=== PATIENT | female | born 1995 | race Hispanic/Latino ===

== ENCOUNTER 2017-11-07 08:35 | Emergency (ER) | payer OTHER, SELFPAY ==
[2017-11-07] MEDS ORDERED: NA CHLORIDE 0.9% 1,000 ML ONE ×2 (09:28→11:59)
[2017-11-07 09:42] LABS: Absolute Lymphocytes (CBC) 3.4 K/uL (0.7-4.9); Absolute Monocytes 0.6 K/uL (0.1-1.3); Absolute Neutrophil 8.7 K/uL (1.8-8.0); Basophils % 0.5 % (0-1.3); Eosinophils % 3.2 % (0-4.4); Hematocrit 39.9 % (36.0-45.0); Lymphocytes % 25.7 % (15.3-44.8); MCH 31.2 pg (27.0-35.0); MCV 91.2 fL (80-100); MPV 10.3 fL (7.6-11.3); Monocytes % 4.9 % (3.3-12.3); RBC Red Blood Cell Count 4.37 M/uL (3.86-4.86)
[2017-11-07] MEDS ORDERED: MORPHINE 4 MG/ML SYR ONE (09:59)
[2017-11-07] MEDS ORDERED: ONDANSETRON 4 MG/2 ML VIAL ONE (09:59)
[2017-11-07 10:04] LABS: Bicarbonate 22 mEq/L (21-31); Glucose Level 122 mg/dL (65-120); Potassium 3.5 mEq/L (3.6-5.0); Sodium Level 138 mEq/L (135-145)
[2017-11-07 10:05] LABS: BUN Blood Urea Nitrogen 14 mg/dL (6-20)
[2017-11-07 10:17] LABS: HCG, Quantitative < 5.0 mIU/mL (<5)
[2017-11-07] MEDS ORDERED: KETOROLAC 30 MG/ML INJ ONE ×2 (10:28→11:59)
--- NOTE | 2017-11-07 10:55 | RAD REPORT ---
EXAM DESCRIPTION: US - Transvaginal Study Probe - 11/07/2017 10:08 am CLINICAL HISTORY: Pelvic pain. COMPARISON: None. FINDINGS: The uterus is normal in size, shape and echotexture. The uterus measures 8.2 x 4.1 x 3.7 c m The endometrium contains an IUD in the fundal endometrium. The left ovary measures 2.9 x 2.7 x 2.4 cm. There is a moderate-sized complex collection in the right adnexal region. This may represent hemorrha gic material. IMPRESSION: IUD is present in the fundal endometrium. Complex collection is present in the right adnexal region which may be related to hemorrhagic materia l. Given that the patient's HCG levels are very low, CT of the abdomen / pelvis would be recommended for further assessment.
[2017-11-07] MEDS ORDERED: NS KCL 20MEQ 1,000 ML IV ONE (12:10)
--- NOTE | 2017-11-07 12:43 | ER ---
Nurse's Notes [facility] Name: Renetta Ellison Age: 22 yrs Sex: Female : 1995 Arrival Date: 11/07/2017 Time: 08:37 Bed 8 Private MD: Diagnosis: Abdominal tenderness;Hemoperitoneum-mild to moderate secondary to ruptured ovarian cyst;Other ovarian cysts Presentation: 11/07 09:06 Presenting complaint: Patient states: has had low abd pain after having intercourse iw this morning around 0500, pain described as cramping, denies vaginal bleeding, also had diarrhea and nausea, no urinary symptoms, uses Mirena control. Transition of care: patient was not received from another setting of care. Onset of symptoms was November 07, 2017. Initial Sepsis Screen: Does the patient meet any 2 criteria? No. Patient's initial sepsis screen is negative. Does the patient have a suspected source of infection? No. Patient's initial sepsis screen is negative. Care prior to arrival: None. 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 - Social history:: Smoking status: Patient/guardian denies using tobacco. - Family history:: not pertinent. Screenin:16 Abuse screen: Denies threats or abuse. Nutritional screening: No deficits noted. tw2 Tuberculosis screening: No symptoms or risk factors identified. Fall Risk None identified. Assessment: 09:20 General: Appears uncomfortable, Behavior is calm, cooperative, appropriate for age. tw2 Pain: Complains of pain in pelvis. Neuro: Level of Consciousness is awake, alert, obeys commands, Oriented to person, place, time, situation. Cardiovascular: Denies chest pain, shortness of breath, Heart tones S1 S2 Capillary refill < 3 seconds Patient's skin is warm and dry. Respiratory: Airway is patent Respiratory effort is even, unlabored, Respiratory pattern is regular, symmetrical, Breath sounds are clear bilaterally. GI: Abdomen is flat, Bowel sounds present X 4 quads. Abd is soft X 4 quads. : Reports pain. EENT: No signs and/or symptoms were reported regarding the EENT system. Derm: Skin is intact, is healthy with good turgor, Skin temperature is warm. Musculoskeletal: Range of motion: intact in all extremities. 10:14 Reassessment: No changes from previously documented assessment. Patient and/or family tw2 updated on plan of care and expected duration. Pain level reassessed. Patient is alert, oriented x 3, equal unlabored respirations, skin warm/dry/pink. 11:15 Reassessment: Patient and/or family updated on plan of care and expected duration. Pain tw2 level reassessed. Patient is alert, oriented x 3, equal unlabored respirations, skin warm/dry/pink. 12:03 Reassessment: Patient and/or family updated on plan of care and expected duration. Pain tw2 level reassessed. Patient is alert, oriented x 3, equal unlabored respirations, skin warm/dry/pink. Patient states feeling better. 13:00 Reassessment: No changes from previously documented assessment. Patient and/or family tw2 updated on plan of care and expected duration. Pain level reassessed. Patient is alert, oriented x 3, equal unlabored respirations, skin warm/dry/pink. Patient states feeling better. 13:42 Reassessment: Patient appears in no apparent distress at this time. No changes from tw2 previously documented assessment. Patient states feeling better. Patient states symptoms have improved. Vital Signs: 09:09 BP 140 / 83; Pulse 87; Resp 18 S; Temp 97.5; Pulse Ox 99% on R/A; Weight 68.04 kg; iw Height 5 ft. (152.40 cm); Pain 10/10; 10:14 BP 115 / 80; Pulse 78; Resp 18; Pulse Ox 98% on R/A; tw2 11:51 BP 119 / 64; Pulse 86; Resp 18; Pulse Ox 100% ; sv 12:02 Pain 6/10; tw2 12:51 BP 119 / 64; Pulse 72; Resp 17; Pulse Ox 100% on R/A; tw2 13:42 BP 118 / 54; Pulse 72; Resp 17; Pulse Ox 98% on R/A; tw2 09:09 Body Mass Index 29.29 (68.04 kg, 152.40 cm) iw ED Course: 08:37 Patient arrived in ED. rg4 09:08 Triage completed. iw 09:09 Theresa Hobbs, RN is Primary Nurse. tw2 09:09 Arm band placed on. iw 09:15 Carter Montero MD is Attending Physician. benitez 09:18 Inserted saline lock: 20 gauge in right antecubital area, using aseptic technique. tw2 ,using aseptic technique. per Christal Castillo Blood collected. 09:20 Bed in low position. Call light in reach. Pulse ox on. NIBP on. tw2 10:08 US Transvaginal Study (Probe) In Process Unspecified. EDMS 12:03 No provider procedures requiring assistance completed. tw2 12:35 CT Abd/Pelvis - W/Contrast In Process Unspecified. EDMS 12:42 Geo Tsang MD is Referral Physician. [facility] 12:43 Referral Physician role handed off by Geo Tsang MD [facility] 12:43 Geo Tsang MD is Referral Physician. [facility] 13:07 Awaiting lab results, Awaiting: PRIOR TO DISCHARGE. tw2 13:08 CBC with Diff Sent. tw2 13:42 IV discontinued, intact, bleeding controlled, No redness/swelling at site. Pressure tw2 dressing applied. Administered Medications: 10:00 Drug: Zofran 4 mg Route: IVP; Site: right antecubital; tw2 10:30 Follow up: Response: No adverse reaction tw2 10:03 Drug: morphine 4 mg Route: IVP; Site: right antecubital; tw2 10:30 Follow up: Response: No adverse reaction; Pain is unchanged, physician notified tw2 10:05 Drug: NS 0.9% 1000 ml Route: IV; Rate: 1 bolus; Site: right antecubital; tw2 12:02 Follow up: Response: No adverse reaction; IV Status: Completed infusion; IV Intake: tw2 1000ml 10:30 Drug: TORadol 30 mg Route: IVP; Site: right antecubital; tw2 12:02 Follow up: Pain 6/10 Adult; Response: No adverse reaction; Pain is decreased tw2 11:59 Drug: TORadol 30 mg Route: IVP; Site: right antecubital; tw2 13:08 Follow up: Response: No adverse reaction; Pain is decreased tw2 12:02 Drug: NS 0.9% 1000 ml Route: IV; Rate: 1000 ml; Site: right antecubital; tw2 13:43 Follow up: Response: No adverse reaction; IV Status: Order to discontinue infusion; IV tw2 Intake: 300ml 12:13 Drug: NS 0.9% with KCl 20 mEq/L 1000 ml Route: IV; Rate: 125 ml/hr; Site: right tw2 antecubital; 13:43 Follow up: Response: No adverse reaction; IV Status: Order to discontinue infusion tw2 Intake: 12:02 IV: 1000ml; Total: 1000ml. tw2 13:43 IV: 300ml; Total: 1300ml. tw2 Outcome: 12:43 Discharge ordered by MD. marquis 13:42 Discharged to home ambulatory, with significant other. tw2 13:42 Condition: stable 13:42 Discharge instructions given to patient, significant other, Instructed on discharge instructions, follow up and referral plans. no drinking with medication, no driving heavy equipment, medication usage, Demonstrated understanding of instructions, follow-up care, medications, Prescriptions given X 3. 13:43 Patient left the ED. tw2 Signatures: Dispatcher [employer] Iona Smiley, RN Carter Galdamez MD MD cha Williams, Irene RN Theresa Rene RN RN tw2 Garcia, Rubi 4
--- NOTE | 2017-11-07 12:43 | EDPHYS ---
Physician Documentation [facility] Name: Renetta Ellison Age: 22 yrs Sex: Female : 1995 Arrival Date: 11/07/2017 Time: 08:37 Bed 8 Private MD: ED Physician Carter Montero HPI: 11/07 10:17 This 22 yrs old Female presents to ER via Wheelchair with complaints of benitez Abdominal Pain. 10:17 Onset: The symptoms/episode began/occurred just prior to arrival. Modifying factors: benitez The symptoms are alleviated by remaining still, the symptoms are aggravated by sexual intercourse. Associated signs and symptoms: The patient has no apparent associated signs or symptoms. Severity of symptoms: At their worst the symptoms were severe, in the emergency department the symptoms are unchanged. The patient is sexually active, reportedly has a single partner. The patient has not experienced similar symptoms in the past. 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 - Social history:: Smoking status: Patient/guardian denies using tobacco. - Family history:: not pertinent. ROS: 10:17 Constitutional: Negative for fever, chills, and weight loss, Eyes: Negative for injury, benitez pain, redness, and discharge, ENT: Negative for injury, pain, and discharge, Neck: Negative for injury, pain, and swelling, Cardiovascular: Negative for chest pain, palpitations, and edema, Respiratory: Negative for shortness of breath, cough, wheezing, and pleuritic chest pain, Back: Negative for injury and pain, : Negative for injury, bleeding, discharge, and swelling, MS/Extremity: Negative for injury and deformity, Skin: Negative for injury, rash, and discoloration, Neuro: Negative for headache, weakness, numbness, tingling, and seizure, Psych: Negative for depression, anxiety, suicide ideation, homicidal ideation, and hallucinations, Allergy/Immunology: Negative for hives, rash, and allergies, Endocrine: Negative for neck swelling, polydipsia, polyuria, polyphagia, and marked weight changes, Hematologic/Lymphatic: Negative for swollen nodes, abnormal bleeding, and unusual bruising. 10:17 Abdomen/GI: Positive for abdominal pain, abdominal cramps, of the suprapubic area, right lower quadrant and left lower quadrant. Exam: 10:17 Constitutional: This is a well developed, well nourished patient who is awake, alert, benitez and in no acute distress. Head/Face: Normocephalic, atraumatic. Eyes: Pupils equal round and reactive to light, extra-ocular motions intact. Lids and lashes normal. Conjunctiva and sclera are non-icteric and not injected. Cornea within normal limits. Periorbital areas with no swelling, redness, or edema. ENT: Nares patent. No nasal discharge, no septal abnormalities noted. Tympanic membranes are normal and external auditory canals are clear. Oropharynx with no redness, swelling, or masses, exudates, or evidence of obstruction, uvula midline. Mucous membranes moist. Neck: Trachea midline, no thyromegaly or masses palpated, and no cervical lymphadenopathy. Supple, full range of motion without nuchal rigidity, or vertebral point tenderness. No Meningismus. Chest/axilla: Normal chest wall appearance and motion. Nontender with no deformity. No lesions are appreciated. Cardiovascular: Regular rate and rhythm with a normal S1 and S2. No gallops, murmurs, or rubs. Normal PMI, no JVD. No pulse deficits. Respiratory: Lungs have equal breath sounds bilaterally, clear to auscultation and percussion. No rales, rhonchi or wheezes noted. No increased work of breathing, no retractions or nasal flaring. Back: No spinal tenderness. No costovertebral tenderness. Full range of motion. Female : Normal external genitalia. Skin: Warm, dry with normal turgor. Normal color with no rashes, no lesions, and no evidence of cellulitis. MS/ Extremity: Pulses equal, no cyanosis. Neurovascular intact. Full, normal range of motion. Neuro: Awake and alert, GCS 15, oriented to person, place, time, and situation. Cranial nerves II-XII grossly intact. Motor strength 5/5 in all extremities. Sensory grossly intact. Cerebellar exam normal. Normal gait. Psych: Awake, alert, with orientation to person, place and time. Behavior, mood, and affect are within normal limits. 10:17 Abdomen/GI: Inspection: abdomen appears normal, Bowel sounds: diminished, Palpation: moderate abdominal tenderness, in the right lower quadrant and left lower quadrant, Liver: no appreciated palpable abnormalities, Hernia: noted in the . Vital Signs: 09:09 BP 140 / 83; Pulse 87; Resp 18 S; Temp 97.5; Pulse Ox 99% on R/A; Weight 68.04 kg; iw Height 5 ft. (152.40 cm); Pain 10/10; 10:14 BP 115 / 80; Pulse 78; Resp 18; Pulse Ox 98% on R/A; tw2 11:51 BP 119 / 64; Pulse 86; Resp 18; Pulse Ox 100% ; sv 12:02 Pain 6/10; tw2 12:51 BP 119 / 64; Pulse 72; Resp 17; Pulse Ox 100% on R/A; tw2 13:42 BP 118 / 54; Pulse 72; Resp 17; Pulse Ox 98% on R/A; tw2 09:09 Body Mass Index 29.29 (68.04 kg, 152.40 cm) iw MDM: 09:14 Patient medically screened. [facility] 09:15 Patient medically screened. [facility] 10:20 Data reviewed: vital signs, nurses notes, lab test result(s), radiologic studies, benitez ultrasound. 11/07 09:18 Order name: Quantitative Hcg; Complete Time: 10:20 [facility] 11/07 09:18 Order name: Abo/rh Typing; Complete Time: 10:20 [facility] 11/07 09:18 Order name: Basic Metabolic Panel; Complete Time: 10:20 [facility] 11/07 09:18 Order name: CBC with Diff; Complete Time: 10:20 [facility] 11/07 12:36 Order name: CBC with Diff [facility] 11/07 13:10 Order name: Urine Dipstick--Ancillary (enter results) [facility] 11/07 09:18 Order name: US Transvaginal Study (Probe); Complete Time: 12:03 [facility] 11/07 10:58 Order name: CT Abd/Pelvis - W/Contrast [facility] 11/07 13:10 Order name: Urine --Ancillary (enter results) [facility] 11/07 13:17 Order name: CBC Smear Scan [facility] 11/07 09:18 Order name: IV Saline Lock; Complete Time: 09:31 [facility] 11/07 09:18 Order name: Labs collected and sent; Complete Time: 09:31 [facility] 11/07 09:18 Order name: NPO; Complete Time: [facility] Administered Medications: 10:00 Drug: Zofran 4 mg Route: IVP; Site: right antecubital; tw2 10:30 Follow up: Response: No adverse reaction tw2 10:03 Drug: morphine 4 mg Route: IVP; Site: right antecubital; tw2 10:30 Follow up: Response: No adverse reaction; Pain is unchanged, physician notified tw2 10:05 Drug: NS 0.9% 1000 ml Route: IV; Rate: 1 bolus; Site: right antecubital; tw2 12:02 Follow up: Response: No adverse reaction; IV Status: Completed infusion; IV Intake: tw2 1000ml 10:30 Drug: TORadol 30 mg Route: IVP; Site: right antecubital; tw2 12:02 Follow up: Pain 6/10 Adult; Response: No adverse reaction; Pain is decreased tw2 11:59 Drug: TORadol 30 mg Route: IVP; Site: right antecubital; tw2 13:08 Follow up: Response: No adverse reaction; Pain is decreased tw2 12:02 Drug: NS 0.9% 1000 ml Route: IV; Rate: 1000 ml; Site: right antecubital; tw2 13:43 Follow up: Response: No adverse reaction; IV Status: Order to discontinue infusion; IV tw2 Intake: 300ml 12:13 Drug: NS 0.9% with KCl 20 mEq/L 1000 ml Route: IV; Rate: 125 ml/hr; Site: right tw2 antecubital; 13:43 Follow up: Response: No adverse reaction; IV Status: Order to discontinue infusion tw2 Disposition: 11/07/17 12:43 Discharged to Home. Impression: Abdominal tenderness, Hemoperitoneum - mild to moderate secondary to ruptured ovarian cyst, Other ovarian cysts. - Condition is Stable. - Discharge Instructions: Abdominal Pain, Adult, Ovarian Cyst, Abdominal Pain, Adult, [id number], Ovarian Cyst, Veni-ia-Dydz. - Prescriptions for Bentyl 20 mg Oral Tablet - take 1 tablet by ORAL route every 6 hours As needed; 20 tablet. Ibuprofen 600 mg Oral Tablet - take 1 tablet by ORAL route every 8 hours As needed take with food; 21 tablet. Zofran 4 mg Oral Tablet - take 1 tablet by ORAL route every 12 hours As needed; 12 tablet. - Medication Reconciliation Form, Thank You Letter, Antibiotic Education, Prescription Opioid Use form. - Follow up: Geo Tsang MD; When: 2 - 3 days; Reason: Recheck today's complaints, Re-evaluation by your physician. Follow up: Geo Tsang MD; When: Tomorrow; Reason: Recheck today's complaints, Continuance of care, Re-evaluation by your physician. - Problem is new. - Symptoms have improved. Signatures: Dispatcher [employer] EDCarter Araya MD MD cha Williams, Irene, RN RN iw Theresa Hobbs RN RN tw2 Corrections: (The following items were deleted from the chart) 12:43 12:43 11/07/2017 12:43 Discharged to Home. Impression: Abdominal tenderness; benitez Hemoperitoneum - mild to moderate secondary to ruptured ovarian cyst; Other ovarian cysts. Condition is Stable. Forms are Medication Reconciliation Form, Thank You Letter, Antibiotic Education, Prescription Opioid Use. Follow up: Geo Tsang; When: 2 - 3 days; Reason: Recheck today's complaints, Re-evaluation by your physician. Problem is new. Symptoms have improved. benitez 13:43 12:43 11/07/2017 12:43 Discharged to Home. Impression: Abdominal tenderness; tw2 Hemoperitoneum - mild to moderate secondary to ruptured ovarian cyst; Other ovarian cysts. Condition is Stable. Forms are Medication Reconciliation Form, Thank You Letter, Antibiotic Education, Prescription Opioid Use. Follow up: Geo Tsang; When: Tomorrow; Reason: Recheck today's complaints, Continuance of care, Re-evaluation by your physician. Problem is new. Symptoms have improved. benitez
--- NOTE | 2017-11-07 12:45 | RAD REPORT ---
EXAM DESCRIPTION: CTAbdomen Pelvis W Contrast - 11/07/2017 12:35 pm CLINICAL HISTORY: Abdominal pain. COMPARISON: Ultrasound 11/07/2017. CT 07/27/2015, 08/26/2013 TECHNIQUE: Biphasic CT imaging of the abdomen and pelvis was performed with 100 ml non-ionic IV cont rast. All CT scans are performed using dose optimization technique as appropriate and may include automated exposure control or mA/KV adjustment according to patient size. FINDINGS: The lung bases are clear. The liver, spleen, pancreas, adrenal glands and kidneys are within normal limits. Mild free fluid is seen in the abdomen. Moderate high density fluid and amorphous high density materi al is seen in the pelvis surrounding the uterus. This likely is related to blood product. The appendi x is normal. No evidence of significant lymphadenopathy. No suspicious bony findings. IUD is in place within the endometrial canal. IMPRESSION: Moderate amount of blood product is seen in the pelvis and small volume of fluid extends superiorly into the abdomen surrounding the liver and spleen. This is suspected to be secondary to h emorrhagic cyst or endometrioma rupture. Findings were discussed with Dr. Montero in the ER 12:40 p.m. 11/07/2017 by telephone.
[2017-11-07 13:12] LABS: Urine Blood NEGATIVE (NEG); Urine Glucose NEGATIVE (NEG); Urine Protein NEGATIVE (NEG)
[2017-11-07 13:15] LABS: Absolute Lymphocytes (CBC) 1.2 K/uL (0.7-4.9); Absolute Monocytes 0.4 K/uL (0.1-1.3); Absolute Neutrophil 10.5 K/uL (1.8-8.0); Basophils % 0.2 % (0-1.3); Eosinophils % 0.2 % (0-4.4); Hematocrit 33.2 % (36.0-45.0); Lymphocytes % 9.6 % (15.3-44.8); MCV 92.2 fL (80-100); Monocytes % 3.5 % (3.3-12.3)
[2017-11-07 13:56] VITALS: TEMP 97.5
[2017-11-07 14:01] VITALS: BP 118/54; O2SAT 98
[2017-11-07 15:09] LABS: Blood Morphology Comment NOT SEEN (NOT SEEN); Platelet Estimate DECR; Urine White Blood Cell Casts OK
== END 2017-11-07 13:43 | disposition home or self-care (01) ==
LOC: ER 08:35
DX: N83.299 Other ovarian cyst, unspecified side (principal); K66.1 Hemoperitoneum
CPT/HCPCS: 36415; 74177; 76830; 80048; 81003; 81025; 84702; 85025; 86900; 86901; 96361; 96374; 96375; 99284; J2405; J7030; Q9967

== ENCOUNTER 2017-11-09 05:06 | Emergency (ER) | payer OTHER, SELFPAY ==
[2017-11-09 06:02] LABS: Absolute Lymphocytes (CBC) 2.1 K/uL (0.7-4.9); Absolute Monocytes 0.7 K/uL (0.1-1.3); Absolute Neutrophil 6.7 K/uL (1.8-8.0); Basophils % 0.4 % (0-1.3); Eosinophils % 2.3 % (0-4.4); Hematocrit 32.2 % (36.0-45.0); Lymphocytes % 21.4 % (15.3-44.8); MCH 30.9 pg (27.0-35.0); MCV 92.8 fL (80-100); MPV 9.9 fL (7.6-11.3); Monocytes % 7.2 % (3.3-12.3); RBC Red Blood Cell Count 3.47 M/uL (3.86-4.86)
[2017-11-09 06:03] LABS: BUN Blood Urea Nitrogen 9 mg/dL (6-20); Bicarbonate 26 mEq/L (21-31); Glucose Level 110 mg/dL (65-120); Potassium 3.5 mEq/L (3.6-5.0); Sodium Level 139 mEq/L (135-145)
--- NOTE | 2017-11-09 06:41 | ER ---
Nurse's Notes [facility] Name: Renetta Ellison Age: 22 yrs Sex: Female : 1995 Arrival Date: 11/09/2017 Time: 05:09 Bed 5 Private MD: Diagnosis: Unspecified ovarian cysts;Ruptured ovarian cyst;Swelling of right ovary Presentation: 11/09 05:40 Presenting complaint: Patient states: PELVIC PAIN. Transition of care: patient was not bp received from another setting of care. Onset of symptoms is unknown. Initial Sepsis Screen: Does the patient meet any 2 criteria? No. Patient's initial sepsis screen is negative. Does the patient have a suspected source of infection? No. Patient's initial sepsis screen is negative. Care prior to arrival: None. 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 - Social history:: Smoking status: Patient uses tobacco products, denies chronic smoking, but will smoke occasionally. - Family history:: not pertinent. - Hospitalizations: : No recent hospitalization is reported. Screenin:52 Abuse screen: Denies threats or abuse. Denies injuries from another. Nutritional bp screening: No deficits noted. Tuberculosis screening: No symptoms or risk factors identified. Fall Risk None identified. Assessment: 05:45 General: Appears in no apparent distress. comfortable, Behavior is calm, cooperative, bp appropriate for age. Pain: Complains of pain in pelvis. Neuro: Level of Consciousness is awake, alert, obeys commands, Oriented to person, place, time, situation, Appropriate for age. Cardiovascular: No deficits noted. Respiratory: Airway is patent Respiratory effort is even, unlabored, Respiratory pattern is regular, symmetrical. GI: No signs and/or symptoms were reported involving the gastrointestinal system. : Reports pain in suprapubic area. EENT: No deficits noted. Derm: No deficits noted. Musculoskeletal: Circulation, motion, and sensation intact. Range of motion: intact in all extremities. 06:14 Reassessment: RETURNED FROM [employer]. 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 bp 06:30 Reassessment: DR RESTREPO AT B/S FOR C/S. bp 06:56 Reassessment: PT D/C HOME AMBULATORY, DX WITH RUPTURED OVARIAN CYST. bp Vital Signs: 06:13 BP 129 / 76; Pulse 81; Resp 16; Temp 98; Pulse Ox 100% ; Weight 68.04 kg; bp ED Course: 05:09 Patient arrived in ED. rn 05:09 Steven Gee MD is Attending Physician. rn 05:41 Inserted saline lock: 20 gauge in left antecubital area, using aseptic technique. Blood bp collected. 05:51 Josh Mccracken, RN is Primary Nurse. bp 05:52 Patient has correct armband on for positive identification. Bed in low position. Call bp light in reach. Side rails up X2. Adult w/ patient. 06:00 Triage completed. bp 06:12 Transvaginal Study Probe In Process Unspecified. EDMS 06:13 Ultrasound completed. Patient tolerated well. cy 06:13 Notified ED Physician prelim given. cy 06:40 Rose Mary Restrepo MD is Referral Physician. rn 06:57 No provider procedures requiring assistance completed. IV discontinued, intact, bp bleeding controlled, No redness/swelling at site. Pressure dressing applied. 06:59 Arm band placed on. bp Administered Medications: No medications were administered Outcome: 06:41 Discharge ordered by . rn 06:58 Discharged to home ambulatory, with family. bp 06:58 Condition: stable 06:58 Discharge instructions given to patient, Instructed on discharge instructions, follow up and referral plans. Demonstrated understanding of instructions, follow-up care. 07:00 Patient left the ED. bp Signatures: Dispatcher [employer] EDMS Steven Gee MD MD rn Peltier, Brian, RN RN bp Janel Sandoval cy
--- NOTE | 2017-11-09 06:41 | EDPHYS ---
Physician Documentation [facility] Name: Renetta Ellison Age: 22 yrs Sex: Female : 1995 Arrival Date: 11/09/2017 Time: 05:09 Bed 5 Private MD: ED Physician Steven Gee HPI: 11/09 05:44 This 22 yrs old Female presents to ER via Unassigned with complaints of RLQ rn pain. 05:44 The patient presents with abdominal pain right lower quadrant. Onset: The rn symptoms/episode began/occurred 2 day(s) ago. The symptoms do not radiate. Associated signs and symptoms: Pertinent negatives: anorexia, blood in stools, chest pain, constipation, diarrhea, dysuria, fever, headache, hematuria, nausea, palpitations, shortness of breath, vaginal discharge, vomiting, vomiting blood. The symptoms are described as intermittent, sharp, stabbing. Modifying factors: The symptoms are alleviated by nothing, the symptoms are aggravated by movement, touching the area. Severity of pain: At its worst the pain was moderate in the emergency department the pain has improved. The patient has not experienced similar symptoms in the past. The patient has been recently seen by a physician:. Reports right pelvic pain for 2 days, intermittent, was worse at onset, seen here, CT and u/s showed hemorrhagic cyst, pain got worse, seen at [facility] yesterday (6 hours ago), ultrasound of pelvis ordered, results show normal bilateral blood flow but enlarged ovary on right side thus they could not exclude torsion. She was called back to their ER, but when arrived, told by ER Dr. 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 Tsang. Directed here with U/S results in hand. Patient reports no lower abd pain/tenderness, pain more upper abd now. Pain not anywhere near what was the day before. . 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 - Social history:: Smoking status: Patient uses tobacco products, denies chronic smoking, but will smoke occasionally. - Family history:: not pertinent. - Hospitalizations: : No recent hospitalization is reported. ROS: 05:44 Constitutional: Negative for fever, chills, and weight loss, Eyes: Negative for injury, rn pain, redness, and discharge, Neck: Negative for injury, pain, and swelling, Cardiovascular: Negative for chest pain, palpitations, and edema, Respiratory: Negative for shortness of breath, cough, wheezing, and pleuritic chest pain, Abdomen/GI: Negative for nausea, vomiting, diarrhea, and constipation, Back: Negative for injury and pain, : Negative for injury, bleeding, discharge, and swelling, MS/Extremity: Negative for injury and deformity, Skin: Negative for injury, rash, and discoloration, Neuro: Negative for headache, weakness, numbness, tingling, and seizure. Exam: 05:44 Constitutional: This is a well developed, well nourished patient who is awake, alert, rn and in no acute distress. Walked to room upright and without difficulty Abdomen/GI: soft, mild right lower and suprapubic abd tenderness, no peritoneal signs Back: No spinal tenderness. No costovertebral tenderness. Full range of motion. MS/ Extremity: Pulses equal, no cyanosis. Neurovascular intact. Full, normal range of motion. Equal circumference. Neuro: Awake and alert, GCS 15, oriented to person, place, time, and situation. Cranial nerves II-XII grossly intact. Motor strength 5/5 in all extremities. Sensory grossly intact. Cerebellar exam normal. Normal gait. Vital Signs: 06:13 BP 129 / 76; Pulse 81; Resp 16; Temp 98; Pulse Ox 100% ; Weight 68.04 kg; bp MDM: 05:09 Patient medically screened. rn 06:00 ED course: Contacted Dr. Tsang, is coming in to eval patient. In meantime, patient has rn walked out of ER to smoke. Now in ultrasound. . 06:13 ED course: U/S shows enlarged right ovary with good bilateral ovarian venous and rn arterial blood flow.. 06:39 Differential diagnosis: Ovarian Torsion, ovarian cyst, ruptured ovarian cyst. Data rn reviewed: vital signs, nurses notes, lab test result(s), radiologic studies, ultrasound, and as a result, I will discharge patient. Counseling: I had a detailed discussion with the patient and/or guardian regarding: the historical points, exam findings, and any diagnostic results supporting the discharge/admit diagnosis, lab results, radiology results, the need for outpatient follow up, to return to the emergency department if symptoms worsen or persist or if there are any questions or concerns that arise at home. Special discussion: Based on the patient's Hx, exam, and Dx evaluation, there is no indication for emergent surgery or inpatient Tx. It is understood by the patient/guardian that if the Sx's persist or worsen they need to return immediately for re-evaluation. I discussed with the patient/guardian in detail that at this point there is no indication for admission to the hospital. It is understood, however, that if the symptoms persist or worsen the patient needs to return immediately for re-evaluation. Based on the history and exam findings, there is no indication for further emergent testing or inpatient evaluation. I discussed with the patient/guardian the need to see the OB Gyne specialist for further evaluation of the symptoms. ED course: Pt evaluated by Dr. Tsang in ER, his plan is to dc home with f/u with Dr. Restrepo, for enlarged ovary and cysts. . 11/09 05:18 Order name: CBC with Diff; Complete Time: 06:33 rn 11/09 05:18 Order name: Basic Metabolic Panel; Complete Time: 06:05 rn 11/09 05:18 Order name: IV Start; Complete Time: 06:04 rn 11/09 05:50 Order name: Transvaginal Study Probe EDNJ Administered Medications: No medications were administered Disposition: 11/09/17 06:41 Discharged to Home. Impression: Unspecified ovarian cysts, Ruptured ovarian cyst, Swelling of right ovary. - Condition is Stable. - Discharge Instructions: Ovarian Cyst. - Medication Reconciliation Form, Thank You Letter, Antibiotic Education, Prescription Opioid Use form. - Follow up: Rose Mary Restrepo MD; When: 2 - 3 days; Reason: Recheck today's complaints, Re-evaluation by your physician. - Problem is an ongoing problem. - Symptoms have improved. Signatures: Dispatcher [employer] [facility] Steven Gee MD MD rn Peltier, Brian, RN RN bp Corrections: (The following items were deleted from the chart) 05:50 05:19 Pelvis Complete+US.RAD.BRZ ordered. [facility] 07:00 06:41 11/09/2017 06:41 Discharged to Home. Impression: Unspecified ovarian cysts; bp Ruptured ovarian cyst; Swelling of right ovary. Condition is Stable. Forms are Medication Reconciliation Form, Thank You Letter, Antibiotic Education, Prescription Opioid Use. Follow up: Rose Mary Restrepo; When: 2 - 3 days; Reason: Recheck today's complaints, Re-evaluation by your physician. Problem is an ongoing problem. Symptoms have improved. rn
[2017-11-09 07:13] VITALS: BP 129/76; TEMP 98; O2SAT 100
--- NOTE | 2017-11-09 10:23 | RAD REPORT ---
EXAM DESCRIPTION: US - Transvaginal Study Probe - 11/09/2017 6:13 am CLINICAL HISTORY: Abdominal pain, pelvic pain, abnormal ultrasound preliminary findings were provide d at the time of the study. Technical issues delayed final report. COMPARISON: Endovaginal ultrasound November 07, CT study November 07 TECHNIQUE: Endovaginal sonography was performed. FINDINGS: IUD is again identified with no change in positioning. No new uterine abnormality identifi able. Doppler evaluation demonstrates blood flow within the ovarian stroma. Ovarian torsion is not benton spected. Approximately 3.5 centimeter oval heterogeneous mass of the right ovary is seen suspected to be a hemorrhagic cyst. The heterogeneous material in the cul-de-sac and adnexa believed be a mixture of blood and fluid. Pat ient likely has a hemorrhagic right ovarian cyst. Quantity of hemorrhagic material is not significant ly different. IMPRESSION: Blood and fluid in the cul-de-sac and bilateral adnexa not substantially different from November 07 imaging. Blood flow is identifiable in the bilateral ovarian stroma. Torsion is not suspected. Heterogeneous right ovarian mass believed to be a hemorrhagic ovarian cyst approximately 3.5 cm in si ze.
--- NOTE | 2017-11-10 11:53 | CON ---
Renetta Ellison is a 22-year-old female, seen in the emergency room approximately 3 days ago, diagnos ed with a hemorrhagic corpus luteum cyst. Pain is persisted over the last few days, although now the patient states she is really not in any pain in lower pelvis, having vague upper abdominal discomfor t and lightheadedness, or slight dizziness and , but no signs of appendicitis. Went to the [facility] and again corpus luteum hemorrhagic cyst the patient's pelvis per sisted. They suggested possibly a torsion, but the patient has really not in any pain, so I doubt th at significantly. The patient has had another ultrasound here, which showed good blood flow to both ovaries and her discomfort as stated is really more epigastric than anything else. She can _ without problems. There is no pain with palpation. She is completely alert and can move around __ to smoke a cigarette. After discussion with the patient and her , we have decided to put her on Nexium twice a day and to have her come to my office on Monday for further followup. If this persists, we will probably send her to person right now, though I do not think that t he corpus luteum cyst is causing her problem nor do I think that she has a torsion whatsoever. The p atient agrees with this management and plan and I will see her in the office on Monday. ZAHEER/JOSHUA Voice ID: [id number] Report ID: [id number]
== END 2017-11-09 07:00 | disposition home or self-care (01) ==
LOC: ER 05:06
DX: N83.201 Unspecified ovarian cyst, right side (principal)
CPT/HCPCS: 36415; 76830; 80048; 85025; 99283

== ENCOUNTER 2017-12-01 03:20 | Emergency (ER) | payer OTHER, SELFPAY ==
[2017-12-01 04:42] LABS: Absolute Lymphocytes (CBC) 2.7 K/uL (0.7-4.9); Absolute Monocytes 0.6 K/uL (0.1-1.3); Absolute Neutrophil 4.4 K/uL (1.8-8.0); Basophils % 0.6 % (0-1.3); Eosinophils % 4.8 % (0-4.4); Lymphocytes % 32.8 % (15.3-44.8); MCH 31.3 pg (27.0-35.0); MCV 92.5 fL (80-100); MPV 10.3 fL (7.6-11.3); Monocytes % 7.5 % (3.3-12.3)
[2017-12-01 04:54] LABS: Bicarbonate 23 mEq/L (21-31); Glucose Level 102 mg/dL (65-120); Lipase 25 U/L (22-51); Potassium 3.5 mEq/L (3.6-5.0); Sodium Level 137 mEq/L (135-145)
[2017-12-01 05:00] LABS: ALT/SGPT 32 IU/L (10-60); AST/SGOT 26 IU/L (10-42); Albumin 3.9 g/dL (3.2-5.5); Alkaline Phosphatase 63 IU/L (42-121); Amylase Level 104 U/L (28-100); BUN Blood Urea Nitrogen 19 mg/dL (6-20); Bilirubin Direct < 0.1 mg/dL (0-0.2); Bilirubin Total 0.4 mg/dL (0.3-1.2)
[2017-12-01 05:43] LABS: Urine Blood TRACE (NEG); Urine Glucose NEGATIVE (NEG); Urine Protein NEGATIVE (NEG); Urine pH 8.5 (5.0-7.0)
[2017-12-01 05:43] LABS: Urine Amorphous Sediment 1+ /HPF (NONE SEEN); Urine Bacteria <20 /HPF (<20); Urine Culture Reflex Order NOT NEEDED; Urine RBC <5 /HPF (NONE SEEN)
--- NOTE | 2017-12-01 09:00 | RAD REPORT ---
EXAM DESCRIPTION: CT - Abdomen Pelvis W Contrast - 12/01/2017 7:38 am CLINICAL HISTORY: Right lower quadrant pain radiating to the mid abdomen, recent diagnosis of ruptur ed or leaking ovarian cyst A preliminary written report was provided at the time of the study, and the report was reviewed prio r to final dictation. COMPARISON: CT study November 07, pelvic ultrasound November 09 TECHNIQUE: Biphasic, helical CT imaging of the abdomen and pelvis was performed following 100 ml non -ionic IV contrast. Oral contrast was given. All CT scans are performed using dose optimization technique as appropriate and may include automated exposure control or mA/KV adjustment according to patient size. FINDINGS: No suspicious findings in the lung bases. The liver, spleen, and pancreas show no suspicious findings. Gallbladder and biliary tree are also wi thout suspicious finding. Symmetric renal function is seen with no hydronephrosis or suspicious renal mass. No pyelonephritis o r acute renal parenchymal process. Urinary bladder is mostly contracted. No acute bladder finding. No uterine abnormality. IUD is in place, well positioned. Left ovary is unremarkable. In the right adnexa there is a 5.1 centimeter complex cyst. The blood and fluid seen in the peritonea l cavity November 07 has essentially fully resolved. There is a trace amount of stranding present in the ri ght adnexa and inferior aspect of the right pericolic gutter. Moderately large stool volume is present. A few small mesenteric lymph nodes are seen. No appendiciti s or other emergent GI finding. Appendix is not well visualized. No free air or pneumatosis. No neptali ia, mass or bulky lymphadenopathy. No adrenal abnormality. No suspicious bony findings. IMPRESSION: Approximately 5.1 centimeter recurrent or persistent complex right ovarian cyst. Trace amount of stranding in the right adnexa and right pericolic gutter is likely remnant from the hemorrh agic cystic process seen November 07. No significant acute or rupture or leakage identifiable. Small mesenteric lymph nodes are present. Moderate stool volume in the colon. A primary acute GI proc ess is not suspected.
--- NOTE | 2017-12-01 09:10 | RAD REPORT ---
EXAM DESCRIPTION: US - Transvaginal Study Probe - 12/01/2017 7:56 am CLINICAL HISTORY: Right-sided abdominal pain, pelvic pain, history of adnexal mass and recent hemorr hagic ovarian cyst COMPARISON: CT study December 01, November 09 pelvic ultrasound, November 07 CT abdomen and pelvis TECHNIQUE: Endovaginal sonography was performed. FINDINGS: Uterus is normal in size. IUD is well positioned in the fundal portion of the endometrial cavity. No focal endometrial or myometrial abnormality. Left ovary and left adnexa show no suspicious findings. In the right adnexa a 5 centimeter complex mass is present. This is approximately 50% fluid and 50% s oft tissue echogenicity. The soft tissue component could be contracted blood clot/hemorrhagic debris. This is likely reaccumulation within a ruptured or hemorrhagic cyst seen November 07. No measurable free fluid or blood in the cul-de-sac or right adnexa. Doppler evaluation shows normal blood flow in the ovarian tissue along the margin of the dominant cys tic mass. Blood flow is normal in the left ovary. IMPRESSION: The approximately 5 centimeter mixed solid and cystic mass in the right adnexa. Solid co mponent is likely blood clot or hemorrhagic debris. The adnexal mass is likely re- accumulation of fluid within a cyst that ruptured and bled back on November 07. Doppler evaluation shows normal blood flow. Torsion is unlikely.
--- NOTE | 2017-12-01 09:19 | EDPHYS ---
Physician Documentation [facility] Name: Renetta Ellison Age: 22 yrs Sex: Female : 1995 Arrival Date: 12/01/2017 Time: 03:21 Bed 16 Private MD: ED Physician Harman Meyer HPI: 12/01 05:33 This 22 yrs old Female presents to ER via Ambulatory with complaints of Pelvic tw4 Pain. 05:33 The patient presents with abdominal pain right lower quadrant. Onset: The tw4 symptoms/episode began/occurred today. The symptoms do not radiate. Associated signs and symptoms: none. The symptoms are described as sharp. Modifying factors: The symptoms are alleviated by nothing, the symptoms are aggravated by nothing. Severity of pain: At its worst the pain was moderate in the emergency department the pain is unchanged. The patient has experienced a previous episode, and the symptoms today are exactly the same. The patient has been recently seen at the [facility] Emergency Department, for similar complaints an ultrasound was performed. 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 - Social history:: Smoking status: Patient/guardian denies using tobacco. - Ebola Screening: : No symptoms or risks identified at this time. ROS: 05:33 Constitutional: Negative for fever, chills, and weight loss, Cardiovascular: Negative tw4 for chest pain, palpitations, and edema, Respiratory: Negative for shortness of breath, cough, wheezing, and pleuritic chest pain, MS/Extremity: Negative for injury and deformity, Skin: Negative for injury, rash, and discoloration, Neuro: Negative for headache, weakness, numbness, tingling, and seizure. 05:33 Abdomen/GI: Positive for abdominal pain, Negative for nausea and vomiting, nausea, vomiting, and diarrhea, nausea, vomiting, diarrhea. Exam: 05:33 Constitutional: This is a well developed, well nourished patient who is awake, alert, tw4 and in no acute distress. Head/Face: Normocephalic, atraumatic. Chest/axilla: Normal chest wall appearance and motion. Nontender with no deformity. No lesions are appreciated. Cardiovascular: Regular rate and rhythm with a normal S1 and S2. No gallops, murmurs, or rubs. Normal PMI, no JVD. No pulse deficits. Respiratory: Lungs have equal breath sounds bilaterally, clear to auscultation and percussion. No rales, rhonchi or wheezes noted. No increased work of breathing, no retractions or nasal flaring. Back: No spinal tenderness. No costovertebral tenderness. Full range of motion. 05:33 Abdomen/GI: Inspection: abdomen appears normal, Bowel sounds: diminished. Vital Signs: 03:46 BP 110 / 63; Pulse 69; Resp 17; Temp 97.9; Pulse Ox 97% on R/A; Weight 68.04 kg; Height mw2 5 ft. 0 in. (152.40 cm); Pain 5/10; 04:48 BP 109 / 62; Pulse 72; Resp 16; Pulse Ox 97% on R/A; mw2 05:00 BP 116 / 76; Pulse 72; Resp 18; Pulse Ox 99% on R/A; ea 06:48 BP 127 / 76; Pulse 80; Resp 18; Pulse Ox 94% on R/A; mw2 07:20 BP 132 / 81; Pulse 75; Resp 16; Pulse Ox 97% on R/A; ae1 09:37 BP 122 / 83; Pulse 66; Resp 16; Pulse Ox 98% on R/A; ae1 03:46 Body Mass Index 29.29 (68.04 kg, 152.40 cm) 2 MDM: 03:38 Patient medically screened. [facility] 05:38 Data reviewed: vital signs, nurses notes. Counseling: I had a detailed discussion with [facility] the patient and/or guardian regarding: the historical points, exam findings, and any diagnostic results supporting the discharge/admit diagnosis. 09:13 Counseling: I had a detailed discussion with the patient and/or guardian regarding: lab gs results, radiology results, the need for outpatient follow up. Response to treatment: the patient's symptoms have markedly improved after treatment, and as a result, I will discharge patient. 12/01 04:05 Order name: Urine Dipstick--Ancillary (enter results); Complete Time: 07:09 [facility] 12/01 07:09 Interpretation: Normal except: UBLD TRACE; UPH 8.5. tw4 12/01 04:05 Order name: Urine --Ancillary (enter results); Complete Time: 07:09 [facility] 12/01 04:18 Order name: Amylase, Serum; Complete Time: 07:09 4 12/01 07:09 Interpretation: Normal except: JOSR 104. 4 12/01 04:18 Order name: Basic Metabolic Panel; Complete Time: 07:09 4 12/01 07:09 Interpretation: Normal except: K 3.5. tw4 12/01 04:18 Order name: CBC with Diff; Complete Time: 07:09 4 12/01 04:18 Order name: Creatinine for Radiology; Complete Time: 07:09 [facility] 12/01 07:09 Interpretation: Within normal limits: CRE 0.72; GFR > 60. tw4 12/01 04:18 Order name: Hepatic Function; Complete Time: 07:09 4 12/01 07:09 Interpretation: Within normal limits. tw4 12/01 04:18 Order name: Lipase; Complete Time: 07:09 [facility] 12/01 04:18 Order name: Urine Microscopic Only; Complete Time: 07:09 4 12/01 04:18 Order name: IV Saline Lock; Complete Time: 04:57 4 12/01 04:18 Order name: Labs collected and sent; Complete Time: 04:57 4 12/01 04:34 Order name: CT Abd/Pelvis - W/Contrast; Complete Time: 09:01 4 12/01 07:14 Order name: Transvaginal Study Probe; Complete Time: 09:13 [facility] 12/01 04:18 Order name: Urine Dipstick-Ancillary (obtain specimen); Complete Time: 04:57 tw4 Administered Medications: No medications were administered Disposition: 12/01/17 09:18 Discharged to Home. Impression: Unspecified ovarian cysts. - Condition is Stable. - Discharge Instructions: Ovarian Cyst. - Medication Reconciliation Form, Thank You Letter, Antibiotic Education, Prescription Opioid Use form. - Follow up: Private Physician; When: 2 - 3 days; Reason: Re-evaluation by your physician. Follow up: Merlene Minor MD; When: 2 - 3 days; Reason: Re-evaluation by your physician. Signatures: Dispatcher [employer] [facility]MS Andrea Dia, RN RN ae1 Ashley Starr, RN RN ea Carlin Álvarez MD MD Harman Meyer MD MD tw4 Corrections: (The following items were deleted from the chart) 07:14 07:09 Pelvis Complete+US.RAD.BRZ ordered. EDTX EDTX 09:18 09:18 12/01/2017 09:18 Discharged to Home. Impression: Unspecified ovarian cysts. gs Condition is Stable. Forms are Medication Reconciliation Form, Thank You Letter, Antibiotic Education, Prescription Opioid Use. Follow up: Private Physician; When: 2 - 3 days; Reason: Re-evaluation by your physician. 09:39 09:18 12/01/2017 09:18 Discharged to Home. Impression: Unspecified ovarian cysts. ae1 Condition is Stable. Forms are Medication Reconciliation Form, Thank You Letter, Antibiotic Education, Prescription Opioid Use. Follow up: Private Physician; When: 2 - 3 days; Reason: Re-evaluation by your physician. Follow up: Mini Rekhi; When: 2 - 3 days; Reason: Re-evaluation by your physician. gs
--- NOTE | 2017-12-01 09:19 | ER ---
Nurse's Notes [facility] Name: Renetta Ellison Age: 22 yrs Sex: Female : 1995 Arrival Date: 12/01/2017 Time: 03:21 Bed 16 Private MD: Diagnosis: Unspecified ovarian cysts Presentation: 12/01 03:41 Presenting complaint: Patient states: c/o of pain to right lower quadrant that radiates ea to mid abdomen that started 3 days ago. Reports she was diagnosed with an ovarian cyst 3 weeks ago and she followed up with Dr. Thomas, pt reports she was cleared and has not had the pain since until 3 days ago. Transition of care: patient was not received from another setting of care. Onset of symptoms was December 01, 2017. Risk Assessment: Do you want to hurt yourself or someone else? Patient reports no desire to harm self or others. Initial Sepsis Screen: Does the patient meet any 2 criteria? No. Patient's initial sepsis screen is negative. Does the patient have a suspected source of infection? No. Patient's initial sepsis screen is negative. Care prior to arrival: None. 03:41 Method Of Arrival: Ambulatory ea 03:41 Acuity: LETITIA 3 ea Triage Assessment: 03:41 General: Appears in no apparent distress. Behavior is calm, cooperative, appropriate ea for age. Pain: Complains of pain in right lower quadrant Pain radiates to posterior aspect of right lateral abdomen, posterior aspect of left lateral abdomen, right upper quadrant, left upper quadrant and left lower quadrant Pain currently is 4 out of 10 on a pain scale. Quality of pain is described as crampy, Pain began suddenly, Is intermittent. EENT: No signs and/or symptoms were reported regarding the EENT system. Neuro: Level of Consciousness is awake, alert, obeys commands, Oriented to person, place, time, situation. Cardiovascular: Patient's skin is warm and dry. Respiratory: Airway is patent Respiratory effort is even, unlabored, Respiratory pattern is regular, symmetrical. GI: Abdomen is non-distended, Bowel sounds present X 4 quads. Abd is soft X 4 quads Abdomen is tender to palpation in right lower quadrant and left lower quadrant. : No signs and/or symptoms were reported regarding the genitourinary system. Derm: Skin is pink, warm \T\ dry. Musculoskeletal: No signs and/or symptoms reported regarding the musculoskeletal system. 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 - Social history:: Smoking status: Patient/guardian denies using tobacco. - Ebola Screening: : No symptoms or risks identified at this time. Screenin:50 Abuse screen: Denies threats or abuse. Nutritional screening: No deficits noted. ea Tuberculosis screening: No symptoms or risk factors identified. Fall Risk None identified. Assessment: 04:50 Reassessment: Patient and/or family updated on plan of care and expected duration. Pain ea level reassessed. Patient is alert, oriented x 3, equal unlabored respirations, skin warm/dry/pink. 05:30 Reassessment: CT notified that physician did not want PO contrast and to go ahead and ea scan. 05:32 Reassessment: Patient and/or family updated on plan of care and expected duration. Pain ea level reassessed. Patient is alert, oriented x 3, equal unlabored respirations, skin warm/dry/pink. 05:46 Reassessment: Pt taken to CT. ea 06:53 Reassessment: Patient and/or family updated on plan of care and expected duration. Pain ea level reassessed. Patient is alert, oriented x 3, equal unlabored respirations, skin warm/dry/pink. Awaiting on CT results. 07:19 Reassessment: Patient appears in no apparent distress at this time. Patient states ae1 feeling better. Pain: Denies pain. 08:44 Reassessment: Patient awaiting ultrasound results. ae1 09:39 Reassessment: Provider at bedside discussing results. ae1 Vital Signs: 03:46 BP 110 / 63; Pulse 69; Resp 17; Temp 97.9; Pulse Ox 97% on R/A; Weight 68.04 kg; Height mw2 5 ft. 0 in. (152.40 cm); Pain 5/10; 04:48 BP 109 / 62; Pulse 72; Resp 16; Pulse Ox 97% on R/A; mw2 05:00 BP 116 / 76; Pulse 72; Resp 18; Pulse Ox 99% on R/A; ea 06:48 BP 127 / 76; Pulse 80; Resp 18; Pulse Ox 94% on R/A; mw2 07:20 BP 132 / 81; Pulse 75; Resp 16; Pulse Ox 97% on R/A; ae1 09:37 BP 122 / 83; Pulse 66; Resp 16; Pulse Ox 98% on R/A; ae1 03:46 Body Mass Index 29.29 (68.04 kg, 152.40 cm) mw2 ED Course: 03:21 Patient arrived in ED. am2 03:27 Ashley Starr, RN is Primary Nurse. ea 03:38 Harman Meyer MD is Attending Physician. tw4 03:41 Arm band placed on right wrist. Patient placed in an exam room, on a stretcher, on ea pulse oximetry. 03:47 Triage completed. ea 03:50 Patient has correct armband on for positive identification. Bed in low position. Call ea light in reach. Side rails up X2. 04:47 Inserted saline lock: 20 gauge in left antecubital area, using aseptic technique. Blood mw2 collected. 05:[address] via wheelchair. kw1 05:53 CT completed. Patient tolerated procedure well. Patient moved back from CT. kw1 05:57 CT Abd/Pelvis - W/Contrast In Process Unspecified. EDMS 07:38 Patient taken to ultrasound. aa4 07:51 Transvaginal Study Probe In Process Unspecified. EDMS 08:05 Ultrasound completed. Patient moved back from ultrasound. aa4 09:18 Merlene Minor MD is Referral Physician. gs 09:38 No provider procedures requiring assistance completed. IV discontinued, intact, ae1 bleeding controlled, No redness/swelling at site. Pressure dressing applied. Administered Medications: No medications were administered Outcome: 09:18 Discharge ordered by . gs 09:38 Discharged to home ambulatory. ae1 09:38 Condition: stable 09:38 Discharge instructions given to patient, Instructed on discharge instructions, follow up and referral plans. Demonstrated understanding of instructions. 09:39 Patient left the ED. ae1 Signatures: Dispatcher [employer] EDMS Karis Small aa4 Andrea Dia RN RN ae1 Karis Perkins am2 Ashley Starr RN RN ea Starr, Gregory, MD MD gs Sandra Mcgovern kw1 Harman Meyer MD MD tw4 TronaChana jin 2
[2017-12-01 09:48] VITALS: TEMP 97.9
[2017-12-01 09:53] VITALS: BP 122/83; O2SAT 98
== END 2017-12-01 09:39 | disposition home or self-care (01) ==
LOC: ER 03:20
DX: N83.209 Unspecified ovarian cyst, unspecified side (principal)
CPT/HCPCS: 36415; 74177; 76830; 80048; 80076; 81003; 81015; 81025; 82150; 83690; 85025; 99284; Q9967

== ENCOUNTER 2017-12-24 14:45 | Emergency (ER) | payer OTHER ==
[2017-12-24 16:44] LABS: Urine Blood NEGATIVE (NEG); Urine Glucose NEGATIVE (NEG); Urine Protein NEGATIVE (NEG); Urine Specific Gravity 1.015 (1.005-1.030)
--- NOTE | 2017-12-24 16:54 | ER ---
Nurse's Notes [facility] Name: Renetta Ellison Age: 22 yrs Sex: Female : 1995 Arrival Date: 12/24/2017 Time: 14:52 Bed 27 Private MD: Unknown, Unknown Diagnosis: Low back pain;Lower abdominal pain, unspecified Presentation: 12/24 15:22 Presenting complaint: Patient states: lower abd pain and lower back pain that began 2-3 aa5 days ago. Pt also reports urinary frequency, denies burning with urination. Transition of care: patient was not received from another setting of care. Onset of symptoms was December 2017. Risk Assessment: Do you want to hurt yourself or someone else? Patient reports no desire to harm self or others. Initial Sepsis Screen: Does the patient meet any 2 criteria? No. Patient's initial sepsis screen is negative. Does the patient have a suspected source of infection? No. Patient's initial sepsis screen is negative. Care prior to arrival: None. 15:22 Method Of Arrival: Ambulatory aa5 15:22 Acuity: LETITIA 3 aa5 Triage Assessment: 16:23 General: Appears in no apparent distress. well groomed, well developed, well nourished, rk2 Behavior is calm, cooperative, appropriate for age. Pain: Complains of pain in low back area and left lower quadrant and right lower quadrant. Neuro: Level of Consciousness is alert, obeys commands, Oriented to person, place, time, situation. Respiratory: Airway is patent Respiratory effort is even, unlabored, Respiratory pattern is regular, symmetrical. GI: Abdomen is Bowel sounds. Derm: Skin is pink, warm \T\ dry. 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 - Social history:: Smoking status: Patient/guardian denies using tobacco. - Ebola Screening: : No symptoms or risks identified at this time. Screenin:23 Abuse screen: Denies threats or abuse. Nutritional screening: No deficits noted. rk2 Tuberculosis screening: No symptoms or risk factors identified. Fall Risk None identified. Assessment: 16:00 GI: Abd is soft. rk2 Vital Signs: 15:23 BP 133 / 70; Pulse 81; Resp 16 S; Temp 97.3(TE); Pulse Ox 98% on R/A; Weight 70.31 kg aa5 (R); Height 5 ft. 0 in. (152.40 cm) (R); Pain 2/10; 15:23 Body Mass Index 30.27 (70.31 kg, 152.40 cm) aa5 ED Course: 14:52 Patient arrived in ED. jb7 14:52 Unknown, Unknown is Private Physician. jb7 15:23 Triage completed. aa5 15:23 Arm band placed on. aa5 15:56 Carter Liu PA is PHCP. cp 15:56 Carter Montero MD is Attending Physician. cp 15:58 Avis Ayala, RN is Primary Nurse. aa1 16:13 Xuan Camp, [place] is Primary Nurse. rk2 16:23 Patient has correct armband on for positive identification. Bed in low position. Call rk2 light in reach. 17:05 No provider procedures requiring assistance completed. Patient did not have IV access rk2 during this emergency room visit. Administered Medications: No medications were administered Outcome: 16:53 Discharge ordered by MD. cp 17:05 Discharged to home ambulatory. rk2 17:05 Condition: good 17:05 Discharge instructions given to patient, Prescriptions given X 1. 17:06 Patient left the ED. rk2 Signatures: Avis Ayala, RN RN aa1 Isabelle Vega RN RN aa5 Carter Liu PA PA Lucio Zayas jb7 Xuan Camp RN RN rk2
--- NOTE | 2017-12-24 16:54 | EDPHYS ---
Physician Documentation [facility] Name: Renetta Ellison Age: 22 yrs Sex: Female : 1995 Arrival Date: 12/24/2017 Time: 14:52 Bed 27 Private MD: Unknown, Unknown ED Physician Carter Montero HPI: 12/24 16:19 This 22 yrs old Female presents to ER via Ambulatory with complaints of cp Abdominal Pain, Back Pain. 16:19 The patient presents with abdominal pain in the lower abdomen. Onset: The cp symptoms/episode began/occurred 3 day(s) ago. Associated signs and symptoms: Pertinent positives: lower back pain, urinary frequency, Pertinent negatives: nausea and vomiting, constipation, diarrhea, dysuria, fever, vaginal discharge. Severity of pain: in the emergency department the pain is unchanged despite home interventions. 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 - Social history:: Smoking status: Patient/guardian denies using tobacco. - Ebola Screening: : No symptoms or risks identified at this time. ROS: 16:21 Eyes: Negative for injury, pain, redness, and discharge. cp 16:21 Constitutional: Negative for body aches, chills, fever, poor PO intake. 16:21 ENT: Negative for drainage from ear(s), ear pain, sore throat, difficulty swallowing, difficulty handling secretions. 16:21 Cardiovascular: Negative for chest pain. 16:21 Respiratory: Negative for cough, shortness of breath, wheezing. 16:21 Abdomen/GI: Positive for abdominal pain, of the right lower quadrant and left lower quadrant, Negative for vomiting, diarrhea, constipation, black/tarry stool, rectal pain, rectal bleeding. 16:21 Back: Positive for pain at rest, of the low back area. 16:21 : Positive for urinary frequency, Negative for burning with urination, vaginal bleeding, vaginal discharge. 16:21 Skin: Negative for cellulitis, rash. 16:21 Neuro: Negative for headache, weakness. 16:21 All other systems are negative. Exam: 16:25 Constitutional: The patient appears in no acute distress, alert, awake, non-toxic, well cp developed, well nourished. 16:25 Head/Face: Normocephalic, atraumatic. cp 16:25 Eyes: Periorbital structures: appear normal, Conjunctiva: normal, no exudate, no injection, Lids and lashes: appear normal, bilaterally. 16:25 ENT: External ear(s): are unremarkable, Nose: is normal, Mouth: Lips: moist, Oral mucosa: pink and intact, moist, Posterior pharynx: is normal, airway is patent, no erythema, no exudate. 16:25 Neck: ROM/movement: is normal, is supple, without pain, no range of motions limitations, no meningismus, no nuchal rigidity. 16:25 Chest/axilla: Inspection: normal, Palpation: is normal, no crepitus, no tenderness. 16:25 Cardiovascular: Rate: normal, Rhythm: regular. 16:25 Respiratory: the patient does not display signs of respiratory distress, Respirations: normal, no use of accessory muscles, no retractions, no splinting, no tachypnea, labored breathing, is not present, Breath sounds: are clear throughout, no decreased breath sounds, no stridor, no wheezing. 16:25 Abdomen/GI: Inspection: abdomen appears normal, Bowel sounds: active, all quadrants, Palpation: abdomen is soft and non-tender, in all quadrants, rebound tenderness, is not appreciated, voluntary guarding, is not appreciated, involuntary guarding, is not appreciated. 16:25 Back: pain, that is very mild, of the low back area, ROM is normal, CVA tenderness, is absent. 16:25 Musculoskeletal/extremity: Extremities: all appear grossly normal, with no appreciated pain with palpation. 16:25 Skin: cellulitis, is not appreciated, no rash present. 16:25 Neuro: Orientation: to person, place \T\ time. Mentation: is normal, Cerebellar function: is grossly normal, Motor: moves all fours, strength is normal, Sensation: no obvious gross deficits, Gait: is steady, at a normal pace, without difficulty. Vital Signs: 15:23 BP 133 / 70; Pulse 81; Resp 16 S; Temp 97.3(TE); Pulse Ox 98% on R/A; Weight 70.31 kg aa5 (R); Height 5 ft. 0 in. (152.40 cm) (R); Pain 2/10; 15:23 Body Mass Index 30.27 (70.31 kg, 152.40 cm) aa5 MDM: 15:56 Patient medically screened. cp 16:30 Differential diagnosis: Ectopic , Pelvic Inflammatory Disease, Pyelonephritis, cp Ureterolithiasis, urinary tract infection. 16:52 Data reviewed: vital signs, nurses notes, lab test result(s), urinalysis, and as a cp result, I will discharge patient. 16:52 Counseling: I had a detailed discussion with the patient and/or guardian regarding: the cp historical points, exam findings, and any diagnostic results supporting the discharge/admit diagnosis, lab results, to return to the emergency department if symptoms worsen or persist or if there are any questions or concerns that arise at home. 12/24 16:43 Order name: Urine Dipstick--Ancillary (enter results); Complete Time: 16:50 bd 12/24 16:50 Interpretation: Reviewed. 12/24 16:19 Order name: Urine Test (obtain specimen); Complete Time: 16:22 cp 12/24 16:19 Order name: Urine Dipstick-Ancillary (obtain specimen); Complete Time: 16:22 12/24 16:43 Order name: Urine --Ancillary (enter results); Complete Time: 16:50 bd Administered Medications: No medications were administered Disposition: 12/25 16:14 Co-signature as Attending Physician, Carter Montero MD I agree with the assessment and benitez plan of care. Disposition: 12/24/17 16:53 Discharged to Home. Impression: Low back pain, Lower abdominal pain, unspecified. - Condition is Stable. - Discharge Instructions: Back Pain, Adult, Abdominal Pain, Women. - Prescriptions for Naprosyn 500 mg Oral Tablet - take 1 tablet by ORAL route 2 times per day take with food; 20 tablet. - Medication Reconciliation Form, Thank You Letter, Antibiotic Education, Prescription Opioid Use form. - Follow up: Private Physician; When: 2 - 3 days; Reason: symptoms continue. - Problem is new. - Symptoms have improved. Signatures: Dispatcher [employer] Carter Moura MD MD cha Calderon, Audri RN RN aa5 Page, Carter, PA PA cp [place], Xuan, RN RN rk2 Corrections: (The following items were deleted from the chart) 12/24 17:06 16:53 12/24/2017 16:53 Discharged to Home. Impression: Low back pain; Lower abdominal rk2 pain, unspecified. Condition is Stable. Forms are Medication Reconciliation Form, Thank You Letter, Antibiotic Education, Prescription Opioid Use. Follow up: Private Physician; When: 2 - 3 days; Reason: symptoms continue. Problem is new. Symptoms have improved. cp
[2017-12-24 17:11] VITALS: BP 133/70; TEMP 97.3; O2SAT 98
== END 2017-12-24 17:06 | disposition home or self-care (01) ==
LOC: ER 14:45
DX: M54.5 Low back pain (principal); R10.30 Lower abdominal pain, unspecified
CPT/HCPCS: 81003; 81025; 99282

== ENCOUNTER 2022-04-03 13:19 | Emergency (ER) | payer OTHER, SELFPAY ==
--- NOTE | 2022-04-03 14:47 | ER ---
Nurse's Notes [facility] Name: Renetta Ellison Age: 27 yrs Sex: Female : 1995 Arrival Date: 04/03/2022 Time: 13:21 Bed 12 Private MD: Diagnosis: Acute suppurative otitis media;Acute pharyngitis, unspecified Presentation: 04/03 14:02 Chief complaint: Patient states: cough, sore throat, congestion began on Monday and vg1 stated "its getting worse", stated throat pain feels like "knifes". N/V/D. Coronavirus screen: Vaccine status: Patient reports being unvaccinated. Ebola Screen: Patient negative for fever greater than or equal to 101.5 degrees Fahrenheit, and additional compatible Ebola Virus Disease symptoms Patient denies exposure to infectious person. Initial Sepsis Screen: Does the patient meet any 2 criteria? No. Patient's initial sepsis screen is negative. Does the patient have a suspected source of infection? No. Patient's initial sepsis screen is negative. Risk Assessment: Do you want to hurt yourself or someone else? Patient reports no desire to harm self or others. Onset of symptoms was March 30, 2022. 14:02 Method Of Arrival: Ambulatory vg1 14:02 Acuity: LETITIA 4 vg1 Triage Assessment: 14:04 General: Appears in no apparent distress. comfortable, Behavior is calm, cooperative. vg1 Pain: Complains of pain in throat Pain currently is 5 out of 10 on a pain scale. EENT: Throat is pink. 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 - Social history:: Smoking status: Patient denies any tobacco usage or history of. Screenin:21 Abuse screen: Denies threats or abuse. Denies injuries from another. Nutritional tp1 screening: No deficits noted. Tuberculosis screening: No symptoms or risk factors identified. 14:21 Fall Risk No fall in past 12 months (0 pts). No secondary diagnosis (0 pts). No IV (0 tp1 pts). Ambulatory Aid- None/Bed Rest/Nurse Assist (0 pts). Gait- Normal/Bed Rest/Wheelchair (0 pts). Assessment: 14:15 General: Appears in no apparent distress. comfortable, Behavior is calm, cooperative. tp1 Pain: Complains of pain in throat and ABD Pain does not radiate. Pain currently is 8 out of 10 on a pain scale. Quality of pain is described as sharp, Is continuous. Neuro: Level of Consciousness is awake, alert, obeys commands, Oriented to person, place, time. Cardiovascular: Patient's skin is warm and dry. Respiratory: Reports congestion and SOB with exertion Airway is patent Respiratory effort is even, unlabored. GI: Abdomen is round non-distended, Abd is soft and non tender Reports diarrhea, nausea, vomiting. : No signs and/or symptoms were reported regarding the genitourinary system. EENT: No signs and/or symptoms were reported regarding the EENT system. Derm: Skin is pink, warm \\T\\ dry. Musculoskeletal: Circulation, motion, and sensation intact. Vital Signs: 14:02 Pulse 74; Resp 16; Temp 99.0(TE); Pulse Ox 99% on R/A; Weight 77.11 kg; Height 5 ft. 0 vg1 in. (152.40 cm); Pain 5/10; 14:06 BP 129 / 73; vg1 14:15 BP 117 / 70; Pulse 90; Resp 16; Pulse Ox 99% on R/A; tp1 14:02 Body Mass Index 33.20 (77.11 kg, 152.40 cm) vg1 ED Course: 13:21 Patient arrived in ED. as 13:53 Bekah Miles FNP-C is PHCP. snw 13:53 Carter Montero MD is Attending Physician. snw 14:04 Triage completed. vg1 14:04 Arm band placed on. vg1 14:10 Strep swab sent to lab. vg1 14:12 Aviva Hess, [place] is Primary Nurse. tp1 14:15 Patient has correct armband on for positive identification. Bed in low position. Call tp1 light in reach. 14:18 Strep Sent. tp1 15:00 No provider procedures requiring assistance completed. tp1 15:00 Patient did not have IV access during this emergency room visit. tp1 Administered Medications: 15:03 Drug: ZyrTEC - Cetirizine 10 mg Route: PO; tp1 15:31 Follow up: Response: Medication administered at discharge. tp1 15:03 Drug: Pepcid (famotidine) 20 mg Route: PO; tp1 15:31 Follow up: Response: Medication administered at discharge. tp1 15:11 Drug: Decadron (dexamethasone) 10 mg Route: IM; Site: right ventrogluteal; tp1 15:31 Follow up: Response: Medication administered at discharge. tp1 15:11 Drug: Rocephin (cefTRIAXone) 1 grams Route: IM; Site: right ventrogluteal; tp1 15:31 Follow up: Response: Medication administered at discharge. tp1 Medication: 15:00 VIS not applicable for this client. tp1 Outcome: 14:47 Discharge ordered by . snw 15:12 Discharged to home with friend. tp1 15:12 Condition: good 15:12 Discharge instructions given to patient, Instructed on discharge instructions, follow up and referral plans. medication usage, Demonstrated understanding of instructions, follow-up care, medications, Prescriptions given X 4. 15:32 Patient left the ED. tp1 Signatures: Bekah Miles, EXTRACTOR OPERATOR-C EXTRACTOR OPERATOR-Gina Dinero Victoria, RN RN vg1 Aviva Hess RN RN tp1
--- NOTE | 2022-04-03 14:48 | EDPHYS ---
Physician Documentation [facility] Name: Renetta Ellison Age: 27 yrs Sex: Female : 1995 Arrival Date: 04/03/2022 Time: 13:21 Bed 12 Private MD: ED Physician Carter Montero HPI: 04/03 14:45 This 27 yrs old Female presents to ER via Ambulatory with complaints of Cough, snw Sore Throat, Congestion, Vomiting/Diarrhea. 14:45 The patient or guardian reports cough, flu symptoms, myalgias. Onset: The snw symptoms/episode began/occurred suddenly, 4 day(s) ago, and became worse this morning. Severity of symptoms: At their worst the symptoms were moderate. Associated signs and symptoms: The patient has no apparent associated signs or symptoms. The patient has not experienced similar symptoms in the past. The patient has not recently seen a physician. 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 - Social history:: Smoking status: Patient denies any tobacco usage or history of. ROS: 14:45 Eyes: Negative for injury, pain, redness, and discharge. snw 14:45 Neck: Negative for injury, pain, and swelling, Cardiovascular: Negative for chest pain, palpitations, and edema. 14:45 Abdomen/GI: Negative for abdominal pain, nausea, vomiting, diarrhea, and constipation, Back: Negative for injury and pain, : Negative for injury, bleeding, discharge, and swelling, MS/Extremity: Negative for injury and deformity, Skin: Negative for injury, rash, and discoloration, Neuro: Negative for headache, weakness, numbness, tingling, and seizure. 14:45 Constitutional: Positive for body aches, fatigue, malaise, poor PO intake. 14:45 ENT: Positive for ear pain, sore throat. 14:45 Respiratory: Positive for cough, with no reported sputum. Exam: 14:44 Constitutional: This is a well developed, well nourished patient who is awake, alert, snw and in no acute distress. Head/Face: Normocephalic, atraumatic. Eyes: Pupils equal round and reactive to light, extra-ocular motions intact. Lids and lashes normal. Conjunctiva and sclera are non-icteric and not injected. Cornea within normal limits. Periorbital areas with no swelling, redness, or edema. 14:44 Neck: Trachea midline, no thyromegaly or masses palpated, and no cervical lymphadenopathy. Supple, full range of motion without nuchal rigidity, or vertebral point tenderness. No Meningismus. Chest/axilla: Normal chest wall appearance and motion. Nontender with no deformity. No lesions are appreciated. Cardiovascular: Regular rate and rhythm with a normal S1 and S2. No gallops, murmurs, or rubs. Normal PMI, no JVD. No pulse deficits. Respiratory: Lungs have equal breath sounds bilaterally, clear to auscultation and percussion. No rales, rhonchi or wheezes noted. No increased work of breathing, no retractions or nasal flaring. Abdomen/GI: Soft, non-tender, with normal bowel sounds. No distension or tympany. No guarding or rebound. No evidence of tenderness throughout. Back: No spinal tenderness. No costovertebral tenderness. Full range of motion. Skin: Warm, dry with normal turgor. Normal color with no rashes, no lesions, and no evidence of cellulitis. MS/ Extremity: Pulses equal, no cyanosis. Neurovascular intact. Full, normal range of motion. Neuro: Awake and alert, GCS 15, oriented to person, place, time, and situation. Cranial nerves II-XII grossly intact. Motor strength 5/5 in all extremities. Sensory grossly intact. Cerebellar exam normal. Normal gait. Psych: Awake, alert, with orientation to person, place and time. Behavior, mood, and affect are within normal limits. 14:44 ENT: TM's: erythema, that is moderate, on the right, left TM with erythema as well, Nose: is normal, Mouth: is normal, Posterior pharynx: erythema, that is moderate. Vital Signs: 14:02 Pulse 74; Resp 16; Temp 99.0(TE); Pulse Ox 99% on R/A; Weight 77.11 kg; Height 5 ft. 0 vg1 in. (152.40 cm); Pain 5/10; 14:06 BP 129 / 73; vg1 14:15 BP 117 / 70; Pulse 90; Resp 16; Pulse Ox 99% on R/A; tp1 14:02 Body Mass Index 33.20 (77.11 kg, 152.40 cm) vg1 MDM: 14:16 Patient medically screened. snw 14:46 Data reviewed: vital signs, nurses notes. Data interpreted: Pulse oximetry: on room air snw is 99 %. Interpretation: normal. Counseling: I had a detailed discussion with the patient and/or guardian regarding: the historical points, exam findings, and any diagnostic results supporting the discharge/admit diagnosis, the need for outpatient follow up, to return to the emergency department if symptoms worsen or persist or if there are any questions or concerns that arise at home. Special discussion: Based on the history and exam findings, there is no indication for further emergent testing or inpatient evaluation. I discussed with the patient/guardian the need to see the primary care provider for further evaluation of the symptoms. 04/03 14:07 Order name: Strep vg1 04/03 14:45 Order name: Group A Streptococcus Rapid Sc; Complete Time: 14:49 EDMS Administered Medications: 15:03 Drug: ZyrTEC - Cetirizine 10 mg Route: PO; tp1 15:31 Follow up: Response: Medication administered at discharge. tp1 15:03 Drug: Pepcid (famotidine) 20 mg Route: PO; tp1 15:31 Follow up: Response: Medication administered at discharge. tp1 15:11 Drug: Decadron (dexamethasone) 10 mg Route: IM; Site: right ventrogluteal; tp1 15:31 Follow up: Response: Medication administered at discharge. tp1 15:11 Drug: Rocephin (cefTRIAXone) 1 grams Route: IM; Site: right ventrogluteal; tp1 15:31 Follow up: Response: Medication administered at discharge. tp1 Disposition Summary: 04/03/22 14:47 Discharge Ordered Location: Home snw Condition: Stable snw Diagnosis - Acute suppurative otitis media snw - Acute pharyngitis, unspecified snw Followup: snw - With: Emergency Department - When: As needed - Reason: Worsening of condition Followup: snw - With: Private Physician - When: 2 - 3 days - Reason: Recheck today's complaints, Continuance of care, Re-evaluation by your physician Discharge Instructions: - Discharge Summary Sheet snw - Otitis Media, Adult snw - Pharyngitis snw Forms: - Medication Reconciliation Form snw - Thank You Letter snw - Antibiotic Education snw - Prescription Opioid Use snw Prescriptions: - cefdinir 300 mg Oral capsule - take 1 capsule by ORAL route every 12 hours for 10 days; 20 capsule; Refills: snw 0, Product Selection Permitted - Zyrtec 10 mg Oral Tablet - take 1 tablet by ORAL route once daily As needed; 20 tablet; Refills: 0, snw Product Selection Permitted - Prednisone 20 mg Oral Tablet - take 2 tablets by ORAL route once daily for 5 days; 10 tablet; Refills: 0, snw Product Selection Permitted - Pepcid 20 mg Oral Tablet - take 1 tablet by ORAL route once daily; 20 tablet; Refills: 0, Product snw Selection Permitted Signatures: Dispatcher [employer] Bekah Hidalgo, BIOLOGICAL LAB TECHNICIAN-C BIOLOGICAL LAB TECHNICIAN-Csnw Tatiana Rees, RN RN vg1 Aviva Hess RN RN tp1
[2022-04-03] MEDS ORDERED: CETIRIZINE HCL 5 MG TABLET ONE (14:58)
[2022-04-03] MEDS ORDERED: FAMOTIDINE 20 MG TAB ONE (14:59)
[2022-04-03] MEDS ORDERED: CEFTRIAXONE 1000 MG/VIAL ONE (14:59)
[2022-04-03] MEDS ORDERED: dexAMETHasone 10 MG/ML VIAL ONE (14:59)
[2022-04-03] MEDS ORDERED: WATER FOR INJ,STERILE 10 ML ONE (14:59)
[2022-04-03 15:47] VITALS: TEMP 99; O2SAT 99
[2022-04-03 15:49] VITALS: BP 117/70
== END 2022-04-03 15:32 | disposition home or self-care (01) ==
LOC: ER 13:19
DX: J02.9 Acute pharyngitis, unspecified (principal); H66.009 Acute suppurative otitis media without spontaneous rupture of ear drum, unspecified ear; Z28.310 Unvaccinated for COVID-19
CPT/HCPCS: 87070; 87081; 96372; 99283; J1100

== ENCOUNTER 2022-05-27 13:01 | Emergency (ER) | payer SELFPAY ==
[2022-05-27 17:18] LABS: SARS-COV-2 RT PCR NEGATIVE (NEGATIVE)
--- NOTE | 2022-05-27 17:24 | ER ---
Nurse's Notes [facility] Name: Renetta Ellison Age: 27 yrs Sex: Female : 1995 Arrival Date: 05/27/2022 Time: 13:28 Bed DIS2 Private MD: Diagnosis: Acute bronchitis, unspecified;Acute serous otitis media, bilateral Presentation: 05/27 13:32 Chief complaint: Cough, congestion, sore throat, headache, N/V/D x 1 week. Tolerating hb fluids. Coronavirus screen: Client presents with at least one sign or symptom that may indicate coronavirus-19. Provider contacted for isolation considerations. Ebola Screen: No symptoms or risks identified at this time. 13:32 Method Of Arrival: Ambulatory hb 13:32 Initial Sepsis Screen: Does the patient meet any 2 criteria? No. Patient's initial hb sepsis screen is negative. Does the patient have a suspected source of infection? No. Patient's initial sepsis screen is negative. Risk Assessment: Do you want to hurt yourself or someone else? Patient reports no desire to harm self or others. Onset of symptoms was May 21, 2022. 13:32 Acuity: LETITIA 4 hb Triage Assessment: 13:34 General: Appears in no apparent distress. Behavior is calm, cooperative. Pain: Pain hb currently is 6 out of 10 on a pain scale. Neuro: Level of Consciousness is awake, alert, obeys commands, Oriented to person, place, time, situation. Cardiovascular: Patient's skin is warm and dry. Respiratory: Respiratory effort is even, unlabored, Respiratory pattern is regular, agonal. Historical: - Allergies: 13:34 NKA; hb - Immunization history:: Adult Immunizations up to date. - Social history:: Smoking status: Patient denies any tobacco usage or history of. Vital Signs: 13:32 BP 125 / 72; Pulse 88; Resp 16; Temp 98(TE); Pulse Ox 99% on R/A; Weight 70.31 kg; hb Height 5 ft. (152.40 cm); Pain 6/10; 13:32 Body Mass Index 30.27 (70.31 kg, 152.40 cm) hb ED Course: 13:28 Patient arrived in ED. [email or web address] 13:29 Bekah Miles FNP-C is PHCP. snw 13:29 Carter Montero MD is Attending Physician. snw 13:34 Triage completed. hb 13:35 Arm band placed on. hb 15:58 COVID-19/FLU A+B/RSV Sent. zm 15:58 Strep Sent. zm Administered Medications: 17:54 Drug: Pepcid (famotidine) 20 mg Route: PO; hb 17:55 Drug: Augmentin (Amoxicillin-Clavulanate) 875 mg Route: PO; hb 17:55 Drug: Phenergan (promethazine) 25 mg Route: PO; hb Outcome: 17:24 Discharge ordered by . snw 17:55 Patient left the ED. hb Signatures: Bekah Miles, FAGOTING MACHINE OPERATOR-C FAGOTING MACHINE OPERATOR-Csnw Jennifer Daniels, [place]ST[place] RN Kerline Swift Zaina zm
--- NOTE | 2022-05-27 17:24 | EDPHYS ---
Physician Documentation [facility] Name: Renetta Ellison Age: 27 yrs Sex: Female : 1995 Arrival Date: 05/27/2022 Time: 13:28 Bed DIS2 Private MD: JEREMIAH Physician Carter Montero HPI: 05/27 16:58 This 27 yrs old Female presents to ER via Ambulatory with complaints of Sore snw Throat, Congestion, Cough, Nausea/Vomiting/Diarrhea. 16:58 The patient presents with sore throat. The patient describes throat pain as raw. Onset: snw The symptoms/episode began/occurred 1 week(s) ago, and became persistent. Severity of symptoms: At their worst the symptoms were moderate. Modifying factors: The symptoms are alleviated by nothing, the symptoms are aggravated by nothing, The patient has had contact with sick co-worker(s), dx with Covid, at work. Associated signs and symptoms: Pertinent positives: cough, diarrhea, earache, fever, flu-like symptoms, headache, nausea, shortness of breath Sore throat vomiting. The patient has not experienced similar symptoms in the past. The patient has not recently seen a physician. Historical: - Allergies: 13:34 NKA; hb - Immunization history:: Adult Immunizations up to date. - Social history:: Smoking status: Patient denies any tobacco usage or history of. ROS: 16:57 Eyes: Negative for injury, pain, redness, and discharge. snw 16:57 Neck: Negative for injury, pain, and swelling, Cardiovascular: Negative for chest pain, palpitations, and edema. 16:57 Back: Negative for injury and pain, : Negative for injury, bleeding, discharge, and swelling, MS/Extremity: Negative for injury and deformity, Skin: Negative for injury, rash, and discoloration, Neuro: Negative for headache, weakness, numbness, tingling, and seizure. 16:57 Constitutional: Positive for fatigue, malaise, poor PO intake. 16:57 ENT: Positive for ear pain, sinus congestion, sore throat. 16:57 Respiratory: Positive for shortness of breath, on exertion. 16:57 Abdomen/GI: Positive for nausea, vomiting, and diarrhea. Exam: 16:57 Constitutional: This is a well developed, well nourished patient who is awake, alert, snw and in no acute distress. Head/Face: Normocephalic, atraumatic. Eyes: Pupils equal round and reactive to light, extra-ocular motions intact. Lids and lashes normal. Conjunctiva and sclera are non-icteric and not injected. Cornea within normal limits. Periorbital areas with no swelling, redness, or edema. 16:57 Neck: Trachea midline, no thyromegaly or masses palpated, and no cervical lymphadenopathy. Supple, full range of motion without nuchal rigidity, or vertebral point tenderness. No Meningismus. Chest/axilla: Normal chest wall appearance and motion. Nontender with no deformity. No lesions are appreciated. Cardiovascular: Regular rate and rhythm with a normal S1 and S2. No gallops, murmurs, or rubs. Normal PMI, no JVD. No pulse deficits. Respiratory: Lungs have equal breath sounds bilaterally, clear to auscultation and percussion. No rales, rhonchi or wheezes noted. No increased work of breathing, no retractions or nasal flaring. Abdomen/GI: Soft, non-tender, with normal bowel sounds. No distension or tympany. No guarding or rebound. No evidence of tenderness throughout. Back: No spinal tenderness. No costovertebral tenderness. Full range of motion. Skin: Warm, dry with normal turgor. Normal color with no rashes, no lesions, and no evidence of cellulitis. MS/ Extremity: Pulses equal, no cyanosis. Neurovascular intact. Full, normal range of motion. Neuro: Awake and alert, GCS 15, oriented to person, place, time, and situation. Cranial nerves II-XII grossly intact. Motor strength 5/5 in all extremities. Sensory grossly intact. Cerebellar exam normal. Normal gait. Psych: Awake, alert, with orientation to person, place and time. Behavior, mood, and affect are within normal limits. 16:57 ENT: TM's: erythema, that is moderate, bilaterally, Nose: is normal, Mouth: is normal, Posterior pharynx: erythema, that is mild. Vital Signs: 13:32 BP 125 / 72; Pulse 88; Resp 16; Temp 98(TE); Pulse Ox 99% on R/A; Weight 70.31 kg; hb Height 5 ft. (152.40 cm); Pain 6/10; 13:32 Body Mass Index 30.27 (70.31 kg, 152.40 cm) hb MDM: 13:49 Patient medically screened. [email or web address] 17:25 Data reviewed: vital signs, nurses notes. Data interpreted: Pulse oximetry: on room air snw is 99 %. Interpretation: normal. Counseling: I had a detailed discussion with the patient and/or guardian regarding: the historical points, exam findings, and any diagnostic results supporting the discharge/admit diagnosis, lab results, the need for outpatient follow up, to return to the emergency department if symptoms worsen or persist or if there are any questions or concerns that arise at home. Special discussion: Based on the history and exam findings, there is no indication for further emergent testing or inpatient evaluation. I discussed with the patient/guardian the need to see the primary care provider for further evaluation of the symptoms. 05/27 13:53 Order name: Strep; Complete Time: 17:14 snw 05/27 13:53 Order name: COVID-19/FLU A+B/RSV; Complete Time: 17:23 snw 05/27 17:15 Order name: Throat Culture EDMS Administered Medications: 17:54 Drug: Pepcid (famotidine) 20 mg Route: PO; hb 17:55 Drug: Augmentin (Amoxicillin-Clavulanate) 875 mg Route: PO; hb 17:55 Drug: Phenergan (promethazine) 25 mg Route: PO; hb Disposition Summary: 05/27/22 17:24 Discharge Ordered Location: Home snw Condition: Stable snw Diagnosis - Acute bronchitis, unspecified snw - Acute serous otitis media, bilateral snw Followup: snw - With: Emergency Department - When: As needed - Reason: Worsening of condition Followup: snw - With: Private Physician - When: 2 - 3 days - Reason: Recheck today's complaints, Continuance of care, Re-evaluation by your physician Discharge Instructions: - Discharge Summary Sheet snw - Acute Bronchitis, Adult snw - Otitis Media, Adult snw - Fever, Adult snw Forms: - Work release form snw - Medication Reconciliation Form snw - Thank You Letter snw - Antibiotic Education snw - Prescription Opioid Use snw Prescriptions: - Augmentin 875-125 mg Oral Tablet - take 1 tablet by ORAL route every 12 hours for 10 days; 20 tablet; Refills: 0, snw Product Selection Permitted - Pepcid 20 mg Oral Tablet - take 1 tablet by ORAL route once daily; 20 tablet; Refills: 0, Product snw Selection Permitted - promethazine 25 mg Oral Tablet - take 1 tablet by ORAL route every 6 hours As needed; 20 tablet; Refills: 0, snw Product Selection Permitted Signatures: Dispatcher [employer] Carter Moura MD MD cha Waters, Shelly, PHYSICAL THERAPIST-C PHYSICAL THERAPIST-Csnw Jennifer Daniels, RN RN hb
[2022-05-27] MEDS ORDERED: AMOX/K CLAV 875 MG TAB ONE (17:50)
[2022-05-27] MEDS ORDERED: PROMETHAZINE 25 MG TABLET ONE (17:51)
[2022-05-27] MEDS ORDERED: FAMOTIDINE 20 MG TAB ONE (17:51)
[2022-05-27 18:00] VITALS: BP 125/72; TEMP 98; O2SAT 99
== END 2022-05-27 17:55 | disposition home or self-care (01) ==
LOC: ER 13:01
DX: J20.9 Acute bronchitis, unspecified (principal); H65.03 Acute serous otitis media, bilateral; Z20.822 Contact with and (suspected) exposure to COVID-19
CPT/HCPCS: 0241U; 87070; 87081; 99283; Q0169

== ENCOUNTER 2022-06-18 15:24 | Emergency (ER) | payer SELFPAY ==
[2022-06-18] MEDS ORDERED: ONDANSETRON 4 MG (ODT) TAB ONE (15:51)
[2022-06-18] MEDS ORDERED: ACETAMINOPHEN 500 MG TAB ONE (16:21)
[2022-06-18 16:34] LABS: SARS-COV-2 RT PCR NEGATIVE (NEGATIVE)
--- NOTE | 2022-06-18 16:55 | ER ---
Nurse's Notes [facility] Name: Renetta Ellison Age: 27 yrs Sex: Female : 1995 Arrival Date: 06/18/2022 Time: 15:26 Bed 9 Private MD: Diagnosis: Acute pharyngitis, unspecified Presentation: 06/18 15:39 Chief complaint: Patient states: Fever, cough, sore throat, vomiting and approx 3 ph episodes of diarrhea, symptoms started approx 4-5 days ago. Coronavirus screen: Vaccine status: Patient reports being unvaccinated. Ebola Screen: No symptoms or risks identified at this time. Initial Sepsis Screen: Does the patient meet any 2 criteria? No. Patient's initial sepsis screen is negative. Does the patient have a suspected source of infection? No. Patient's initial sepsis screen is negative. Risk Assessment: Do you want to hurt yourself or someone else? Patient reports no desire to harm self or others. Onset of symptoms was June 18, 2022. 15:39 Method Of Arrival: Ambulatory ph 15:39 Acuity: LETITIA 4 ph Historical: - Allergies: 15:41 NKA; ph - PSHx: 15:41 None; ph - Immunization history:: Adult Immunizations unknown. - Social history:: Smoking status: Patient denies any tobacco usage or history of. Screenin:02 [facility] ED Fall Risk Assessment (Adult) Score/Fall Risk Level 0 - 2 = Low Risk hb Oriented to surroundings, Maintained a safe environment, Educated pt \T\ family on fall prevention, incl call for assistance when getting out of bed. Abuse screen: Denies threats or abuse. Denies injuries from another. Nutritional screening: No deficits noted. Tuberculosis screening: No symptoms or risk factors identified. Fall Risk Total Reddy Fall Scale indicates No Risk (0-24 pts). Assessment: 16:01 General: Appears in no apparent distress. Behavior is calm, cooperative. Pain: Pain hb currently is 2 out of 10 on a pain scale. Neuro: Level of Consciousness is awake, alert, obeys commands, Oriented to person, place, time, situation. Cardiovascular: Patient's skin is warm and dry. Respiratory: Reports cough that is Respiratory effort is even, unlabored, Respiratory pattern is regular, symmetrical. GI: Reports nausea. : No signs and/or symptoms were reported regarding the genitourinary system. EENT: Reports sore throat. Derm: Skin is pink, warm \T\ dry. Musculoskeletal: Reports body aches. 17:00 Reassessment: Patient appears in no apparent distress at this time. Patient and/or ph family updated on plan of care and expected duration. Pain level reassessed. Patient is alert, oriented x 3, equal unlabored respirations, skin warm/dry/pink. Vital Signs: 15:39 BP 127 / 82; Pulse 89; Resp 18; Temp 98.4; Pulse Ox 96% on R/A; Weight 68.04 kg; Height ph 5 ft. 0 in. (152.40 cm); 15:39 Body Mass Index 29.29 (68.04 kg, 152.40 cm) ph ED Course: 15:26 Patient arrived in ED. [email or web address] 15:26 Johnny Brewer PA is PHCP. [facility] 15:26 Steven Gee MD is Attending Physician. [facility] 15:41 Triage completed. ph 15:41 Arm band placed on Patient placed in an exam room. ph 15:48 Jennifer Daniels, RN is Primary Nurse. hb 16:02 Patient has correct armband on for positive identification. hb 16:02 No provider procedures requiring assistance completed. Patient did not have IV access hb during this emergency room visit. Administered Medications: 15:58 Drug: Ondansetron 4 mg Route: PO; hb 16:30 Follow up: Response: No adverse reaction hb 16:21 Drug: Tylenol 1000 mg Route: PO; ph 17:20 Follow up: Response: No adverse reaction hb Medication: 16:02 VIS not applicable for this client. hb Outcome: 16:54 Discharge ordered by . [facility] 17:00 Discharged to home ambulatory. ph 17:00 Condition: stable 17:00 Discharge instructions given to patient, Instructed on discharge instructions, follow up and referral plans. medication usage, Demonstrated understanding of instructions, follow-up care, medications, Prescriptions given X 2. 17:00 Patient left the ED. ph Signatures: Johnny Brewer PA PA Shu Short RN RN Jennifer Daniels RN RN Sonja Rees [id number]
--- NOTE | 2022-06-18 16:55 | EDPHYS ---
Physician Documentation [facility] Name: Renetta Ellison Age: 27 yrs Sex: Female : 1995 Arrival Date: 06/18/2022 Time: 15:26 Bed 9 Private MD: ED Physician Steven Gee HPI: 06/18 15:29 This 27 yrs old Female presents to ER via Ambulatory with complaints of Fever, jmm Cough, Sore Throat, Vomiting. 15:29 The patient or guardian reports cough. Onset: The symptoms/episode began/occurred jmm gradually, 5 day(s) ago. Modifying factors: The symptoms are alleviated by nothing. the symptoms are aggravated by nothing. This is a 27 year old female with no chronic medical conditions that presents to the ED with complaints of cough, sore throat, vomiting, headache, beginning approx 5 days ago. Daughter had similar symptoms but has since resolved. . Historical: - Allergies: 15:41 NKA; ph - PSHx: 15:41 None; ph - Immunization history:: Adult Immunizations unknown. - Social history:: Smoking status: Patient denies any tobacco usage or history of. ROS: 15:29 Constitutional: Positive for body aches. jmm 15:29 ENT: Positive for sore throat. 15:29 Respiratory: Positive for cough. 15:29 Abdomen/GI: Positive for vomiting. 15:29 All other systems are negative. Exam: 15:29 Constitutional: This is a well developed, well nourished patient who is awake, alert, jmm and in no acute distress. Head/Face: atraumatic. Eyes: EOMI, no conjunctival erythema appreciated 15:29 Neck: Trachea midline, Supple Chest/axilla: Normal chest wall appearance and motion. Cardiovascular: Regular rate and rhythm. No edema appreciated Respiratory: Normal respirations, no respiratory distress appreciated Abdomen/GI: Non distended Back: Normal ROM Skin: General appearance color normal MS/ Extremity: Moves all extremities, no obvious deformities appreciated, no edema noted to the lower extremities Neuro: Awake and alert Psych: Behavior is normal, Mood is normal, Patient is cooperative and pleasant 15:29 ENT: Posterior pharynx: erythema, that is mild. Vital Signs: 15:39 BP 127 / 82; Pulse 89; Resp 18; Temp 98.4; Pulse Ox 96% on R/A; Weight 68.04 kg; Height ph 5 ft. 0 in. (152.40 cm); 15:39 Body Mass Index 29.29 (68.04 kg, 152.40 cm) ph MDM: 15:44 Patient medically screened. [facility] 16:50 Data reviewed: vital signs, nurses notes. [facility] 16:53 Counseling: I had a detailed discussion with the patient and/or guardian regarding: the [facility] historical points, exam findings, and any diagnostic results supporting the discharge/admit diagnosis, lab results, the need for outpatient follow up, to return to the emergency department if symptoms worsen or persist or if there are any questions or concerns that arise at home. ED course: Patient is alert and non toxic in appearance in the ED. NO signs of resp distress. patient advised to follow up with pcp and otherwise given strict return precautions. patient understood and agrees with the plan of care. . 06/18 15:29 Order name: COVID-19/FLU A+B; Complete Time: 16:34 [facility] 06/18 15:29 Order name: Strep; Complete Time: 16:39 [facility] 06/18 16:37 Order name: Throat Culture EDMS Administered Medications: 15:58 Drug: Ondansetron 4 mg Route: PO; hb 16:30 Follow up: Response: No adverse reaction hb 16:21 Drug: Tylenol 1000 mg Route: PO; ph 17:20 Follow up: Response: No adverse reaction hb Disposition: 18:27 Co-signature as Attending Physician, Steven Gee MD. rn Disposition Summary: 06/18/22 16:54 Discharge Ordered Location: Home [facility] Condition: Stable [facility] Diagnosis - Acute pharyngitis, unspecified [facility] Followup: [facility] - With: Private Physician - When: 2 - 3 days - Reason: Recheck today's complaints, Continuance of care, Re-evaluation by your physician Discharge Instructions: - Discharge Summary Sheet [facility] - Pharyngitis [facility] Forms: - Medication Reconciliation Form [facility] - Thank You Letter [facility] - Antibiotic Education [facility] - Prescription Opioid Use [facility] - Work release form ll1 Prescriptions: - promethazine-DM - take 10 milliliter by ORAL route every 4 hours As needed; 200 milliliter; [facility] Refills: 0, Product Selection Permitted - cefdinir 300 mg Oral capsule - take 1 capsule by ORAL route every 12 hours for 10 days; 20 capsule; Refills: jmm 0, Product Selection Permitted Signatures: Dispatcher [employer] Johnny Troy PA PA jmm Nieto, Roman, MD MD rn Hall, Patricia, RN RN Jennifer Otero RN RN
[2022-06-18 17:05] VITALS: BP 127/82; TEMP 98.4; O2SAT 96
== END 2022-06-18 17:00 | disposition home or self-care (01) ==
LOC: ER 15:24
DX: J02.9 Acute pharyngitis, unspecified (principal); Z20.822 Contact with and (suspected) exposure to COVID-19
CPT/HCPCS: 0240U; 87070; 87081; 99283; Q0162

== ENCOUNTER 2022-07-24 11:24 | Emergency (ER) | payer SELFPAY ==
[2022-07-24 12:35] LABS: SARS-COV-2 RT PCR NEGATIVE (NEGATIVE)
--- NOTE | 2022-07-24 12:57 | ER ---
Nurse's Notes [facility] Name: Renetta Ellison Age: 27 yrs Sex: Female : 1995 Arrival Date: 07/24/2022 Time: 11:26 Bed 10 Private MD: Diagnosis: Cough;Vomiting Presentation: 07/24 11:32 Chief complaint: Patient states: Cough x 3 days, woke last night with fever, woke this jl7 morning with loss of taste and smell. Coronavirus screen: Vaccine status: Patient reports being unvaccinated. congestion, cough unrelated to allergies, fever, loss of taste or smell, Client presents with at least one sign or symptom that may indicate coronavirus-19. Standard/surgical mask placed on the client. Ebola Screen: No symptoms or risks identified at this time. Resp Distress? No respiratory distress is noted at this time. Initial Sepsis Screen: Does the patient meet any 2 criteria? No. Patient's initial sepsis screen is negative. Does the patient have a suspected source of infection? No. Patient's initial sepsis screen is negative. Risk Assessment: Do you want to hurt yourself or someone else? Patient reports no desire to harm self or others. Onset of symptoms was July 22, 2022. 11:32 Method Of Arrival: Ambulatory jl7 11:32 Acuity: LETITIA 4 jl7 Triage Assessment: 11:34 General: Appears in no apparent distress. uncomfortable, Behavior is calm, cooperative, jl7 appropriate for age. Pain: Denies pain. Respiratory: not auscultated in triage. Historical: - Allergies: 11:34 NKA; jl7 - Home Meds: 11:34 None [Active]; jl7 - PMHx: 11:34 None; jl7 - PSHx: 11:34 None; jl7 - Immunization history:: Client reports having NOT received the Covid vaccine. - Social history:: Smoking status: Patient denies any tobacco usage or history of. Screenin:55 [facility] ED Fall Risk Assessment (Adult) History of falling in the last 3 months, jl7 including since admission No falls in past 3 months (0 pts) Confusion or Disorientation No (0 pts) Intoxicated or Sedated No (0 pts) Impaired Gait No (0 pts) Mobility Assist Device Used No (0 pt) Altered Elimination No (0 pt) Score/Fall Risk Level 0 - 2 = Low Risk Oriented to surroundings, Maintained a safe environment, Educated pt \T\ family on fall prevention, incl call for assistance when getting out of bed, Assessed \T\ reinforced patient's understanding of fall precautions, Hourly rounding (assess needs \T\ fall precautionary measures) done. Abuse screen: Denies threats or abuse. Denies injuries from another. Nutritional screening: No deficits noted. Tuberculosis screening: No symptoms or risk factors identified. Assessment: 11:45 General: Appears in no apparent distress. comfortable, Behavior is calm, cooperative, jl7 appropriate for age. Pain: Denies pain. Neuro: Shaw Agitation-Sedation Scale (RASS): 0 - Alert and Calm Level of Consciousness is awake, alert, obeys commands, Oriented to person, place, time, situation, Appropriate for age. Cardiovascular: Heart tones S1 S2 present Capillary refill < 3 seconds. Respiratory: Reports cough that is Airway is patent Trachea midline Respiratory effort is even, unlabored, Respiratory pattern is regular, symmetrical, Breath sounds are clear bilaterally. GI: Reports nausea, vomiting, Patient currently denies diarrhea. : No signs and/or symptoms were reported regarding the genitourinary system. EENT: Reports nasal congestion. Derm: No signs and/or symptoms reported regarding the dermatologic system. Skin is intact, Skin is pink, warm \T\ dry. Musculoskeletal: No signs and/or symptoms reported regarding the musculoskeletal system. Circulation, motion, and sensation intact. Capillary refill < 3 seconds, Range of motion: intact in all extremities. 12:30 Reassessment: Patient appears in no apparent distress at this time. No changes from jl7 previously documented assessment. Patient and/or family updated on plan of care and expected duration. Pain level reassessed. Patient is alert, oriented x 3, equal unlabored respirations, skin warm/dry/pink. Vital Signs: 11:32 BP 132 / 88; Pulse 84; Resp 17 S; Temp 98.4(O); Pulse Ox 99% on R/A; Weight 68.04 kg jl7 (R); Height 5 ft. 0 in. (152.40 cm); Pain 0/10; 12:30 BP 105 / 76; Pulse 89; Resp 20 S; Temp 98.4(O); Pulse Ox 97% on R/A; Pain 0/10; jl7 11:32 Body Mass Index 29.29 (68.04 kg, 152.40 cm) 7 ED Course: 11:26 Patient arrived in ED. as 11:27 Johnny Brewer PA is PHCP. [facility] 11:27 Steven Gee MD is Attending Physician. [facility] 11:34 Triage completed. jl7 11:34 Arm band placed on right wrist. 7 11:41 Delon Romero, RN is Primary Nurse. [facility] 11:52 COVID-19/FLU A+B Sent. 7 11:55 Patient has correct armband on for positive identification. Bed in low position. Call [facility] light in reach. Side rails up X 1. 13:04 No provider procedures requiring assistance completed. Patient did not have IV access kc6 during this emergency room visit. Administered Medications: No medications were administered Medication: 13:04 VIS not applicable for this client. kc6 Outcome: 12:56 Discharge ordered by MD. [facility] 13:04 Discharged to home ambulatory. 6 13:04 Condition: stable 13:04 Discharge instructions given to patient, Instructed on discharge instructions, follow up and referral plans. medication usage, Demonstrated understanding of instructions, follow-up care, medications, Prescriptions given X 3. 13:04 Patient left the ED. kc6 Signatures: Johnny Brewer PA PA jmm Martinez, Amelia as Leal, Jahala, RN RN jl7 Sulma Marinelli RN RN kc6
--- NOTE | 2022-07-24 12:57 | EDPHYS ---
Physician Documentation [facility] Name: Renetta Ellison Age: 27 yrs Sex: Female : 1995 Arrival Date: 07/24/2022 Time: 11:26 Bed 10 Private MD: ED Physician Steven Gee HPI: 07/24 11:38 This 27 yrs old Female presents to ER via Ambulatory with complaints of Fever, jmm Cough, Congestion, Vomiting. 11:38 Onset: The symptoms/episode began/occurred gradually, 2 day(s) ago. This is a jmm 27-year-old female with history of no chronic medical issues that presents emergency department with complaints of cough, congestion, fever began approximately 2 days ago. Patient is concerned because she was exposed someone recently diagnosed with COVID.. Historical: - Allergies: 11:34 NKA; jl7 - Home Meds: 11:34 None [Active]; jl7 - PMHx: 11:34 None; jl7 - PSHx: 11:34 None; jl7 - Immunization history:: Client reports having NOT received the Covid vaccine. - Social history:: Smoking status: Patient denies any tobacco usage or history of. ROS: 11:38 Constitutional: Positive for fever. jmm 11:38 Respiratory: Positive for cough. 11:38 Abdomen/GI: Positive for vomiting. 11:38 All other systems are negative. Exam: 11:38 Constitutional: This is a well developed, well nourished patient who is awake, alert, jmm and in no acute distress. Head/Face: atraumatic. Eyes: EOMI, no conjunctival erythema appreciated ENT: Moist Mucus Membranes Neck: Trachea midline, Supple Chest/axilla: Normal chest wall appearance and motion. Cardiovascular: Regular rate and rhythm. No edema appreciated Respiratory: Normal respirations, no respiratory distress appreciated Abdomen/GI: Non distended Back: Normal ROM Skin: General appearance color normal MS/ Extremity: Moves all extremities, no obvious deformities appreciated, no edema noted to the lower extremities Neuro: Awake and alert Psych: Behavior is normal, Mood is normal, Patient is cooperative and pleasant Vital Signs: 11:32 BP 132 / 88; Pulse 84; Resp 17 S; Temp 98.4(O); Pulse Ox 99% on R/A; Weight 68.04 kg jl7 (R); Height 5 ft. 0 in. (152.40 cm); Pain 0/10; 12:30 BP 105 / 76; Pulse 89; Resp 20 S; Temp 98.4(O); Pulse Ox 97% on R/A; Pain 0/10; jl7 11:32 Body Mass Index 29.29 (68.04 kg, 152.40 cm) jl7 MDM: 11:38 Patient medically screened. [facility] 12:53 Data reviewed: vital signs, nurses notes. ED course: Patient is alert nontoxic in jmm appearance in the ED. Patient vies follow-up PCP and otherwise given strict return precautions. Patient understood agrees plan of care. 07/24 11:38 Order name: COVID-19/FLU A+B; Complete Time: 12:39 [facility] Administered Medications: No medications were administered Disposition: 13:35 Co-signature as Attending Physician, Steven Gee MD I reviewed the patient's care rn provided by the Advanced Practice Provider and agree with the diagnosis and treatment plan. Disposition Summary: 07/24/22 12:56 Discharge Ordered Location: Home [facility] Condition: Stable [facility] Diagnosis - Cough jm - Vomiting [facility] Followup: [facility] - With: Private Physician - When: 2 - 3 days - Reason: Recheck today's complaints, Continuance of care, Re-evaluation by your physician Discharge Instructions: - Discharge Summary Sheet [facility] - Cough, Adult jm - Vomiting, Adult [facility] Forms: - Medication Reconciliation Form [facility] - Thank You Letter [facility] - Antibiotic Education [facility] - Prescription Opioid Use [facility] - Work release form kc6 Prescriptions: - promethazine-DM - take 10 milliliter by ORAL route every 4-6 hours As needed; 200 milliliter; [facility] Refills: 0, Product Selection Permitted - Zithromax Z-Raghavendra 250 mg Oral Tablet - take 1 tablet by ORAL route as directed for 5 days Day 1 - take two (2) tablets [facility] one time. Day 2, 3, 4 , 5 take one (1) tablet once daily.; 6 tablet; Refills: 0, Product Selection Permitted - ondansetron 4 mg Oral - take 4 milligrams by SUBLINGUAL route every 8 hours; 15 tablet; Refills: 0, [facility] Product Selection Permitted Signatures: Dispatcher [employer] EDJohnny Alfaro PA PA jmm Nieto, Roman MD MD rn Delon Romero, WESTON RN jl7
[2022-07-24 13:09] VITALS: TEMP 98.4
[2022-07-24 13:11] VITALS: BP 105/76; O2SAT 97
== END 2022-07-24 13:04 | disposition home or self-care (01) ==
LOC: ER 11:24
DX: R05.9 Cough, unspecified (principal); R11.10 Vomiting, unspecified
CPT/HCPCS: 0240U; 99283

== ENCOUNTER 2022-09-18 20:21 | Emergency (ER) | payer SELFPAY ==
[2022-09-18] MEDS ORDERED: ONDANSETRON 4 MG (ODT) TAB ONE (20:45)
[2022-09-18 21:30] LABS: SARS-COV-2 RT PCR NEGATIVE (NEGATIVE)
--- NOTE | 2022-09-18 21:37 | EDPHYS ---
Physician Documentation [facility] Name: Renetta Ellison Age: 27 yrs Sex: Female : 1995 Arrival Date: 09/18/2022 Time: 20:27 Bed 9 Private MD: ED Physician Allan Sousa HPI: 09/18 21:51 This 27 yrs old Female presents to ER via Ambulatory with complaints of ms3 Nausea/Vomiting, Fever. 21:51 27-year-old female with no past medical history presents for fever that began last ms3 night and 2 episodes of vomiting last night. Patient states she has had decreased taste. Patient states she has been around a coworker who has been sick. Patient denies pain at this time. Patient denies alleviating or inciting factors. Historical: - Allergies: 20:38 NKA; as6 - PMHx: 20:38 None; as6 - PSHx: 20:38 None; as6 - Immunization history:: Client reports having NOT received the Covid vaccine. - Social history:: Smoking status: Patient denies any tobacco usage or history of. ROS: 21:51 Cardiovascular: Negative for chest pain, and palpitations. Respiratory: Negative for ms3 shortness of breath, cough, wheezing, and pleuritic chest pain, MS/Extremity: Negative for injury and deformity, Skin: Negative for injury, rash, and discoloration. 21:51 Constitutional: Positive for chills, fever. 21:51 Constitutional: Negative for body aches. 21:51 Abdomen/GI: Positive for nausea and vomiting. Exam: 21:51 Constitutional: This is a well developed, well nourished patient who is awake, alert, ms3 and in no acute distress. Head/Face: Normocephalic, atraumatic. Neck: Trachea midline, no cervical lymphadenopathy. Supple, full range of motion without nuchal rigidity, or vertebral point tenderness. No Meningismus. Chest/axilla: Normal chest wall appearance and motion. Nontender with no deformity. Cardiovascular: Regular rate and rhythm with a normal S1 and S2. No gallops, murmurs, or rubs. Normal PMI, no JVD. No pulse deficits. Respiratory: Lungs have equal breath sounds bilaterally, clear to auscultation and percussion. No rales, rhonchi or wheezes noted. No increased work of breathing, no retractions or nasal flaring. Abdomen/GI: Soft, non-tender, with normal bowel sounds. No distension or tympany. No guarding or rebound. No evidence of tenderness throughout. Skin: Warm, dry with normal turgor. Normal color with no rashes, no lesions, and no evidence of cellulitis. Vital Signs: 20:36 BP 117 / 81; Pulse 71; Resp 18 S; Temp 98.2(O); Pulse Ox 96% on R/A; Weight 72.57 kg as6 (R); Height 5 ft. 0 in. (R); Pain 0/10; 21:51 Resp 18; Pulse Ox 99% on R/A; kl 20:36 Body Mass Index 31.25 (72.57 kg, 152.4 cm) as6 20:36 Pain Scale: Adult as6 MDM: 20:58 Patient medically screened. ms3 21:51 Differential diagnosis: Flu vs COVID vs Viral illness. Data reviewed: vital signs, ms3 nurses notes, lab test result(s), and as a result, I will discharge patient. I considered the following discharge prescriptions or medication management in the emergency department Medications were administered in the Emergency Department. See MAR. Test considered but Not performed: X-ray: CXR not done as paitent is without cough or shortness of breath.. Care significantly affected by the following Social Determinants of Health: Poor access to healthcare and/or lack of insurance. ED course: Discussed negative flu, COVID with patient. Patient to follow-up with primary care in 2 to 3 days. Patient understands and agrees with plan. All questions were answered. Return precautions discussed include worsening symptoms, or any other concerns. On reevaluation patient is alert and oriented x4, no apparent distress, nontoxic, ambulatory emergency department, speaking full sentences. 09/18 20:38 Order name: COVID-19/FLU A+B; Complete Time: 21:33 as6 Administered Medications: 20:41 Drug: Ondansetron PO 4 mg Route: PO; as6 21:52 Follow up: Response: No adverse reaction; Marked relief of symptoms kl Disposition Summary: 09/18/22 21:37 Discharge Ordered Location: Home ms3 Condition: Stable ms3 Diagnosis - Fever, unspecified ms3 - Vomiting ms3 Followup: ms3 - With: Ramón Tran DO - When: 2 - 3 days - Reason: Recheck today's complaints Discharge Instructions: - Discharge Summary Sheet ms3 - Fever, Adult ms3 - Fever, Adult, [id number] ms3 - Vomiting, Adult ms3 Forms: - Work release form kl - Medication Reconciliation Form ms3 - Thank You Letter ms3 - Antibiotic Education ms3 - Prescription Opioid Use ms3 Prescriptions: - Zofran 4 mg Oral Tablet - take 1 tablet by ORAL route every 12 hours As needed; 20 tablet; Refills: 0, ms3 Product Selection Permitted Signatures: Dispatcher [employer] EDMS Allan Sousa DO DO ms3 Timo Pederson RN RN as6 Sandra Levin RN kirill
--- NOTE | 2022-09-18 21:37 | ER ---
Nurse's Notes [facility] Name: Renetta Ellison Age: 27 yrs Sex: Female : 1995 Arrival Date: 09/18/2022 Time: 20:27 Bed 9 Private MD: Diagnosis: Fever, unspecified;Vomiting Presentation: 09/18 20:36 Chief complaint: Patient states: "late last night I woke up with fever, I've thrown up as6 a couple times and my taste is in and out". Coronavirus screen: At this time, the client does not indicate any symptoms associated with coronavirus-19. Ebola Screen: No symptoms or risks identified at this time. Initial Sepsis Screen: Does the patient meet any 2 criteria? No. Patient's initial sepsis screen is negative. Does the patient have a suspected source of infection? No. Patient's initial sepsis screen is negative. Risk Assessment: Do you want to hurt yourself or someone else? Patient reports no desire to harm self or others. Onset of symptoms was September 17, 2022. 20:36 Method Of Arrival: Ambulatory as6 20:36 Acuity: LETITIA 4 as6 Triage Assessment: 21:50 General: Appears in no apparent distress. comfortable, Behavior is calm, cooperative. kl Pain: Denies pain. GI: Reports intolerance of fluids, intolerance of food, nausea. Historical: - Allergies: 20:38 NKA; as6 - PMHx: 20:38 None; as6 - PSHx: 20:38 None; as6 - Immunization history:: Client reports having NOT received the Covid vaccine. - Social history:: Smoking status: Patient denies any tobacco usage or history of. Screenin:19 [facility] ED Fall Risk Assessment (Adult) History of falling in the last 3 months, kl including since admission No falls in past 3 months (0 pts) Confusion or Disorientation No (0 pts) Intoxicated or Sedated No (0 pts) Impaired Gait No (0 pts) Mobility Assist Device Used No (0 pt) Altered Elimination No (0 pt) Score/Fall Risk Level 0 - 2 = Low Risk Oriented to surroundings, Maintained a safe environment. Abuse screen: Denies threats or abuse. Nutritional screening: No deficits noted. Tuberculosis screening: No symptoms or risk factors identified. Assessment: 21:19 Reassessment: Patient appears in no apparent distress at this time. Patient is alert, kl oriented x 3, equal unlabored respirations, skin warm/dry/pink. Vital Signs: 20:36 BP 117 / 81; Pulse 71; Resp 18 S; Temp 98.2(O); Pulse Ox 96% on R/A; Weight 72.57 kg as6 (R); Height 5 ft. 0 in. (R); Pain 0/10; 21:51 Resp 18; Pulse Ox 99% on R/A; kl 20:36 Body Mass Index 31.25 (72.57 kg, 152.4 cm) as6 20:36 Pain Scale: Adult as6 ED Course: 20:27 Patient arrived in ED. jj6 20:38 Triage completed. as6 20:38 Arm band placed on. as6 20:40 Allan Sousa DO is Attending Physician. ms3 21:19 No provider procedures requiring assistance completed. Patient did not have IV access kl during this emergency room visit. 21:37 Ramón Tran DO is Referral Physician. ms3 Administered Medications: 20:41 Drug: Ondansetron PO 4 mg Route: PO; as6 21:52 Follow up: Response: No adverse reaction; Marked relief of symptoms kl Medication: 21:52 VIS not applicable for this client. kl Outcome: 21:37 Discharge ordered by . ms3 21:51 Discharged to home ambulatory. kl 21:51 Condition: improved 21:51 Discharge instructions given to patient, Instructed on discharge instructions, follow up and referral plans. medication usage, Demonstrated understanding of instructions, follow-up care, medications, Prescriptions given X 1. 21:52 Patient left the ED. kl Signatures: Sandra Levin, RN RN Allan Cruz DO DO ms3 Kerline Dumont jj6 Timo Pederson, WESTON RN as6
[2022-09-19 04:12] VITALS: BP 117/81; TEMP 98.2
[2022-09-19 04:13] VITALS: O2SAT 99
== END 2022-09-18 21:52 | disposition home or self-care (01) ==
LOC: ER 20:21
DX: R50.9 Fever, unspecified (principal); R11.10 Vomiting, unspecified
CPT/HCPCS: 0240U; Q0162

== ENCOUNTER 2022-11-21 20:20 | Emergency (ER) | payer SELFPAY ==
[2022-11-21 21:41] LABS: Absolute Lymphocytes (CBC) 2.1 K/uL (0.7-4.9); Hematocrit 41.9 % (36.0-45.0); Lymphocytes % 23.9 % (15.3-44.8); MCV 92.3 fL (80-100); MPV 9.2 fL (7.6-11.3); RBC Red Blood Cell Count 4.54 M/uL (3.86-4.86)
[2022-11-21] MEDS ORDERED: METOCLOPRAMIDE 10 MG/2mL INJ ONE (21:43)
[2022-11-21] MEDS ORDERED: dexAMETHasone 10 MG/ML VIAL ONE (21:44)
[2022-11-21] MEDS ORDERED: NA CHLORIDE 0.9% 500 ML ONE (21:44)
--- NOTE | 2022-11-21 21:52 | RAD REPORT ---
EXAM DESCRIPTION: CT - Head Brain Wo Cont - 11/21/2022 9:45 pm CLINICAL HISTORY: headache, vomiting Headache, drowsiness COMPARISON: Head Brain Wo Cont dated 07/15/2017 TECHNIQUE: All CT scans are performed using dose optimization technique as appropriate and may inclu de automated exposure control or mA/KV adjustment according to patient size. FINDINGS: No intracranial hemorrhage, hydrocephalus or extra-axial fluid collection.No areas of brai n edema or evidence of midline shift. The paranasal sinuses and mastoids are clear. The calvarium is intact. IMPRESSION: No acute intracranial abnormality.
--- NOTE | 2022-11-21 21:56 | RAD REPORT ---
EXAM DESCRIPTION: RAD - Chest Single View - 11/21/2022 9:49 pm CLINICAL HISTORY: CHEST PAIN Chest pain. COMPARISON: Chest Single View dated 08/01/2017 FINDINGS: Portable technique limits examination quality. The lungs are grossly clear. The heart is normal in size. No displaced fractures. IMPRESSION: No acute intrathoracic process suspected.
[2022-11-21 22:00] LABS: BUN Blood Urea Nitrogen 10 mg/dL (7-18); Bicarbonate 28 mEq/L (21-32); Glomerular Filtration Rate 123 ml/min (=/>90); Glucose Level 114 mg/dL (74-106); Potassium 3.8 mEq/L (3.5-5.1); Sodium Level 141 mEq/L (136-145); Troponin High Sensitivity < 3.0 pg/mL (<58.9)
--- NOTE | 2022-11-22 00:34 | EDPHYS ---
Physician Documentation [facility] Name: Renetta Ellison Age: 27 yrs Sex: Female : 1995 Arrival Date: 11/21/2022 Time: 20:20 Bed 18 Private MD: ED Physician Hamilton Muhammad HPI: 11/21 20:58 This 27 yrs old Female presents to ER via Wheelchair with complaints of jmm Dizziness, Chest Pain, Shortness Of Breath. 20:58 This is a 27 year old female that presents to the ED with complaints of headache jmm beginning around 6 pm after work this evening. Gradual onset. Pain increased. Patient states subsequently developing nausea, vomiting. Patient states she then developed chest pain. . 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 - Social history:: Smoking status: Patient/guardian denies using tobacco, but has a distant history of tobacco abuse. ROS: 20:58 Constitutional: Negative for fever, chills, and weight loss, Cardiovascular: Negative jmm for chest pain, palpitations, and edema, Respiratory: Negative for shortness of breath, cough, wheezing, and pleuritic chest pain. 20:58 Abdomen/GI: Positive for nausea and vomiting. 20:58 Neuro: Positive for headache. 20:58 All other systems are negative. Exam: 20:58 Constitutional: This is a well developed, well nourished patient who is awake, alert, jmm and in no acute distress. Head/Face: atraumatic. Eyes: EOMI, no conjunctival erythema appreciated ENT: Moist Mucus Membranes Neck: Trachea midline, Supple Chest/axilla: Normal chest wall appearance and motion. Cardiovascular: Regular rate and rhythm. No edema appreciated Respiratory: Normal respirations, no respiratory distress appreciated Abdomen/GI: Non distended Back: Normal ROM Skin: General appearance color normal MS/ Extremity: Moves all extremities, no obvious deformities appreciated, no edema noted to the lower extremities Neuro: Awake and alert Psych: Behavior is normal, Mood is normal, Patient is cooperative and pleasant Vital Signs: 21:07 BP 124 / 74; Pulse 61; Resp 18; Temp 97.7(O); Pulse Ox 99% on R/A; Weight 72.57 kg; kd3 Height 5 ft. 0 in. ; 23:00 BP 124 / 70; Pulse 72; Resp 16; Pulse Ox 98% on R/A; 4 11/22 00:00 BP 115 / 73; Pulse 68; Resp 16; Pulse Ox 96% on R/A; [facility] 11/21 21:07 Body Mass Index 31.25 (72.57 kg, 152.4 cm) kd3 MDM: 11/21 20:58 Patient medically screened. [facility] 11/22 00:23 Differential diagnosis: migraine, ich, meningitis, acs, pericarditis, pneumonia. [facility] 00:32 Data reviewed: vital signs, nurses notes, lab test result(s), EKG, radiologic studies, [facility] CT scan. I considered the following discharge prescriptions or medication management in the emergency department Medications were administered in the Emergency Department. See MAR. Counseling: I had a detailed discussion with the patient and/or guardian regarding: the historical points, exam findings, and any diagnostic results supporting the discharge/admit diagnosis, lab results, radiology results, the need for outpatient follow up, to return to the emergency department if symptoms worsen or persist or if there are any questions or concerns that arise at home. ED course: Patient is alert and non toxic in appearance in the ED. Labs, imaging studies unremarkable. Advised to follow up with neurology for further evaluation. patient understood and agrees with the plan of care. . 11/21 20:58 Order name: Basic Metabolic Panel; Complete Time: 22:00 [facility] 11/21 20:58 Order name: CBC with Diff; Complete Time: 21:50 [facility] 11/21 20:58 Order name: Troponin HS; Complete Time: 22:00 [facility] 11/21 20:58 Order name: XRAY Chest (1 view); Complete Time: 21:58 [facility] 11/21 20:59 Order name: CT Head Brain wo Cont; Complete Time: 21:58 [facility] 11/21 20:58 Order name: EKG; Complete Time: 21:00 [facility] 11/21 20:58 Order name: Cardiac monitoring; Complete Time: 23:14 [facility] 11/21 20:58 Order name: EKG - Nurse/Tech; Complete Time: 21:34 [facility] 11/21 20:58 Order name: IV Saline Lock; Complete Time: 21:35 [facility] 11/21 20:58 Order name: Labs collected and sent; Complete Time: 21:35 [facility] 11/21 20:58 Order name: O2 Per Protocol; Complete Time: 23:14 [facility] 11/21 20:58 Order name: O2 Sat Monitoring; Complete Time: 21:35 [facility] Administered Medications: 11/21 21:43 Drug: NS 0.9% IV 500 ml Route: IV; Rate: bolus; Site: right antecubital; kd3 21:43 Drug: metoCLOPramide IVP 20 mg Route: IVP; Site: right antecubital; kd3 21:43 Drug: Decadron - Dexamethasone IVP 10 mg Route: IVP; Site: right antecubital; kd3 Disposition Summary: 11/22/22 00:34 Discharge Ordered Location: Home [facility] Condition: Stable [facility] Diagnosis - Headache jmm - Chest pain, unspecified jmm Followup: [facility] - With: Adarsh Pak MD - When: 2 - 3 days - Reason: Recheck today's complaints, Continuance of care, Re-evaluation by your physician Discharge Instructions: - Discharge Summary Sheet jm - Nonspecific Chest Pain, Adult jm - Migraine Headache [facility] Forms: - Work release form [facility] - Medication Reconciliation Form [facility] - Thank You Letter [facility] - Antibiotic Education [facility] - Prescription Opioid Use [facility] Prescriptions: - ondansetron 4 mg Oral Tablet,disintegrating - take 1 tablet by ORAL route every 4-6 hours As needed; 20 tablet; Refills: 0, [facility] Product Selection Permitted Signatures: Dispatcher [employer] Johnny Troy PA PA jmm Doucette, Kyli, RN RN kd3
--- NOTE | 2022-11-22 00:34 | ER ---
Nurse's Notes [facility] Name: Renetta Ellison Age: 27 yrs Sex: Female : 1995 Arrival Date: 11/21/2022 Time: 20:20 Bed 18 Private MD: Diagnosis: Headache;Chest pain, unspecified Presentation: 11/21 21:07 Chief complaint: Patient states: I feel like i have some chest pressure going on and i kd3 feel like it is kind of hard to breath. I also have a headache. All of my symptoms started around 7 PM. Coronavirus screen: unknown. Ebola Screen: No symptoms or risks identified at this time. Initial Sepsis Screen: Does the patient meet any 2 criteria? No. Patient's initial sepsis screen is negative. Does the patient have a suspected source of infection? No. Patient's initial sepsis screen is negative. Risk Assessment: Do you want to hurt yourself or someone else? Patient reports no desire to harm self or others. Onset of symptoms was November 21, 2022. 21:07 Method Of Arrival: Wheelchair kd3 21:07 Acuity: LETITIA 3 kd3 Triage Assessment: 21:09 General: Appears uncomfortable, Behavior is calm, cooperative. Pain: Complains of pain kd3 in chest. Cardiovascular: Patient's skin is warm and dry. 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 - Social history:: Smoking status: Patient/guardian denies using tobacco, but has a distant history of tobacco abuse. Screenin/23 00:48 [facility] ED Fall Risk Assessment (Adult) History of falling in the last 3 months, jb4 including since admission No falls in past 3 months (0 pts) Confusion or Disorientation No (0 pts) Score/Fall Risk Level 0 - 2 = Low Risk Oriented to surroundings, Maintained a safe environment. Abuse screen: Denies threats or abuse. Nutritional screening: No deficits noted. Tuberculosis screening: No symptoms or risk factors identified. Assessment: 11/21 21:30 General: Appears in no apparent distress. uncomfortable, Behavior is calm, cooperative, jb4 appropriate for age. Pain: Complains of pain in chest,headache Pain does not radiate. Pain currently is 8 out of 10 on a pain scale. Quality of pain is described as pressure, Pain began 2 hours ago. Neuro: Level of Consciousness is awake, alert, obeys commands. Cardiovascular: Patient's skin is warm and dry. Respiratory: Airway is patent Respiratory effort is even, unlabored, Respiratory pattern is regular, symmetrical. GI: Reports upper abdominal pain, nausea, vomiting. : No signs and/or symptoms were reported regarding the genitourinary system. EENT: No signs and/or symptoms were reported regarding the EENT system. Derm: Skin is intact, Skin is pink, warm \T\ dry. 22:30 Reassessment: Patient appears in no apparent distress at this time. Patient and/or jb4 family updated on plan of care and expected duration. Pain level reassessed. Patient is alert, oriented x 3, equal unlabored respirations, skin warm/dry/pink. 23:32 Reassessment: Patient appears in no apparent distress at this time. Patient and/or jb4 family updated on plan of care and expected duration. Pain level reassessed. Patient is alert, oriented x 3, equal unlabored respirations, skin warm/dry/pink. 11/22 00:06 Reassessment: Patient appears in no apparent distress at this time. Patient and/or jb4 family updated on plan of care and expected duration. Pain level reassessed. Patient is alert, oriented x 3, equal unlabored respirations, skin warm/dry/pink. Vital Signs: 11/21 21:07 BP 124 / 74; Pulse 61; Resp 18; Temp 97.7(O); Pulse Ox 99% on R/A; Weight 72.57 kg; kd3 Height 5 ft. 0 in. ; 23:00 BP 124 / 70; Pulse 72; Resp 16; Pulse Ox 98% on R/A; jb4 11/22 00:00 BP 115 / 73; Pulse 68; Resp 16; Pulse Ox 96% on R/A; jb4 11/21 21:07 Body Mass Index 31.25 (72.57 kg, 152.4 cm) 3 ED Course: 11/21 20:23 Patient arrived in ED. [facility] 20:54 Johnny Brewer PA is PHCP. [facility] 20:54 Hamilton Muhammad MD is Attending Physician. jmm 20:55 EKG done, by ED staff, reviewed by Johnny SMITH. jw7 21:09 Triage completed. kd3 21:09 Arm band placed on right wrist. kd3 21:30 Inserted saline lock: 18 gauge in right antecubital area, using aseptic technique. jb4 Blood collected. 21:47 CT Head Brain wo Cont In Process Unspecified. EDMS 21:51 XRAY Chest (1 view) In Process Unspecified. EDMS 11/22 00:03 Lonny Tapia, RN is Primary Nurse. jb4 00:34 Adarsh Pak MD is Referral Physician. jmm 00:48 No provider procedures requiring assistance completed. IV discontinued, intact, jb4 bleeding controlled, No redness/swelling at site. Pressure dressing applied. Patient maintains SpO2 saturation greater than 95% on room air. 00:48 Patient has correct armband on for positive identification. Client placed on continuous jb4 cardiac and pulse oximetry monitoring. NIBP monitoring applied. Administered Medications: 11/21 21:43 Drug: NS 0.9% IV 500 ml Route: IV; Rate: bolus; Site: right antecubital; kd3 21:43 Drug: metoCLOPramide IVP 20 mg Route: IVP; Site: right antecubital; kd3 21:43 Drug: Decadron - Dexamethasone IVP 10 mg Route: IVP; Site: right antecubital; kd3 Outcome: 11/22 00:34 Discharge ordered by . jmm 00:48 Discharged to home ambulatory, with family. jb4 00:48 Condition: stable 00:48 Discharge instructions given to patient, Instructed on discharge instructions, follow up and referral plans. medication usage, Demonstrated understanding of instructions, follow-up care, medications, Prescriptions given X 1. 00:49 Patient left the ED. jb4 Signatures: Dispatcher [employer] EDMT Johnny Brewer PA PA Lonny Villanueva, RN RN [email or web address] Anastasia Logan Kyli, RN RN [email or web address] Estella Norman jw7 Corrections: (The following items were deleted from the chart) 00:08 11/21 22:25 Reassessment: see triage note jb4 jb4
[2022-11-22 02:07] VITALS: TEMP 97.7
[2022-11-22 02:10] VITALS: BP 115/73; O2SAT 96
--- NOTE | 2022-11-23 04:58 | EKG ---
Test Date: 2022-11-21 Test Time: 20:53:25 Roving Department End Finder: JHOAN MEASUREMENT RESULTS: Intervals: Rate: 63 DE: 138 QRSD: 90 QT: 430 QTc: 440 [place]: P: 37 DE: 138 QRS: 59 T: 46 INTERPRETIVE STATEMENTS: Normal sinus rhythm with sinus arrhythmia Normal ECG Compared to ECG 08/01/2017 04:25:15 No significant changes Electronically Signed On 11-23-22 04:54:30 CDT by Beny Horn
== END 2022-11-22 00:49 | disposition home or self-care (01) ==
LOC: ER 20:20
DX: R51.9 Headache, unspecified (principal); R07.9 Chest pain, unspecified
CPT/HCPCS: 36415; 70450; 71045; 80048; 84484; 85025; 93005; J1100; J2765; J7040

== ENCOUNTER 2022-12-20 21:56 | Emergency (ER) | payer SELFPAY ==
--- NOTE | 2022-12-20 22:26 | EDPHYS ---
Physician Documentation [facility] Name: Renetta Ellison Age: 27 yrs Sex: Female : 1995 Arrival Date: 12/20/2022 Time: 21:56 Bed 19 Private MD: ED Physician Nasrin Tran HPI: 12/20 22:23 This 27 yrs old Female presents to ER via Unassigned with complaints of Sore sp3 Throat, Ear Pain. 22:23 27-year-old female with no significant past medical history presents with right-sided sp3 ear stuffiness and mild sore throat for 2 days. Patient has had a positive sick contact family member who had the same symptoms. She denies fever, difficulty swallowing, chest pain, shortness of breath, cough, abdominal pain, any other signs or symptoms at this time. She states she needs a work excuse/release to be able to go back to work. ROS otherwise negative.. 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 - Social history:: Smoking status: Patient denies any tobacco usage or history of. Patient/guardian denies using alcohol, street drugs, Smoking status: unknown. ROS: 22:24 Constitutional: Negative for fever, chills, and weight loss, Eyes: Negative for injury, sp3 pain, redness, and discharge, Neck: Negative for injury, pain, and swelling, Cardiovascular: Negative for chest pain, palpitations, and edema, Respiratory: Negative for shortness of breath, cough, wheezing, and pleuritic chest pain, Abdomen/GI: Negative for abdominal pain, nausea, vomiting, diarrhea, and constipation, Back: Negative for injury and pain, MS/Extremity: Negative for injury and deformity, Skin: Negative for injury, rash, and discoloration, Neuro: Negative for headache, weakness, numbness, tingling, and seizure. 22:24 All other systems are negative. Exam: 22:25 Constitutional: This is a well developed, well nourished patient who is awake, alert, sp3 and in no acute distress. Head/Face: Normocephalic, atraumatic. Eyes: Pupils equal round and reactive to light, extra-ocular motions intact. Lids and lashes normal. Conjunctiva and sclera are non-icteric and not injected. Cornea within normal limits. Periorbital areas with no swelling, redness, or edema. Neck: Trachea midline, no thyromegaly or masses palpated, and no cervical lymphadenopathy. Supple, full range of motion without nuchal rigidity, or vertebral point tenderness. No Meningismus. Chest/axilla: Normal chest wall appearance and motion. Nontender with no deformity. No lesions are appreciated. Cardiovascular: Regular rate and rhythm with a normal S1 and S2. No gallops, murmurs, or rubs. Normal PMI, no JVD. No pulse deficits. Respiratory: Lungs have equal breath sounds bilaterally, clear to auscultation and percussion. No rales, rhonchi or wheezes noted. No increased work of breathing, no retractions or nasal flaring. Abdomen/GI: Soft, non-tender, with normal bowel sounds. No distension or tympany. No guarding or rebound. No evidence of tenderness throughout. Skin: Warm, dry with normal turgor. Normal color with no rashes, no lesions, and no evidence of cellulitis. MS/ Extremity: Pulses equal, no cyanosis. Neurovascular intact. Full, normal range of motion. Neuro: Awake and alert, GCS 15, oriented to person, place, time, and situation. Cranial nerves II-XII grossly intact. Motor strength 5/5 in all extremities. Sensory grossly intact. Cerebellar exam normal. Normal gait. Psych: Awake, alert, with orientation to person, place and time. Behavior, mood, and affect are within normal limits. 22:25 ENT: Bilateral TMs are normal. Left tonsil mildly swollen without any exudates. No erythema noted. ENT exam otherwise normal.. Vital Signs: 22:15 BP 121 / 63; Pulse 80; Resp 19; Temp 98.5; Pulse Ox 98% ; Weight 83.51 kg; Height 5 ft. jj7 0 in. ; Pain 4/10; 22:15 Body Mass Index 35.95 (83.51 kg, 152.4 cm) [facility] 22:15 Pain Scale: Adult jj7 MDM: 22:23 Patient medically screened. sp3 22:25 Data reviewed: vital signs, nurses notes. ED course: 27-year-old with viral upper sp3 respiratory infection. No antibiotics indicated. We will safely discharge patient home and give her a work release to be able to return.. Administered Medications: No medications were administered Disposition Summary: 12/20/22 22:26 Discharge Ordered Location: Home sp3 Condition: Stable sp3 Diagnosis - Viral upper respiratory infection sp3 Followup: sp3 - With: Private Physician - When: Upon discharge from the Emergency Department - Reason: If symptoms return Discharge Instructions: - Discharge Summary Sheet sp3 - Viral Illness, Adult sp3 Forms: - Medication Reconciliation Form sp3 - Thank You Letter sp3 - Antibiotic Education sp3 - Prescription Opioid Use sp3 - Work release form ha1 Signatures: Nasrin Tran MD MD sp3 Casandra Monroy RN RN ha1 Simone Santo RN RN jj7
--- NOTE | 2022-12-20 22:34 | ER ---
Nurse's Notes [facility] Name: Renetta Ellison Age: 27 yrs Sex: Female : 1995 Arrival Date: 12/20/2022 Time: 21:56 Bed 19 Private MD: Diagnosis: Viral upper respiratory infection Presentation: 12/20 22:15 Chief complaint: Patient states: N/V/D SINCE MONDAY. RIGHT EAR PAIN AND SORE THROAT. jj7 STATES HER SISTER HAS HAD THE SAME SYMPTOMS. STATES SHE CAN NOT RETURN TO WORK WITHOUT EXCUSE FROM [employer] Coronavirus screen: At this time, the client does not indicate any symptoms associated with coronavirus-19. Ebola Screen: No symptoms or risks identified at this time. Initial Sepsis Screen: Does the patient meet any 2 criteria? No. Patient's initial sepsis screen is negative. Does the patient have a suspected source of infection? No. Patient's initial sepsis screen is negative. Risk Assessment: Do you want to hurt yourself or someone else? Patient reports no desire to harm self or others. Onset of symptoms was December 18, 2022. 22:15 Method Of Arrival: Ambulatory [facility] 22:15 Acuity: LETITIA 4 j7 Triage Assessment: 22:28 General: Appears in no apparent distress. comfortable, Behavior is calm, cooperative, jj7 appropriate for age. EENT: Reports pain in right ear SORE THROAT. GI: Reports diarrhea, nausea, vomiting. 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 - Social history:: Smoking status: Patient denies any tobacco usage or history of. Patient/guardian denies using alcohol, street drugs, Smoking status: unknown. Screenin:15 [facility] ED Fall Risk Assessment (Adult) History of falling in the last 3 months, ha1 including since admission No falls in past 3 months (0 pts) Confusion or Disorientation No (0 pts) Intoxicated or Sedated No (0 pts) Impaired Gait No (0 pts) Mobility Assist Device Used No (0 pt) Altered Elimination No (0 pt) Score/Fall Risk Level 0 - 2 = Low Risk Oriented to surroundings, Maintained a safe environment, Educated pt \T\ family on fall prevention, incl call for assistance when getting out of bed. 22:28 Abuse screen: Denies threats or abuse. Denies injuries from another. Nutritional ha1 screening: No deficits noted. Tuberculosis screening: No symptoms or risk factors identified. Assessment: 22:15 General: Appears comfortable, Behavior is calm, cooperative. Pain: Complains of pain in ha1 throat Pain does not radiate. Pain currently is 7 out of 10 on a pain scale. Neuro: Level of Consciousness is awake, alert, obeys commands, Oriented to person, place, time, situation. Cardiovascular: Patient's skin is warm and dry. Respiratory: Airway is patent Trachea midline Respiratory effort is even, unlabored, Respiratory pattern is regular, symmetrical, Breath sounds are clear bilaterally. GI: Reports nausea. : No signs and/or symptoms were reported regarding the genitourinary system. EENT: Throat is reddened. Musculoskeletal: Circulation, motion, and sensation intact. Range of motion: intact in all extremities. Vital Signs: 22:15 BP 121 / 63; Pulse 80; Resp 19; Temp 98.5; Pulse Ox 98% ; Weight 83.51 kg; Height 5 ft. jj7 0 in. ; Pain 4/10; 22:15 Body Mass Index 35.95 (83.51 kg, 152.4 cm) jj7 22:15 Pain Scale: Adult jj7 ED Course: 22:03 Patient arrived in ED. ag3 22:05 Nasrin Tran MD is Attending Physician. sp3 22:15 Timo Pederson, [place] is Primary Nurse. as6 22:15 Patient has correct armband on for positive identification. Placed in gown. Bed in low ha1 position. Call light in reach. Side rails up X 1. 22:28 Triage completed. jj7 22:28 Arm band placed on right wrist. Patient placed in an exam room, on a stretcher. jj7 22:32 No provider procedures requiring assistance completed. Patient did not have IV access ha1 during this emergency room visit. Administered Medications: No medications were administered Medication: 22:33 VIS not applicable for this client. ha1 Outcome: 22:26 Discharge ordered by . sp3 22:32 Discharged to home ambulatory. ha1 22:32 Condition: stable 22:32 Discharge instructions given to patient, Instructed on discharge instructions, follow up and referral plans. Demonstrated understanding of instructions, follow-up care. 22:34 Patient left the ED. ha1 Signatures: Anastasia Logan3 Nasrin Tran MD MD sp3 Timo Pederson RN RN as6 Casandra Monroy RN RN ha1 Simone Santo RN RN jj7
[2022-12-20 22:44] VITALS: BP 121/63; TEMP 98.5; O2SAT 98
== END 2022-12-20 22:34 | disposition home or self-care (01) ==
LOC: ER 21:56
DX: J06.9 Acute upper respiratory infection, unspecified (principal)

== ENCOUNTER 2023-01-04 02:42 | Emergency (ER) | payer SELFPAY ==
[2023-01-04 03:07] LABS: Absolute Lymphocytes (CBC) 1.8 K/uL (0.7-4.9); Lymphocytes % 16.3 % (15.3-44.8); MCV 91.1 fL (80-100); MPV 9.3 fL (7.6-11.3)
[2023-01-04 03:14] LABS: Specific Gravity 1.014 (1.005-1.030); Urine Bilirubin NEGATIVE (Negative); Urine Blood Negative (Negative); Urine Clarity Clear (Clear); Urine Color Colorless (Yellow); Urine Glucose NEGATIVE (Negative); Urine Protein NEGATIVE (Negative); Urine Urobilinogen Normal (Normal); Urine pH 6.5 (5.0-7.0)
[2023-01-04] MEDS ORDERED: ONDANSETRON 4 MG/2 ML VIAL ONE (03:16)
[2023-01-04] MEDS ORDERED: MORPHINE 4 MG/ML SYR ONE (03:16)
[2023-01-04] MEDS ORDERED: KETOROLAC 30 MG/ML INJ ONE (03:16)
[2023-01-04] MEDS ORDERED: NA CHLORIDE 0.9% 1,000 ML ONE (03:16)
[2023-01-04 03:17] LABS: Specific Gravity 1.014 (1.005-1.030)
[2023-01-04 03:24] LABS: Albumin 3.8 g/dL (3.4-5.0); Bilirubin Total 0.3 mg/dL (0.2-1.0); Potassium 4.1 mEq/L (3.5-5.1); Protein, Total 7.6 g/dL (6.4-8.2)
--- NOTE | 2023-01-04 05:36 | EDPHYS ---
Physician Documentation [facility] Name: Renetta Ellison Age: 27 yrs Sex: Female : 1995 Arrival Date: 01/04/2023 Time: 02:42 Bed 23 Private MD: ED Physician Hamilton Muhammad HPI: 01/04 02:49 This 27 yrs old Female presents to ER via Unassigned with complaints of sp4 Abdominal Pain, Trouble Walking. 05:24 27-year-old female with past medical history of ovarian cysts, presents with cute onset sp4 of lower abdominal pain starting 2 hours prior to arrival. Patient denied any vomiting. Denied any other symptoms. . 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 - Social history:: Smoking status: Patient denies any tobacco usage or history of. - Family history:: not pertinent. ROS: 05:24 Constitutional: Negative for fever, chills, and weight loss, Eyes: Negative for injury, sp4 pain, redness, and discharge, ENT: Negative for injury, pain, and discharge, Neck: Negative for injury, pain, and swelling, Cardiovascular: Negative for chest pain, palpitations, and edema, Respiratory: Negative for shortness of breath, cough, wheezing, and pleuritic chest pain, Abdomen/GI: Negative for nausea, vomiting, diarrhea, and constipation, positive for pelvic pain and positive for abdominal pain Back: Negative for injury and pain, : Negative for injury, bleeding, discharge, and swelling, MS/Extremity: Negative for injury and deformity, Skin: Negative for injury, rash, and discoloration, Neuro: Negative for headache, weakness, numbness, tingling, and seizure, Psych: Negative for depression, anxiety, Allergy/Immunology: Negative for hives, rash, and allergies Endocrine: Negative for neck swelling, polydipsia, polyuria, polyphagia, and weight changes Hematologic/Lymphatic: Negative for swollen nodes, abnormal bleeding, and unusual bruising Exam: 05:24 Constitutional: This is a well developed, well nourished patient who is awake, alert, sp4 and in no acute distress. Head/Face: Normocephalic, atraumatic. Eyes: Pupils equal round and reactive to light, extra-ocular motions intact. Lids and lashes normal. Conjunctiva and sclera are not injected. Cornea within normal limits. Periorbital areas with no swelling, redness, or edema. ENT: Nares patent. No nasal discharge, no septal abnormalities noted. Tympanic membranes are normal and external auditory canals are clear. Oropharynx with no redness, swelling, or masses, exudates, or evidence of obstruction, uvula midline. Mucous membranes moist. Neck: Trachea midline, no thyromegaly or masses palpated, and no cervical lymphadenopathy. Supple, full range of motion without nuchal rigidity, or vertebral point tenderness. Chest/axilla: Normal chest wall appearance and motion. Nontender with no deformity. No lesions are appreciated. Cardiovascular: Regular rate and rhythm with a normal S1 and S2. No gallops, murmurs, or rubs. Normal PMI, no JVD. No pulse deficits. Respiratory: Lungs have equal breath sounds bilaterally, clear to auscultation and percussion. No rales, rhonchi or wheezes noted. No increased work of breathing, no retractions or nasal flaring. Abdomen/GI: Soft, positive lower abdominal and pelvic tenderness equal of the right and left side, normoactive bowel sounds, no rebound, no distention, no rigidity Back: No spinal tenderness. No costovertebral tenderness. Skin: Warm, dry with normal turgor. Normal color with no rashes, no lesions, and no evidence of cellulitis. MS/ Extremity: Pulses equal, no cyanosis. Neurovascular intact. Full, normal range of motion. Neuro: Awake and alert, GCS 15, oriented to person, place, time, and situation. Cranial nerves II-XII grossly intact. Motor strength 5/5 in all extremities. Sensory grossly intact. Psych: Awake, alert, with orientation to person, place and time. Behavior, mood, and affect are within normal limits Vital Signs: 02:56 BP 142 / 86; Pulse 86; Resp 19; Temp 98.2(O); Pulse Ox 100% on R/A; Weight 81.65 kg; kd3 Height 5 ft. 0 in. ; 04:50 BP 124 / 74; Pulse 66; Resp 17; Pulse Ox 100% on R/A; kd3 05:48 BP 125 / 76; Pulse 72; Resp 16; Pulse Ox 99% on R/A; kd3 02:56 Body Mass Index 35.15 (81.65 kg, 152.4 cm) kd3 MDM: 02:50 Patient medically screened. sp4 05:30 Data reviewed: vital signs, nurses notes, old medical records, lab test result(s), CBC, sp4 electrolytes, hepatic panel, urinalysis, UPT: negative radiologic studies, CT scan. Consideration of Admission/Observation Patient was admitted/placed on observation. Escalation of care including admission/observation considered. ED course: Labs today basically unremarkable blood sugar 121 negative test normal urinalysis. ED course: CT revealed normal in appearance reproductive organs, no free fluid, no acute abdominopelvic findings, moderate stool burden., Advise Dulcolax or Senokot for constipation. Also will advise visit with PASSENGER REPRESENTATIVE for follow-up for investigation for endometriosis. . 01/04 02:50 Order name: CBC with Diff; Complete Time: 05:29 sp4 01/04 02:50 Order name: CMP; Complete Time: 05:29 sp4 01/04 02:50 Order name: Lipase; Complete Time: 05:29 sp4 01/04 02:50 Order name: Test, Urine; Complete Time: 05:29 sp4 01/04 02:50 Order name: Urinalysis w/ reflexes; Complete Time: 05:29 sp4 01/04 03:06 Order name: CT Abd/Pelvis - IV Contrast Only sp4 01/04 02:50 Order name: IV Saline Lock; Complete Time: 03:05 sp4 01/04 02:50 Order name: Labs collected and sent; Complete Time: 03:05 sp4 Administered Medications: 03:12 Drug: NS 0.9% IV 1000 ml Route: IV; Rate: 1 bolus; Site: right antecubital; kd3 05:50 Follow up: Response: No adverse reaction; IV Status: Completed infusion; IV Intake: kd3 1000ml 03:12 Drug: Ketorolac IVP 30 mg Route: IVP; Site: right antecubital; kd3 05:50 Follow up: Response: No adverse reaction; Pain is decreased kd3 03:12 Drug: morphine IVP or IV 4 mg Route: IVP; Infused Over: 4 mins; Site: right antecubital;kd3 05:49 Follow up: Response: No adverse reaction; Pain is decreased kd3 03:12 Drug: Ondansetron IVP 4 mg Route: IVP; Site: right antecubital; kd3 05:49 Follow up: Response: No adverse reaction kd3 05:49 Drug: MetoCLOPramide PO 10 mg Route: PO; kd3 05:49 Follow up: Response: No adverse reaction kd3 05:49 Drug: Dicyclomine PO 20 mg Route: PO; kd3 05:49 Follow up: Response: No adverse reaction kd3 Disposition Summary: 01/04/23 05:35 Discharge Ordered Location: Home sp4 Problem: new sp4 Symptoms: have improved sp4 Condition: Stable sp4 Diagnosis - Lower abdominal pain, unspecified sp4 - Pelvic and perineal pain sp4 Followup: sp4 - With: Private Physician - When: 7 - 10 days - Reason: Recheck today's complaints Discharge Instructions: - Discharge Summary Sheet sp4 - Abdominal Pain, Adult, [id number] sp4 Forms: - Work release form 3 - [email or web address] sp4 Prescriptions: - Fioricet 50-300-40 mg Oral capsule - take 1 capsule by ORAL route every 6 hours PRN pain; 30 capsule; Refills: 0, sp4 Product Selection Permitted - Reglan 10 mg Oral Tablet - take 1 tablet by ORAL route every 6 hours PRN pain and nausea; 30 tablet; sp4 Refills: 0, Product Selection Permitted - Levsin 0.125 mg Oral Tablet - take 1 tablet by ORAL route every 8 hours; 30 tablet; Refills: 0, Product sp4 Selection Permitted Signatures: Dispatcher [facility] Madyson Lacy RN RN kd3 Hamilton Muhammad MD MD sp4
--- NOTE | 2023-01-04 05:36 | ER ---
Nurse's Notes [facility] Name: Renetta Ellison Age: 27 yrs Sex: Female : 1995 Arrival Date: 01/04/2023 Time: 02:42 Bed 23 Private MD: Diagnosis: Lower abdominal pain, unspecified;Pelvic and perineal pain Presentation: 01/04 02:56 Chief complaint: Patient states: I had an ovarian cyst back in 2018 that ruptured. This kd3 feels a lot like that. I am having lower right sided pain, I started to cramp a couple of days ago and then about an hour ago, it got worse and is going down my right leg. Coronavirus screen: Vaccine status: Patient reports being unvaccinated. Ebola Screen: No symptoms or risks identified at this time. Initial Sepsis Screen: Does the patient meet any 2 criteria? No. Patient's initial sepsis screen is negative. Does the patient have a suspected source of infection? No. Patient's initial sepsis screen is negative. Risk Assessment: Do you want to hurt yourself or someone else? Patient reports no desire to harm self or others. Onset of symptoms was January 04, 2023. 02:56 Method Of Arrival: Wheelchair kd3 02:56 Acuity: LETITIA 3 kd3 Triage Assessment: 02:58 General: Appears uncomfortable, Behavior is calm, cooperative. Pain: Complains of pain kd3 in right lower quadrant. GI: Abdomen is non-distended. 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 - Social history:: Smoking status: Patient denies any tobacco usage or history of. - Family history:: not pertinent. Screenin:51 [facility] ED Fall Risk Assessment (Adult) History of falling in the last 3 months, kd3 including since admission No falls in past 3 months (0 pts) Confusion or Disorientation No (0 pts) Intoxicated or Sedated No (0 pts) Impaired Gait No (0 pts) Mobility Assist Device Used No (0 pt) Altered Elimination No (0 pt) Score/Fall Risk Level 0 - 2 = Low Risk Maintained a safe environment. Abuse screen: Denies threats or abuse. Denies injuries from another. Nutritional screening: No deficits noted. Tuberculosis screening: No symptoms or risk factors identified. Assessment: 04:50 General: Appears in no apparent distress. Behavior is calm, cooperative. Pain: kd3 Complains of pain in right lower quadrant. Neuro: Level of Consciousness is awake, alert, obeys commands, Oriented to person, place, time, situation. Cardiovascular: Patient's skin is warm and dry. Respiratory: Airway is patent Trachea midline Respiratory effort is even, unlabored, Respiratory pattern is regular, symmetrical. GI: Bowel sounds present X 4 quads. Abd is soft X 4 quads Abdomen is tender to palpation in right lower quadrant. Vital Signs: 02:56 BP 142 / 86; Pulse 86; Resp 19; Temp 98.2(O); Pulse Ox 100% on R/A; Weight 81.65 kg; kd3 Height 5 ft. 0 in. ; 04:50 BP 124 / 74; Pulse 66; Resp 17; Pulse Ox 100% on R/A; kd3 05:48 BP 125 / 76; Pulse 72; Resp 16; Pulse Ox 99% on R/A; kd3 02:56 Body Mass Index 35.15 (81.65 kg, 152.4 cm) kd3 ED Course: 02:46 Patient arrived in ED. ja2 02:49 Hamilton Muhammad MD is Attending Physician. sp4 02:58 Triage completed. kd3 02:59 Arm band placed on right wrist. kd3 03:00 Madyson Marvin, RN is Primary Nurse. kd3 03:00 Inserted saline lock: 20 gauge in right antecubital area, using aseptic technique. mc5 Blood collected. 03:10 CBC with Diff Sent. mc5 03:10 CMP Sent. mc5 03:10 Lipase Sent. mc5 03:10 Test, Urine Sent. mc5 03:10 Urinalysis w/ reflexes Sent. mc5 03:54 CT Abd/Pelvis - IV Contrast Only In Process Unspecified. EDMS 04:51 Patient has correct armband on for positive identification. Client placed on continuous kd3 cardiac and pulse oximetry monitoring. NIBP monitoring applied. 05:48 No provider procedures requiring assistance completed. IV discontinued, intact, kd3 bleeding controlled, No redness/swelling at site. Pressure dressing applied. Administered Medications: 03:12 Drug: NS 0.9% IV 1000 ml Route: IV; Rate: 1 bolus; Site: right antecubital; kd3 05:50 Follow up: Response: No adverse reaction; IV Status: Completed infusion; IV Intake: kd3 1000ml 03:12 Drug: Ketorolac IVP 30 mg Route: IVP; Site: right antecubital; kd3 05:50 Follow up: Response: No adverse reaction; Pain is decreased kd3 03:12 Drug: morphine IVP or IV 4 mg Route: IVP; Infused Over: 4 mins; Site: right antecubital;kd3 05:49 Follow up: Response: No adverse reaction; Pain is decreased kd3 03:12 Drug: Ondansetron IVP 4 mg Route: IVP; Site: right antecubital; kd3 05:49 Follow up: Response: No adverse reaction kd3 05:49 Drug: MetoCLOPramide PO 10 mg Route: PO; kd3 05:49 Follow up: Response: No adverse reaction kd3 05:49 Drug: Dicyclomine PO 20 mg Route: PO; kd3 05:49 Follow up: Response: No adverse reaction kd3 Medication: 04:51 VIS not applicable for this client. kd3 Intake: 05:50 IV: 1000ml; Total: 1000ml. kd3 Outcome: 05:35 Discharge ordered by . sp4 05:49 Discharged to home ambulatory. kd3 05:49 Condition: stable 05:49 Discharge instructions given to patient, family, Instructed on discharge instructions, follow up and referral plans. medication usage, Demonstrated understanding of instructions, follow-up care, medications, Prescriptions given X 3. 05:50 Patient left the ED. kd3 Signatures: Dispatcher [employer] EDMS Allison Bello Kyli RN RN kd3 Hamilton Muhammad MD MD sp4 Anjana Gray 5
[2023-01-04] MEDS ORDERED: DICYCLOMINE HCL 10 MG CAP ONE (05:49)
[2023-01-04] MEDS ORDERED: METOCLOPRAMIDE 5 MG TAB ONE (05:49)
[2023-01-04 06:33] VITALS: TEMP 98.2
[2023-01-04 06:40] VITALS: BP 125/76; O2SAT 99
--- NOTE | 2023-01-04 12:38 | RAD REPORT ---
EXAM DESCRIPTION: CT - Abdomen Pelvis W Contrast - 01/04/2023 6:40 am CLINICAL HISTORY: 27 years Female ABD PAIN COMPARISON: None TECHNIQUE: CT of the abdomen and pelvis with intravenous contrast. All CT scans at this facility use dose modulation, iterative reconstruction, and/or weight based dosi ng when appropriate to reduce radiation dose to as low as reasonably achievable. FINDINGS: Lower thorax: Bibasilar atelectasis. Abdomen: Stomach: Small hiatal hernia. Liver: No focal lesions. No intrahepatic ductal distention. Gallbladder: Nondistended Pancreas: Within normal limits Spleen: Within normal limits Right kidney: No hydronephrosis. No focal lesion. Left kidney: No hydronephrosis. No focal lesion. Adrenal glands: Within normal limits Vascular structures: Within normal limits Nodes: No lymphadenopathy by size criteria Pelvis: Small bowel: No significant distention. Appendix: Within normal limits Colon: No distention or acute pericolonic edema. Moderate stool burden. Peritoneum: No free intraperitoneal fluid or air. Bones: No acute bone findings. Bladder: Unremarkable. Reproductive organs: No acute findings. Soft tissues: Small fat-containing umbilical hernia. IMPRESSION: 1. No acute abdominopelvic findings. 2. Moderate stool burden. Electronically signed by: Bea Mchugh MD 01/04/2023 4:19 AM CDT Due to temporary technical issues with the PACS/Fluency reporting system, reports are being signed by the in house radiologist without review as a courtesy to ensure prompt reporting. The interpreting r adiologist is fully responsible for the content of the report.
== END 2023-01-04 05:50 | disposition home or self-care (01) ==
LOC: ER 02:42
DX: R10.30 Lower abdominal pain, unspecified (principal); R10.2 Pelvic and perineal pain
CPT/HCPCS: 36415; 74177; 80053; 81003; 81025; 83690; 85025; 96361; 96374; 96375; 99284; J2405; J7030; Q9967

== ENCOUNTER 2023-02-14 14:23 | Emergency (ER) | payer SELFPAY ==
[2023-02-14 15:11] LABS: Absolute Lymphocytes (CBC) 2.3 K/uL (0.7-4.9); Hematocrit 43.1 % (36.0-45.0); Lymphocytes % 27.6 % (15.3-44.8); MCV 91.2 fL (80-100); MPV 9.7 fL (7.6-11.3); Platelets 202 thou/uL (152-406); RBC Red Blood Cell Count 4.72 M/uL (3.86-4.86)
[2023-02-14] MEDS ORDERED: NA CHLORIDE 0.9% 1,000 ML ONE (15:14)
[2023-02-14] MEDS ORDERED: ONDANSETRON 4 MG/2 ML VIAL ONE (15:14)
[2023-02-14 15:21] LABS: SARS-CoV-2 Antigen Rapid Res Negative (Negative)
[2023-02-14 16:28] LABS: Bilirubin Total 0.4 mg/dL (0.2-1.0); Potassium 3.6 mEq/L (3.5-5.1); Protein, Total 8.1 g/dL (6.4-8.2)
[2023-02-14 16:47] LABS: Specific Gravity 1.026 (1.005-1.030)
[2023-02-14 16:51] LABS: Specific Gravity 1.026 (1.005-1.030); Urine Bacteria None Seen /HPF (<20); Urine Bilirubin NEGATIVE (Negative); Urine Blood Trace (Negative); Urine Clarity Clear (Clear); Urine Color Yellow (Yellow); Urine Glucose NEGATIVE (Negative); Urine Mucus Slight /HPF (None Seen); Urine Protein TRACE (Negative); Urine Urobilinogen 1+ (Normal); Urine pH 6.5 (5.0-7.0)
--- NOTE | 2023-02-14 17:35 | RAD REPORT ---
EXAM DESCRIPTION: CT - Abdomen Pelvis W Contrast - 02/14/2023 5:12 pm CLINICAL HISTORY: fever, abd pain, vomiting COMPARISON: Abdomen Pelvis W Contrast dated 01/04/2023; Abdomen Pelvis W Contrast dated 12/01/2017; Abdomen Pelvis W Contrast dated 11/07/2017; CT ABD PELVIS W CONTRAST dated 07/27/2015 TECHNIQUE: Thin cut axial CT imaging of the abdomen and pelvis was performed following intravenous a dministration of 100 mL Isovue 300. Multiplanar reformats were generated and reviewed. All CT scans are performed using dose optimization technique as appropriate and may include automated exposure control or mA/KV adjustment according to patient size. FINDINGS: No suspicious findings in the lung bases. The liver, spleen, adrenal glands, and pancreas show no suspicious findings. Gallbladder and biliary tree are also without suspicious finding. Symmetric renal function is seen with no hydronephrosis or suspicious renal mass. Early excretion con trast in the calyces limits evaluation for renal calculi. No dilated bowel loops or bowel wall thickening. Moderate stool burden in the rectal bulb. The append ix is not distinctly visualized, however without acute inflammatory process in its vicinity. No free air, free fluid or inflammatory stranding. No hernia, mass or bulky lymphadenopathy. The urinary blad romel is without significant finding. Small cysts in the ovaries bilaterally, likely physiologic. No suspicious bony findings. IMPRESSION: No acute intra-abdominal process. Moderate stool burden in the rectal bulb.
--- NOTE | 2023-02-14 17:49 | ER ---
Nurse's Notes [facility] Name: Renetta Ellison Age: 27 yrs Sex: Female : 1995 Arrival Date: 02/14/2023 Time: 14:23 Bed 16 Private MD: Diagnosis: Abdominal pain, unspecified;Fever, unspecified;Nausea with vomiting, unspecified Presentation: 02/14 14:39 Chief complaint: Patient states: she has been having abdominal pain, nausea, vomiting ap3 and diarrhea since yesterday 02/13/23. patient also reports fever last night, but hasn't had any since. Coronavirus screen: At this time, the client does not indicate any symptoms associated with coronavirus-19. Ebola Screen: No symptoms or risks identified at this time. Initial Sepsis Screen: Does the patient meet any 2 criteria? No. Patient's initial sepsis screen is negative. Does the patient have a suspected source of infection? Yes: Acute abdominal pain. Risk Assessment: Do you want to hurt yourself or someone else? Patient reports no desire to harm self or others. Onset of symptoms was February 13, 2023. 14:39 Method Of Arrival: Ambulatory ap3 14:39 Acuity: LETITIA 3 ap3 Triage Assessment: 14:41 General: Appears in no apparent distress. Behavior is calm, cooperative, appropriate ap3 for age. Pain: Complains of pain in abdomen Pain currently is 7 out of 10 on a pain scale. Neuro: Level of Consciousness is awake, alert, obeys commands, Oriented to person, place, time, situation. Cardiovascular: Patient's skin is warm and dry. Respiratory: Airway is patent Respiratory effort is even, unlabored, Respiratory pattern is regular, symmetrical. GI: Reports lower abdominal pain, upper abdominal pain, diarrhea, nausea, vomiting. Historical: - Allergies: 14:40 none; ap3 - Home Meds: 14:40 None [Active]; ap3 - PMHx: 14:40 None; ap3 - Immunization history:: Client reports having NOT received the Covid vaccine. - Social history:: Smoking status: Patient denies any tobacco usage or history of. - Family history:: not pertinent. - Hospitalizations: : No recent hospitalization is reported. Screenin:10 [facility] ED Fall Risk Assessment (Adult) History of falling in the last 3 months, db including since admission No falls in past 3 months (0 pts) Confusion or Disorientation No (0 pts) Intoxicated or Sedated No (0 pts) Impaired Gait No (0 pts) Mobility Assist Device Used No (0 pt) Altered Elimination No (0 pt) Score/Fall Risk Level 0 - 2 = Low Risk. 17:59 Abuse screen: Denies threats or abuse. Denies injuries from another. Nutritional db screening: No deficits noted. Tuberculosis screening: No symptoms or risk factors identified. Assessment: 14:45 Reassessment: Patient appears in no apparent distress at this time. Patient and/or db family updated on plan of care and expected duration. Pain level reassessed. Patient is alert, oriented x 3, equal unlabored respirations, skin warm/dry/pink. General: Appears in no apparent distress. comfortable, Behavior is calm, cooperative. Neuro: Level of Consciousness is awake, alert, obeys commands, Oriented to person, place, time, situation, Speech is normal. Respiratory: Airway is patent Respiratory effort is even, unlabored, Respiratory pattern is regular, symmetrical. GI: Abdomen is flat, non-distended, Bowel sounds present X 4 quads. Abd is soft and non tender. GI: Reports diarrhea, nausea, vomiting. 15:30 Reassessment: Patient appears in no apparent distress at this time. Patient and/or db family updated on plan of care and expected duration. Pain level reassessed. Patient is alert, oriented x 3, equal unlabored respirations, skin warm/dry/pink. General: Appears in no apparent distress. comfortable, Behavior is calm, cooperative. 16:13 Reassessment: PATIENT AMBULATORY TO RESTROOM. db 16:42 Reassessment: Patient appears in no apparent distress at this time. Patient and/or db family updated on plan of care and expected duration. Pain level reassessed. Patient is alert, oriented x 3, equal unlabored respirations, skin warm/dry/pink. 17:10 Reassessment: patient is in CT. db 17:59 Reassessment: Patient appears in no apparent distress at this time. Patient and/or db family updated on plan of care and expected duration. Pain level reassessed. Patient is alert, oriented x 3, equal unlabored respirations, skin warm/dry/pink. Patient states feeling better. Patient states symptoms have improved. Vital Signs: 14:39 BP 121 / 80; Pulse 88; Resp 17; Temp 98; ap3 14:39 Pulse Ox 97% ; Weight 83.91 kg; Pain 7/10; ap3 15:00 BP 118 / 84; Pulse 86; Resp 16; Pulse Ox 98% on R/A; db 16:00 BP 119 / 70; Pulse 69; Resp 16; Pulse Ox 98% on R/A; db 17:45 BP 132 / 89; Pulse 76; Resp 16; Pulse Ox 99% ; db 14:39 Pain Scale: Adult ap3 ED Course: 14:25 Patient arrived in ED. rg4 14:28 Steven Gee MD is Attending Physician. rn 14:40 Triage completed. ap3 14:41 Arm band placed on right wrist. ap3 14:58 Inserted saline lock: 20 gauge in left antecubital area, using aseptic technique. Blood db collected. 15:09 Renetta Liz, RN is Primary Nurse. db 15:34 Patient has correct armband on for positive identification. Bed in low position. Call db light in reach. Side rails up X 1. Pulse ox on. NIBP on. 17:13 CT Abd/Pelvis - IV Contrast Only In Process Unspecified. EDMS 17:59 Provided Education on: DISCHARGE. db 17:59 No provider procedures requiring assistance completed. IV discontinued, intact, db bleeding controlled, No redness/swelling at site. Administered Medications: 15:05 Drug: NS 0.9% IV 1000 ml Route: IV; Rate: 1 bolus; Site: left antecubital; db 18:00 Follow up: Response: No adverse reaction; IV Status: Completed infusion; IV Intake: db 1000ml 15:05 Drug: Ondansetron IVP 4 mg Route: IVP; Site: left antecubital; db 18:00 Follow up: Response: No adverse reaction db Medication: 17:59 VIS not applicable for this client. db Intake: 18:00 IV: 1000ml; Total: 1000ml. db Outcome: 17:49 Discharge ordered by . rn 17:59 Discharged to home ambulatory, with family. db 17:59 Condition: stable 17:59 Discharge instructions given to patient, Instructed on discharge instructions, follow up and referral plans. Prescriptions given X 1. 18:00 Patient left the ED. db Signatures: Dispatcher [employer] EDMI Steven Gee MD MD rn Garcia, Rubi rg4 Karis Euceda, RN RN ap3 Renetta Liz, RN RN db
--- NOTE | 2023-02-14 17:49 | EDPHYS ---
Physician Documentation [facility] Name: Renetta Ellison Age: 27 yrs Sex: Female : 1995 Arrival Date: 02/14/2023 Time: 14:23 Bed 16 Private MD: ED Physician Steven Gee HPI: 02/14 15:18 This 27 yrs old Female presents to ER via Ambulatory with complaints of rn Abdominal Pain, Fever, Diarrhea. 15:18 The patient reports fever, not measured (subjective). Onset: The symptoms/episode rn began/occurred yesterday. Modifying factors: there are no obvious modifying factors. Associated signs and symptoms: Pertinent positives: abdominal pain, diarrhea, nausea, runny nose, vomiting, Pertinent negatives: altered mental status. Severity of symptoms: At their worst the symptoms were moderate in the emergency department the symptoms have improved. The patient has not experienced similar symptoms in the past. Pt reports began last night with subjective fever, chills, myalgias, runny nose, vomiting and diarrhea. Denies abd pain, states "just feels upset". No trauma. No urinary symptoms. Daughter at home with similar symptoms. . Historical: - Allergies: 14:40 none; ap3 - Home Meds: 14:40 None [Active]; ap3 - PMHx: 14:40 None; ap3 - Immunization history:: Client reports having NOT received the Covid vaccine. - Social history:: Smoking status: Patient denies any tobacco usage or history of. - Family history:: not pertinent. - Hospitalizations: : No recent hospitalization is reported. ROS: 15:18 Constitutional: + fever and chills ENT: + nasal congestion Neck: Negative for injury, rn pain, and swelling, Cardiovascular: Negative for chest pain, palpitations, and edema, Respiratory: Negative for shortness of breath, cough, wheezing, and pleuritic chest pain, Abdomen/GI: + nausea/vomiting/diarrhea MS/Extremity: Negative for injury and deformity, Skin: Negative for injury, rash, and discoloration, Neuro: Negative for numbness, tingling, and seizure Exam: 15:18 Constitutional: This is a well developed, well nourished patient who is awake, alert, rn and in no acute distress. Head/Face: Normocephalic, atraumatic. Cardiovascular: Regular rate and rhythm. No pulse deficits. Respiratory: No increased work of breathing, no retractions or nasal flaring. Abdomen/GI: soft, no focal tenderness, no rebound, no RUQ or RLQ tenderness Skin: Warm, dry MS/ Extremity: Pulses equal, no cyanosis. Neuro: Awake and alert, GCS 15, ambulatory to room without difficulty or distress Vital Signs: 14:39 BP 121 / 80; Pulse 88; Resp 17; Temp 98; ap3 14:39 Pulse Ox 97% ; Weight 83.91 kg; Pain 7/10; ap3 15:00 BP 118 / 84; Pulse 86; Resp 16; Pulse Ox 98% on R/A; db 16:00 BP 119 / 70; Pulse 69; Resp 16; Pulse Ox 98% on R/A; db 17:45 BP 132 / 89; Pulse 76; Resp 16; Pulse Ox 99% ; db 14:39 Pain Scale: Adult ap3 MDM: 14:28 Patient medically screened. rn 17:43 Differential diagnosis: viral Infection, bacterial infection, gastroenteritis. Data rn reviewed: vital signs, nurses notes, lab test result(s), radiologic studies, CT scan, and as a result, I will discharge patient. Counseling: I had a detailed discussion with the patient and/or guardian regarding: the historical points, exam findings, and any diagnostic results supporting the discharge/admit diagnosis, lab results, radiology results, the need for outpatient follow up, to return to the emergency department if symptoms worsen or persist or if there are any questions or concerns that arise at home. 17:47 Response to treatment: the patient's symptoms have markedly improved after treatment, rn and as a result, I will discharge patient. ED course: NO acute findings in CT abdomen, covid and flu neg, will dc home with prn zofran and return precautions.. 02/14 14:46 Order name: CBC with Diff; Complete Time: 15:44 rn 02/14 14:46 Order name: CMP; Complete Time: 16:40 rn 02/14 14:46 Order name: Lipase; Complete Time: 16:40 rn 02/14 14:46 Order name: Test, Urine; Complete Time: 16:54 rn 02/14 14:46 Order name: Urinalysis w/ reflexes; Complete Time: 16:54 rn 02/14 14:46 Order name: SARS RAPID; Complete Time: 15:44 rn 02/14 14:46 Order name: Flu; Complete Time: 15:44 rn 02/14 15:45 Order name: CT Abd/Pelvis - IV Contrast Only; Complete Time: 17:40 rn 02/14 14:46 Order name: IV Saline Lock; Complete Time: 15:10 rn 02/14 14:46 Order name: Labs collected and sent; Complete Time: 15:10 rn Administered Medications: 15:05 Drug: NS 0.9% IV 1000 ml Route: IV; Rate: 1 bolus; Site: left antecubital; db 18:00 Follow up: Response: No adverse reaction; IV Status: Completed infusion; IV Intake: db 1000ml 15:05 Drug: Ondansetron IVP 4 mg Route: IVP; Site: left antecubital; db 18:00 Follow up: Response: No adverse reaction db Disposition Summary: 02/14/23 17:49 Discharge Ordered Location: Home rn Problem: new rn Symptoms: have improved rn Condition: Stable rn Diagnosis - Abdominal pain, unspecified rn - Fever, unspecified rn - Nausea with vomiting, unspecified rn Followup: rn - With: Private Physician - When: As needed - Reason: Recheck today's complaints, Re-evaluation by your physician Discharge Instructions: - Discharge Summary Sheet rn - Abdominal Pain, Adult rn - Nausea and Vomiting, Adult rn Forms: - Medication Reconciliation Form rn - Thank You Letter rn - Antibiotic government teacher - Prescription Opioid Use rn - Patient Portal Instructions rn - Leadership Thank You Letter rn - Work release form db Prescriptions: - ondansetron 4 mg Oral Tablet,disintegrating - take 1 tablet by ORAL route every 8-10 hours As needed; 15 tablet; Refills: 0, rn Product Selection Permitted Signatures: Dispatcher [employer] Steven De Leon MD MD rn Prokisch, Amanda RN RN ap3 Renetta Liz RN RN db
[2023-02-14 18:18] VITALS: TEMP 98
[2023-02-14 18:24] VITALS: BP 132/89; O2SAT 99
== END 2023-02-14 18:00 | disposition home or self-care (01) ==
LOC: ER 14:23
DX: R10.9 Unspecified abdominal pain (principal); R50.9 Fever, unspecified; R11.2 Nausea with vomiting, unspecified
CPT/HCPCS: 36415; 74177; 80053; 81001; 81025; 83690; 85025; 87804; 87811; 96361; 96374; 99284; J2405; J7030; Q9967

== ENCOUNTER 2023-03-07 08:25 | Emergency (ER) | payer SELFPAY ==
--- OUTSIDE RECORDS SUMMARY | 2023-03-07 08:28 | XMS REPORT | Continuity of Care Document ---
:1995 Author Organization [facility] t Address [address] [place] [address] Care Team Providers Name Role Phone PCP, PATIENT DOES NOT HAVE A Primary Care Physician BARB Jenkins Attending Clinician Unavailable Barb Tobar Attending Clinician Payers Payer Name Policy Type Policy Number Effective Date Expiration Date S ource MEDICAID [place] [id number] 2017 00:00:00 Problems This patient has no known problems. Allergies, Adverse Reactions, Alerts Allergy Allergy Status Severity Reaction(s) Onset Inactive Treating Comm ents Source Name Type Date Date Clinician NO KNOWN Drug Active Univers ALLERGIE Class ity of S [facility] Social History Social Habit Start Date Stop Date Quantity Comments Source Gender identity [facility] Sexual orientation [facility] Sex Assigned At [birth year] [facility] Medical Branch Smoking Status Start Date Stop Date Source Tobacco smoking consumption [facility] Branch Medications This patient has no known medications. Vital Signs Vital Name Observation Time Observation Value Comments Source Systolic blood 2023-03-01 01:26:00 142 mm[Hg] [facility] Diastolic blood 2023-03-01 01:26:00 84 mm[Hg] [facility] rate 2023-03-01 01:26:00 80 /min [facility]uf[facility] ty [facility] Respiratory rate 2023-03-01 01:26:00 [facility] /[facility] O[facility] saturation in 2023-03-01 01:26:00 98 /min [facility] Arterial blood by [facility] Pulse oximetry Branch Body temperature 2023-03-01 00:35:00 37.39 [facility] Body height 2023-03-01 00:35:00 152.4 cm [facility] Body weight 2023-03-01 00:35:00 83.462 kg [facility] BMI 2023-03-01 00:35:00 35.94 kg/m2 [facility] Procedures Procedure Date / Time Performed Performing Clinician Sour e ASSIGNMENT OF BENEFITS 2023-03-01 01:11:00 Doctor Unassigned, No [facility] RAPID INFLUENZA A/B 2023-03-01 00:47:00 Barb Burger [facility] COVID-19 (ID NOW RAPID 2023-03-01 00:47:00 Barb Burger [facility] TESTING) [facility] NOTICE OF PRIVACY 2023-03-01 00:31:09 Doctor Unassigned, No [facility] Name [facility] CONSENT/REFUSAL FOR 2023-03-01 00:30:43 Doctor Unassigned, No [facility] DIAGNOSIS AND [facility] TREATMENT Encounters Start End Encounter Admission Attending Care Care Encounter Source Date/Time Date/Time Type Type Clinicians Facility Department ID 2023-02-28 2023-02-28 Emergency X [email or web address] ERT [id number] Univers 19:45:00 20:33:00 BARB soto [facility] 2023-02-28 2023-02-28 Emergency [facility] [[email or web address]] [id number] Univers 19:45:00 20:33:00 Barb BARRY [id number] i [facility] [id number] [facility] [id number] [facility] 084 Branch Results This patient has no known results. Notes Date/Time Note Provider Source 2023-02-28 Formatting of this note might be differe nt from the original. Lawanda Wang RN [facility] [[email or web address] - Health 20:32:30-00:00 Pt discharged with diagnosis of vomiting an URI. Printed and verbal instructions reviewed with and given to pt. Pt verbalized understanding of teaching and recommended follow-up. Denies questions or con cerns at this time. Pt ambul atory at discharge. Appears in no apparent distress. No ataxia noted. Accompanied by sister. 2023-02-28 Formatting of this note might be differe nt from the original. Cyndie Greer RN [facility] 19:35:00-00:00 Patient came in with complai nts of sore throat, congestion, upset stomach and diarrhea 5x today.
--- NOTE | 2023-03-07 08:50 | ER ---
Nurse's Notes [facility] Name: Renetta Ellison Age: 27 yrs Sex: Female : 1995 Arrival Date: 03/07/2023 Time: 08:25 Bed IW2 Private MD: Diagnosis: Viral infection, unspecified Presentation: 03/07 08:47 Chief complaint: N/V/D and chills x 3 days. Coronavirus screen: Client presents with at hb least one sign or symptom that may indicate coronavirus-19. Provider contacted for isolation considerations. Ebola Screen: No symptoms or risks identified at this time. Initial Sepsis Screen: Does the patient meet any 2 criteria? No. Patient's initial sepsis screen is negative. Does the patient have a suspected source of infection? No. Patient's initial sepsis screen is negative. Risk Assessment: Do you want to hurt yourself or someone else? Patient reports no desire to harm self or others. Onset of symptoms was March 05, 2023. 08:47 Method Of Arrival: Ambulatory hb 08:47 Acuity: LETITIA 4 hb Historical: - Allergies: 08:48 none; hb - Home Meds: 08:48 None [Active]; hb - PMHx: 08:48 None; hb - PSHx: 08:48 None; hb - Immunization history:: Adult Immunizations up to date. - Social history:: Smoking status: Patient denies any tobacco usage or history of. Vital Signs: 08:47 BP 121 / 86; Pulse 77; Resp 16; Temp 97.9(TE); Pulse Ox 97% on R/A; Weight 83.46 kg; hb Height 5 ft. 0 in. ; Pain 0/10; 08:47 Body Mass Index 35.93 (83.46 kg, 152.4 cm) hb 08:47 Pain Scale: Adult hb ED Course: 08:26 Patient arrived in ED. rg4 08:27 Bekah Miles FNP-C is [facility]. snw 08:27 Steven Gee MD is Attending Physician. snw 08:48 Triage completed. hb 08:48 Arm band placed on. hb 08:57 Jennifer Daniels, RN is Primary Nurse. hb 08:57 SARS RAPID Sent. hb Administered Medications: No medications were administered Outcome: 08:50 Discharge ordered by MD. snw 08:57 Patient left the ED. hb Signatures: Bekah Miles, FARM EQUIPMENT MECHANIC APPRENTICE-C FARM EQUIPMENT MECHANIC APPRENTICE-Csnw Jennifer Daniels, RN RN Sonja Perry rg4 Corrections: (The following items were deleted from the chart) 08:48 08:47 BP 121 / 86; Pulse 77bpm; Resp 16bpm; Pulse Ox 97% RA; Temp 97.9F Temporal; hb hb
--- NOTE | 2023-03-07 08:50 | EDPHYS ---
Physician Documentation [facility] Name: Renetta Ellison Age: 27 yrs Sex: Female : 1995 Arrival Date: 03/07/2023 Time: 08:25 Bed IW2 Private MD: ED Physician Steven Gee HPI: 03/07 08:53 This 27 yrs old Female presents to ER via Ambulatory with complaints of snw Vomiting/Diarrhea. 08:53 The patient presents to the emergency department with nausea, vomiting, diarrhea. snw Onset: The symptoms/episode began/occurred 1 week(s) ago, improved and then family with similar s/s, s/s recurred yest. 08:54 Possible causes: viral. The patient has experienced a previous episode, but today's snw symptoms are not as bad as this previous episode. The patient has not recently seen a physician. Historical: - Allergies: 08:48 none; hb - Home Meds: 08:48 None [Active]; hb - PMHx: 08:48 None; hb - PSHx: 08:48 None; hb - Immunization history:: Adult Immunizations up to date. - Social history:: Smoking status: Patient denies any tobacco usage or history of. ROS: 08:52 Constitutional: Negative for fever, chills, and weight loss, Eyes: Negative for injury, snw pain, redness, and discharge, ENT: Negative for injury, pain, and discharge, Neck: Negative for injury, pain, and swelling, Cardiovascular: Negative for chest pain, palpitations, and edema. 08:52 Back: Negative for injury and pain, : Negative for injury, bleeding, discharge, and swelling, MS/Extremity: Negative for injury and deformity, Skin: Negative for injury, rash, and discoloration, Neuro: Negative for headache, weakness, numbness, tingling, and seizure, Psych: Negative for depression, anxiety, suicide ideation, homicidal ideation, and hallucinations. 08:52 Respiratory: Positive for cough, with no reported sputum. 08:52 Abdomen/GI: Positive for nausea, vomiting, and diarrhea. Exam: 08:52 Constitutional: This is a well developed, well nourished patient who is awake, alert, snw and in no acute distress. Head/Face: Normocephalic, atraumatic. Eyes: Pupils equal round and reactive to light, extra-ocular motions intact. Lids and lashes normal. Conjunctiva and sclera are non-icteric and not injected. Cornea within normal limits. Periorbital areas with no swelling, redness, or edema. ENT: Nares patent. No nasal discharge, no septal abnormalities noted. Tympanic membranes are normal and external auditory canals are clear. Oropharynx with no redness, swelling, or masses, exudates, or evidence of obstruction, uvula midline. Mucous membranes moist. Neck: Trachea midline, no thyromegaly or masses palpated, and no cervical lymphadenopathy. Supple, full range of motion without nuchal rigidity, or vertebral point tenderness. No Meningismus. Chest/axilla: Normal chest wall appearance and motion. Nontender with no deformity. No lesions are appreciated. Cardiovascular: Regular rate and rhythm with a normal S1 and S2. No gallops, murmurs, or rubs. Normal PMI, no JVD. No pulse deficits. Respiratory: Lungs have equal breath sounds bilaterally, clear to auscultation and percussion. No rales, rhonchi or wheezes noted. No increased work of breathing, no retractions or nasal flaring. Abdomen/GI: Soft, non-tender, with normal bowel sounds. No distension or tympany. No guarding or rebound. No evidence of tenderness throughout. Back: No spinal tenderness. No costovertebral tenderness. Full range of motion. Skin: Warm, dry with normal turgor. Normal color with no rashes, no lesions, and no evidence of cellulitis. MS/ Extremity: Pulses equal, no cyanosis. Neurovascular intact. Full, normal range of motion. Neuro: Awake and alert, GCS 15, oriented to person, place, time, and situation. Cranial nerves II-XII grossly intact. Motor strength 5/5 in all extremities. Sensory grossly intact. Cerebellar exam normal. Normal gait. Psych: Awake, alert, with orientation to person, place and time. Behavior, mood, and affect are within normal limits. Vital Signs: 08:47 BP 121 / 86; Pulse 77; Resp 16; Temp 97.9(TE); Pulse Ox 97% on R/A; Weight 83.46 kg; hb Height 5 ft. 0 in. ; Pain 0/10; 08:47 Body Mass Index 35.93 (83.46 kg, 152.4 cm) hb 08:47 Pain Scale: Adult hb MDM: 08:44 Patient medically screened. snw 08:51 Differential diagnosis: gastritis, viral gastroenteritis, gastroenteritis, viral snw syndrome. Data reviewed: vital signs, nurses notes, lab test result(s). Counseling: I had a detailed discussion with the patient and/or guardian regarding the historical points, exam findings, and any diagnostic results supporting the discharge/admit diagnosis, lab results, the need for outpatient follow up, for definitive care, to return to the emergency department if symptoms worsen or persist or if there are any questions or concerns that arise at home. Special discussion: Based on the history and exam findings, there is no indication for further emergent testing or inpatient evaluation. I discussed with the patient/guardian the need to see the primary care provider for further evaluation of the symptoms. 03/07 08:51 Order name: JE TILLEY; Complete Time: 10:20 snw Administered Medications: No medications were administered Disposition: 13:52 Co-signature as Attending Physician, Steven Gee MD I reviewed the patient's care rn provided by the Advanced Practice Provider and agree with the diagnosis and treatment plan. Disposition Summary: 03/07/23 08:50 Discharge Ordered Location: Home snw Condition: Stable snw Diagnosis - Viral infection, unspecified snw Followup: snw - With: Emergency Department - When: As needed - Reason: Worsening of condition Followup: snw - With: Private Physician - When: 2 - 3 days - Reason: Recheck today's complaints, Continuance of care, Re-evaluation by your physician Discharge Instructions: - Food Choices to Help Relieve Diarrhea, Adult snw - Diarrhea, Adult snw - Nausea and Vomiting, Adult snw - Viral Respiratory Infection snw - Rehydration, Adult snw - Discharge Summary Sheet hb Forms: - Medication Reconciliation Form snw - Thank You Letter snw - Antibiotic Education snw - Prescription Opioid Use snw - Patient Portal Instructions snw - Leadership Thank You Letter snw - School release form hb - Work release form hb Prescriptions: - promethazine 25 mg Oral Tablet - take 1 tablet by ORAL route every 6 hours As needed; 20 tablet; Refills: 0, snw Product Selection Permitted Signatures: Dispatcher [employer] EDBekah Ash, LANCE-C UI DEVELOPER DESIGNER-Csnw Steven Gee MD MD rn Baxter, Heather, WESTON RN hb
[2023-03-07 09:16] VITALS: BP 121/86; TEMP 97.9; O2SAT 97
[2023-03-07 09:24] LABS: SARS-CoV-2 Antigen Rapid Res Negative (Negative)
== END 2023-03-07 08:57 | disposition home or self-care (01) ==
LOC: ER 08:25
DX: B34.9 Viral infection, unspecified (principal); Z20.822 Contact with and (suspected) exposure to COVID-19
CPT/HCPCS: 36415; 87811; 99282

== ENCOUNTER 2023-04-19 08:52 | Emergency (ER) | payer SELFPAY ==
--- OUTSIDE RECORDS SUMMARY | 2023-04-19 08:56 | XMS REPORT | Continuity of Care Document ---
:1995 Author Organization [facility] t Address [address] [place] [address] Care Team Providers Name Role Phone PCP, PATIENT DOES NOT HAVE A Primary Care Physician BARB Jenkins Attending Clinician Unavailable Barb Tobar Attending Clinician Payers Payer Name Policy Type Policy Number Effective Date Expiration Date S ource MEDICAID [place] [id number] 2017 00:00:00 Problems This patient has no known problems. Allergies, Adverse Reactions, Alerts Allergy Allergy Status Severity Reaction(s) Onset Inactive Treating Comm ents Source Name Type Date Date Clinician NO KNOWN Drug Active Univers ALLERGIE Class ity of S [facility] Social History Social Habit Start Date Stop Date Quantity Comments Source Gender identity [facility] Sexual orientation [facility]igned At [birth year] [facility] Medical Branch Smoking Status Start Date Stop Date Source Tobacco smoking consumption [facility] Branch Medications This patient has no known medications. Vital Signs Vital Name Observation Time Observation Value Comments Source Systolic blood 2023-03-01 01:26:00 142 mm[Hg] [facility]astolic blood 2023-03-01 01:26:00 84 mm[Hg] [facility] 2023-03-01 01:26:00 80 [facility] Respiratory rate 2023-03-01 01:26:00 19 /min [facility] Oxygen saturation in 2023-03-01 01:26:00 98 /min [facility] Arterial blood by [facility] Pulse oximetry Branch Body temperature 2023-03-01 00:35:00 37.39 [facility] Body height 2023-03-01 00:35:00 152.4 cm [facility] Body weight 2023-03-01 00:35:00 83.462 kg [facility] BMI 2023-03-01 00:35:00 35.94 kg/m2 [facility] Procedures Procedure Date / Time Performed Performing Clinician Sour e ASSIGNMENT OF BENEFITS 2023-03-01 01:11:00 Doctor Unassigned, No [facility] RAPID INFLUENZA A/B 2023-03-01 00:47:00 Barb Arias [facility] COVID-19 (ID NOW RAPID 2023-03-01 00:47:00 Barb Arias [facility] TESTING) [facility] NOTICE OF PRIVACY 2023-03-01 00:31:09 Doctor Unassigned, No [facility] CONSENT/REFUSAL FOR 2023-03-01 00:30:43 Doctor Unassigned, No [facility] DIAGNOSIS AND [facility] TREATMENT Encounters Start End Encounter Admission Attending Care Care Encounter Source Date/Time Date/Time Type Type Clinicians Facility Department ID 2023-02-28 2023-02-28 Emergency X TOMEKA ARIAS ERT [id number] [facility] 19:45:00 20:33:00 BARB soto [facility] 2023-02-28 2023-02-28 Emergency TOMEKA Arias [id number] [facility] 19:45:00 20:33:00 Barb BARRY [id number] i [facility] [id number] [facility] [id number] [facility] 084 Branch Results This patient has no known results.
[2023-04-19 09:18] LABS: Absolute Lymphocytes (CBC) 2.3 K/uL (0.7-4.9); Hematocrit 40.5 % (36.0-45.0); Lymphocytes % 27.4 % (15.3-44.8); MCV 91.5 fL (80-100); MPV 8.9 fL (7.6-11.3); Platelets 197 thou/uL (152-406); RBC Red Blood Cell Count 4.43 M/uL (3.86-4.86)
[2023-04-19] MEDS ORDERED: ONDANSETRON 4 MG/2 ML VIAL ONE (09:28)
[2023-04-19] MEDS ORDERED: NA CHLORIDE 0.9% 1,000 ML ONE (09:28)
[2023-04-19 09:31] LABS: Specific Gravity 1.022 (1.005-1.030)
[2023-04-19 09:32] LABS: Specific Gravity 1.022 (1.005-1.030); Urine Bilirubin NEGATIVE (Negative); Urine Blood Negative (Negative); Urine Clarity Clear (Clear); Urine Color Light-Yellow (Yellow); Urine Glucose NEGATIVE (Negative); Urine Protein NEGATIVE (Negative); Urine Urobilinogen Normal (Normal); Urine pH 6.5 (5.0-7.0)
[2023-04-19 09:32] LABS: Albumin 3.6 g/dL (3.4-5.0); Bilirubin Total 0.2 mg/dL (0.2-1.0); Potassium 4.1 mEq/L (3.5-5.1); Protein, Total 7.5 g/dL (6.4-8.2)
--- NOTE | 2023-04-19 09:58 | EDPHYS ---
Physician Documentation [facility] Name: Renetta Ellison Age: 28 yrs Sex: Female : 1995 Arrival Date: 04/19/2023 Time: 08:52 Bed 19 Private MD: ED Physician Lucian Coto HPI: 04/19 09:56 This 28 yrs old Female presents to ER via Ambulatory with complaints of kb Headache, Fever, Vomiting. 09:56 The patient presents to the emergency department with nausea, vomiting. Onset: The kb symptoms/episode began/occurred 3 day(s) ago. Possible causes: sick contacts. The symptoms are aggravated by nothing. The symptoms are alleviated by nothing. Associated signs and symptoms: Pertinent positives: nausea, vomiting, Pertinent negatives: abdominal pain, fever. Severity of symptoms: At their worst the symptoms were mild moderate in the emergency department the symptoms are unchanged. The patient has not experienced similar symptoms in the past. The patient has not recently seen a physician. Pt reports nausea, vomiting and headache that started 3 days ago. States everyone in the household has had similar symptoms over the last week. 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 - Social history:: Smoking status: Patient denies any tobacco usage or history of. ROS: 09:55 Constitutional: Negative for fever, chills, and weight loss, kb 09:55 Abdomen/GI: Positive for nausea and vomiting, Negative for abdominal pain, 09:55 Neuro: Positive for headache, 09:55 All other systems are negative, Exam: 09:55 Constitutional: This is a well developed, well nourished patient who is awake, alert, kb and in no acute distress. Head/Face: Normocephalic, atraumatic. ENT: Moist Mucous membranes Cardiovascular: Regular rate Respiratory: Respirations even and unlabored. No increased work of breathing. Talking in full sentences Abdomen/GI: Soft, non-tender. No distention Skin: Warm, dry with normal turgor. Normal color. MS/ Extremity: Pulses equal, no cyanosis. Neurovascular intact. Full, normal range of motion. Neuro: Awake and alert, GCS 15, oriented to person, place, time, and situation. Moves all extremities. Normal gait. Vital Signs: 09:03 BP 128 / 87 LA Sitting (auto/reg); Pulse 72 MON; Resp 16; Temp 97.7(O); Pulse Ox 99% on ds4 R/A; Weight 83.46 kg (R); Height 5 ft. 0 in. (R); Pain 5/10; 10:00 BP 118 / 74; Pulse 71; Resp 16; Pulse Ox 100% on R/A; db 09:03 Body Mass Index 35.93 (83.46 kg, 152.4 cm) ds4 09:03 Pain Scale: Adult ds4 MDM: 08:58 Patient medically screened. kb 09:57 Differential diagnosis: Nonspecific abd pain, gastritis, viral gastroenteritis. Data kb reviewed: vital signs, nurses notes. Test considered but Not performed: CT: ct considered, but pt has no abd tenderness, afebrile and nontoxic in appearance. Counseling: I had a detailed discussion with the patient and/or guardian regarding the historical points, exam findings, and any diagnostic results supporting the discharge/admit diagnosis, lab results, the need for outpatient follow up, a family practitioner, to return to the emergency department if symptoms worsen or persist or if there are any questions or concerns that arise at home. ED course: Pt feeling better after treatment. . 04/19 09:05 Order name: CBC with Diff; Complete Time: 09:35 kb 04/19 09:05 Order name: CMP; Complete Time: 09:35 kb 04/19 09:05 Order name: Lipase; Complete Time: 09:35 kb 04/19 09:05 Order name: Test, Urine; Complete Time: 09:35 kb 04/19 09:05 Order name: Urinalysis w/ reflexes; Complete Time: 09:35 kb 04/19 09:05 Order name: IV Saline Lock; Complete Time: 09:11 kb 04/19 09:05 Order name: Labs collected and sent; Complete Time: 09:11 kb Administered Medications: 09:14 Drug: NS 0.9% IV 1000 ml IV at 1 bolus Per protocol; 1000 mL bolus Route: IV; Rate: 1 db bolus; Site: right antecubital; 10:12 Follow up: Response: No adverse reaction; IV Status: Completed infusion; IV Intake: db 1000ml 09:30 Drug: Ondansetron IVP 4 mg IVP once; over 2 minutes Route: IVP; Site: right antecubital;db 10:12 Follow up: Response: No adverse reaction db Disposition: 11:43 Co-signature as Attending Physician, Lucian Coto MD I reviewed the patient's care rt provided by the Advanced Practice Provider and agree with the diagnosis and treatment plan. Disposition Summary: 04/19/23 09:57 Discharge Ordered Notes: Location: Home kb Condition: Stable kb Diagnosis - Nausea with vomiting, unspecified kb Followup: kb - With: Emergency Department - When: As needed - Reason: Worsening of condition Followup: kb - With: Private Physician - When: 2 - 3 days - Reason: Recheck today's complaints, Continuance of care, Re-evaluation by your physician Discharge Instructions: - Discharge Summary Sheet kb - Nausea and Vomiting, Adult, [id number] kb Forms: - Work release form kb - Medication Reconciliation Form kb - Thank You Letter kb - Antibiotic Education kb - Prescription Opioid Use kb - Patient Portal Instructions kb - Leadership Thank You Letter kb Prescriptions: - ondansetron 4 mg Oral Tablet,disintegrating - take 1 tablet ORAL route every 6 hours As needed; 12 tablet; Refills: 0, kb Product Selection Permitted Signatures: Dispatcher [employer] Renetta Sosa, LAITH LUCAS-Renetta Pritchard, RN RN Lucian Painter MD MD rt
--- NOTE | 2023-04-19 09:58 | ER ---
Nurse's Notes [facility] Name: Renetta Ellison Age: 28 yrs Sex: Female : 1995 Arrival Date: 04/19/2023 Time: 08:52 Bed 19 Private MD: Diagnosis: Nausea with vomiting, unspecified Presentation: 04/19 09:05 Chief complaint: Patient states: COMPLAINS OF HEADACHE NAUSEA, VOMITING STARTED MONDAY. db NO FEVER. NO ABD PAIN. Coronavirus screen: Vaccine status: Patient reports being unvaccinated. Client denies travel out of the [place] in the last 14 days. At this time, the client does not indicate any symptoms associated with coronavirus-19. Ebola Screen: Patient negative for fever greater than or equal to 101.5 degrees Fahrenheit, and additional compatible Ebola Virus Disease symptoms Patient denies exposure to infectious person. Patient denies travel to an Ebola-affected area in the 21 days before illness onset. No symptoms or risks identified at this time. Initial Sepsis Screen: Does the patient meet any 2 criteria? No. Patient's initial sepsis screen is negative. Does the patient have a suspected source of infection? No. Patient's initial sepsis screen is negative. Risk Assessment: Do you want to hurt yourself or someone else? Patient reports no desire to harm self or others. Onset of symptoms was April 19, 2023. 09:05 Method Of Arrival: Ambulatory db 09:05 Acuity: LETITIA 3 db Triage Assessment: 09:09 Headache History: The patient has had previous headaches and this one is similar to db previous episodes. General: Appears in no apparent distress. comfortable, Behavior is calm, cooperative. Pain: Pain Pain began gradually. Neuro: Level of Consciousness is awake, alert, obeys commands, Oriented to person, place, time, situation. Respiratory: Airway is patent Respiratory effort is even, unlabored, Respiratory pattern is regular, symmetrical. GI: Reports nausea, vomiting, Patient currently denies abdominal pain. 10:14 Pain: Also complains of no other associated symptoms. 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 - Social history:: Smoking status: Patient denies any tobacco usage or history of. Screenin:12 [facility] ED Fall Risk Assessment (Adult) History of falling in the last 3 months, db including since admission No falls in past 3 months (0 pts) Confusion or Disorientation No (0 pts) Score/Fall Risk Level 0 - 2 = Low Risk Oriented to surroundings, Maintained a safe environment. Abuse screen: Denies threats or abuse. Denies injuries from another. Nutritional screening: No deficits noted. Tuberculosis screening: No symptoms or risk factors identified. Assessment: 09:11 Reassessment: SEE TRIAGE FOR INITIAL ASSESSMENT. db 10:00 Reassessment: Patient appears in no apparent distress at this time. Patient and/or db family updated on plan of care and expected duration. Pain level reassessed. Patient is alert, oriented x 3, equal unlabored respirations, skin warm/dry/pink. Patient states feeling better. Patient states symptoms have improved. Pain: Denies pain. Neuro: Level of Consciousness is awake, obeys commands, Oriented to person, place, time. Respiratory: Airway is patent Respiratory effort is even, unlabored, Respiratory pattern is regular, symmetrical. GI: Abdomen is flat, distended. Vital Signs: 09:03 BP 128 / 87 LA Sitting (auto/reg); Pulse 72 MON; Resp 16; Temp 97.7(O); Pulse Ox 99% on ds4 R/A; Weight 83.46 kg (R); Height 5 ft. 0 in. (R); Pain 5/10; 10:00 BP 118 / 74; Pulse 71; Resp 16; Pulse Ox 100% on R/A; db 09:03 Body Mass Index 35.93 (83.46 kg, 152.4 cm) ds4 09:03 Pain Scale: Adult ds4 ED Course: 08:56 Patient arrived in ED. mg5 08:58 Renetta Wells FNP-C is [facility]. kb 08:58 Lucian Coto MD is Attending Physician. kb 09:06 Renetta Liz, [place] is Primary Nurse. db 09:09 Triage completed. db 09:10 Arm band placed on Patient placed in an exam room. db 09:11 CBC with Diff Sent. ds4 09:11 CMP Sent. ds4 09:11 Lipase Sent. ds4 09:11 Inserted saline lock: 22 gauge in right antecubital area, using aseptic technique. ds4 Blood collected. 10:13 No provider procedures requiring assistance completed. IV discontinued, intact, db bleeding controlled, No redness/swelling at site. 10:13 Patient has correct armband on for positive identification. Bed in low position. Call db light in reach. Side rails up X 1. Provided Education on: DISCHARGE. Pulse ox on. NIBP on. Warm blanket given. Administered Medications: 09:14 Drug: NS 0.9% IV 1000 ml IV at 1 bolus Per protocol; 1000 mL bolus Route: IV; Rate: 1 db bolus; Site: right antecubital; 10:12 Follow up: Response: No adverse reaction; IV Status: Completed infusion; IV Intake: db 1000ml 09:30 Drug: Ondansetron IVP 4 mg IVP once; over 2 minutes Route: IVP; Site: right antecubital;db 10:12 Follow up: Response: No adverse reaction db Medication: 10:13 VIS not applicable for this client. db Intake: 10:12 IV: 1000ml; Total: 1000ml. db Outcome: 09:57 Discharge ordered by . arlen 10:13 Discharged to home ambulatory, db 10:13 Condition: stable 10:13 Discharge instructions given to patient, Instructed on discharge instructions, follow up and referral plans. Prescriptions given X 1, 10:15 Patient left the ED. db Signatures: Renetta Wells, RN NIGHT-C RN NIGHT-Sanchez Ceja ds4 Renetta Liz, RN RN db Blanca Carrasquillo mg5
[2023-04-19 10:38] VITALS: TEMP 97.7
[2023-04-19 10:39] VITALS: BP 118/74; O2SAT 100
== END 2023-04-19 10:15 | disposition home or self-care (01) ==
LOC: ER 08:52
DX: R11.2 Nausea with vomiting, unspecified (principal)
CPT/HCPCS: 36415; 80053; 81003; 81025; 83690; 85025; J2405; J7030

== ENCOUNTER → 2023-06-28 | Emergency (ER) | payer SELFPAY ==
[~2023-06-28] MED LIST: ACETAMINOPHEN 500 MG TAB ONE; IBUPROFEN 400 MG TAB ONE; ONDANSETRON 4 MG (ODT) TAB ONE; TRAMADOL HCL 50 MG TAB ONE
--- OUTSIDE RECORDS SUMMARY | 2023-06-28 00:35 | XMS REPORT | Continuity of Care Document ---
Author Name Unknown Address [address] [place] [address] [employer]connect Address [address] [place] [address] Care Team Providers Care Special Warfare Operator Name Role Phone Unavailable Unavailable Unavailable
[2023-06-28 01:35] LABS: Specific Gravity 1.022 (1.005-1.030)
--- NOTE | 2023-06-28 03:32 | EDPHYS ---
Physician Documentation [facility] Name: Renetta Ellison Age: 28 yrs Sex: Female : 1995 Arrival Date: 06/28/2023 Time: 00:32 Bed 18 Private MD: ED Physician Hamilton Muhammad HPI: 06/28 00:56 This 28 yrs old Female presents to ER via Unassigned with complaints of Flu sp4 Symptoms. 01:35 Pleasant 28-year-old female presents with acute onset of nausea, fever, body aches, sp4 feeling unwell, right ear pain starting on Crystal 2 days ago.. Patient has sick contacts at home. Patient reports prominent feeling of nausea decreased appetite body aches headache. Onset was sudden. . 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 Flu vaccine is not up to date. - Social history:: Smoking status: Patient denies any tobacco usage or history of. - Family history:: not pertinent. ROS: 01:35 Constitutional: positive for fever, positive chills, positive body aches, positive sp4 headache, positive right ear pain, positive nausea, positive fatigue , positive decreased appetite 01:35 All other systems are negative, Exam: 01:35 Constitutional: This is a well developed, well nourished patient who is awake, alert, sp4 and in no acute distress. Head/Face: Normocephalic, atraumatic. Eyes: Pupils equal round and reactive to light, extra-ocular motions intact. Lids and lashes normal. Conjunctiva and sclera are not injected. Cornea within normal limits. Periorbital areas with no swelling, redness, or edema. ENT: Nares patent. No nasal discharge, no septal abnormalities noted. Tympanic membranes are normal and external auditory canals are clear. Oropharynx with no redness, swelling, or masses, exudates, or evidence of obstruction, uvula midline. Mucous membranes moist. Neck: Trachea midline, no thyromegaly or masses palpated, and no cervical lymphadenopathy. Supple, full range of motion without nuchal rigidity, or vertebral point tenderness. Chest/axilla: Normal chest wall appearance and motion. Nontender with no deformity. No lesions are appreciated. Cardiovascular: Regular rate and rhythm with a normal S1 and S2. No gallops, murmurs, or rubs. Normal PMI, no JVD. No pulse deficits. Respiratory: Lungs have equal breath sounds bilaterally, clear to auscultation and percussion. No rales, rhonchi or wheezes noted. No increased work of breathing, no retractions or nasal flaring. Abdomen/GI: Soft, non-tender, with normal bowel sounds. No distension or tympany. No guarding or rebound. No evidence of tenderness throughout. Back: No spinal tenderness. No costovertebral tenderness. Skin: Warm, dry with normal turgor. Normal color with no rashes, no lesions, and no evidence of cellulitis. MS/ Extremity: Pulses equal, no cyanosis. Neurovascular intact. Full, normal range of motion. Neuro: Awake and alert, GCS 15, oriented to person, place, time, and situation. Cranial nerves II-XII grossly intact. Motor strength 5/5 in all extremities. Sensory grossly intact. Psych: Awake, alert, with orientation to person, place and time. Behavior, mood, and affect are within normal limits Vital Signs: 01:07 BP 125 / 79; Pulse 81; Resp 18; Temp 98.8; Pulse Ox 97% ; Weight 81.65 kg; Height 5 ft. vc1 0 in. ; Pain 6/10; 02:00 BP 127 / 82; Pulse 83; Resp 18; Pulse Ox 97% ; vc1 03:44 BP 120 / 77; Pulse 80; Resp 18 S; Pulse Ox 99% on R/A; ha1 01:07 Body Mass Index 35.15 (81.65 kg, 152.4 cm) vc1 01:07 Pain Scale: Adult vc1 MDM: 00:56 Patient medically screened. 4 06/28 00:56 Order name: Influenza Screen (a \T\ B); Complete Time: 02:03 sp4 06/28 00:56 Order name: Test, Urine; Complete Time: 02:03 sp4 06/28 02:03 Order name: COVID-19 SARS RT PCR; Complete Time: 03:24 sp4 Administered Medications: 01:51 Drug: Ondansetron PO 8 mg PO once Route: PO; vc1 03:46 Follow up: Response: No adverse reaction ha1 01:51 Drug: Acetaminophen PO 1000 mg PO once Route: PO; vc1 03:46 Follow up: Response: No adverse reaction ha1 01:52 Drug: Ibuprofen PO 800 mg PO once Route: PO; vc1 03:47 Follow up: Response: No adverse reaction ha1 03:24 Drug: traMADol PO 50 mg PO once Route: PO; vc1 03:46 Follow up: Response: No adverse reaction ha1 Disposition Summary: 06/28/23 03:31 Discharge Ordered Problem: new sp4 Symptoms: have improved sp4 Condition: Stable sp4 Diagnosis - Other specified viral diseases sp4 - acute COVID -19 sp4 Followup: sp4 - With: Private Physician - When: 7 - 10 days - Reason: Recheck today's complaints Discharge Instructions: - Discharge Summary Sheet sp4 - COVID-19 sp4 Forms: - Work release form ha1 - Patient Portal Instructions sp4 Prescriptions: - Paxlovid 300 mg (150 mg x 2)-100 mg Oral Tablet, Dose Pack - take 1 dose pack ORAL route as directed on dose pack take TWO 150 mg tablets of sp4 nirmatrelvir with ONE 100 mg tablet of ritonavir twice daily for 5 days; 1 Pack; Refills: 0, Product Selection Permitted - dextromethorphan-guaifenesin 10-200 mg Oral capsule - take 2 capsule ORAL route every 6 hours PRN cough; 60 capsule; Refills: 0, sp4 Product Selection Permitted - ondansetron 8 mg Oral Tablet,disintegrating - take 1 tablet ORAL route every 8 hours PRN nausea; 30 tablet; Refills: 0, sp4 Product Selection Permitted Signatures: Dispatcher [employer] Theodora Miller RN RN vc1 Hamilton Muhammad MD MD sp4 Casandra Monroy RN ha1
--- NOTE | 2023-06-28 03:32 | ER ---
Nurse's Notes [facility] Name: Renetta Ellison Age: 28 yrs Sex: Female : 1995 Arrival Date: 06/28/2023 Time: 00:32 Bed 18 Private MD: Diagnosis: Other specified viral diseases;acute COVID -19 Presentation: 06/28 01:07 Chief complaint: Patient states: I have had body aches, fever and a headache off and on vc1 since Crystal morning. Also, a little bit of nausea. Coronavirus screen: Vaccine status: Patient reports being unvaccinated. Client denies travel out of the [place] in the last 14 days. fever, nausea, Client presents with at least one sign or symptom that may indicate coronavirus-19. Ebola Screen: Patient negative for fever greater than or equal to 101.5 degrees Fahrenheit, and additional compatible Ebola Virus Disease symptoms Patient denies exposure to infectious person. Patient denies travel to an Ebola-affected area in the 21 days before illness onset. No symptoms or risks identified at this time. Initial Sepsis Screen: Does the patient meet any 2 criteria? No. Patient's initial sepsis screen is negative. Does the patient have a suspected source of infection? No. Patient's initial sepsis screen is negative. Risk Assessment: Do you want to hurt yourself or someone else? Patient reports no desire to harm self or others. Onset of symptoms was June 26, 2023. 01:07 Method Of Arrival: Ambulatory vc1 01:07 Acuity: LETITIA 4 vc1 01:09 Care prior to arrival: Medication(s) given: NyQuil at 2200. vc1 Triage Assessment: 01:10 General: Appears in no apparent distress. uncomfortable, ill, Behavior is calm, vc1 cooperative, appropriate for age. Pain: Complains of pain in generalized body aches and headache. EENT: No deficits noted. No signs and/or symptoms were reported regarding the EENT system. Neuro: Level of Consciousness is awake, alert, obeys commands, Oriented to person, place, time, situation, Appropriate for age Reports headache. Cardiovascular: No deficits noted. Respiratory: Airway is patent Respiratory effort is even, unlabored, Respiratory pattern is regular, symmetrical. GI: Reports nausea. : No deficits noted. No signs and/or symptoms were reported regarding the genitourinary system. Derm: No deficits noted. No signs and/or symptoms reported regarding the dermatologic system. Musculoskeletal: No deficits noted. No signs and/or symptoms reported regarding the musculoskeletal system. 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 Flu vaccine is not up to date. - Social history:: Smoking status: Patient denies any tobacco usage or history of. - Family history:: not pertinent. Screenin:09 [facility] ED Fall Risk Assessment (Adult) History of falling in the last 3 months, vc1 including since admission No falls in past 3 months (0 pts) Confusion or Disorientation No (0 pts) Intoxicated or Sedated No (0 pts) Impaired Gait No (0 pts) Mobility Assist Device Used No (0 pt) Altered Elimination No (0 pt) Score/Fall Risk Level 0 - 2 = Low Risk Oriented to surroundings, Maintained a safe environment, Educated pt \T\ family on fall prevention, incl call for assistance when getting out of bed. Abuse screen: Denies threats or abuse. Nutritional screening: No deficits noted. Tuberculosis screening: No symptoms or risk factors identified. Assessment: 01:10 Reassessment: See triage assessment. vc1 02:30 Reassessment: Patient and/or family updated on plan of care and expected duration. Pain vc1 level reassessed. Patient is alert, oriented x 3, equal unlabored respirations, skin warm/dry/pink. Patient states feeling better. Patient states symptoms have improved. 03:44 Reassessment: Patient and/or family updated on plan of care and expected duration. Pain ha1 level reassessed. Patient is alert, oriented x 3, equal unlabored respirations, skin warm/dry/pink. Vital Signs: 01:07 BP 125 / 79; Pulse 81; Resp 18; Temp 98.8; Pulse Ox 97% ; Weight 81.65 kg; Height 5 ft. vc1 0 in. ; Pain 6/10; 02:00 BP 127 / 82; Pulse 83; Resp 18; Pulse Ox 97% ; vc1 03:44 BP 120 / 77; Pulse 80; Resp 18 S; Pulse Ox 99% on R/A; ha1 01:07 Body Mass Index 35.15 (81.65 kg, 152.4 cm) vc1 01:07 Pain Scale: Adult vc1 ED Course: 00:54 Patient arrived in ED. gm2 00:55 Hamilton Muhamamd MD is Attending Physician. sp4 01:07 Theodora Teran RN is Primary Nurse. vc1 01:08 Triage completed. vc1 01:09 Arm band placed on right wrist. vc1 01:11 Patient has correct armband on for positive identification. Placed in gown. Bed in low vc1 position. Pulse ox on. NIBP on. 03:45 Provided Education on: follow up with pcp. ha1 03:45 No provider procedures requiring assistance completed. Patient did not have IV access ha1 during this emergency room visit. Administered Medications: 01:51 Drug: Ondansetron PO 8 mg PO once Route: PO; vc1 03:46 Follow up: Response: No adverse reaction ha1 01:51 Drug: Acetaminophen PO 1000 mg PO once Route: PO; vc1 03:46 Follow up: Response: No adverse reaction ha1 01:52 Drug: Ibuprofen PO 800 mg PO once Route: PO; vc1 03:47 Follow up: Response: No adverse reaction ha1 03:24 Drug: traMADol PO 50 mg PO once Route: PO; vc1 03:46 Follow up: Response: No adverse reaction ha1 Medication: 01:12 VIS not applicable for this client. vc1 Outcome: 03:31 Discharge ordered by . sp4 03:45 Discharged to home ambulatory, ha1 03:45 Condition: stable 03:45 Discharge instructions given to patient, Instructed on discharge instructions, follow up and referral plans. medication usage, Demonstrated understanding of instructions, follow-up care, medications, Prescriptions given X 3, 03:46 Patient left the ED. ha1 Signatures: Theodora Teran RN RN vc1 Casandra Monroy RN RN ha1 Hamilton Muhammad MD MD sp4 Maddie Singh gm2
[2023-06-28 07:50] VITALS: TEMP 98.8
[2023-06-28 07:57] VITALS: BP 120/77; O2SAT 99
== END ==
LOC: ER 00:32
DX: U07.1 COVID-19 (principal); B33.8 Other specified viral diseases
CPT/HCPCS: 81025; 87635; 87804; Q0162

== ENCOUNTER → 2023-07-31 | Emergency (ER) | payer SELFPAY ==
[~2023-07-31] MED LIST changes: -ACETAMINOPHEN 500 MG TAB ONE; +IBUPROFEN 200 MG TAB PO ONE; -IBUPROFEN 400 MG TAB ONE; -ONDANSETRON 4 MG (ODT) TAB ONE; -TRAMADOL HCL 50 MG TAB ONE
--- OUTSIDE RECORDS SUMMARY | 2023-07-31 16:39 | XMS REPORT | Continuity of Care Document ---
Author Name Unknown Address [address] [facility]. [address] [place] [address] [facility] thconnect Address [address] [facility] [address] [place] [address] Care Team Providers Care Pediatric Urologist Name Role Phone PCP, PATIENT DOES NOT HAVE A Primary Care Physic philip Unavailable BARB ARIAS Attending Clinician Unavailable Barb Tobar Attending Clinician Payers Payer Name Policy Type Policy Number Effective Date Expirati on Date Source [place]ID [place] [id number] 2017 00:00:00 Allergies, Adverse Reactions, Alerts Allergy Name Allergy Type Status Severity Reaction(s) Onset Date Inactive Date Treating Clinician Comments Source NO KNOWN ALLERGIE S Drug Class Active [facility] Social History Social Habit Start Date Stop Date Quantity Comments Source Gender identity [facility] Sexual orientation [facility] Sex Assigned At 1995 00:00:00 1995 00:00:00 [facility] Smoking Status Start Date Stop Date Source Tobacco smoking consumption unknown [facility] Vital Signs Vital Name Observation Time Observation Value Comments S angel Systolic blood pressure 2023-03-01 01:26:00 142 mm[Hg] [facility] Diastolic blood pressure 2023-03-01 01:26:00 84 mm[Hg] [place] [facility] Heart rate 2023-03-01 01:26:00 80 /min [facility] Respiratory rate 2023-03-01 01:26:00 19 /min [facility] Oxygen saturation in Arterial blood by Pulse oximetry 2023-03-01 01:26:00 98 /min [place] [facility] Body temperature 2023-03-01 00:35:00 37.39 [place] [facility] Body height 2023-03-01 00:35:00 152.4 cm [facility] Body weight 2023-03-01 00:35:00 83.462 kg [facility] BMI 2023-03-01 00:35:00 35.94 kg/m2 [facility] Procedures Procedure Date / Time Performed Performing Clinicia n Source ASSIGNMENT OF BENEFITS 2023-03-01 01:11:00 Docto r Unassigned, [facility] RAPID INFLUENZA A/B 2023-03-01 00:47:00 Barb Arias [facility] COVID-19 (ID NOW RAPID TESTING) 2023-03-01 00:47:00 Barb Arias [facility] NOTICE OF PRIVACY PRACTICES 2023-03-01 00:31:09 Doctor Unassigned, [facility] CONSENT/REFUSAL FOR DIAGNOSIS AND TREATMENT 2023-03-01 00:30:43 Doctor Unassigned, [facility] Encounters Start Date/Time End Date/Time Encounter Type Admission Type Attending Clinicians Care Facility Care Department Encounter ID Source 2023-02-28 19:45:00 2023-02-28 20:33:00 Emergency X BARB ARIAS [facility] ERT [id number] [facility] 2023-02-28 19:45:00 2023-02-28 20:33:00 Emergency Barb Arias [facility] [id number] 4.2.7.2.686 [id number] [facility] Notes Date/Time Note Provider Source 2023-02-28 20:32:30 DhaQpXqNVATUEoTEktq8 7rcGBFkfKgJT H1NfoBkbsYN12H/I9FCEXPCIl7Rbm0JH 5289-94-13Y39:32:30 Pt discharged with diagnosis of vomiting an URI. Printed and verbal instructions reviewed with and given to pt. Pt verbalized understanding of teaching and recommended follow-up. Denies questions or concerns at this time. Pt ambulatory at discharge. Appears in no apparent distress. No ataxia noted. Accompanied by sister. 02994-2Leallidnc department MehlJI3370-47-64J49:33:22[facility] department NoteTXT1.2.840.588515.1.13.104.2 .7.2.099680|[id number] e for patient [id number] R Goodrich RN[address] JsbiHhzvwooifPjlwexscjEYSQ740559 6801SWTVVQZQIDEBTOYGIYXIPV7167-7 8-29T20:33:221.2.840.620981.1.72 .3.15|1.2.840.022351.1.13.104.2. 7.2.727879_[id number] Lawanda Wang RN [facility] 2023-02-28 19:35:00 h9av/4L3ivXNON7o10JL YV1OssxDCusA EAaYUUIfCqKu/gmqIIh+/a3WcY6F8A/R 4611-56-44K93:35:00 Patient came in with complaints of sore throat, congestion, upset stomach and diarrhea 5x today. 41336-9Roaowdrii department Triage ghpdTF3546-44-30H38:45:07[facility] department Triage noteTXT1.2.840.860465.1.13.104.2 .7.2.564440|[id number] e for patient lhku72212-9Iauyfoezl department [id number] C Greer [address] WptwBrhwpovucUmftmonixJLNA704369 8929THQYLLTMVTHLAPVRWCGOXS8916-2 8-29T19:45:071.2.840.767632.1.72 .3.15|1.2.840.595692.1.13.104.2. [id number] Cyndie Greer [facility]"
--- NOTE | 2023-07-31 18:00 | RAD REPORT ---
EXAM DESCRIPTION: US - Extremity Venous Uni Ltd - 07/31/2023 5:37 pm CLINICAL HISTORY: Pain, swelling COMPARISON: None. TECHNIQUE: Real-time sonographic evaluation of the left lower extremity deep venous system was perfo rmed. FINDINGS: Normal compressibility, flow augmentation, phasic flow and spontaneous flow is identified in the left lower extremity deep venous system. No intraluminal filling defects seen. IMPRESSION: No DVT in the left lower extremity.
--- NOTE | 2023-07-31 18:03 | RAD REPORT ---
EXAM DESCRIPTION: RAD - Foot Right 3 View - 07/31/2023 5:55 pm CLINICAL HISTORY: PAIN COMPARISON: Foot Right 2 View dated 10/27/2013 TECHNIQUE: Right foot, 3 views. FINDINGS: No fracture, dislocation or periosteal reaction. No air or foreign body in the soft tissues. IMPRESSION: Negative right foot examination.
--- NOTE | 2023-07-31 18:21 | EDPHYS ---
Physician Documentation [facility] Name: Renetta Ellison Age: 28 yrs Sex: Female : 1995 Arrival Date: 07/31/2023 Time: 16:32 Bed 19 Private MD: ED Physician Allan Sousa HPI: 07/31 16:46 This 28 yrs old Female presents to ER via Unassigned with complaints of Ankle sb4 Swelling - pain right. 16:46 The patient presents with pain, that is acute, swelling, tenderness. The complaints sb4 affect the right ankle. 16:48 Onset: The symptoms/episode began/occurred this morning. Context: resulted from an sb4 unknown cause, The patient can fully bear weight on the affected extremity. the patient is able to ambulate. Associated signs and symptoms: Pertinent negatives: numbness, tingling. Historical: - Allergies: 16:47 none; tl4 - Home Meds: 16:47 None [Active]; tl4 - PMHx: 16:47 None; tl4 - PSHx: 16:47 None; tl4 - Immunization history:: Adult Immunizations unknown. - Social history:: Smoking status: Patient denies any tobacco usage or history of. ROS: 16:56 Constitutional: Negative for fever, chills, and weight loss, sb4 16:56 MS/extremity: Positive for pain, swelling, tenderness, of the right ankle, 16:56 All other systems are negative, Exam: 16:56 Constitutional: This is a well developed, well nourished patient who is awake, alert, sb4 and in no acute distress. Head/Face: Normocephalic, atraumatic. Eyes: Extra-ocular motions intact. Periorbital areas with no swelling, redness, or edema. ENT: Mucous membranes moist. Skin: Warm, dry with normal turgor. Normal color with no rashes, no lesions, and no evidence of cellulitis. Neuro: Awake and alert, GCS 15, oriented to person, place, time, and situation. Motor strength 5/5 in all extremities. Sensory grossly intact. 16:56 Musculoskeletal/extremity: ROM: limited active range of motion due to pain, in the right ankle, Circulation is intact in all extremities. Pulses: are normal with no appreciated deficits, Perfusion: the extremity is normally perfused throughout, Sensation intact. Compartment Syndrome exam of affected extremity: is normal. no numbness, no tingling, no sensation deficit, no palor, no weak pulses, Weight bearing: able to fully bear weight, DVT Exam: negative Homans' sign noted on exam, no appreciated bluish discoloration, no erythema, no increased warmth, pain, swelling, tenderness, Vital Signs: 16:42 BP 124 / 78; Pulse 79; Resp 16; Temp 97.9(O); Pulse Ox 99% on R/A; Weight 81.65 kg; tl4 Height 5 ft. 0 in. ; Pain 4/10; 18:00 BP 118 / 84; Pulse 72; Resp 16; Pulse Ox 100% ; ko1 16:42 Body Mass Index 35.15 (81.65 kg, 152.4 cm) tl4 16:42 Pain Scale: Adult tl4 MDM: 16:40 Patient medically screened. sb4 16:56 Differential diagnosis: fracture, sprain, gout, DVT. sb4 18:20 Data reviewed: vital signs, nurses notes, radiologic studies, and as a result, I will sb4 discharge patient. Counseling: I had a detailed discussion with the patient and/or guardian regarding the historical points, exam findings, and any diagnostic results supporting the discharge/admit diagnosis, radiology results, to return to the emergency department if symptoms worsen or persist or if there are any questions or concerns that arise at home. 07/31 16:46 Order name: Foot Right 3 View XRAY; Complete Time: 18:07 sb4 07/31 16:46 Order name: Extremity Venous Uni Ltd US; Complete Time: 18:07 sb4 07/31 18:20 Order name: Aircast Ankle Splint; Complete Time: 18:39 sb4 Administered Medications: 18:00 Drug: Ibuprofen PO 600 mg PO once Route: PO; ko1 18:39 Follow up: Response: No adverse reaction; Pain is decreased ko1 Disposition: 16:52 I was immediately available on-site in the Emergency Department for consultation in the ms3 care of the patient. Disposition Summary: 07/31/23 18:21 Discharge Ordered Notes: Location: Home sb4 Problem: new sb4 Symptoms: have improved sb4 Condition: Stable sb4 Diagnosis - Sprain of unspecified ligament of right ankle sb4 Followup: sb4 - With: Robel Landon MD - When: As needed - Reason: Further diagnostic work-up, Recheck today's complaints, Re-evaluation by your physician Discharge Instructions: - Discharge Summary Sheet sb4 - Ankle Sprain, Gdht-ue-Vlux sb4 Forms: - Work release form sb4 - Medication Reconciliation Form sb4 - Thank You Letter sb4 - Antibiotic Education sb4 - Prescription Opioid Use sb4 - Patient Portal Instructions sb4 - Leadership Thank You Letter sb4 Signatures: Dispatcher [employer] EDMS Allan Sousa DO DO ms3 Suellen Christian, RN RN ko1 Sera Torres, LAURI PAAntoni sb4 Logda, Dez tl4
--- NOTE | 2023-07-31 18:21 | ER ---
Nurse's Notes [facility] Name: Renetta Ellison Age: 28 yrs Sex: Female : 1995 Arrival Date: 07/31/2023 Time: 16:32 Bed 19 Private MD: Diagnosis: Sprain of unspecified ligament of right ankle Presentation: 07/31 16:42 Chief complaint: Patient states: Pt c/o right ankle pain and swelling since this tl4 morning. Pt denies any injury. Pt is able to bear weight with difficulty. Coronavirus screen: Vaccine status: Patient reports being unvaccinated. At this time, the client does not indicate any symptoms associated with coronavirus-19. Ebola Screen: Patient negative for fever greater than or equal to 101.5 degrees Fahrenheit, and additional compatible Ebola Virus Disease symptoms Patient denies exposure to infectious person. Patient denies travel to an Ebola-affected area in the 21 days before illness onset. No symptoms or risks identified at this time. Initial Sepsis Screen: Does the patient meet any 2 criteria? No. Patient's initial sepsis screen is negative. Does the patient have a suspected source of infection? No. Patient's initial sepsis screen is negative. Risk Assessment: Do you want to hurt yourself or someone else? Patient reports no desire to harm self or others. Onset of symptoms was July 31, 2023 at 08:30. 16:42 Method Of Arrival: Ambulatory tl4 16:42 Acuity: LETITIA 3 tl4 Triage Assessment: 16:47 General: Appears in no apparent distress. Behavior is calm, cooperative. Pain: tl4 Complains of pain in right leg and right ankle. EENT: No deficits noted. No signs and/or symptoms were reported regarding the EENT system. Neuro: No deficits noted. Cardiovascular: No deficits noted. Respiratory: No deficits noted. GI: No deficits noted. No signs and/or symptoms were reported involving the gastrointestinal system. : No deficits noted. No signs and/or symptoms were reported regarding the genitourinary system. Historical: - Allergies: 16:47 none; tl4 - Home Meds: 16:47 None [Active]; tl4 - PMHx: 16:47 None; tl4 - PSHx: 16:47 None; tl4 - Immunization history:: Adult Immunizations unknown. - Social history:: Smoking status: Patient denies any tobacco usage or history of. Screenin:00 [facility] ED Fall Risk Assessment (Adult) History of falling in the last 3 months, ko1 including since admission No falls in past 3 months (0 pts) Confusion or Disorientation No (0 pts) Intoxicated or Sedated No (0 pts) Impaired Gait No (0 pts) Mobility Assist Device Used No (0 pt) Altered Elimination No (0 pt) Score/Fall Risk Level 0 - 2 = Low Risk Oriented to surroundings, Maintained a safe environment, Educated pt \T\ family on fall prevention, incl call for assistance when getting out of bed, Assessed \T\ reinforced patient's understanding of fall precautions, Provided non-skid footwear, Hourly rounding (assess needs \T\ fall precautionary measures) done, Used ambulatory aids as needed (educated on \T\ assisted with), Used gait belt as appropriate. Abuse screen: Denies threats or abuse. Denies injuries from another. Nutritional screening: No deficits noted. Tuberculosis screening: No symptoms or risk factors identified. Assessment: 18:00 Pain: Complains of pain in right ankle. Neuro: No deficits noted. Cardiovascular: No ko1 deficits noted. Respiratory: No deficits noted. GI: No deficits noted. : No deficits noted. EENT: No deficits noted. Derm: No deficits noted. Musculoskeletal: Reports pain in right ankle. Vital Signs: 16:42 BP 124 / 78; Pulse 79; Resp 16; Temp 97.9(O); Pulse Ox 99% on R/A; Weight 81.65 kg; tl4 Height 5 ft. 0 in. ; Pain 4/10; 18:00 BP 118 / 84; Pulse 72; Resp 16; Pulse Ox 100% ; ko1 16:42 Body Mass Index 35.15 (81.65 kg, 152.4 cm) tl4 16:42 Pain Scale: Adult tl4 ED Course: 16:36 Patient arrived in ED. im 16:38 Sera Torres PA-C is PHCP. sb4 16:38 Allan Sousa DO is Attending Physician. sb4 16:47 Triage completed. tl4 16:48 Arm band placed on right wrist. tl4 17:38 Extremity Venous Uni Ltd US In Process Unspecified. EDMS 17:52 Suellen Christian, [place] is Primary Nurse. ko1 17:57 Foot Right 3 View XRAY In Process Unspecified. EDMS 18:00 Patient has correct armband on for positive identification. Placed in gown. Bed in low ko1 position. Call light in reach. Side rails up X 1. Client placed on continuous cardiac and pulse oximetry monitoring. NIBP monitoring applied. playground monitor on. Door closed. Noise minimized. Lights dimmed. Warm blanket given. 18:21 Robel Landon MD is Referral Physician. sb4 18:38 Provided Education on: na. ko1 18:38 No provider procedures requiring assistance completed. Patient did not have IV access ko1 during this emergency room visit. Administered Medications: 18:00 Drug: Ibuprofen PO 600 mg PO once Route: PO; ko1 18:39 Follow up: Response: No adverse reaction; Pain is decreased ko1 Medication: 18:00 VIS not applicable for this client. ko1 Outcome: 18:21 Discharge ordered by . sb4 18:51 Discharged to home ambulatory, ko1 18:51 Condition: stable 18:51 Discharge instructions given to patient, Instructed on discharge instructions, follow up and referral plans. aircast Demonstrated understanding of instructions, follow-up care, medications, splint care, 18:52 Patient left the ED. ko1 Signatures: Dispatcher [employer] EDWA Suellen Christian RN RN ko1 Sera Torres PA-C PAAntoni sosa4 Briseida Wilson Toni tl4
[2023-07-31 23:03] VITALS: BP 118/84; TEMP 97.9; O2SAT 100
== END ==
LOC: ER 16:32
DX: S93.401A Sprain of unspecified ligament of right ankle, initial encounter (principal)
CPT/HCPCS: 93971

== ENCOUNTER → 2023-08-27 | Emergency (ER) | payer SELFPAY ==
[~2023-08-27] MED LIST changes: +ACETAMINOPHEN 500 MG TAB ONE; -IBUPROFEN 200 MG TAB PO ONE
--- OUTSIDE RECORDS SUMMARY | 2023-08-27 17:24 | XMS REPORT | Continuity of Care Document ---
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 Name Role Phone PCP, PATIENT DOES NOT HAVE A Primary Care Physic philip Unavailable Juanpablo EASON Attending Clinician Unavailable Juanpablo Toscano Attending Clinician BARB ARIAS Attending Clinician Unavailable Barb Tobar Attending Clinician [phone] Payers Payer Name Policy Type Policy Number Effective Date Expirati on Date Source [place]ICA[employer] [place] [id number] 2017 00:00:00 Allergies, Adverse Reactions, Alerts Allergy Name Allergy Type Status Severity Reaction(s) Onset Date Inactive Date Treating Clinician Comments Source NO KNOWN ALLERGIE S Drug Class Active [facility] Social History Social Habit Start Date Stop Date Quantity Comments Source Gender identity [facility] Sexual orientation U [facility] Sex Assigned At 1995 00:00:00 1995 00[birth year]:00 [facility] Smoking Status Start Date Stop Date Source Tobacco smoking consumption unknown [facility] Medications Ordered Medication Name Filled Medication Name Start Date Stop Date Current Medication? Ordering Clinician Indication Dosage Frequency Signature (SIG) Comments Components Source ondansetron (ZOFRAN-ODT ) disintegrat ing tablet 4 mg 16 02:45: 00 08-18 01:42 :00 No 4mg 4 mg, Oral, ONCE, 1 dose, On Noelle 08/17/23 at 2044, Routine [facility] ondansetron 4 mg disintegrat ing tablet 08-17 00:00: 00 Yes [id number] 4mg Take 1 tablet by mouth every 8 (eight) hours as needed for Nausea and Vomiting (N/V). [facility] Vital Signs Vital Name Observation Time Observation Value Comments S ource Systolic blood pressure 2023-08-18 00:45:00 126 mm[Hg] [facility] Diastolic blood pressure 2023-08-18 00:45:00 79 mm[Hg] [facility] Heart rate 2023-08-18 00:43:00 83 /min [facility] Body temperature 2023-08-18 00:43:00 36.94 [place] [facility] Respiratory rate 2023-08-18 00:43:00 20 /min [facility] Body weight 2023-08-18 00:43:00 83.915 kg [facility] BMI 2023-08-18 00:43:00 36.13 kg/m2 [facility] Oxygen saturation in Arterial blood by Pulse oximetry 2023-08-18 00:43:00 98 /min [facility] Systolic blood pressure 2023-03-01 01:26:00 142 mm[Hg] [facility] Diastolic blood pressure 2023-03-01 01:26:00 84 mm[Hg] [facility] Heart rate 2023-03-01 01:26:00 80 /min [facility] Respiratory rate 2023-03-01 01:26:00 19 /min [facility] Oxygen saturation in Arterial blood by Pulse oximetry 2023-03-01 01:26:00 98 /min [facility] Body temperature 2023-03-01 00:35:00 37.39 [place] [facility] Body height 2023-03-01 00:35:00 152.4 cm [facility] Body weight 2023-03-01 00:35:00 83.462 kg [facility] BMI 2023-03-01 00:35:00 35.94 kg/m2 [facility] Procedures Procedure Date / Time Performed Performing Clinicia n Source CONSENT/REFUSAL FOR DIAGNOSIS AND TREATMENT 2023-08-18 00:38:55 Doctor Unassigned, [place] [facility] ASSIGNMENT OF BENEFITS 2023-03-01 01:11:00 Docto r Unassigned, [place] [facility] RAPID INFLUENZA A/B 2023-03-01 00:47:00 Barb Arias [facility] COVID-19 (ID NOW RAPID TESTING) 2023-03-01 00:47:00 Barb Arias [facility] NOTICE OF PRIVACY PRACTICES 2023-03-01 00:31:09 Doctor Unassigned, [place] [facility] CONSENT/REFUSAL FOR DIAGNOSIS AND TREATMENT 2023-03-01 00:30:43 Doctor Unassigned, [place] [facility] Encounters Start Date/Time End Date/Time Encounter Type Admission Type Attending [facility] Care Department Encounter ID Source 2023-08-17 18:46:00 2023-08-17 19:55:00 Emergency X Juanpablo EASON [facility] ERT [id number] [facility] 2023-08-17 18:46:00 2023-08-17 19:55:00 [facility] [id number] 350.1.13.10 4.2.7.2.686 [id number] [facility] 2023-02-28 19:45:00 2023-02-28 20:33:00 Emergency X BARB ARIAS [facility] ERT [id number] [facility] 2023-02-28 19:45:00 2023-02-28 20:33:00 Emergency Barb Arias [facility] 1.2.840.114 350.1.13.10 4.2.7.2.686 [id number] [id number] [facility] Notes Date/Time Note Provider Source 2023-08-17 19:44:32 3zKdEAb3vrDdmONGcZUx LQJV7pJJFF/Richi mihN1a8GAREvmjhgHQhEtbdxbcQrV+qi8711T19:44:32 Pt given printed and verbal discharge instructions regarding Gastroenteritis, & bland diet, encouraged hydration.Prescriptions providedPt verbalized understanding of instructions, pt awake alert oriented, resp reg unlabored, skin w/d, color appropriate for race, moves all ext well,pt encouraged to follow up with pcp.Advised to seek medical attention for new/prolonged/worsening of symptoms.No adverse reaction to meds given in ER noted upon dischargeAwake, alert oriented, resp reg unlabored, skin w/d, pt leaving amb with steady gait, in no apparent distress. 58057-3Uknuhsgsl department CcwbJC0188-34-14Y63:45:19Emergen department NoteTXT1.2.840.637149.1.13.104.2.7 .2.449128|[id number] for patient rygd59301-1HgszJEZWPPYCQAOLacztxyh d C-CDA narrative [id number] L Williams RN[id number] 12OBDRTWKUEIAVHLLKIRFRBX5145-46-89 T19:45:191.2.840.497052.1.72.3.15| 1.2.840.655355.1.13.104.2.7.2.7278 [id number] Karis Jones RN [facility] 2023-08-17 18:42:28 2SjQ1T300FTg6NqbzlE0 TsqL9lK4vlgn4+ hadHcfbPUGqlduRmidTC4pY/JM8KHZ5251 -02-15T18:42:28 Patient reports abdominal pain with diarrhea for about a week and got sent home today for also having nausea and vomiting. No hx of abd surgeries. LBM was 16:00 diarrhea. 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 Has not been seen for this illness. 86445-2Urqcqkuxl department Triage osibVT6140-21-11M33:43:47[facility] department Triage noteTXT1.2.840.165540.1.13.104.2.7 .2.421467|[id number] for patient fxto09308-2Cqrmjjpcx department NoteLNNARRATIVEFormatted C-CDA narrative [id number] M Leibee RN[id number] 47UHGIMXZCVYLIIRIXRXKUFF8013-11-19 T18:43:471.2.840.804566.1.72.3.15| 1.2.840.795422.1.13.104.2.7.2.7278 [id number] Max Mora RN [facility] 2023-02-28 20:32:30 DhaQpXqNVATUEoTEktq8 0fhGPErzMsFNS7 BosMcwnWJ51C/Z0ZQKOEAVs3Sas0LZ0252 -08-29T20:32:30 Pt discharged with diagnosis of vomiting an URI. Printed and verbal instructions reviewed with and given to pt. Pt verbalized understanding of teaching and recommended follow-up. Denies questions or concerns at this time. Pt ambulatory at discharge. Appears in no apparent distress. No ataxia noted. Accompanied by sister. 17445-0Entjzlcpx department QiueZY3542-81-27V93:33:22[facility] department NoteTXT1.2.840.327493.1.13.104.2.7 .2.163391|[id number] for patient [id number] R Goodrich RN[id number] 07PNDRGCUNZWBXCEINHLQZNF7807-21-22 T20:33:221.2.840.383976.1.72.3.15| 1.2.840.444816.1.13.104.2.7.2.7278 [id number] Lawanda Wang RN [facility] 2023-02-28 19:35:00 h9av/6I3arGROT6l39NV QQ1QffbBRlkTZF aYUUIfCqKu/gmqIIh+/f1HnP7S0M/R2T19:35:00 Patient came in with complaints of sore throat, congestion, upset stomach and diarrhea 5x today. 88923-0Ynplttvev department Triage qkyhQU3740-75-81P63:45:07[facility] Triage noteTXT1.2.840.913969.1.13.104.2.7 .2.856250|[id number] for patient dizo71427-0Ngathaiuc department [id number] C Heredia RN[id number] 56IYIIMSJSSDQNFVNYKTDMEZ0192-57-82 T19:45:071.2.840.877922.1.72.3.15| 1.2.840.840184.1.13.104.2.7.2.7278 [id number] Cyndie Greer RN [facility]"
[2023-08-27 21:37] LABS: Absolute Lymphocytes (CBC) 3.3 K/uL (0.7-4.9); Hematocrit 40.9 % (36.0-45.0); Lymphocytes % 34.2 % (15.3-44.8); MCV 91.9 fL (80-100); MPV 9.7 fL (7.6-11.3); Platelets 190 thou/uL (152-406); RBC Red Blood Cell Count 4.45 M/uL (3.86-4.86)
[2023-08-27 21:49] LABS: Specific Gravity 1.024 (1.005-1.030)
[2023-08-27 21:50] LABS: Specific Gravity 1.024 (1.005-1.030); Urine Bacteria None Seen /HPF (<20); Urine Bilirubin NEGATIVE (Negative); Urine Blood Negative (Negative); Urine Clarity Turbid (Clear); Urine Color Light-Yellow (Yellow); Urine Glucose NEGATIVE (Negative); Urine Mucus Slight /HPF (None Seen); Urine Protein TRACE (Negative); Urine RBC <5 /HPF (None Seen); Urine Urobilinogen Normal (Normal)
[2023-08-27 21:57] LABS: Albumin 3.5 g/dL (3.4-5.0); Bilirubin Total 0.4 mg/dL (0.2-1.0); Potassium 3.7 mEq/L (3.5-5.1); Protein, Total 7.3 g/dL (6.4-8.2)
--- NOTE | 2023-08-27 22:26 | RAD REPORT ---
EXAM DESCRIPTION: US - Abdomen Exam Limited - 08/27/2023 10:20 pm CLINICAL HISTORY: Abdominal pain. COMPARISON: None. FINDINGS: The gallbladder wall is not thickened. A gallstone is not seen. The biliary tree is normal caliber. IMPRESSION: Unremarkable gallbladder ultrasound.
--- NOTE | 2023-08-27 22:55 | EDPHYS ---
Physician Documentation [facility] Name: Renetta Ellison Age: 28 yrs Sex: Female : 1995 Arrival Date: 08/27/2023 Time: 17:21 Bed DX4 Private MD: ED Physician Carter Montero HPI: 08/27 19:40 This 28 yrs old Female presents to ER via Ambulatory with complaints of cp Headache, Diarrhea. 19:40 The patient complains of pain to the top of head. cp 19:40 The patient describes the headache as aching. Onset: The symptoms/episode cp began/occurred 3 day(s) ago. Associated signs and symptoms: Pertinent positives: diarrhea times 2 weeks, intermittent vomiting, Pertinent negatives: fever, neck stiffness, paresthesias, Photophobia. Severity of symptoms: in the emergency department the pain is unchanged, despite home interventions. Historical: - Allergies: 17:33 NKA; nj1 - PMHx: 17:33 None; nj1 - Immunization history:: Client reports having NOT received the Covid vaccine. - Social history:: Smoking status: Patient denies any tobacco usage or history of. ROS: 19:45 Constitutional: Negative for body aches, chills, fever, poor PO intake, cp 19:45 Eyes: Negative for injury, pain, redness, and discharge, cp 19:45 Cardiovascular: Negative for chest pain, edema, palpitations, 19:45 Respiratory: Negative for cough, shortness of breath, wheezing, 19:45 Abdomen/GI: Positive for nausea, vomiting, and diarrhea, Negative for abdominal pain, anorexia, black/tarry stool, rectal bleeding, 19:45 Back: Negative for pain at rest, pain with movement, 19:45 : Negative for urinary symptoms, 19:45 Neuro: Positive for headache, Negative for altered mental status, dizziness, weakness, 19:45 All other systems are negative, Exam: 19:50 Constitutional: The patient appears in no acute distress, alert, awake, non-toxic, well cp developed, well nourished, 19:50 Head/Face: Normocephalic, atraumatic. cp 19:50 Eyes: Periorbital structures: appear normal, Conjunctiva: normal, no exudate, no injection, Sclera: no appreciated abnormality, Lids and lashes: appear normal, bilaterally, 19:50 ENT: External ear(s): are unremarkable, Nose: is normal, Mouth: Lips: moist, Oral mucosa: pink and intact, moist, Posterior pharynx: is normal, airway is patent, no erythema, no exudate, 19:50 Chest/axilla: Inspection: normal, 19:50 Cardiovascular: Rate: normal, Rhythm: regular, 19:50 Respiratory: the patient does not display signs of respiratory distress, Respirations: normal, no use of accessory muscles, no evidence of nasal flaring, no retractions, Breath sounds: are clear throughout, no decreased breath sounds, no stridor, no wheezing, 19:50 Abdomen/GI: Inspection: abdomen appears normal, Bowel sounds: active, all quadrants, Palpation: soft, in all quadrants, mild abdominal tenderness, in the right upper quadrant, 19:50 Back: pain, is absent, ROM is normal, 19:50 Neuro: Orientation: to person, place \T\ time. Mentation: is normal, Motor: moves all fours, strength is normal, Sensation: is normal, Gait: is steady, at a normal pace, without difficulty, Vital Signs: 17:31 BP 146 / 85; Pulse 85; Resp 17; Temp 98.5(O); Pulse Ox 99% ; Weight 83.46 kg; Height 5 nj1 ft. 0 in. ; 17:31 Body Mass Index 35.93 (83.46 kg, 152.4 cm) nj1 MDM: 17:35 Patient medically screened. cp 22:55 Data reviewed: vital signs, nurses notes, lab test result(s), radiologic studies, cp ultrasound. 22:55 Differential diagnosis: migraine, sinusitis, tension headache. I considered the cp following discharge prescriptions or medication management in the emergency department Medications were administered in the Emergency Department. See MAR. Response to treatment: the patient's symptoms have mildly improved after treatment, and as a result, I will discharge patient. 08/27 19:36 Order name: CBC with Diff; Complete Time: 22:42 cp 08/27 19:36 Order name: CMP; Complete Time: 22:42 cp 08/27 19:36 Order name: Lipase; Complete Time: 22:42 cp 08/27 19:36 Order name: Test, Urine; Complete Time: 22:42 cp 08/27 19:36 Order name: Urinalysis w/ reflexes; Complete Time: 22:42 cp 08/27 21:44 Order name: US Abdomen Limited: gallbladder; Complete Time: 22:42 cp 08/27 19:36 Order name: IV Saline Lock; Complete Time: 22:51 cp 08/27 19:36 Order name: Labs collected and sent; Complete Time: 20:47 cp 08/27 22:43 Order name: PO challenge; Complete Time: 23:01 cp Administered Medications: 23:09 Drug: Acetaminophen PO 1000 mg PO once Route: PO; vc1 Disposition Summary: 08/27/23 22:55 Discharge Ordered Notes: Location: Home cp Problem: new cp Symptoms: have improved cp Condition: Stable cp Diagnosis - Diarrhea, unspecified cp - Vomiting cp - Headache cp Followup: cp - With: Laci Bill MD - When: 2 - 3 days - Reason: Recheck today's complaints Discharge Instructions: - Discharge Summary Sheet cp - Diarrhea, Adult cp - General Headache Without Cause cp - Vomiting, Adult cp Forms: - Medication Reconciliation Form cp - Thank You Letter cp - Antibiotic Education cp - Prescription Opioid Use cp - Patient Portal Instructions cp - Leadership Thank You Letter cp - Work release form vc1 Prescriptions: - Zofran 4 mg Oral Tablet - take 1 tablet ORAL route every 12 hours As needed; 20 tablet; Refills: 0, cp Product Selection Permitted - Lomotil 2.5-0.025 mg Oral Tablet - take 1 tablet ORAL route every 6 hours As needed; 20 tablet; Refills: 0, cp Product Selection Permitted Signatures: Dispatcher [employer] EDCarter Leiva PA PA cp Theodora Teran RN RN vc1 Shena Meraz RN RN nj1
--- NOTE | 2023-08-27 22:55 | ER ---
Nurse's Notes [facility] Name: Renetta Ellison Age: 28 yrs Sex: Female : 1995 Arrival Date: 08/27/2023 Time: 17:21 Bed DX4 Private MD: Diagnosis: Diarrhea, unspecified;Vomiting;Headache Presentation: 08/27 17:31 Chief complaint: Patient states: Diarrhea for 2 weeks, vomiting and headache for 2-3 nj1 days. No appetite. Able to keep fluids down. Coronavirus screen: Vaccine status: Patient reports being unvaccinated. Ebola Screen: Patient denies travel to an Ebola-affected area in the 21 days before illness onset. Initial Sepsis Screen: Does the patient meet any 2 criteria? No. Patient's initial sepsis screen is negative. Does the patient have a suspected source of infection? No. Patient's initial sepsis screen is negative. Risk Assessment: Do you want to hurt yourself or someone else? Patient reports no desire to harm self or others. Onset of symptoms was August 2023. 17:31 Method Of Arrival: Ambulatory [facility] 17:31 Acuity: LETITIA 3 nj1 Triage Assessment: 23:13 Headache History: The patient has had previous headaches and this one is similar to vc1 previous episodes. General: Appears in no apparent distress. ill, Behavior is calm, cooperative, appropriate for age. Pain: Complains of pain in top of head, forehead and right side of the back of head Pain currently is 10 out of 10 on a pain scale. Pain began gradually. Neuro: Level of Consciousness is awake, alert, obeys commands, Oriented to person, place, time, situation, Appropriate for age Reports headache. GI: Reports diarrhea. : No deficits noted. No signs and/or symptoms were reported regarding the genitourinary system. Historical: - Allergies: 17:33 NKA; nj1 - PMHx: 17:33 None; nj1 - Immunization history:: Client reports having NOT received the Covid vaccine. - Social history:: Smoking status: Patient denies any tobacco usage or history of. Screenin:13 [facility] ED Fall Risk Assessment (Adult) History of falling in the last 3 months, vc1 including since admission No falls in past 3 months (0 pts) Confusion or Disorientation No (0 pts) Intoxicated or Sedated No (0 pts) Impaired Gait No (0 pts) Mobility Assist Device Used No (0 pt) Altered Elimination No (0 pt) Score/Fall Risk Level 0 - 2 = Low Risk Oriented to surroundings, Maintained a safe environment, Educated pt \T\ family on fall prevention, incl call for assistance when getting out of bed. Abuse screen: Denies threats or abuse. Nutritional screening: No deficits noted. Tuberculosis screening: No symptoms or risk factors identified. Vital Signs: 17:31 BP 146 / 85; Pulse 85; Resp 17; Temp 98.5(O); Pulse Ox 99% ; Weight 83.46 kg; Height 5 nj ft. 0 in. ; 17:31 Body Mass Index 35.93 (83.46 kg, 152.4 cm) [facility] ED Course: 17:22 Patient arrived in ED. mr 17:32 Carter Liu PA is PHCP. cp 17:32 Carter Montero MD is Attending Physician. cp 17:33 Triage completed. nj1 17:33 Arm band placed on right wrist. nj1 20:48 CBC with Diff Sent. vc1 20:48 CMP Sent. vc1 20:48 Lipase Sent. vc1 21:10 Inserted saline lock: 22 gauge in right antecubital area, using aseptic technique. kmf Blood collected. 21:11 pt requested the IV to come out, she said it was hurting her. . kmf 21:11 IV discontinued, intact, bleeding controlled, No redness/swelling at site. Pressure kmf dressing applied. 22:22 US Abdomen Limited: gallbladder In Process Unspecified. EDMS 22:54 Laci Bill MD is Referral Physician. cp 23:12 Theodora Teran, [place] is Primary Nurse. vc1 23:14 No provider procedures requiring assistance completed. vc1 23:15 Provided Education on: follow up with Dr. Bill. vc1 23:15 IV dcd by tech. vc1 Administered Medications: 23:09 Drug: Acetaminophen PO 1000 mg PO once Route: PO; vc1 Medication: 23:14 VIS not applicable for this client. vc1 Outcome: 22:55 Discharge ordered by . cp 23:15 Discharged to home ambulatory, vc1 23:15 Condition: good 23:15 Discharge instructions given to patient, Instructed on discharge instructions, follow up and referral plans. medication usage, Demonstrated understanding of instructions, follow-up care, medications, Prescriptions given X 2, 23:15 Patient left the ED. vc1 Signatures: Dispatcher [employer] EDMS Glendy Cordon, Carter Burgess PA PA cp Calcote, Vanessa, RN RN vc1 Shena Meraz RN RN nj1 Leslie Beal [facility]
[2023-08-28 01:07] VITALS: BP 146/85; TEMP 98.5; O2SAT 99
== END ==
LOC: ER 17:21
DX: R19.7 Diarrhea, unspecified (principal); R11.10 Vomiting, unspecified; R51.9 Headache, unspecified; Z28.310 Unvaccinated for COVID-19
CPT/HCPCS: 36415; 76705; 80053; 81001; 81025; 83690; 85025; 99284

== ENCOUNTER 2023-11-15 13:21 | Emergency (ER) | payer SELFPAY ==
--- OUTSIDE RECORDS SUMMARY | 2023-11-15 13:24 | XMS REPORT | Continuity of Care Document ---
Author Name Unknown Address [address] [facility] [address] [place] [address] [facility] thconnect Address [address] [facility] [address] [place] [address] Care Team Providers Care Scaler Name Role Phone PCP, PATIENT DOES NOT HAVE A Primary Care Physic philip Unavailable GEMA COBOS Attending Clinician Unavailab Gema Parkinson DO Attending Clinician [phone] FIDEL HERNANDEZ Attending Clinician Unavailable Fidel Hernandez MD Attending Clinician [phone] Juanpablo EASON Attending Clinician Unavailable Juanpablo Toscano Attending Clinician [phone] CISCO ARIAS Attending Clinician Unavailable Cisco Tobar Attending Clinician [phone] FIDEL HERNANDEZ Admitting Clinician Unavailable Payers Payer Name Policy Type Policy Number Effective Date Expirati on Date Source [employer] [place] [id number] 2017 00:00:00 Allergies, Adverse Reactions, Alerts Allergy Name Allergy Type Status Severity Reaction(s) Onset Date Inactive Date Treating Clinician Comments Source NO KNOWN ALLERGIE S Drug Class Active [facility] Social History Social Habit Start Date Stop Date Quantity Comments Source Sexual orientation [facility] Gender identity [facility] Sex Assigned At 1995 00:00:00 1995 00:00:00 [facility] Smoking Status Start Date Stop Date Source Tobacco smoking consumption unknown [facility] Medications Ordered Medication Name Filled Medication Name Start Date Stop Date Current Medication? Ordering Clinician Indication Dosage Frequency Signature (SIG) Comments Components Source ondansetron (ZOFRAN-ODT ) disintegrat ing tablet 4 mg 08-18 02:45: 00 08-18 01:42 :00 No 4mg 4 mg, Oral, ONCE, 1 dose, On Noelle 08/17/23 at 2044, Routine [facility] ondansetron 4 mg disintegrat ing tablet 08-17 00:00: 00 Yes [id number] 4mg Take 1 tablet by mouth every 8 (eight) hours as needed for Nausea and Vomiting (N/V). [facility] Vital Signs Vital Name Observation Time Observation Value Comments S ource Heart rate 2023-10-07 16:51:00 87 /min [facility] Body temperature 2023-10-07 16:51:00 37.28 Xena [facility] Respiratory rate 2023-10-07 16:51:00 18 /min [facility] Body height 2023-10-07 16:51:00 152.4 cm [facility] Body weight 2023-10-07 16:51:00 85.276 kg [facility] BMI 2023-10-07 16:51:00 36.72 kg/m2 [facility] Oxygen saturation in Arterial blood by Pulse oximetry 2023-10-07 16:51:00 100 /min [facility] Systolic blood pressure 2023-10-06 17:37:00 135 mm[Hg] [facility] Diastolic blood pressure 2023-10-06 17:37:00 79 mm[Hg] [facility] Heart rate 2023-10-06 17:37:00 79 /min [facility] Body temperature 2023-10-06 17:37:00 37 Xena [facility] Respiratory rate 2023-10-06 17:37:00 18 /min [facility] Body height 2023-10-06 17:37:00 152.4 cm [facility] Body weight 2023-10-06 17:37:00 85.367 kg [facility] BMI 2023-10-06 17:37:00 36.76 kg/m2 [facility] Oxygen saturation in Arterial blood by Pulse oximetry 2023-10-06 17:37:00 97 /min [facility] Systolic blood pressure 2023-08-18 00:45:00 126 mm[Hg] [facility] Diastolic blood pressure 2023-08-18 00:45:00 79 mm[Hg] [facility] Heart rate 2023-08-18 00:43:00 83 /min [facility] Body temperature 2023-08-18 00:43:00 36.94 Xena [facility] Respiratory rate 2023-08-18 00:43:00 20 /min [facility] Body weight 2023-08-18 00:43:00 83.915 kg [facility] BMI 2023-08-18 00:43:00 36.13 kg/m2 [facility] Oxygen saturation in Arterial blood by Pulse oximetry 2023-08-18 00:43:00 98 /min [facility] Systolic blood pressure 2023-03-01 01:26:00 142 mm[Hg] [facility] Diastolic blood pressure 2023-03-01 01:26:00 84 mm[Hg] [facility] Heart rate 2023-03-01 01:26:00 80 /min [facility] Respiratory rate 2023-03-01 01:26:00 19 /min [facility] Oxygen saturation in Arterial blood by Pulse oximetry 2023-03-01 01:26:00 98 /min [facility] Body temperature 2023-03-01 00:35:00 37.39 Xena [facility] Body height 2023-03-01 00:35:00 152.4 cm [facility] Body weight 2023-03-01 00:35:00 83.462 kg [facility] BMI 2023-03-01 00:35:00 35.94 kg/m2 [facility] Procedures Procedure Date / Time Performed Performing Clinicia n Source TOTAL BETA HCG ASSAY 2023-10-07 16:59:00 Jose Cobos [facility] HB ABO GROUPING 2023-10-07 16:59:00 Gema Cobos [facility] BASIC METABOLIC PANEL (NA, K, CL, CO2, GLUCOSE, BUN, CREATININE, CA) 2023-10-06 18:11:00 Fidel Hernandez [facility] TOTAL BETA HCG ASSAY 2023-10-06 18:11:00 Fidel Hernandez [facility] CBC WITH DIFF 2023-10-06 18:11:00 Fidel Hernandez [facility] URINALYSIS 2023-10-06 18:11:00 [facility]idel [facility] POCT TEST 2023-10-06 18:10:00 Fidel Hernandez [facility] CONSENT/REFUSAL FOR DIAGNOSIS AND TREATMENT 2023-08-18 00:38:55 Doctor Unassigned, [place] [facility] ASSIGNMENT OF BENEFITS 2023-03-01 01:11:00 Docto r Unassigned, [place] [facility] RAPID INFLUENZA A/B 2023-03-01 00:47:00 Cisco Arias [facility] COVID-19 (ID NOW RAPID TESTING) 2023-03-01 00:47:00 Cisco Arias [facility] NOTICE OF PRIVACY PRACTICES 2023-03-01 00:31:09 Doctor Unassigned, [place] [facility] CONSENT/REFUSAL FOR DIAGNOSIS AND TREATMENT 2023-03-01 00:30:43 Doctor Unassigned, [place] [facility] Encounters Start Date/Time End Date/Time Encounter Type Admission Type Attending Clinicians Care Facility Care Department Encounter ID Source 2023-10-07 11:53:00 2023-10-07 13:05:00 Emergency X GEMA COBOS [facility] ERT [id number] [facility] 2023-10-07 11:53:00 2023-10-07 13:05:00 Emergency Gema Cobos [facility] 1.2.840.114 350.1.13.10 4.2.7.2.686 [id number] [facility] 2023-10-06 12:38:00 2023-10-06 16:16:00 Emergency X FIDEL HERNANDEZ [facility] ERT [id number] [facility] 2023-10-06 12:38:00 2023-10-06 16:16:00 Emergency Fidel Hernandez C [facility] 1.2.840.114 350.1.13.10 4.2.7.2.686 [id number] [id number] [facility] 2023-08-17 18:46:00 2023-08-17 19:55:00 Emergency X JENARO Juanpablo [facility] ERT [id number] [facility] 2023-08-17 18:46:00 2023-08-17 19:55:00 Emergency Juanpablo Eason Kelsey [facility] 1.2.840.114 350.1.13.10 4.2.7.2.686 [id number] [id number] [facility] 2023-02-28 19:45:00 2023-02-28 20:33:00 Emergency CISCO CRUZ [facility] ERT [id number] [facility] 2023-02-28 19:45:00 2023-02-28 20:33:00 Emergency Cisco Arias Madalyn [facility] 1.2.840.114 350.1.13.10 4.2.7.2.686 [id number] [id number] [facility] Results Test Description Test Time Test Comments Results Result Co mments Source [facility] Screen - ONCE Mpwgsmd4264-63-74 17:17:00* Test Item Value Reference Range Interpretation Comme nts ABO & RH (test code = 20) A POSITIVE IAT (test code = 1185) Negative [facility] BH[facility] (QUANTITATIVE)2023-10-06 19:21:27* Test Item Value Reference Range Interpretation Comme nts BETA HCG (test code = 0535161431) 700.81 See_Comment [Automated 1CloudStara ge] The system which generated this result transmitted reference range: Non- female and male patients: <5 mIU/mL. The reference range was not used to interpret this result as normal/abnormal. DAVE (test code = DAVE) Gestational Age ?Range (mIU/mL) 1-10 ?Weeks ?[id number] Weeks ?84153-01658249-84 Weeks ?4332-88778858-83 Weeks ?9866-200360 Biotin has been reported to cause a negative bias, interpret results relative to patient's use of biotin. [facility] Metabolic Panel (NA, K, CL, CO2, GLUCOSE, BUN, CREATININE, CA)2023-10-06 18:55:41* Test Item Value Reference Range Interpretation Comme nts NA (test code = 9202215365) 137 mmol/L 135-145 K (test code = 4243920772) 4.4 mmol/L 3.5-5.0 CL (test code = 3437150483) 107 mmol/L 98-108 CO2 TOTAL (test code = 3044492804) 22 mmol/L 23-31 L AGAP (test code = 9405113493) 8 2-16 BUN (test code = 5173024814) 11 mg/dL 7-23 GLUCOSE (test code = 6746484952) 92 mg/dL 70-110 CREATININE (test code = 2160-0) 0.75 mg/dL 0.50-1.04 CALCIUM (test code = 2820951988) 9.2 mg/dL 8.6-10.6 eGFR (test code = 26591-5) 112.8 mL/min/1.73m2 CKD-EPI eGFR (2020). Assuming creatinine has been stable day-to-day for at least three months, the eGFR indicates Category G1 (>= 90 mL/min/1.73 m2) Lab Interpretation (test code = 13076-0) Abnormal [facility] with Mmde2743-89-50 18:46:58* Test Item Value Reference Range Interpretation Comme nts WBC (test code = 6690-2) 11.15 4.30-11.10 H RBC (test code = 789-8) 4.38 3.93-5.25 HGB (test code = 718-7) 14.0 g/dL 11.6-15.0 HCT (test code = 4544-3) 41.4 % 35.7-45.2 MCV (test code = 787-2) 94.5 fL 80.6-95.5 MCH (test code = 785-6) 32.0 pg 25.9-32.8 MCHC (test code = 786-4) 33.8 g/dL 31.6-35.1 RDW-SD (test code = 91807-4) 42.7 fL 39.0-49.9 RDW-CV (test code = 788-0) 12.2 % 12.0-15.5 PLT (test code = 777-3) 198 166-358 MPV (test code = 27305-3) 11.3 fL 9.5-12.9 NRBC/100 WBC (test code = 0144393851) 0.0 0.0-10.0 NRBC x10^3 (test code = 6968364176) See_Comment [Automated messa ge] The system which generated this result transmitted reference range: 10*3/?L. The reference range was not used to interpret this result as normal/abnormal. GRAN MAT (NEUT) % (test code = 770-8) 71.7 % IMM GRAN % (test code = 6480207772) 0.40 % LYMPH % (test code = 736-9) 20.9 % MONO % (test code = 5905-5) 5.5 % EOS % (test code = 713-8) 1.0 % BASO % (test code = 706-2) 0.5 % GRAN MAT x10^3(ANC) (test code = 5260586804) 7.99 10*3/uL 1.88-7.09 H IMM GRAN x10^3 (test code = 4074433493) 0.05 10*3/uL 0.00-0.06 LYMPH x10^3 (test code = 731-0) 2.33 10*3/uL 1.32-3.29 MONO x10^3 (test code = 742-7) 0.61 10*3/uL 0.33-0.92 EOS x10^3 (test code = 711-2) 0.11 10*3/uL 0.03-0.39 BASO x10^3 (test code = 704-7) 0.06 10*3/uL 0.01-0.07 Lab Interpretation (test code = 59543-4) Abnormal [facility] GENY4864-90-75 18:10:00* Test Item Value Reference Range Interpretation Comme nts POCT PREG (test code = 1605) Positive On board controls acceptable with C Line (test code = 3574) Yes POCT PREG LOT # (test code = 3575) [id number] POCT PREG TEST DATE ( test code = 3576) 10-08-2024 Lab Interpretation (test cod e = 31476-5) Normal [facility] Notes Date/Time Note Provider Source 2023-10-07 13:03:20 k28MIE9F89vCZTcp8Et+NqGuuN3+/VdJF+rDdNvS q69aAsYZbBKz0uEidPbafkWm3493-37-44H28:03 :20 Patient given discharge instructions on miscarriage. No prescriptions given. Pt advised to follow up with computing architect, wind turbine machinist. Pt left ER ambulatory, no signs of distress. 40726-1Sbclsgqnt department AnnbEE9861-11-82O79:05:18Emergency department NoteTXT1.2.840.953439.1.13.104.2.7.2.727 879|[id number] for patient wbss50058-8NyqlOOJPPDFFOCHVjdrmricd C-CDA narrative [id number] M Cruz RNUTMBUTMB - [address] QthnSggfkzzhhEzjqqaghmMXKQ2944631154QEYM QUSHGPECHAETDSXWPU8470-74-24K46:05:181.2 .840.448326.1.72.3.15|1.2.840.755740.1.1 3.104.2.7.2.727879_[id number] Catherine Robb RN [facility] 2023-10-07 11:51:37 8G8sVRN/LXnX6+POfHl4nwuLaHPplc4AZ5h3Equr u6oqIXPOEqpX6l6yJ95PoC3R5344-32-05X24:51 :37 Here yesterday for spotting. Here today for same thing. Had "something that looked like a piece of meat come out". 42871-7Mykmvlnim department Triage qsswKG2667-24-98A76:52:15[facility] Triage noteTXT1.2.840.071177.1.13.104.2.7.2.727 879|[id number] for patient pxly32782-9Xgztcolky department NoteLNNARRATIVEFormatted C-CDA narrative [id number] Fief RN[address]Eh[id number] OFPKVJYBWUYOYWBZCD4482-24-37E91:52:151.2 .840.277089.1.72.3.15|1.2.840.780489.1.1 3.104.2.7.2.727879_[id number] Radha Saldaña RN [facility] 2023-10-07 11:46:00 XYHcbd43/bhilzCZXcb/kmtUlbGgWjrtpmnTLEQ9 btngWOIp8OwDZiK63qgMAZNs6946-83-89I31:46 :00 [facility] Emergency Department NotePatient Name: Temi Salmeron of : 1995 28 year old femaleTreatment Room: [place] [address]/YNBE43-98Iomtopv Record Number: [id number] Care Physician: PATIENT DOES NOT HAVE A PCPPatient Escorted by: Family [5]Mode of Arrival: Personal means [1]EMS Treatment Prior to ED Arrival:Travel and Exposure Screening:SymptomsDoes patient have any of these symptoms?: (not recorded)Exposure ScreeningHas patient had contact with someone with a communicable disease in the last month?: (not recorded)Diseases exposed to:: (not recorded)Is Patient ?: (not recorded)Exposure Date: (not recorded)Chief Complaint:Chief ComplaintPatient presents withPREGNANCYHistory of Present Illness:The patient presents from home for eval for vaginal bleeding while . LMP 2/8 and she is . Bleeding and pelvic cramping started yesterday. Seen here and had TVUS showing no IUP. She reports cramping has continued and her bleeding did get worse this AM with her passing something that looked like meat. Therefore she returns for reeval. No dysuria. No n/v. No fever/chills.Here for eval.Past Medical History/Immunizations:History reviewed. No pertinent past medical history.Tetanus received in last 5 years: UnknownChildhood immunizations: Xq-ti-dcemPmargghes:No Known AllergiesPast Social History:Substance & Sexual ActivityNo substance use or sexual activity history on file.Past Surgical History:History reviewed. No pertinent surgical history.Review of Systems:Review of SystemsConstitutional: Negative for chills and fever.Respiratory: Negative for cough and shortness of breath.Cardiovascular: Negative for chest pain.Gastrointestinal: Negative for abdominal pain and vomiting.Genitourinary: Positive for vaginal bleeding and pelvic pain. Negative for dysuria.Musculoskeletal: Negative for arthralgias, neck pain and neck stiffness.Skin: Negative for wound.Neurological: Negative for dizziness.Psychiatric/Behavioral: Negative for agitation.Endocrine: Negative for goiter.Physical Exam:ED Triage Vitals [10/07/23 1151]Weight 85.3 kg (188 lb)Actual or estimated Estimated by patient/family reportHeight 1.524 m (5')BPPulse 87Resp 18Temp 37.3 ?C (99.1 ?F)Temp source OralSpO2 100 %Measured on Room airPhysical ExamVitals and nursing note reviewed.Constitutional:Appearance: Normal appearance. She is obese.HENT:Head: Normocephalic and atraumatic.Cardiovascular:Rate and Rhythm: Normal rate.Pulses: Normal pulses.Pulmonary:Effort: Pulmonary effort is normal. No respiratory distress.Abdominal:General: There is no distension.Palpations: Abdomen is soft. There is no mass.Tenderness: There is no abdominal tenderness. There is no guarding or rebound.Hernia: No hernia is present.Musculoskeletal:General: Normal range of motion.Cervical back: Neck supple.Skin:General: Skin is warm.Neurological:General: No focal deficit present.Mental Status: She is alert.Radiology:No orders to displayLab Results:Lab ResultsTOTAL BETA HCG ASSAYResult Value Ref RangeBETA HCG 180.73 Non- female and male patients: <5 mIU/mLTYPE AND SCREENABO & RH A POSITIVEABORH CONFIRMATION (LAB ONLY)EKG:If EKG completed, see Procedure Note.Orders and Treatments:Orders Placed This EncounterProceduresTOTAL BHCG (QUANTITATIVE)Type and Screen - ONCE RoutineABORH Confirmation (Lab Only)No orders of the defined types were placed in this encounter.First Provider Eval:ED EventsDate/Time Event User Nuhmxgjr24/06/24 1154 Medical Screening Begins GEMA COBOS DO --10/07/23 1154 First Provider Evaluation GEMA COBOS DO --ED COURSEDiagnosis/Impression as of 10/07/23 1253Vaginal bleeding affecting early pregnancyMiscarriageProcedures:Procedure sMDM:Medical Decision MakingThe patient presents from home for eval for vaginal bleeding while . LMP 2/8 and she is . Seen here yesterday for same. Had TVUS showing no IUP and an HCG which was 700. Has since passed tissue and presents for reeval.VSS here in the EC.Abdomen soft and not tender.Will repeat her HCG but her clinical picture is suggestive of a miscarriage in process.Anticipate dc home later.1252 - the patient is doing well here in the EC.Abo/rh is A+.Her HCG was decreased and is 180 today.She has had a miscarriage.Will need f/u with nursing executive in one week.Can use nsaids for discomfort and pads for bleeding.Ok for dc home with nursing executive f/uProblems Addressed:Miscarriage: acute illness or injuryVaginal bleeding affecting early : acute illness or injuryAmount and/or Complexity of Data ReviewedLabs: ordered. Decision-making details documented in ED Course.RiskOTC drugs.Flowsheet Documentation:Scoring Tools:No data recordedDisposition/Condition:ED DispositionED DispositionDisch - HomeConditionStableComment--Discharge Medications:Patient's MedicationsSTART taking these medicationsNo medications on fileCONTINUE taking these medications which have NOT CHANGEDONDANSETRON 4 MG DISINTEGRATING TABLET Take 1 tablet by mouth every 8 (eight) hours as needed for Nausea and Vomiting (N/V).START taking Modified Medications as PrescribedNo medications on fileSTOP taking these medicationsNo medications on fileFollow-up:Electronically signed by:Gema Cobos DO10/07/23 1253 56456-1Atzbbtbum Emergency department ZayhAZ4419-64-60V94:53:36Physian Emergency department NoteTXT1.2.840.841157.1.13.104.2.7.2.727 879|[id number] for patient cvkg79158-8Gyiwnunkp department NoteLNNARRATIVEFormatted C-CDA narrative text[address] Sl[id number] EPYYIPGRXZXMSKSCPT5688-95-92J80:53:361.2 .840.830347.1.72.3.15|1.2.840.281400.1.1 3.104.2.7.2.727879_[id number] [facility] 2023-10-06 16:05:00 hyAUp5MdzDwVzbWb5MR/VpsCvclGbMZtaHLjbg+C lbHqDLKdlj7xPScqw30r+uac5363-44-69V23:05 :00 Pt given printed and verbal discharge instructions regarding vaginal bleeding, encouraged hydration.Pt verbalized understanding of instructions, pt awake alert oriented, resp reg unlabored, skin w/d, color appropriate for race, moves all ext well,pt encouraged to follow up with pcp and or ob-gyne.Advised to seek medical attention for new/prolonged/worsening of symptoms.PIV d'cd, dressing to site, catheter in tact.Awake, alert oriented, resp reg unlabored, skin w/d, pt leaving amb with steady gait, in no apparent distress. 29444-4Pwsncugbw department LhclKV9777-40-23B94:15:59[facility] NoteTXT1.2.840.994679.1.13.104.2.7.2.727 879|[id number] for patient uooh95780-5RlboXOBDVTSTBIMFnswrdgzm C-CDA narrative [id number] C Heredia RNUT[address] StreetZbhyYfrjmqhzdKthaolgbhCSYZ2807119735YVQO KUVCRVFAKOLCQIAPNF8528-76-51X53:15:591.2 .840.528677.1.72.3.15|1.2.840.579787.1.1 3.104.2.7.2.727879_[id number] Cyndie Greer RN [facility] 2023-10-06 12:35:25 VOdHZ3uI1FU+imy7LSn2xbrqo60PATx+DnUsn3i3 UKXFS4RmdvSk0r2fZBFgXLDT1954-90-61X24:35 :25 Patient arrived ambulatory c/o og spotting with blood clots. Patient found out she was last Monday , seen at health clinic yesterday. . Only sees the blood when urinating and wiping. 12065-3Zomomkfky department Triage dyljJO4062-40-60Q03:38:45[facility] Triage noteTXT1.2.840.429803.1.13.104.2.7.2.727 879|[id number] for patient jenw66113-7Tzjlxtjgf department NoteLNNARRATIVEFormatted C-CDA narrative [id number] Calderon Joseph [address] KqapX[id number] ASQJTCOMUNXLXQTXKT1004-81-03N44:38:451.2 .840.612960.1.72.3.15|1.2.840.795777.1.1 3.104.2.7.2.727879_[id number] Sandra Ruiz RN [facility] 2023-10-06 12:29:00 xVcCIaXtOdWhqBfYlZolAIRPUXUaimhk5CiEl6Nb POZ3IIjmdALdQIuZN0OsF/q89969-51-78Z44:29 :00 [facility] Emergency Department NoteDemographicsPatient Name: Temi Salmeron of : 1995 28 year oldTreatment Room: [facility] ED [facility] Record Number: [id number] Care Physician: PATIENT DOES NOT HAVE A [facility] CarePatient Escorted by: Self [9]Mode of Arrival: Personal means [1]EMS Treatment Prior to ED Arrival:ARCHITECTURE INTERNSHIP treatment: NoneED EventsDate/Time Event User Byftootx76/05/24 1247 Medical Screening Begins FIDEL HERNANDEZ MD --10/06/23 1247 First Provider Evaluation FIDEL HERNANDEZ MD --Chief complaintChief ComplaintPatient presents withVaginal BleedingED Triage NotesFeSandra ly RN 10/06/2023 12:38Patient arrived ambulatory c/o og spotting with blood clots. Patient found out she was last Monday , seen at health clinic yesterday. . Only sees the blood when urinating and wiping.Chief ComplaintPatient presents withVaginal BleedingHistory of present hhybuskTTI69 yo woman comes to the ED complaining of vaginal bleeding and mild cramping today. She is approximately 4-5 weeks of gestation. . Denies dysuria, nausea, vomiting or any other problems. No chronic medical problems or medications.BP 135/79 | Pulse 79 | Temp 37 ?C (98.6 ?F) (Oral) | Resp 18 | Ht 1.524 m (5') | Wt 85.4 kg (188 lb 3.2 oz) | LMP 08/10/2023 | SpO2 97% | BMI 36.76 kg/m?Past Medical and Social HistoryHistory reviewed. No pertinent past medical history.Tetanus received in last 5 years: NoChildhood immunizations: Ba-fk-qbgrGmfp Surgical HistoryHistory reviewed. No pertinent surgical history.MedicationsMedications - No data to displayAllergiesNo Known AllergiesReview of SystemsReview of SystemsConstitutional: Negative.HENT: Negative.Eyes: Negative.Respiratory: Negative.Cardiovascular: Negative.Gastrointestinal: Negative.Genitourinary: Positive for vaginal bleeding.Musculoskeletal: Negative.Skin: Negative.Neurological: Negative.Psychiatric/Behavioral: Negative.Endocrine: Endocrine negativePhysical ExamBP 135/79 | Pulse 79 | Temp 37 ?C (98.6 ?F) (Oral) | Resp 18 | Ht 1.524 m (5') | Wt 85.4 kg (188 lb 3.2 oz) | LMP 08/10/2023 | SpO2 97% | BMI 36.76 kg/m?Physical ExamVitals and nursing note reviewed.Constitutional:General: She is not in acute distress.Appearance: She is well-developed and normal weight. She is not ill-appearing.HENT:Head: Normocephalic and atraumatic.Right Ear: External ear normal.Left Ear: External ear normal.Nose: Nose normal. No congestion or rhinorrhea.Mouth/Throat:Pharynx: No oropharyngeal exudate or posterior oropharyngeal erythema.Eyes:General:Right eye: No discharge.Left eye: No discharge.Conjunctiva/sclera: Conjunctivae normal.Pupils: Pupils are equal, round, and reactive to light.Cardiovascular:Rate and Rhythm: Normal rate and regular rhythm.Heart sounds: Normal heart sounds. No murmur heard.No friction rub.Pulmonary:Effort: Pulmonary effort is normal. No respiratory distress.Breath sounds: Normal breath sounds. No stridor. No wheezing or rhonchi.Abdominal:General: Bowel sounds are normal. There is no distension.Palpations: Abdomen is soft. There is no mass.Tenderness: There is no abdominal tenderness.Hernia: No hernia is present.Musculoskeletal:General: No swelling, tenderness, deformity or signs of injury. Normal range of motion.Cervical back: Normal range of motion and neck supple. No rigidity or tenderness.Skin:General: Skin is warm.Capillary Refill: Capillary refill takes less than 2 seconds.Coloration: Skin is not jaundiced or pale.Findings: No bruising or erythema.Neurological:General: No focal deficit present.Mental Status: She is alert and oriented to person, place, and time.Cranial Nerves: No cranial nerve deficit.Sensory: No sensory deficit.Motor: No weakness.Coordination: Coordination normal.Psychiatric:Mood and Affect: Mood normal.Behavior: Behavior normal.Thought Content: Thought content normal.Judgment: Judgment normal.Labs and StudiesLab ResultsCBC WITH DIFF - AbnormalResult Value Ref RangeWBC 11.15 (*) 4.30 - 11.10 10*3/?LRBC 4.38 3.93 - 5.25 10*6/?LHGB 14.0 11.6 - 15.0 g/dLHCT 41.4 35.7 - 45.2 %MCV 94.5 80.6 - 95.5 fLMCH 32.0 25.9 - 32.8 pgMCHC 33.8 31.6 - 35.1 g/dLRDW-SD 42.7 39.0 - 49.9 fLRDW-CV 12.2 12.0 - 15.5 %PLT 198 166 - 358 10*3/?LMPV 11.3 9.5 - 12.9 fLNRBC/100 WBC 0.0 0.0 - 10.0 /100 WBCsNRBC x10^3 <0.01 10*3/?LGRAN MAT (NEUT) % 71.7 %IMM GRAN % 0.40 %LYMPH % 20.9 %MONO % 5.5 %EOS % 1.0 %BASO % 0.5 %GRAN MAT x10^3(ANC) 7.99 (*) 1.88 - 7.09 10*3/uLIMM GRAN x10^3 0.05 0.00 - 0.06 10*3/uLLYMPH x10^3 2.33 1.32 - 3.29 10*3/uLMONO x10^3 0.61 0.33 - 0.92 10*3/uLEOS x10^3 0.11 0.03 - 0.39 10*3/uLBASO x10^3 0.06 0.01 - 0.07 10*3/uLBASIC METABOLIC PANEL (NA, K, CL, CO2, GLUCOSE, BUN, CREATININE, CA) - AbnormalNA 137 135 - 145 mmol/LK 4.4 3.5 - 5.0 mmol/LCL 107 98 - 108 mmol/LCO2 TOTAL 22 (*) 23 - 31 mmol/LAGAP 8 2 - 16BUN 11 7 - 23 mg/dLGLUCOSE 92 70 - 110 mg/dLCREATININE 0.75 0.50 - 1.04 mg/dLCALCIUM 9.2 8.6 - 10.6 mg/dLeGFR 112.8 mL/min/1.03j0OZXAJTDXTO - AbnormalAPPEARANCE Clear ClearCOLOR Yellow YellowPH 7.0 4.8 - 8.0SP GRAVITY 1.018 1.003 - 1.030GLU U QUAL Normal NormalBLOOD Negative NegativeKETONES Negative NegativePROTEIN Negative NegativeUROBILIN 2.0 mg/dL (*) NormalBILIRUBIN Negative NegativeNITRITE Negative NegativeLEUK MINA Negative NegativeRBC/HPF 5 (*) 0 - 3 HPFWBC/HPF 0 0 - 5 HPFBACTERIA Negative NegativeMUCOUS Slight (*) Negative LPFSQ EPITH 1 HPFPOCT TEST - NormalPOCT PREG PositiveOn board controls acceptable with C Line YesPOCT PREG LOT # [id number] PREG TEST DATE [id number] BETA HCG ASSAYBETA HCG 700.81 Non- female and male patients: <5 mIU/mLUS FIRST TRIMESTER LESS THAN 14 WEEKS WITH TRANSVAGINALPreliminary ResultEXAM: US FIRST TRIMESTER LESS THAN 14 WEEKS WITH TRANSVAGINALHISTORY: 28 years -old Female with vaginal bleeding . LMP = 08/10/2023.Beta-hC mIU/mL. [id number]: Survey transabdominal and transvaginal ultrasound imaging ofthepelvis was performed including color Doppler evaluation withrepresentativeimages obtained. M-mode Doppler was used to evaluate the heart.COMPARISON: NoneFINDINGS:Uterus:An intrauterine gestational sac is noted in the lower uterine segment.Meansac diameter is 0.5 cm. Corresponding to 5 weeks and 0 days . A yolk sacmeasures 0.2 cm is identified. No pole is identified.Right Adnexa:Ovary: The right ovary measures 3.6 x 2.3 x 2.3 cm cm. The right ovary isunremarkable.Other: NoneLeft Adnexa:Ovary: The left ovary measures 3.5 x 2.7 x 2.4 cm. Possible corpus luteumin the left ovary..Other: FqrlJai-kk-uaf: No free fluid is present.IMPRESSIONA gestational sac is present in the lower uterine segment. A yolk sac ispresent however no pole was identified.Preliminary Report Dictated by Resident: Smiley NicolasOrders and TreatmentsOrders Placed This EncounterProceduresUS FIRST TRIMESTER LESS THAN 14 WEEKS WITH TRANSVAGINALCbc with DiffBasic Metabolic Panel (NA, K, CL, CO2, GLUCOSE, BUN, CREATININE, CA)UrinalysisPOCT TESTTOTAL BHCG (QUANTITATIVE)No orders of the defined types were placed in this encounter.Patient's MedicationsSTART taking these medicationsNo medications on fileCONTINUE taking these medications which have NOT CHANGEDONDANSETRON 4 MG DISINTEGRATING TABLET Take 1 tablet by mouth every 8 (eight) hours as needed for Nausea and Vomiting (N/V).START taking Modified Medications as PrescribedNo medications on fileSTOP taking these medicationsNo medications on fileProceduresProceduresEvidence CareMDM & NotesPatient was evaluated for an emergency medical condition related to Vaginal Bleeding.History and/or review of systems is limited by:History limited: None.Medical Decision Forzcu39 yo woman comes to the ED complaining of vaginal bleeding and mild cramping today. She is approximately 4-5 weeks of gestation. . Denies dysuria, nausea, vomiting or any other problems. No chronic medical problems or medications.BP 135/79 | Pulse 79 | Temp 37 ?C (98.6 ?F) (Oral) | Resp 18 | Ht 1.524 m (5') | Wt 85.4 kg (188 lb 3.2 oz) | LMP 08/10/2023 | SpO2 97% | BMI 36.76 kg/m?DDx include but not limited to:1. Vagina bleeding in early pregnancy2. Threatening abortion3. UTIPlan: US, cbc, basic, ua.Problems Addressed:Vaginal bleeding: acute illness or injuryAmount and/or Complexity of Data ReviewedLabs: ordered.Details: Normal Hgb, no significant leukocytosisRadiology: ordered.Details: Gestational sacDiscussion of management or test interpretation with external provider(s): Early vs vaginal bleeding in early vs miscarriage. US showing gestational sac with HcG of 700. Advised pelvic rest, f/u with OBGYN in 2 days for repeat HCG and US. Return to the ED if worsening of symptoms. Patient understands and agrees with the plan.Diagnosis/Impression as of 10/06/23 1607Vaginal bleedingCase discussed with: noneBarriers & Social Determinants of Healthcare: noneLimitations to patient care and compliance: none.History, physical exam findings, results of visit, differential diagnosis, medication regimens and plan of future care have been considered. Additional MDM may be found in the ED course. Differential diagnosis considered and final disposition made based on information gathered during evaluation and may not be completely ruled out or specifically listed. Vital signs were rechecked before final disposition and determined to be stable.[id number]. Vaginal bleeding N93.9Disposition and ConditionED DispositionED DispositionDisch - HomeConditionStableComment--Patient's MedicationsSTART taking these medicationsNo medications on fileCONTINUE taking these medications which have NOT CHANGEDONDANSETRON 4 MG DISINTEGRATING TABLET Take 1 tablet by mouth every 8 (eight) hours as needed for Nausea and Vomiting (N/V).START taking Modified Medications as PrescribedNo medications on fileSTOP taking these medicationsNo medications on fileDragon Dictation Software is used frequently and may produce errors. Promptly contact for obvious discrepancies.Fidel Hernandez MD, FACEP, FAAEMAssistant Professor of Emergency and Internal MedicineEastern Niagara Hospital, [facility] Division#[id number] Hernandez MD10/06/23 1610 82187-9Rrzfrnlgq Emergency department FkmxZY1633-27-98J22:10:49Physician Emergency department NoteTXT1.2.840.358425.1.13.104.2.7.2.727 879|[id number] for patient uucr47730-3Qgheiqjrx department NoteLNNARRATIVEFormatted C-CDA narrative text52 [address] [id number] LLCDBUEAASEFHPYIFR5137-01-25M71:10:491.2 .840.653489.1.72.3.15|1.2.840.171780.1.1 3.104.2.7.2.727879_[id number] [facility] 2023-08-17 19:44:32 4nAhRXv3ofPleTUVeWQlIOUJ9dOOPW/zEXnQ8r3N AKHwnycmWYsKskerasDfE+xd0441-40-54T52:44 :32 Pt given printed and verbal discharge instructions [...] with steady gait, in no apparent distress. 38654-7Wntdmgevy department VnudSS4060-72-67O74:45:19Emewashington rural health collaborative department NoteTXT1.2.840.761647.1.13.104.2.7.2.727 879|[id number] for patient dmhh88726-8QvujULTENZYFBQEVojwnudek C-CDA narrative [id number] L Williams RNUT[address] [id number] LEWISTOAQXTFLCDIBVYGMRR0561-52-91X38:45:191.2 .840.448088.1.72.3.15|1.2.840.318955.1.1 3.104.2.7.2.727879_[id number] Karis L Robert ONTIVEROS [facility] 2023-08-17 18:42:28 0DzN0W928DTs2ZgstoT1JswR3xE9kiuq7+xsoSzy mMSIahhhSyxwNN8oZ/CO1UJO1806-48-45E43:42 :28 Patient reports abdominal pain with diarrhea for about a week and got sent home today for also having nausea and vomiting. No hx of abd surgeries. LBM was 16:00 diarrhea. No meds [employer]. Has not been seen for this illness. 17576-7Bzgqijozf department Triage kmowQX0901-84-19P68:43:47Emernorth[facility] health emergency departmentcy department Triage noteTXT1.2.840.300184.1.13.104.2.7.2.727 879|[id number] for patient hwkb67373-2Kyuayvbwx department NoteLNNARRATIVEFormatted C-CDA narrative [id number] M Leibee RN[address] Ix[id number] SZLIIBFLGMEVCWIUKO4330-37-71I05:43:471.2 .840.608880.1.72.3.15|1.2.840.698094.1.1 3.104.2.7.2.727879_[id number] Max Mora RN [facility] 2023-02-28 20:32:30 CwiWtWuTFRNEGxWYwzs72kuFPZphSsHXT6JgxGbf nPG62E/N9VOIMHVDl4Mms1UQ7873-86-18M74:32 :30 Pt discharged with diagnosis of vomiting an URI. Printed and verbal instructions reviewed with and given to pt. Pt verbalized understanding of teaching and recommended follow-up. Denies questions or concerns at this time. Pt ambulatory at discharge. Appears in no apparent distress. No ataxia noted. Accompanied by sister. 51448-6Izdhahyfk department ZhhrJL5125-77-88F11:33:22[facility] department NoteTXT1.2.840.825920.1.13.104.2.7.2.727 879|[id number] for patient [id number] R Goodrich RN[address]Fj[id number] HUHGYAASJCRSUMLJTY6710-76-04I64:33:221.2 .840.944834.1.72.3.15|1.2.840.749066.1.1 3.104.2.7.2.727879_[id number] Lawanda Wang RN [facility] 2023-02-28 19:35:00 h9av/8D4gkVJML8j78NGOZ6FhazMSjaJIVyYZQWo CqKu/gmqIIh+/j3PaI2Q8G/T7815-74-78V15:35 :00 Patient came in with complaints of sore throat, congestion, upset stomach and diarrhea 5x today. 02602-1Ovzsjtrzi department Triage omzrPT1521-32-98Q42:45:07[facility] department Triage noteTXT1.2.840.471661.1.13.104.2.7.2.727 879|[id number] for patient rhet43685-1Tzdyvgiwa department [id number] C Heredia [address] Qx[id number] SOHFEOJBRGEKJDMSAG0447-80-62M82:45:071.2 .840.899395.1.72.3.15|1.2.840.452748.1.1 3.104.2.7.2.727879_[id number] Cyndie Greer [facility]
[2023-11-15 14:30] LABS: SARS-CoV-2 Antigen CONTROL BLUE LINE VIS/BG OK; SARS-CoV-2 Antigen Rapid Res Negative (Negative)
--- NOTE | 2023-11-15 15:30 | ER ---
Nurse's Notes [facility] Name: Renetta Ellison Age: 28 yrs Sex: Female : 1995 Arrival Date: 11/15/2023 Time: 13:21 Bed Treatment Private MD: Diagnosis: Upper respiratory infection Presentation: 11/14 13:27 Chief complaint: Patient states: pt woke up in the night with chills, body aches, as6 vomiting, and generalized not feeling well. pt reports others around her have been sick also. Coronavirus screen: At this time, the client does not indicate any symptoms associated with coronavirus-19. Ebola Screen: No symptoms or risks identified at this time. Initial Sepsis Screen: Does the patient meet any 2 criteria? No. Patient's initial sepsis screen is negative. Does the patient have a suspected source of infection? No. Patient's initial sepsis screen is negative. Risk Assessment: Do you want to hurt yourself or someone else? Patient reports no desire to harm self or others. Onset of symptoms was November 15, 2023. 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 - Infectious Disease History:: Denies. - Social history:: Smoking status: Patient denies any tobacco usage or history of. Screenin:18 [facility] ED Fall Risk Assessment (Adult) History of falling in the last 3 months, ap3 including since admission No falls in past 3 months (0 pts) Confusion or Disorientation No (0 pts) Intoxicated or Sedated No (0 pts) Impaired Gait No (0 pts) Mobility Assist Device Used No (0 pt) Altered Elimination No (0 pt) Score/Fall Risk Level 0 - 2 = Low Risk Oriented to surroundings, Maintained a safe environment, Educated pt \T\ family on fall prevention, incl call for assistance when getting out of bed, Assessed \T\ reinforced patient's understanding of fall precautions, Provided non-skid footwear, Hourly rounding (assess needs \T\ fall precautionary measures) done, Used ambulatory aids as needed (educated on \T\ assisted with), Used gait belt as appropriate. Abuse screen: Denies threats or abuse. Nutritional screening: No deficits noted. Tuberculosis screening: No symptoms or risk factors identified. Assessment: 14:18 General: Appears in no apparent distress. Behavior is calm, cooperative. Pain: ap3 Complains of pain in general body aches. Neuro: Level of Consciousness is awake, alert, obeys commands, Oriented to person, place, time, situation. Cardiovascular: Patient's skin is warm and dry. Respiratory: Airway is patent Respiratory effort is even, unlabored, Respiratory pattern is regular, symmetrical. Vital Signs: 13:27 BP 138 / 75; Pulse 95; Resp 18 S; Temp 97.9(O); Pulse Ox 100% ; Weight 85.28 kg; Height as6 5 ft. 0 in. ; Pain 5/10; 15:35 BP 121 / 67; Pulse 81; Resp 17; Temp 98.2; Pulse Ox 100% ; ap3 13:27 Body Mass Index 36.72 (85.28 kg, 152.4 cm) as6 13:27 Pain Scale: Adult as6 ED Course: 13:25 Patient arrived in ED. mg5 13:28 Nasrin Tran MD is Attending Physician. sp3 13:29 Triage completed. as6 13:29 Arm band placed on. as6 14:18 Karis Euceda, RN is Primary Nurse. ap3 14:19 Patient has correct armband on for positive identification. Bed in low position. Call ap3 light in reach. Side rails up X 1. Pulse ox on. NIBP on. 14:19 No provider procedures requiring assistance completed. ap3 15:35 Provided Education on: call light use. ap3 15:35 Patient did not have IV access during this emergency room visit. ap3 Administered Medications: No medications were administered Medication: 14:19 VIS not applicable for this client. ap3 Outcome: 15:29 Discharge ordered by . sp3 15:34 Discharged to home ap3 15:34 Condition: good 15:34 Discharge instructions given to patient, Instructed on discharge instructions, follow up and referral plans. medication usage, Demonstrated understanding of instructions, follow-up care, medications, Prescriptions given X 1, 15:41 Patient left the ED. ap3 Signatures: Karis Euceda, WESTON RN ap3 Nasrin Tran MD MD sp3 Timo Pederson RN RN as6 Blanca Carrasquillo 5
--- NOTE | 2023-11-15 15:30 | EDPHYS ---
Physician Documentation [facility] Name: Renetta Ellison Age: 28 yrs Sex: Female : 1995 Arrival Date: 11/15/2023 Time: 13:21 Bed Treatment Private MD: ED Physician Nasrin Tran HPI: 11/14 13:47 This 28 yrs old Female presents to ER via Ambulatory with complaints of Flu sp3 Symptoms. 13:47 28-year-old female with no past medical history presents with positive sick contact and sp3 upper respiratory infection symptoms consisting of cough, body aches and subjective fever for the last 3 to 4 days. Patient denies any travel history, headache, neck pain, chest pain, shortness of breath, back pain, abdominal pain, vomiting, diarrhea but does endorse some nausea. ROS otherwise negative.. 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 - Infectious Disease History:: Denies. - Social history:: Smoking status: Patient denies any tobacco usage or history of. ROS: 13:48 Eyes: Negative for injury, pain, redness, and discharge, Neck: Negative for injury, sp3 pain, and swelling, Cardiovascular: Negative for chest pain, palpitations, and edema, Back: Negative for injury and pain, MS/Extremity: Negative for injury and deformity, Skin: Negative for injury, rash, and discoloration, Neuro: Negative for headache, weakness, numbness, tingling, and seizure, Psych: Negative for depression, anxiety, suicide ideation, homicidal ideation, and hallucinations, Allergy/Immunology: Negative for hives, rash, and allergies, Endocrine: Negative for neck swelling, polydipsia, polyuria, polyphagia, and marked weight changes, Hematologic/Lymphatic: Negative for swollen nodes, abnormal bleeding, and unusual bruising, 13:48 All other systems are negative, Exam: 13:49 Constitutional: This is a well developed, well nourished patient who is awake, alert, sp3 and in no acute distress. Head/Face: Normocephalic, atraumatic. Eyes: Pupils equal round and reactive to light, extra-ocular motions intact. Lids and lashes normal. Conjunctiva and sclera are non-icteric and not injected. Cornea within normal limits. Periorbital areas with no swelling, redness, or edema. ENT: Nares patent. No nasal discharge, no septal abnormalities noted. External auditory canals are clear. Oropharynx with no redness, swelling, or masses, exudates, or evidence of obstruction, uvula midline. Mucous membranes moist. Neck: Trachea midline, no thyromegaly or masses palpated, and no cervical lymphadenopathy. Supple, full range of motion without nuchal rigidity, or vertebral point tenderness. No Meningismus. Chest/axilla: Normal chest wall appearance and motion. Nontender with no deformity. No lesions are appreciated. Cardiovascular: Regular rate and rhythm with a normal S1 and S2. No gallops, murmurs, or rubs. Normal PMI, no JVD. No pulse deficits. Respiratory: Lungs have equal breath sounds bilaterally, clear to auscultation and percussion. No rales, rhonchi or wheezes noted. No increased work of breathing, no retractions or nasal flaring. Abdomen/GI: Soft, non-tender, with normal bowel sounds. No distension or tympany. No guarding or rebound. No evidence of tenderness throughout. Back: No spinal tenderness. No costovertebral tenderness. Full range of motion. Skin: Warm, dry with normal turgor. Normal color with no rashes, no lesions, and no evidence of cellulitis. MS/ Extremity: Pulses equal, no cyanosis. Neurovascular intact. Full, normal range of motion. Neuro: Awake and alert, GCS 15, oriented to person, place, time, and situation. Cranial nerves II-XII grossly intact. Motor strength 5/5 in all extremities. Sensory grossly intact. Cerebellar exam normal. Normal gait. Psych: Awake, alert, with orientation to person, place and time. Behavior, mood, and affect are within normal limits. Vital Signs: 13:27 BP 138 / 75; Pulse 95; Resp 18 S; Temp 97.9(O); Pulse Ox 100% ; Weight 85.28 kg; Height as6 5 ft. 0 in. ; Pain 5/10; 15:35 BP 121 / 67; Pulse 81; Resp 17; Temp 98.2; Pulse Ox 100% ; ap3 13:27 Body Mass Index 36.72 (85.28 kg, 152.4 cm) as6 13:27 Pain Scale: Adult as6 MDM: 13:35 Patient medically screened. sp3 13:50 Data reviewed: vital signs, nurses notes, lab test result(s). ED course: 28-year-old sp3 female with subjective upper respiratory symptoms. Physical exam is normal. Differential diagnosis includes viral illness, influenza, COVID-19, strep throat, among others. Patient is nonseptic and clinically have ruled out sepsis, shock, or any other critical pathway at this time. Disposition pending workup and patient course with probable discharge and conservative supportive treatment. Layer on antibiotics if indicated.. 15:28 ED course: All swabs are negative. Patient is afebrile. No antibiotics currently sp3 indicated. We will treat with conservative treatment and OTC meds. I will place patient on Tessalon Perles.. 11/14 13:31 Order name: Flu; Complete Time: 15:28 sp3 11/14 13:31 Order name: Strep sp3 11/14 13:31 Order name: SARS RAPID; Complete Time: 15:28 sp3 11/14 14:27 Order name: Throat Culture EDMS Administered Medications: No medications were administered Disposition Summary: 11/15/23 15:29 Discharge Ordered Notes: Location: Home sp3 Condition: Stable sp3 Diagnosis - Upper respiratory infection sp3 Followup: sp3 - With: Private Physician - When: Upon discharge from the Emergency Department - Reason: Continuance of care Discharge Instructions: - Discharge Summary Sheet sp3 - Viral Illness, Adult sp3 Forms: - Work release form ap3 - Medication Reconciliation Form sp3 - Antibiotic Education sp3 - Prescription Opioid Use sp3 - Patient Portal Instructions sp3 - Leadership Thank You Letter sp3 Prescriptions: - Tessalon Perles 100 mg Oral Capsule - take 1 capsule ORAL route every 8 hours As needed; 15 capsule; Refills: 0, sp3 Product Selection Permitted Signatures: Dispatcher [employer] EDMS Nasrin Tran MD MD sp3 Timo Pederson RN RN as6 Corrections: (The following items were deleted from the chart) 13:51 13:50 ED course: 28-year-old female with subjective upper respiratory symptoms. sp3 Physical exam is normal. Differential diagnosis includes viral illness, influenza, COVID-19, strep throat, among others. Patient is nonseptic and clinically have ruled out sepsis, shock, or any other critical pathway at this time.. sp3
[2023-11-15 16:17] VITALS: BP 121/67; TEMP 98.2; O2SAT 100
== END 2023-11-15 15:41 | disposition home or self-care (01) ==
LOC: ER 13:21
DX: J06.9 Acute upper respiratory infection, unspecified (principal); Z11.52 Encounter for screening for COVID-19
CPT/HCPCS: 36415; 87070; 87081; 87804; 87811

== ENCOUNTER 2023-12-03 15:56 | Emergency (ER) | payer SELFPAY ==
--- OUTSIDE RECORDS SUMMARY | 2023-12-03 15:59 | XMS REPORT | Continuity of Care Document ---
Author Name Unknown Address [address] [facility] [address] [place] [address] [facility] thconnect Address [address] [facility] [address] [place] [address] Care Team Providers Care Fulling Mill Operator Name Role Phone PCP, PATIENT DOES NOT HAVE A Primary Care Physic philip Unavailable GEMA COBOS Attending Clinician Unavailab Gema Parkinson DO Attending Clinician [phone] FIDEL HERNANDEZ Attending Clinician Unavailable Fidel Hernandez MD Attending Clinician [phone] Juanpablo EASON Attending Clinician Unavailable Juanpablo Toscano Attending Clinician [phone] CISCO ARIAS Attending Clinician Unavailable Cisco Tobar Attending Clinician [phone] FIDEL HERNANDEZ Admitting Clinician Unavailable Payers Payer Name Policy Type Policy Number Effective Date Expirati on Date Source [employer] [place] [id number] 2017 00:00:00 Allergies, Adverse Reactions, Alerts Allergy Name Allergy Type Status Severity Reaction(s) Onset Date Inactive Date Treating Clinician Comments Source NO KNOWN ALLERGIE S Drug Class Active [facility] Social History Social Habit Start Date Stop Date Quantity Comments Source Sexual orientation [facility] Gender identity [facility] Sex Assigned At 1995 00:00:00 1995 00:00:00 [facility] Smoking Status Start Date Stop Date Source Tobacco smoking consumption unknown [facility] Medications Ordered Medication Name Filled Medication Name Start Date Stop Date Current Medication? Ordering Clinician Indication Dosage Frequency Signature (SIG) Comments Components Source ondansetron (ZOFRAN-ODT ) disintegrat ing tablet 4 mg 08-18 02:45: 00 08-18 01:42 :00 No 4mg 4 mg, Oral, ONCE, 1 dose, On Noelle 08/17/23 at 2044, Routine [facility] ondansetron 4 mg disintegrat ing tablet 08-17 00:00: 00 Yes [id number] 4mg Take 1 tablet by mouth every 8 (eight) hours as needed for Nausea and Vomiting (N/V). [facility] Vital Signs Vital Name Observation Time Observation Value Comments S ource Heart rate 2023-10-07 16:51:00 87 /min [facility] Body temperature 2023-10-07 16:51:00 37.28 Xena [facility] Respiratory rate 2023-10-07 16:51:00 18 /min [facility] Body height 2023-10-07 16:51:00 152.4 cm [facility] Body weight 2023-10-07 16:51:00 85.276 kg [facility] BMI 2023-10-07 16:51:00 36.72 kg/m2 [facility] Oxygen saturation in Arterial blood by Pulse oximetry 2023-10-07 16:51:00 100 /min [facility] Systolic blood pressure 2023-10-06 17:37:00 135 mm[Hg] [facility] Diastolic blood pressure 2023-10-06 17:37:00 79 mm[Hg] [facility] Heart rate 2023-10-06 17:37:00 79 /min [facility] Body temperature 2023-10-06 17:37:00 37 Xena [facility] Respiratory rate 2023-10-06 17:37:00 18 /min [facility] Body height 2023-10-06 17:37:00 152.4 cm [facility] Body weight 2023-10-06 17:37:00 85.367 kg [facility] BMI 2023-10-06 17:37:00 36.76 kg/m2 [facility] Oxygen saturation in Arterial blood by Pulse oximetry 2023-10-06 17:37:00 97 /min [facility] Systolic blood pressure 2023-08-18 00:45:00 126 mm[Hg] [facility] Diastolic blood pressure 2023-08-18 00:45:00 79 mm[Hg] [facility] Heart rate 2023-08-18 00:43:00 83 /min [facility] Body temperature 2023-08-18 00:43:00 36.94 [place] [facility] Respiratory rate 2023-08-18 00:43:00 20 /min [facility] Body weight 2023-08-18 00:43:00 83.915 kg [facility] BMI 2023-08-18 00:43:00 36.13 kg/m2 [facility] Oxygen saturation in Arterial blood by Pulse oximetry 2023-08-18 00:43:00 98 /min [facility] Systolic blood pressure 2023-03-01 01:26:00 142 mm[Hg] [facility] Diastolic blood pressure 2023-03-01 01:26:00 84 mm[Hg] [facility] Heart rate 2023-03-01 01:26:00 80 /min [facility] Respiratory rate 2023-03-01 01:26:00 19 /min [facility] Oxygen saturation in Arterial blood by Pulse oximetry 2023-03-01 01:26:00 98 /min [facility] Body temperature 2023-03-01 00:35:00 37.39 X[place] [facility] Body height 2023-03-01 00:35:00 152.4 cm [facility] Body weight 2023-03-01 00:35:00 83.462 kg [facility] BMI 2023-03-01 00:35:00 35.94 kg/m2 [facility] Procedures Procedure Date / Time Performed Performing Clinicia n Source TOTAL BETA HCG ASSAY 2023-10-07 16:59:00 Jose Cobos [facility] HB ABO GROUPING 2023-10-07 16:59:00 Gema Cobos [facility] BASIC METABOLIC PANEL (NA, K, CL, CO2, GLUCOSE, BUN, CREATININE, CA) 2023-10-06 18:11:00 Fidel Hernandez [facility] TOTAL BETA HCG ASSAY 2023-10-06 18:11:00 Fidel Hernandez [facility] CBC WITH DIFF 2023-10-06 18:11:00 Fidel Hernandez [facility] URINALYSIS 2023-10-06 18:11:00 Fidel Hernandez [facility] POCT TEST 2023-10-06 18:10:00 Fidel Hernandez [facility] CONSENT/REFUSAL FOR DIAGNOSIS AND TREATMENT 2023-08-18 00:38:55 Doctor Unassigned, [place] [facility] ASSIGNMENT OF BENEFITS 2023-03-01 01:11:00 Docto r Unassigned, [place] [facility] RAPID INFLUENZA A/B 2023-03-01 00:47:00 Cisco Arias [facility] COVID-19 (ID NOW RAPID TESTING) 2023-03-01 00:47:00 Cisco Arias [facility] NOTICE OF PRIVACY PRACTICES 2023-03-01 00:31:09 Doctor Unassigned, [place] [facility] CONSENT/REFUSAL FOR DIAGNOSIS AND TREATMENT 2023-03-01 00:30:43 Doctor Unassigned, [place] [facility] Encounters Start Date/Time End Date/Time Encounter Type Admission Type Attending Clinicians Care Facility Care Department Encounter ID Source 2023-10-07 11:53:00 2023-10-07 13:05:00 Emergency X GEMA COBOS [facility] ERT [id number] [facility] 2023-10-07 11:53:00 2023-10-07 13:05:00 Emergency Gema Cobos [facility] 1.2.840.114 350.1.13.10 4.2.7.2.686 [id number] [id number] [facility] 2023-10-06 12:38:00 2023-10-06 16:16:00 Emergency X FIDEL HERNANDEZ [facility] ERT [id number] [facility] 2023-10-06 12:38:00 2023-10-06 16:16:00 Emergency Fidel Hernandez C [facility] 1.2.840.114 350.1.13.10 4.2.7.2.686 [id number] [id number] [facility] 2023-08-17 18:46:00 2023-08-17 19:55:00 Emergency X JENARO Juanpablo [facility] ERT [id number] [facility] 2023-08-17 18:46:00 2023-08-17 19:55:00 Emergency JenaroJuanpablo Kelsey [facility] 1.2.840.114 350.1.13.10 4.2.7.2.686 [id number] 084 [id number] [facility] 2023-02-28 19:45:00 2023-02-28 20:33:00 Emergency X CISCO ARIAS [facility] ERT [id number] [facility] 2023-02-28 19:45:00 2023-02-28 20:33:00 Emergency AriasBradyya Madalyn [facility] 1.2.840.114 350.1.13.10 4.2.7.2.686 [id number] 084 [id number] [facility] Results Test Description Test Time Test Comments Results Result Co mments Source [facility] - ONCE Fhtpncf2980-56-80 17:17:00* Test Item Value Reference Range Interpretation Comme nts ABO & RH (test code = 20) A POSITIVE IAT (test code = 1185) Negative [facility] BH[facility] (QUANTITATIVE)2023-10-06 19:21:27* Test Item Value Reference Range Interpretation Comme nts BETA HCG (test code = 8495254033) 700.81 See_Comment [Automated [employer] ge] The system which generated this result transmitted reference range: Non- female and male patients: <5 mIU/mL. The reference range was not used to interpret this result as normal/abnormal. DAVE (test code = DAVE) Gestational Age ?Range (mIU/mL) 1-10 ?Weeks ?26-40098794-02 Weeks ?03602-66863958-72 Weeks ?3625-73414159-62 Weeks ?4472-827719 Biotin has been reported to cause a negative bias, interpret results relative to patient's use of biotin. [facility] Metabolic Panel (NA, K, CL, CO2, GLUCOSE, BUN, CREATININE, CA)2023-10-06 18:55:41* Test Item Value Reference Range Interpretation Comme nts NA (test code = 4621062553) 137 mmol/L 135-145 K (test code = 8629444830) 4.4 mmol/L 3.5-5.0 CL (test code = 4306246577) 107 mmol/L 98-108 CO2 TOTAL (test code = 5207451387) 22 mmol/L 23-31 L AGAP (test code = 2592889996) 8 2-16 BUN (test code = 4377670116) 11 mg/dL 7-23 GLUCOSE (test code = 9037920798) 92 mg/dL 70-110 CREATININE (test code = 2160-0) 0.75 mg/dL 0.50-1.04 CALCIUM (test code = 0435630259) 9.2 mg/dL 8.6-10.6 eGFR (test code = 26241-9) 112.8 mL/min/1.73m2 CKD-EPI eGFR (2020). Assuming creatinine has been stable day-to-day for at least three months, the eGFR indicates Category G1 (>= 90 mL/min/1.73 m2) Lab Interpretation (test code = 20737-2) Abnormal [facility] with Xbud6293-06-67 18:46:58* Test Item Value Reference Range Interpretation [...] 33.8 g/dL 31.6-35.1 RDW-SD (test code = 76349-5) 42.7 fL 39.0-49.9 RDW-CV (test code = 788-0) 12.2 % 12.0-15.5 PLT (test code = 777-3) 198 166-358 MPV (test code = 36262-2) 11.3 fL 9.5-12.9 NRBC/100 WBC (test code = 6792609450) 0.0 0.0-10.0 NRBC x10^3 (test code = 5215706498) See_Comment [Automated messa ge] The system which generated this result transmitted reference range: 10*3/?L. The reference range was not used to interpret this result as normal/abnormal. GRAN MAT (NEUT) % (test code = 770-8) 71.7 % IMM GRAN % (test code = 1555266883) 0.40 % LYMPH % (test code = 736-9) 20.9 % MONO % (test code = 5905-5) 5.5 % EOS % (test code = 713-8) 1.0 % BASO % (test code = 706-2) 0.5 % GRAN MAT x10^3(ANC) (test code = 4435623970) 7.99 10*3/uL 1.88-7.09 H IMM GRAN x10^3 (test code = 0368208469) 0.05 10*3/uL 0.00-0.06 LYMPH x10^3 (test code = 731-0) 2.33 10*3/uL 1.32-3.29 MONO x10^3 (test code = 742-7) 0.61 10*3/uL 0.33-0.92 EOS x10^3 (test code = 711-2) 0.11 10*3/uL 0.03-0.39 BASO x10^3 (test code = 704-7) 0.06 10*3/uL 0.01-0.07 Lab Interpretation (test code = 83561-4) [facility]normal [facility] JZFD0311-45-83 18:10:00* Test Item Value Reference Range Interpretation Comme nts POCT PREG (test code = 1605) Positive On board controls acceptable with C Line (test code = 3574) Yes POCT PREG LOT # (test code = 3575) [id number] POCT PREG TEST DATE ( test code = 3576) 10-08-2024 Lab Interpretation (test cod e = 45534-7) Normal [facility] Notes Date/Time Note Provider Source 2023-10-07 13:03:20 6554-98-98K10:03:20 Patient given discharge instructions on miscarriage. No prescriptions given. 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 Pt left ER ambulatory, no signs of distress. 54375-3Huiaotlas department GjrmJV4984-99-05H80:05:18Emergency department NoteTXT1.2.840.778080.1.13.104.2.7.2.727 879|[id number] for patient yztm65810-0VionLEOKIXZLKSGKdaklkafh C-CDA narrative [id number] M Cruz RN[address] RwpcYfagzxdfmLocretbziCASZ9722262815WHAM VPNDHAABLGQQLABPGQ2444-39-42Y38:05:181.2 .840.522964.1.72.3.15|1.2.840.949685.1.1 3.104.2.7.2.727879_[id number] Catherine Robb RN [facility] 2023-10-07 11:51:37 1452-76-35S45:51:37 Here yesterday for spotting. Here today for same thing. Had "something that looked like a piece of meat come out". 32587-6Rywrxtxnx department Triage kpkkNE1203-46-05M45:52:15[facility] Triage noteTXT1.2.840.071915.1.13.104.2.7.2.727 879|[id number] for patient xfiu21459-7Wzoppatkn department NoteLNNARRATIVEFormatted C-CDA narrative [id number] Fief RN[address]Jwm[id number] VDDRDVUBYXTUSCFOXT5663-29-20A91:52:151.2 .840.908484.1.72.3.15|1.2.840.648481.1.1 3.104.2.7.2.727879_[id number] Radha Saldaña RN [facility] 2023-10-07 11:46:00 3190-38-97Z93:46:00 [facility] Emergency Department NotePatient Name: Temi Salmeron of : 1995 28 year old femaleTreatment [address]: [address]MI[address]34Asogwek Record Number: [id number] Care Physician: PATIENT DOES NOT HAVE A [...] received in last 5 years: UnknownChildhood immunizations: Lr-aa-buibZsegxbvdn:No Known AllergiesPast Social History:Substance & Sexual ActivityNo [...] this encounter.First Provider Eval:ED EventsDate/Time Event User Dvjshurp94/06/24 1154 Medical Screening Begins GEMA COBOS DO [...] has had a miscarriage.Will need f/u with primer charger in one week.Can use nsaids for discomfort and pads for bleeding.Ok for dc home with primer charger f/uProblems Addressed:Miscarriage: acute illness or injuryVaginal bleeding [...] on fileFollow-up:Electronically signed by:Gema Cobos DO10/07/23 1253 59289-0Gjqryclmp Emergency department AedoLX1964-48-00X29:53:36Physian Emergency department NoteTXT1.2.840.859591.1.13.104.2.7.2.727 879|[id number] for patient oikn10279-3Gbimqndug department NoteLNNARRATIVEFormatted C-CDA narrative text[address] Xc[id number] NTUUMWLPUXVGPDCSCZ3328-55-12O15:53:361.2 .840.095041.1.72.3.15|1.2.840.305720.1.1 3.104.2.7.2.727879_[id number] [facility] 2023-10-06 16:05:00 9811-79-55X54:05:00 Pt given printed and verbal discharge instructions [...] with steady gait, in no apparent distress. 68450-1Ooyubvmas department BwoiEM7820-86-23R47:15:59[facility] NoteTXT1.2.840.017884.1.13.104.2.7.2.727 879|[id number] for patient eecn50532-4WmgrSXXACZEQTZCJmrqgleoa C-CDA narrative hjxh071473509Dljvrcgp C Greer RN[address] [id number] DLBJZWGTXUBMFJMQRQ3125-26-32D72:15:591.2 .840.367072.1.72.3.15|1.2.840.011489.1.1 3.104.2.7.2.727879_[id number] Cyndie C Zoey ONTIVEROS [facility] 2023-10-06 12:35:25 3950-69-66U10:35:25 Patient arrived ambulatory c/o og spotting with blood clots. Patient found out she was last Monday , seen at health clinic yesterday. . Only sees the blood when urinating and wiping. 33755-8Smmlhdzqn department Triage htqqFD6415-76-57Y97:38:45Emergency department Triage noteTXT1.2.840.418289.1.13.104.2.7.2.727 879|[id number] for patient nkas03062-2Qbbaaejrn department NoteLNNARRATIVEFormatted C-CDA narrative qzxo126230068Tgjjlmla M Felix RN[id number] GFQCYFJGSXEPNSRSWY0925-04-17F87:38:451.2 .840.860575.1.72.3.15|1.2.840.330052.1.1 3.104.2.7.2.727879_[id number] Sandra Ruiz RN [facility] 2023-10-06 12:29:00 4851-47-36N26:29:00 [facility] Emergency Department NoteDemographicsPatient Name: Temi Salmeron of : 1995 28 year oldTreatment Room: [facility] Record Number: [id number] Care Physician: PATIENT DOES NOT HAVE A PCPPre Hospital CarePatient Escorted by: Self [9]Mode of Arrival: Personal means [1]EMS Treatment Prior to ED Arrival:GARLAND MAKER treatment: NoneED EventsDate/Time Event User Ihlpzmiw05/05/24 1247 Medical Screening Begins FIDEL HERNANDEZ MD --10/06/23 1247 First Provider Evaluation FIDEL HERNANDEZ MD --Chief complaintChief ComplaintPatient presents withVaginal BleedingED Triage NotesSandra Ruiz RN 10/06/2023 12:38Patient arrived ambulatory c/o og spotting with blood clots. Patient found out she was last Monday , seen at health clinic yesterday. . Only sees the blood when urinating and wiping.Chief ComplaintPatient presents withVaginal BleedingHistory of present osncejwAUX20 yo woman comes to the ED complaining [...] received in last 5 years: NoChildhood immunizations: Gv-ks-rxzbJiiu Surgical HistoryHistory reviewed. No pertinent surgical history.MedicationsMedications [...] mg/dLCALCIUM 9.2 8.6 - 10.6 mg/dLeGFR 112.8 mL/min/1.84i8HXGSPUWVGM - AbnormalAPPEARANCE Clear ClearCOLOR Yellow YellowPH 7.0 [...] PREG LOT # [id number] PREG TEST DATE 65-17-0618JMWHA BETA HCG ASSAYBETA HCG 700.81 Non- female and male patients: <5 mIU/mLUS FIRST TRIMESTER LESS THAN 14 WEEKS WITH TRANSVAGINALPreliminary ResultEXAM: US FIRST TRIMESTER LESS THAN 14 WEEKS WITH TRANSVAGINALHISTORY: 28 years -old Female with vaginal bleeding . LMP = 08/10/2023.Beta-hC mIU/mL. I2AEMAKTASW: Survey transabdominal and transvaginal ultrasound imaging ofthepelvis [...] cm. Possible corpus luteumin the left ovary..Other: XedzUuz-jw-zgr: No free fluid is present.IMPRESSIONA gestational sac is present in the lower uterine segment. A yolk sac ispresent however no pole was identified.Preliminary Report Dictated by Resident: Smiley NicolasOrders and TreatmentsOrders Placed This EncounterProceduresUS FIRST TRIMESTER LESS THAN 14 WEEKS WITH TRANSVAGINALCbc with DiffBasic Metabolic Panel (NA, K, CL, CO2, GLUCOSE, BUN, CREATININE, CA)UrinalysisPOCT TESTTOTAL [facility] (QUANTITATIVE)No orders of the defined types were [...] systems is limited by:History limited: None.Medical Decision Nnmmnm13 yo woman comes to the ED complaining [...] before final disposition and determined to be stable.RwpfxbdpkVLE-24-AV4. Vaginal bleeding N93.9Disposition and ConditionED DispositionED DispositionDisch [...] FACEP, FAAEMAssistant Professor of Emergency and Internal MedicineHutchings Psychiatric Center#[id number] oliva MD10/06/23 1610 76317-9Dmjeqschb Emergency department PiwhVQ1822-99-38A45:10:49Physician Emergency department NoteTXT1.2.840.631139.1.13.104.2.7.2.727 879|[id number] for patient fhbn80042-0Ynugaccmf department NoteLNNARRATIVEFormatted C-CDA narrative text[address] IbdoWualiyicsGmmmkitqjQIEU9984020440KLJX XWQDLXKYLLSUXMNSBK0294-77-62X27:10:491.2 .840.332906.1.72.3.15|1.2.840.350949.1.1 3.104.2.7.2.727879_[id number] [facility] 2023-08-17 19:44:32 6149-97-09E23:44:32 Pt given printed and verbal discharge instructions [...] with steady gait, in no apparent distress. 88052-2Snhcfrekf department DlqkDZ7479-59-53N40:45:19[facility] NoteTXT1.2.840.979111.1.13.104.2.7.2.727 879|[id number] for patient ythw37275-1ZjqrUVPFCEZMFMGQnuzfvppd C-CDA narrative qpzr582529982Jqowll L Williams RN[address] IrcsQxluzpnobTaqupqgpfBGAW7672155195DMWW BLJDSYWBDCFPLXIRHO1431-10-36F03:45:191.2 .840.975546.1.72.3.15|1.2.840.412248.1.1 3.104.2.7.2.727879_[id number] Karis Cobos RN [facility] 2023-08-17 18:42:28 7731-81-51T57:42:28 Patient reports abdominal pain with diarrhea for about a week and got sent home today for also having nausea and vomiting. No hx of abd surgeries. LBM was 16:00 diarrhea. No meds GARLAND MAKER. Has not been seen for this illness. 81665-4Qciywtvgh department Triage kwykTQ8359-59-55I54:43:47[facility] Triage noteTXT1.2.840.870409.1.13.104.2.7.2.727 879|[id number] for patient uokt93210-5Okpnqbzet department NoteLNNARRATIVEFormatted C-CDA narrative ndzh180406755Oojddb M Leibee RN[id number] HFBJIQLBNYQIWRVGUL2296-29-38C91:43:471.2 .840.757282.1.72.3.15|1.2.840.016572.1.1 3.104.2.7.2.727879_[id number] Max Mora RN [facility] 2023-02-28 20:32:30 9323-03-19V73:32:30 Pt discharged with diagnosis of vomiting an URI. Printed and verbal instructions reviewed with and given to pt. Pt verbalized understanding of teaching and recommended follow-up. Denies questions or concerns at this time. Pt ambulatory at discharge. Appears in no apparent distress. No ataxia noted. Accompanied by sister. 09387-0Npqtavblo department NeciLO5619-45-41T66:33:22[facility] NoteTXT1.2.840.937915.1.13.104.2.7.2.727 879|[id number] for patient vceg41876-4KerbTZ232650268Kkrhhf R Goodrich RN[id number] FYBBFOBLHAZDZTNINQ1527-35-99N89:33:221.2 .840.750026.1.72.3.15|1.2.840.213286.1.1 3.104.2.7.2.727879_[id number] Lawanda Wang RN [facility] 2023-02-28 19:35:00 6374-66-98W36:35:00 Patient came in with complaints of sore throat, congestion, upset stomach and diarrhea 5x today. 09652-2Qjlfhtcfw department Triage hfzsCH4707-51-95A85:45:07[facility] Triage noteTXT1.2.840.983809.1.13.104.2.7.2.727 879|[id number] for patient achr14253-8Iqeghxzdz department MtuaYT691725586Dfevgoxs C Heredia RN[id number] AGOZUMBDOWNYHFWQXU3617-49-76K05:45:071.2 .840.707536.1.72.3.15|1.2.840.196111.1.1 3.104.2.7.2.727879_[id number] Cyndie Greer RN [facility]
[2023-12-03] MEDS ORDERED: ACETAMINOPHEN 500 MG TAB ONE (16:58)
[2023-12-03] MEDS ORDERED: LIDOCAINE VISCOUS 2% 10ML ORAL SOLN ONE (16:58)
[2023-12-03] MEDS ORDERED: NA CHLORIDE 0.9% 1,000 ML ONE (17:24)
[2023-12-03 17:44] LABS: Absolute Monocytes 0.9 K/uL (0.1-1.3); Absolute Neutrophil 11.1 K/uL (1.8-8.0); Basophils % 0.2 % (0-1.3); Eosinophils % 0.2 % (0-4.4); Hematocrit 42.4 % (36.0-45.0); Hemoglobin 14.2 g/dL (12.0-15.0); MCH 31.2 pg (27.0-35.0); MCHC 33.6 g/dL (32.0-36.0); MCV 92.8 fL (80-100); MPV 9.8 fL (7.6-11.3); Monocytes % 6.5 % (3.3-12.3); Neutrophils % 85.1 % (41.7-73.7); Platelets 182 thou/uL (152-406); RBC Red Blood Cell Count 4.57 M/uL (3.86-4.86); Red Cell Distribution Width 12.6 % (12.1-15.2)
[2023-12-03 17:59] LABS: PT Prothrombin Time 13.7 SECONDS (9.5-12.5); PTT, Activated Partial Thromb 33.1 SECONDS (24.3-36.9); Protime INR 1.25
[2023-12-03 17:59] LABS: SARS-CoV-2 Antigen CONTROL BLUE LINE VIS/BG OK; SARS-CoV-2 Antigen Rapid Res Negative (Negative)
[2023-12-03 18:05] LABS: Albumin 3.9 g/dL (3.4-5.0); Anion Gap 7.6 mEq/L (5.0-15.0); Bilirubin Total 0.8 mg/dL (0.2-1.0); Globulin 3.9 g/dL (2.3-3.5); Potassium 3.6 mEq/L (3.5-5.1); Protein, Total 7.8 g/dL (6.4-8.2)
[2023-12-03] MEDS ORDERED: KETOROLAC 30 MG/ML INJ ONE (18:10)
[2023-12-03] MEDS ORDERED: CEFTRIAXONE 1000 MG/VIAL ONE (18:10)
[2023-12-03] MEDS ORDERED: NA CHLORIDE 0.9% 50 ML ONE (18:10)
--- NOTE | 2023-12-03 18:24 | EDPHYS ---
Physician Documentation [facility] Name: Renetta Ellison Age: 28 yrs Sex: Female : 1995 Arrival Date: 12/03/2023 Time: 15:56 Bed 19 Private MD: ED Physician Iona Manzo HPI: 12/02 18:08 This 28 yrs old Female presents to ER via Ambulatory with complaints of Flu sb4 Symptoms, Sore Throat. 18:08 Onset: The symptoms/episode began/occurred 2 day(s) ago. Associated signs and symptoms: sb4 Pertinent positives: fever, sore throat. Modifying factors: The patient symptoms are alleviated by nothing, the patient symptoms are aggravated by swallowing. The patient has not experienced similar symptoms in the past. The patient has not recently seen a physician. Historical: - Allergies: 16:28 NKA; hb - Home Meds: 16:28 None [Active]; hb - PMHx: 16:28 None; hb - PSHx: 16:28 None; hb - Immunization history:: Adult Immunizations up to date. - Infectious Disease History:: Denies. - Social history:: Smoking status: Patient denies any tobacco usage or history of. ROS: 18:08 Cardiovascular: Negative for chest pain, palpitations, and edema, sb4 18:08 Constitutional: Positive for fatigue, fever, 18:08 ENT: Positive for sore throat, 18:08 Abdomen/GI: Positive for nausea, 18:08 All other systems are negative, Exam: 18:08 Constitutional: This is a well developed, well nourished patient who is awake, alert, sb4 and in no acute distress. Head/Face: Normocephalic, atraumatic. Eyes: Extra-ocular motions intact. Periorbital areas with no swelling, redness, or edema. Respiratory: Lungs have equal breath sounds bilaterally, clear to auscultation and percussion. No rales, rhonchi or wheezes noted. No increased work of breathing, no retractions or nasal flaring. Abdomen/GI: Soft, non-tender, no distension. 18:08 ENT: Posterior pharynx: Airway: patent, Tonsils: bilaterally enlarged, with erythema, with exudate, Uvula: normal, midline, 18:08 Cardiovascular: Rate: tachycardic, Rhythm: regular, 18:08 Skin: Appearance: Temperature: normal temperature, Vital Signs: 16:27 BP 154 / 73; Pulse 115; Resp 20; Temp 103(O); Pulse Ox 96% on R/A; Weight 85.28 kg; hb Height 5 ft. 0 in. ; Pain 7/10; 17:30 BP 137 / 88; Pulse 98; Resp 18; Pulse Ox 96% on R/A; db 17:45 BP 128 / 74; Pulse 101; Resp 18; Temp 100; Pulse Ox 96% ; db 18:00 BP 131 / 62; Pulse 99; Resp 20; Pulse Ox 97% ; db 16:27 Body Mass Index 36.72 (85.28 kg, 152.4 cm) hb 16:27 Pain Scale: Adult hb MDM: 16:31 Patient medically screened. sb4 18:08 Data reviewed: vital signs, nurses notes, lab test result(s), radiologic studies, and sb4 as a result, I will discharge patient. 18:23 Counseling: I had a detailed discussion with the patient and/or guardian regarding the sb4 historical points, exam findings, and any diagnostic results supporting the discharge/admit diagnosis, lab results, radiology results, to return to the emergency department if symptoms worsen or persist or if there are any questions or concerns that arise at home. 12/02 16:35 Order name: Blood Culture Adult (2) sb4 12/02 16:35 Order name: CBC with Diff sb4 12/02 16:35 Order name: CMP; Complete Time: 18:07 sb4 12/02 16:35 Order name: Lactate w/ 2H reflex if indic.; Complete Time: 18:04 sb4 12/02 16:35 Order name: Protime (+inr); Complete Time: 18:00 sb4 12/02 16:35 Order name: Ptt, Activated; Complete Time: 18:00 sb4 12/02 16:35 Order name: Strep; Complete Time: 18:00 sb4 12/02 16:35 Order name: SARS RAPID; Complete Time: 18:00 sb4 12/02 16:35 Order name: Flu; Complete Time: 18:14 sb4 12/02 16:35 Order name: IV Saline Lock - Large Bore; Complete Time: 17:01 sb4 12/02 16:35 Order name: Labs collected and sent; Complete Time: 17:01 sb4 06 16:35 Order name: Vital Signs; Complete Time: 17:02 sb4 Administered Medications: 17:02 Drug: Acetaminophen PO 1000 mg PO once Route: PO; db 18:41 Follow up: Response: No adverse reaction db 17:02 Drug: Viscous Lidocaine Mucous Membrane Liquid (4 %) 10 ml Mucous Membrane once Route: db Mucous Membrane; 18:41 Follow up: Response: No adverse reaction db 17:25 Drug: NS 0.9% IV 1000 ml IV at 1 bolus Per protocol; 1000 mL bolus Route: IV; Rate: 1 db bolus; Site: right antecubital; 18:41 Follow up: Response: No adverse reaction; IV Status: Completed infusion; IV Intake: db 1000ml 18:16 Drug: Rocephin IV 1 grams IV at calculated rate once; Given slow IV push per pharmacy db instructions Route: IV; Rate: calculated rate; Site: right antecubital; 18:40 Follow up: IV Status: Completed infusion; IV Intake: 50ml db 18:16 Drug: Ketorolac IVP 30 mg IVP once Route: IVP; Site: right antecubital; db 18:40 Follow up: Response: No adverse reaction db Disposition: 19:13 I reviewed the patient's care provided by the Advanced Practice Provider and agree with sd2 the diagnosis and treatment plan. Disposition Summary: 12/03/23 18:23 Discharge Ordered Notes: Location: Home sb4 Problem: new sb4 Symptoms: have improved sb4 Condition: Stable sb4 Diagnosis - Streptococcal tonsillitis sb4 - Streptococcal pharyngitis sb4 Followup: sb4 - With: Emergency Department - When: As needed - Reason: Trouble breathing, Worsening of condition Discharge Instructions: - Discharge Summary Sheet sb4 - Tonsillitis, [id number]-[id number] sb4 - Strep Throat, Adult, [id number]-[id number] sb4 Forms: - Work release form sb4 - Antibiotic Education sb4 - Patient Portal Instructions sb4 - Leadership Thank You Letter sb4 Prescriptions: - Amoxicillin 875 mg Oral Tablet - take 1 tablet ORAL route every 12 hours for 10 days; 20 tablet; Refills: 0, sb4 Product Selection Permitted Signatures: Dispatcher [employer] Jennifer Marin RN RN Iona Manzo MD MD sd2 Renetta Liz RN RN db Sera Torres, PA-C PA-C sb4
--- NOTE | 2023-12-03 18:24 | ER ---
Nurse's Notes [facility] Name: Renetta Ellison Age: 28 yrs Sex: Female : 1995 Arrival Date: 12/03/2023 Time: 15:56 Bed 19 Private MD: Diagnosis: Streptococcal tonsillitis;Streptococcal pharyngitis Presentation: 12/02 16:27 Chief complaint: N/V, sore throat, body aches, headache, and fever x 2 days. hb Coronavirus screen: Client presents with at least one sign or symptom that may indicate coronavirus-19. Provider contacted for isolation considerations. Ebola Screen: No symptoms or risks identified at this time. Initial Sepsis Screen: Does the patient meet any 2 criteria? Temp <36.0*C (96.8*F)) or > 38.3*C (100.9*F). HR > 90 bpm. Yes Does the patient have a suspected source of infection? No. Patient's initial sepsis screen is negative. Risk Assessment: Do you want to hurt yourself or someone else? Patient reports no desire to harm self or others. Onset of symptoms was December 02, 2023. 16:27 Method Of Arrival: Ambulatory hb 16:27 Acuity: LETITIA 2 hb Triage Assessment: 16:29 General: Appears in no apparent distress. Behavior is calm, cooperative. Pain: Pain hb currently is 7 out of 10 on a pain scale. EENT: Reports sore throat. Neuro: Level of Consciousness is awake, alert, confused, Oriented to person, place, time, situation. Cardiovascular: Patient's skin is warm and dry. Respiratory: Respiratory effort is even, unlabored, Respiratory pattern is regular, symmetrical. Historical: - Allergies: 16:28 NKA; hb - Home Meds: 16:28 None [Active]; hb - PMHx: 16:28 None; hb - PSHx: 16:28 None; hb - Immunization history:: Adult Immunizations up to date. - Infectious Disease History:: Denies. - Social history:: Smoking status: Patient denies any tobacco usage or history of. Screenin:51 [facility] ED Fall Risk Assessment (Adult) History of falling in the last 3 months, db including since admission No falls in past 3 months (0 pts) Confusion or Disorientation No (0 pts) Intoxicated or Sedated No (0 pts) Impaired Gait No (0 pts) Mobility Assist Device Used No (0 pt) Altered Elimination No (0 pt) Score/Fall Risk Level 0 - 2 = Low Risk Oriented to surroundings, Maintained a safe environment. Abuse screen: Denies threats or abuse. Denies injuries from another. Nutritional screening: No deficits noted. Tuberculosis screening: No symptoms or risk factors identified. Assessment: 17:00 Reassessment: Patient appears in no apparent distress at this time. Patient and/or db family updated on plan of care and expected duration. Pain level reassessed. Patient is alert, oriented x 3, equal unlabored respirations, skin warm/dry/pink. General: Appears in no apparent distress. comfortable, Behavior is calm, cooperative. Pain: Complains of pain in mouth. Neuro: Level of Consciousness is awake, alert, obeys commands, Oriented to person, place, time, situation. Cardiovascular: Rhythm is sinus tachycardia. Respiratory: Airway is patent Respiratory effort is even, unlabored, Respiratory pattern is regular, symmetrical, Breath sounds are clear bilaterally. 18:40 Reassessment: Patient appears in no apparent distress at this time. Patient and/or db family updated on plan of care and expected duration. Pain level reassessed. Patient is alert, oriented x 3, equal unlabored respirations, skin warm/dry/pink. Reassessment: Patient states feeling better. Patient states symptoms have improved. General: Appears Behavior is. Vital Signs: 16:27 BP 154 / 73; Pulse 115; Resp 20; Temp 103(O); Pulse Ox 96% on R/A; Weight 85.28 kg; hb Height 5 ft. 0 in. ; Pain 7/10; 17:30 BP 137 / 88; Pulse 98; Resp 18; Pulse Ox 96% on R/A; db 17:45 BP 128 / 74; Pulse 101; Resp 18; Temp 100; Pulse Ox 96% ; db 18:00 BP 131 / 62; Pulse 99; Resp 20; Pulse Ox 97% ; db 16:27 Body Mass Index 36.72 (85.28 kg, 152.4 cm) hb 16:27 Pain Scale: Adult hb ED Course: 15:59 Patient arrived in ED. ts1 16:28 Triage completed. hb 16:29 Arm band placed on. hb 16:31 Sera Torres PA-C is PHCP. sb4 16:31 Iona Manzo MD is Attending Physician. sb4 16:54 Renetta Liz, [place] is Primary Nurse. db 17:50 Initial lab(s) drawn, Second set of blood cultures drawn. Inserted saline lock: 22 db gauge in right antecubital area, using aseptic technique. Blood collected. 17:55 Patient has correct armband on for positive identification. Bed in low position. Call db light in reach. Side rails up X 1. Pulse ox on. NIBP on. Pillow given. 18:40 Provided Education on: DISCHARGE. db 18:40 No provider procedures requiring assistance completed. IV discontinued, intact, db bleeding controlled, No redness/swelling at site. Administered Medications: 17:02 Drug: Acetaminophen PO 1000 mg PO once Route: PO; db 18:41 Follow up: Response: No adverse reaction db 17:02 Drug: Viscous Lidocaine Mucous Membrane Liquid (4 %) 10 ml Mucous Membrane once Route: db Mucous Membrane; 18:41 Follow up: Response: No adverse reaction db 17:25 Drug: NS 0.9% IV 1000 ml IV at 1 bolus Per protocol; 1000 mL bolus Route: IV; Rate: 1 db bolus; Site: right antecubital; 18:41 Follow up: Response: No adverse reaction; IV Status: Completed infusion; IV Intake: db 1000ml 18:16 Drug: Rocephin IV 1 grams IV at calculated rate once; Given slow IV push per pharmacy db instructions Route: IV; Rate: calculated rate; Site: right antecubital; 18:40 Follow up: IV Status: Completed infusion; IV Intake: 50ml db 18:16 Drug: Ketorolac IVP 30 mg IVP once Route: IVP; Site: right antecubital; db 18:40 Follow up: Response: No adverse reaction db Medication: 18:40 VIS not applicable for this client. db Intake: 18:40 IV: 50ml; Total: 50ml. db 18:41 IV: 1000ml; Total: 1050ml. db Outcome: 18:23 Discharge ordered by . sb4 18:40 Discharged to home ambulatory, with friend, db 18:40 Condition: stable 18:40 Discharge instructions given to patient, Instructed on discharge instructions, follow up and referral plans. Prescriptions given X 1, 18:47 Patient left the ED. db Signatures: Jennifer Daniels RN RN Renetta Solano RN RN Sear Hwang, LAURI PA-C sb4 Barb Yuan PAS PAS ts1
[2023-12-03 19:55] VITALS: BP 131/62; TEMP 100; O2SAT 97
[2023-12-03 21:14] LABS: Blood Morphology Comment NOT SEEN (NOT SEEN); Platelet Estimate ADEQ; White Blood Cell Scan OK (OK)
== END 2023-12-03 18:47 | disposition home or self-care (01) ==
LOC: ER 15:56
DX: J03.00 Acute streptococcal tonsillitis, unspecified (principal); J02.0 Streptococcal pharyngitis; Z11.52 Encounter for screening for COVID-19
CPT/HCPCS: 36415; 80053; 83605; 85025; 85610; 85730; 87040; 87081; 87804; 87811; 96361; 96365; 96375; 99284; J0696; J7030

== ENCOUNTER 2024-07-27 21:14 | Emergency (ER) | payer SELFPAY ==
--- OUTSIDE RECORDS SUMMARY | 2024-07-27 21:18 | XMS REPORT | Continuity of Care Document ---
Author Name Unknown Address [address] [facility] [place] [address] [facility] thconnect Address [address] [facility] [address] [place] [address] Care Team Providers Care Retort Firer Name Role Phone PCP, PATIENT DOES NOT HAVE A Primary Care Physic philip Unavailable GEMA COBOS Attending Clinician Unavailab Gema Parkinson DO Attending Clinician [phone] FIDEL HERNANDEZ Attending Clinician Unavailable Fidel Hernandez MD Attending Clinician [phone] Juanpablo EASON Attending Clinician Unavailable Juanpablo Toscano Attending Clinician [phone] BARB ARIAS Attending Clinician Unavailable Barb Tobar Attending Clinician [phone] FIDEL HERANNDEZ Admitting Clinician Unavailable Payers Payer Name Policy Type Policy Number Effective Date Expirati on Date Source [employer] [place] [id number] 2017 00:00:00 Allergies, Adverse Reactions, Alerts Allergy Name Allergy Type Status Severity Reaction(s) Onset Date Inactive Date Treating Clinician Comments Source NO KNOWN ALLERGIE S Drug Class Active [facility] Social History Social Habit Start Date Stop Date Quantity Comments Source Sexual orientation [facility] Gender identity [facility] Sex Assigned At 1995 00:00:00 1995 00:00:00 [facility] Smoking Status Start Date Stop Date Source Tobacco smoking consumption unknown [facility] Medications Ordered Medication Name Filled Medication Name Start Date Stop Date Current Medication? Ordering Clinician Indication Dosage Frequency Signature (SIG) Comments Components Source ondansetron (ZOFRAN-ODT ) disintegrat ing tablet 4 mg 08-18 02:45: 00 08-18 01:42 :00 No 4mg 4 mg, Oral, ONCE, 1 dose, On Noelle 08/17/23 at 2045, Routine [facility] ondansetron 4 mg disintegrat ing tablet 08-17 00:00: 00 Yes [id number] 4mg Take 1 tablet by mouth every 8 (eight) hours as needed for Nausea and Vomiting (N/V). [facility] Vital Signs Vital Name Observation Time Observation Value Comments S ource Heart rate 2023-10-07 16:51:00 87 /min [facility] Body temperature 2023-10-07 16:51:00 37.28 [place] [facility] Respiratory rate 2023-10-07 16:51:00 18 /min [facility] Body height 2023-10-07 16:51:00 152.4 cm [facility] Body weight 2023-10-07 16:51:00 85.276 kg [facility] BMI 2023-10-07 16:51:00 36.72 kg/m2 [facility] Oxygen saturation in Arterial blood by Pulse oximetry 2023-10-07 16:51:00 100 /min [facility] Systolic blood pressure 2023-10-06 17:37:00 135 mm[Hg] [facility] Diastolic blood pressure 2023-10-06 17:37:00 79 mm[Hg] [facility] Heart rate 2023-10-06 17:37:00 79 /min [facility] Body temperature 2023-10-06 17:37:00 37 [place] [facility] Respiratory rate 2023-10-06 17:37:00 18 /min [facility] Body height 2023-10-06 17:37:00 152.4 cm [facility] Body weight 2023-10-06 17:37:00 85.367 kg [facility] BMI 2023-10-06 17:37:00 36.76 kg/m2 [facility] Oxygen saturation in Arterial blood by Pulse oximetry 2023-10-06 17:37:00 97 /min [facility] Systolic blood pressure 2023-08-18 00:45:00 126 mm[Hg] [facility] Diastolic blood pressure 2023-08-18 00:45:00 79 mm[Hg] [facility] Heart rate 2023-08-18 00:43:00 83 /min [facility] Body temperature 2023-08-18 00:43:00 36.94 [place] [facility] Respiratory rate 2023-08-18 00:43:00 20 /min [facility] Body weight 2023-08-18 00:43:00 83.915 kg [facility] BMI 2023-08-18 00:43:00 36.13 kg/m2 [facility] Oxygen saturation in Arterial blood by Pulse oximetry 2023-08-18 00:43:00 98 /min [facility] Systolic blood pressure 2023-03-01 01:26:00 142 mm[Hg] [facility] Diastolic blood pressure 2023-03-01 01:26:00 84 mm[Hg] [facility] Heart rate 2023-03-01 01:26:00 80 /[facility] Respiratory rate 2023-03-01 01:26:00 19 /min [facility] Oxygen saturation in Arterial blood by Pulse oximetry 2023-03-01 01:26:00 98 /min [facility] Body temperature 2023-03-01 00:35:00 37.39 [place] [facility] Body height 2023-03-01 00:35:00 152.4 cm [facility] Body weight 2023-03-01 00:35:00 83.462 kg [facility] BMI 2023-03-01 00:35:00 35.94 kg/m2 [facility] Procedures Procedure Date / Time Performed Performing Clinicia n Source TOTAL BETA HCG ASSAY 2023-10-07 16:59:00 Jose Cobos [facility] HB ABO GROUPING 2023-10-07 16:59:00 Gema Cobos [facility] BASIC METABOLIC PANEL (NA, K, CL, CO2, GLUCOSE, BUN, CREATININE, CA) 2023-10-06 18:11:00 Fidel Hernandez [facility] TOTAL BETA HCG ASSAY 2023-10-06 18:11:00 Fidel Hernandez [facility] CBC WITH DIFF 2023-10-06 18:11:00 Fidel Hernandez [facility] URINALYSIS 2023-10-06 18:11:00 Fidel Hernandez [facility] POCT TEST 2023-10-06 18:10:00 Fidel Hernandez [facility] CONSENT/REFUSAL FOR DIAGNOSIS AND TREATMENT 2023-08-18 00:38:55 Doctor Unassigned, Rodessa [facility] ASSIGNMENT OF BENEFITS 2023-03-01 01:11:00 Docto r Unassigned, Rodessa [facility] RAPID INFLUENZA A/B 2023-03-01 00:47:00 Barb Arias [facility] COVID-19 (ID NOW RAPID TESTING) 2023-03-01 00:47:00 Barb Arias [facility] NOTICE OF PRIVACY PRACTICES 2023-03-01 00:31:09 Doctor Unassigned, Rodessa [facility] CONSENT/REFUSAL FOR DIAGNOSIS AND TREATMENT 2023-03-01 00:30:43 Doctor Unassigned, Rodessa [facility] Encounters Start Date/Time End Date/Time Encounter Type Admission Type Attending [facility] Care Facility Care Department Encounter ID Source 2023-10-07 11:53:00 2023-10-07 13:05:00 Emergency X GEMA COBOS [facility] ERT [id number] [facility] 2023-10-07 11:53:00 2023-10-07 13:05:00 Emergency Gema Cobos [facility] [id number] [facility] 2023-10-06 12:38:00 2023-10-06 16:16:00 Emergency X FIDEL HERNANDEZ [facility] ERT [id number] [facility] 2023-10-06 12:38:00 2023-10-06 16:16:00 Emergency Fidel Hernandez C [facility] [id number] [facility] 2023-08-17 18:46:00 2023-08-17 19:55:00 Emergency X Juanpablo EASON [facility] ERT [id number] [facility] 2023-08-17 18:46:00 2023-08-17 19:55:00 Emergency Juanpablo Eason Kelsey [facility] [id number] [facility] 2023-02-28 19:45:00 2023-02-28 20:33:00 Emergency BARB CRUZ [facility] ERT [id number] [facility] 2023-02-28 19:45:00 2023-02-28 20:33:00 Emergency Barb Arias S [facility] [id number] [facility] Results Test Description Test Time Test Comments Results Result Co mments Source [facility] and Screen - ONCE [id number] 17:17:00* Test Item Value Reference Range Interpretation Comme nts ABO & RH (test code = 20) A POSITIVE IAT (test code = 1185) Negative [facility] (QUANTITATIVE)2023-10-06 19:21:27* Test Item Value Reference Range Interpretation Comme nts BETA HCG (test code = 5286371359) 700.81 See_Comment [Automated messa ge] The system which generated this result transmitted reference range: Non- female and male patients: <5 mIU/mL. The reference range was not used to interpret this result as normal/abnormal. DAVE (test code = DAVE) Gestational Age ?Range (mIU/mL) 1-10 ?Weeks ?[id number] Weeks ?[id number] Weeks ?[id number] Weeks ?[id number] Biotin has been reported to cause a negative bias, interpret results relative to patient's use of biotin. [facility] Metabolic Panel (NA, K, CL, CO2, GLUCOSE, BUN, CREATININE, CA)2023-10-06 18:55:41* Test Item Value Reference Range Interpretation Comme nts NA (test code = 3142054082) 137 mmol/L 135-145 K (test code = 9530499365) 4.4 mmol/L 3.5-5.0 CL (test code = 9508329935) 107 mmol/L 98-108 CO2 TOTAL (test code = 1656113208) 22 mmol/L 23-31 L AGAP (test code = 0558299291) 8 2-16 BUN (test code = 4161164054) 11 mg/dL 7-23 GLUCOSE (test code = 4853970866) 92 mg/dL 70-110 CREATININE (test code = 2160-0) 0.75 mg/dL 0.50-1.04 CALCIUM (test code = 5122478542) 9.2 mg/dL 8.6-10.6 eGFR (test code = 90062-2) 112.8 mL/min/1.73m2 CKD-EPI eGFR (2020). Assuming creatinine has been stable day-to-day for at least three months, the eGFR indicates Category G1 (>= 90 mL/min/1.73 m2) Lab Interpretation (test code = 86142-9) Abnormal [facility] with [id number] 18:46:58* Test Item Value Reference Range Interpretation [...] 33.8 g/dL 31.6-35.1 RDW-SD (test code = 17711-6) 42.7 fL 39.0-49.9 RDW-CV (test code = 788-0) 12.2 % 12.0-15.5 PLT (test code = 777-3) 198 166-358 MPV (test code = 65330-9) 11.3 fL 9.5-12.9 NRBC/100 WBC (test code = 7749990431) 0.0 0.0-10.0 NRBC x10^3 (test code = 9316799841) See_Comment [Automated messa ge] The system which generated this result transmitted reference range: 10*3/?L. The reference range was not used to interpret this result as normal/abnormal. GRAN MAT (NEUT) % (test code = 770-8) 71.7 % IMM GRAN % (test code = 5448504127) 0.40 % LYMPH % (test code = 736-9) 20.9 % MONO % (test code = 5905-5) 5.5 % EOS % (test code = 713-8) 1.0 % BASO % (test code = 706-2) 0.5 % GRAN MAT x10^3(ANC) (test code = 1904862219) 7.99 10*3/uL 1.88-7.09 H IMM GRAN x10^3 (test code = 4841510636) 0.05 10*3/uL 0.00-0.06 LYMPH x10^3 (test code = 731-0) 2.33 10*3/uL 1.32-3.29 MONO x10^3 (test code = 742-7) 0.61 10*3/uL 0.33-0.92 EOS x10^3 (test code = 711-2) 0.11 10*3/uL 0.03-0.39 BASO x10^3 (test code = 704-7) 0.06 10*3/uL 0.01-0.07 Lab Interpretation (test code = 62755-3) [facility]normal [facility] [id number] 18:10:00* Test Item Value Reference Range Interpretation Comme nts POCT PREG (test code = 1605) Positive On board controls acceptable with C Line (test code = 3574) Yes POCT PREG LOT # (test code = 3575) [id number] POCT PREG TEST DATE ( test code = 3576) 10-08-2024 Lab Interpretation (test cod e = 04684-4) Normal [facility]
[2024-07-27] MEDS ORDERED: DIPHENHYDRAMINE 25 MG TAB/CAP ONE (21:49)
[2024-07-27] MEDS ORDERED: FAMOTIDINE 20 MG TAB ONE (21:49)
[2024-07-27] MEDS ORDERED: METHYLPREDNISOLONE 125 MG INJ ONE (21:49)
[2024-07-27 22:07] LABS: Specific Gravity 1.029 (1.005-1.030)
[2024-07-27 22:08] LABS: Specific Gravity 1.029 (1.005-1.030); Sqamous Epithelial <5 /HPF (None Seen); Urine Bacteria None Seen /HPF (<20); Urine Bilirubin NEGATIVE (Negative); Urine Blood Trace (Negative); Urine Clarity Clear (Clear); Urine Color Light-Yellow (Yellow); Urine Culture Reflex Order NOT NEEDED; Urine Glucose NEGATIVE (Negative); Urine Ketones NEGATIVE (Negative); Urine Microscopic Reflex YN ORDER UMIC; Urine Nitrite NEGATIVE (Negative); Urine Protein NEGATIVE (Negative); Urine RBC <5 /HPF (None Seen); Urine Urobilinogen Normal (Normal); Urine WBC <5 /HPF (<5); Urine Yeast (Budding) Trace /HPF (None Seen)
--- NOTE | 2024-07-27 22:14 | ER ---
Nurse's Notes [facility] Name: Renetta Ellison Age: 29 yrs Sex: Female : 1995 Arrival Date: 07/27/2024 Time: 21:14 Bed 3 Private MD: Diagnosis: Allergy to other foods Presentation: 07/27 21:28 Chief complaint: Patient states: RASH/HIVES ALL OVER BODY THAT STARTED AT 5PM. PT br2 DENIES SOB OR DIFFERENCE IN THROAT...... C/O OF ITCHING...NO MEDS TAKEN. Coronavirus screen: Client denies travel out of the [place] in the last 14 days. Ebola Screen: Patient denies exposure to infectious person. Onset: The symptoms/episode began/occurred 4 hour(s) ago. Anaphylaxis evaluation, no signs or symptoms of anaphylaxis were noted. Initial Sepsis Screen: Does the patient meet any 2 criteria? No. Patient's initial sepsis screen is negative. Does the patient have a suspected source of infection? No. Patient's initial sepsis screen is negative. Risk Assessment: Do you want to hurt yourself or someone else? Patient reports no desire to harm self or others. Onset of symptoms was July 27, 2024 at 17:00. 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 - Infectious Disease History:: Denies. - Social history:: Smoking status: Patient denies any tobacco usage or history of. Patient uses alcohol, occasionally. Patient/guardian denies using street drugs. Screenin:40 [facility] ED Fall Risk Assessment (Adult) History of falling in the last 3 months, al5 including since admission No falls in past 3 months (0 pts) Confusion or Disorientation No (0 pts) Intoxicated or Sedated No (0 pts) Impaired Gait No (0 pts) Mobility Assist Device Used No (0 pt) Altered Elimination No (0 pt) Score/Fall Risk Level 0 - 2 = Low Risk Oriented to surroundings, Maintained a safe environment, Hourly rounding (assess needs \T\ fall precautionary measures) done. 21:40 Abuse screen: Denies threats or abuse. Denies injuries from another. Nutritional al5 screening: No deficits noted. Tuberculosis screening: No symptoms or risk factors identified. Assessment: 21:40 General: Appears in no apparent distress. uncomfortable, Behavior is calm, cooperative. al5 21:40 Pain: Denies pain. Neuro: Level of Consciousness is awake, alert, obeys commands, al5 Oriented to person, place, time, situation. Cardiovascular: Capillary refill < 3 seconds Patient's skin is warm and dry. Respiratory: Airway is patent Respiratory effort is even, unlabored, Respiratory pattern is regular, symmetrical. GI: No signs and/or symptoms were reported involving the gastrointestinal system. : No signs and/or symptoms were reported regarding the genitourinary system. EENT: No signs and/or symptoms were reported regarding the EENT system. Derm: Rash noted that is itchy, red, raised, urticaria, on generalized Reports itching, hives. Musculoskeletal: No signs and/or symptoms reported regarding the musculoskeletal system. 22:20 Reassessment: discharge pending shot time. al5 Vital Signs: 21:28 BP 150 / 96; Pulse 88; Resp 18 S; Temp 97.1(TE); Pulse Ox 100% on R/A; Weight 85.28 kg; br2 Height 5 ft. 0 in. ; Pain 0/10; 21:47 BP 127 / 73; Pulse 79; Resp 16; Pulse Ox 100% ; al5 22:00 BP 131 / 79; Pulse 82; Resp 16; Pulse Ox 100% on R/A; al5 22:15 BP 124 / 73; Pulse 79; Resp 15; Pulse Ox 98% on R/A; al5 21:28 Body Mass Index 36.72 (85.28 kg, 152.4 cm) br2 21:28 Pain Scale: Adult br2 ED Course: 21:16 Patient arrived in ED. [id number] 21:17 Carter Liu PA is PHCP. cp 21:17 Carter Montero MD is Attending Physician. cp 21:33 Triage completed. br2 21:34 Tanna Vallecillo RN is Primary Nurse. br2 21:40 Patient has correct armband on for positive identification. Bed in low position. Call al5 light in reach. Side rails up X 1. 21:40 Provided Education on: medications, plan of care. al5 21:40 No provider procedures requiring assistance completed. al5 21:40 Patient did not have IV access during this emergency room visit. al5 Administered Medications: 21:58 Drug: diphenhydrAMINE PO 50 mg PO once Route: PO; ha1 22:37 Follow up: Response: No adverse reaction; Other; itching decreasing al5 21:58 Drug: Famotidine PO 20 mg PO once Route: PO; ha1 22:36 Follow up: Response: No adverse reaction; Other; itching decreasing al5 22:20 Drug: MethylPREDNISolone Sodium Succinate IM 125 mg IM once; if test negative al5 Route: IM; Site: right gluteus; 22:37 Follow up: Response: No adverse reaction; Other; itching decreasing al5 Medication: 21:40 VIS not applicable for this client. al5 Outcome: 22:13 Discharge ordered by . cp 22:38 Discharged to home ambulatory, al5 22:38 Condition: good 22:38 Discharge instructions given to patient, Instructed on discharge instructions, follow up and referral plans. medication usage, Demonstrated understanding of instructions, follow-up care, medications, Prescriptions given X 3, 22:39 Patient left the ED. al5 Signatures: Carter Liu PA PA cp Jeffries, Jennifer [id number] Casandra Monroy RN RN ha1 Karis Funez RN RN al5 Tanna Vallecillo RN RN br2 Corrections: (The following items were deleted from the chart) 22:37 22:36 Response: No adverse reaction al5 al5
--- NOTE | 2024-07-27 22:14 | EDPHYS ---
Physician Documentation [facility] Name: Renetta Ellison Age: 29 yrs Sex: Female : 1995 Arrival Date: 07/27/2024 Time: 21:14 Bed 3 Private MD: ED Physician Carter Montero HPI: 07/27 21:40 This 29 yrs old Female presents to ER via Ambulatory with complaints of Rash, cp Itching. 21:40 The patient's rash thought to be caused by food, ate a radish. The rash is located on cp the body diffusely. The rash can be described as itchy. 21:40 Onset: The symptoms/episode began/occurred suddenly. Associated signs and symptoms: cp Pertinent negatives: difficulty breathing, fever, swelling of lips, swelling of throat, swelling of tongue, vomiting. 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 - Infectious Disease History:: Denies. - Social history:: Smoking status: Patient denies any tobacco usage or history of. Patient uses alcohol, occasionally. Patient/guardian denies using street drugs. ROS: 21:45 Skin: Positive for rash, diffusely, cp 21:45 Constitutional: history per hpi cp 21:45 All other systems are negative, Exam: 21:50 Constitutional: The patient appears in no acute distress, alert, awake, cp non-diaphoretic, non-toxic, well developed, well nourished, 21:50 ENT: Mouth: Lips: normal, Oral mucosa: pink and intact, moist, Posterior pharynx: cp Airway: no evidence of obstruction, patent, 21:50 Cardiovascular: Rate: normal, Rhythm: regular, 21:50 Respiratory: the patient does not display signs of respiratory distress, Respirations: normal, no use of accessory muscles, no retractions, labored breathing, is not present, Breath sounds: are clear throughout, no decreased breath sounds, no stridor, no wheezing, 21:50 Abdomen/GI: Inspection: abdomen appears normal, 21:50 Skin: rash can be described as hives, and is diffusely located, Vital Signs: 21:28 BP 150 / 96; Pulse 88; Resp 18 S; Temp 97.1(TE); Pulse Ox 100% on R/A; Weight 85.28 kg; br2 Height 5 ft. 0 in. ; Pain 0/10; 21:47 BP 127 / 73; Pulse 79; Resp 16; Pulse Ox 100% ; al5 22:00 BP 131 / 79; Pulse 82; Resp 16; Pulse Ox 100% on R/A; al5 22:15 BP 124 / 73; Pulse 79; Resp 15; Pulse Ox 98% on R/A; al5 21:28 Body Mass Index 36.72 (85.28 kg, 152.4 cm) br2 21:28 Pain Scale: Adult br2 MDM: 21:18 Medical Screening Exam initiated cp 22:13 Data reviewed: vital signs, nurses notes, and as a result, I will discharge patient. 22:13 Differential diagnosis: allergic reaction, anaphylaxis. I considered the following cp discharge prescriptions or medication management in the emergency department Medications were administered in the Emergency Department. See MAR. Counseling: I had a detailed discussion with the patient and/or guardian regarding the historical points, exam findings, and any diagnostic results supporting the discharge/admit diagnosis, to return to the emergency department if symptoms worsen or persist or if there are any questions or concerns that arise at home. Response to treatment: the patient's symptoms have mildly improved after treatment, and as a result, I will discharge patient. 07/27 21:34 Order name: Urinalysis w/ reflexes; Complete Time: 22:12 cp 07/27 22:12 Interpretation: Normal except: UBLD Trace; UESTR 25; BYST Trace. cp 07/27 21:34 Order name: Test, Urine; Complete Time: 22:12 cp 07/27 22:12 Interpretation: Reviewed. cp Administered Medications: 21:58 Drug: diphenhydrAMINE PO 50 mg PO once Route: PO; ha1 22:37 Follow up: Response: No adverse reaction; Other; itching decreasing al5 21:58 Drug: Famotidine PO 20 mg PO once Route: PO; ha1 22:36 Follow up: Response: No adverse reaction; Other; itching decreasing al5 22:20 Drug: MethylPREDNISolone Sodium Succinate IM 125 mg IM once; if test negative al5 Route: IM; Site: right gluteus; 22:37 Follow up: Response: No adverse reaction; Other; itching decreasing al5 Disposition: 07/28 22:17 Chart complete. cp Disposition Summary: 07/27/24 22:13 Discharge Ordered Notes: Location: Home cp Problem: new cp Symptoms: have improved cp Condition: Stable cp Diagnosis - Allergy to other foods cp Followup: cp - With: Private Physician - When: 2 - 3 days - Reason: Recheck today's complaints Discharge Instructions: - Discharge Summary Sheet cp - Food Allergy cp Forms: - Medication Reconciliation Form cp - Antibiotic Education cp - Prescription Opioid Use cp - Patient Portal Instructions cp - Leadership Thank You Letter cp - Work release form al5 Prescriptions: - Pepcid 20 mg Oral Tablet - take 1 tablet ORAL route every 12 hours for 5 days; 10 tablet; Refills: 0, cp Product Selection Permitted - Zyrtec 10 mg Oral Tablet - take 1 tablet ORAL route once daily As needed; 20 tablet; Refills: 0, Product cp Selection Permitted - Prednisone 20 mg Oral tablet - take 3 tablet ORAL route once daily for 5 days; 15 tablet; Refills: 0, Product cp Selection Permitted Addendum: 07/30/2024 14:16 Co-signature as Attending Physician, Carter Montero MD I agree with the assessment and c roman plan of care. Signatures: Dispatcher [employer] Carter Moura MD MD cha Page, Corey, PA PA cp Casandra Monroy RN RN ha1 Karis Funez RN RN al5 Tanna Vallecillo RN RN br2
[2024-07-28 03:13] VITALS: TEMP 97.1
[2024-07-28 03:17] VITALS: BP 124/73; O2SAT 98
== END 2024-07-27 22:39 | disposition home or self-care (01) ==
LOC: ER 21:14
DX: R21 Rash and other nonspecific skin eruption (principal); Z91.018 Allergy to other foods
CPT/HCPCS: 81001; 81025; 96372; 99284; J2919

== ENCOUNTER 2024-09-11 12:12 | Emergency (ER) | payer SELFPAY ==
--- OUTSIDE RECORDS SUMMARY | 2024-09-11 12:15 | XMS REPORT | Continuity of Care Document ---
Author Name Unknown Address [address] [facility] [address] [place] [address] Organization [facility] [place] Address [address] [facility] [address] [place] [address] Care Team Providers Care Web Content Executive Name Role Phone Pcp, Patient Does Not Have A Primary Care Physic philip Doctor Unassigned, [place] Attending Clinician U GEMA Mohan Attending Clinician Unavailab Gema Parkinson DO Attending Clinician [phone] FIDEL HERNANDEZ Attending Clinician Unavailable Fidel Hernandez MD Attending Clinician [phone] Juanpablo EASON Attending Clinician Unavailable Juanpablo Toscano Attending Clinician [phone] Cisco Tobar Attending Clinician [phone] CISCO ARIAS Attending Clinician Unavailable FIDEL HERNANDEZ Admitting Clinician Unavailable Payers Payer Name Policy Type Policy Number Effective Date Expirati on Date Source Allergies, Adverse Reactions, Alerts Allergy Name Allergy Type Status Severity Reaction(s) Onset Date Inactive Date Treating Clinician Comments Source NO KNOWN ALLERGIE S Drug Class Active [facility] Social History Social Habit Start Date Stop Date Quantity Comments Source Gender identity [facility] Sexual orientation U [facility] Sex assigned at 1995 00:00:00 1995 00:00:00 [facility] Smoking Status Start Date Stop Date Source Tobacco smoking consumption unknown [facility] Medications Ordered Medication Name Filled Medication Name Start Date Stop Date Current Medication? Ordering Clinician Indication Dosage Frequency Signature (SIG) Comments Components Source ondansetron (ZOFRAN-ODT ) disintegrat ing tablet 4 mg 08-18 02:45: 00 08-18 01:42 :00 No 4mg 4 mg, Oral, ONCE, 1 dose, On Noelle 08/17/23 at 2044, Routine [facility] ondansetron 4 mg disintegrat ing tablet 08-17 00:00: 00 Yes [id number] 4mg Take 1 tablet by mouth every 8 (eight) hours as needed for Nausea and Vomiting (N/V). [facility] Vital Signs Vital Name Observation Time Observation Value Comments S ource Heart rate 2023-10-07 16:51:00 87 /min [facility] Body temperature 2023-10-07 16:51:00 37.28 Xena [facility] Respiratory rate 2023-10-07 16:51:00 18 /min [facility] Body height 2023-10-07 16:51:00 152.4 cm [facility] Body weight 2023-10-07 16:51:00 85.276 kg [facility] BMI 2023-10-07 16:51:00 36.72 kg/m2 [facility] Oxygen saturation in Arterial blood by Pulse oximetry 2023-10-07 16:51:00 100 /min [facility] Systolic blood pressure 2023-10-06 17:37:00 135 mm[Hg] [facility] Diastolic blood pressure 2023-10-06 17:37:00 79 mm[Hg] [facility] Heart rate 2023-10-06 17:37:00 79 /min [facility] Body temperature 2023-10-06 17:37:00 37 Xena [facility] Respiratory rate 2023-10-06 17:37:00 18 /min [facility] Body height 2023-10-06 17:37:00 152.4 cm [facility] Body weight 2023-10-06 17:37:00 85.367 kg [facility] BMI 2023-10-06 17:37:00 36.76 kg/m2 [facility] Oxygen saturation in Arterial blood by Pulse oximetry 2023-10-06 17:37:00 97 /min [facility] Systolic blood pressure 2023-08-18 00:45:00 126 mm[Hg] [facility] Diastolic blood pressure 2023-08-18 00:45:00 79 mm[Hg] [facility] Heart rate 2023-08-18 00:43:00 83 /min Unive [facility] Body temperature 2023-08-18 00:43:00 36.94 Xena [facility] Respiratory rate 2023-08-18 00:43:00 20 /min [facility] Body weight 2023-08-18 00:43:00 83.915 kg [facility] BMI 2023-08-18 00:43:00 36.13 kg/m2 [facility] Oxygen saturation in Arterial blood by Pulse oximetry 2023-08-18 00:43:00 98 /min [facility] Systolic blood pressure 2023-03-01 01:26:00 142 mm[Hg] [facility] Diastolic blood pressure 2023-03-01 01:26:00 84 mm[Hg] [facility] Heart rate 2023-03-01 01:26:00 80 /min [facility] Respiratory rate 2023-03-01 01:26:00 19 /min [facility] Oxygen saturation in Arterial blood by Pulse oximetry 2023-03-01 01:26:00 98 /min [facility] Body temperature 2023-03-01 00:35:00 37.39 Xena [facility] Body height 2023-03-01 00:35:00 152.4 cm [facility] Body weight 2023-03-01 00:35:00 83.462 kg [facility] BMI 2023-03-01 00:35:00 35.94 kg/m2 [facility] Procedures Procedure Date / Time Performed Performing Clinician Source TOTAL BETA HCG ASSAY 2023-10-07 16:59:00 Jose Cobos [facility] HB ABO GROUPING 2023-10-07 16:59:00 Gema Cobos [facility] BASIC METABOLIC PANEL (NA, K, CL, CO2, GLUCOSE, BUN, CREATININE, CA) 2023-10-06 18:11:00 Fidel Hernandez [facility] TOTAL BETA HCG ASSAY 2023-10-06 18:11:00 Fidel Hernandez [facility] CBC WITH DIFF 2023-10-06 18:11:00 [facility]idel [facility] URINALYSIS 2023-10-06 18:11:00 Fidel [facility] POCT TEST 2023-10-06 18:10:00 Fidel Hernandez [facility] CONSENT/REFUSAL FOR DIAGNOSIS AND TREATMENT 2023-08-18 00:38:55 Doctor Unassigned, [place] [facility] ASSIGNMENT OF BENEFITS 2023-03-01 01:11:00 Docto r Unassigned, [place] [facility] RAPID INFLUENZA A/B 2023-03-01 00:47:00 Cisco Arias [facility] COVID-19 (ID NOW RAPID TESTING) 2023-03-01 00:47:00 Cisco Arias [facility] NOTICE OF PRIVACY PRACTICES 2023-03-01 00:31:09 Doctor Unassigned, [place] [facility] CONSENT/REFUSAL FOR DIAGNOSIS AND TREATMENT 2023-03-01 00:30:43 Doctor Unassigned, [place] [facility] US PELVIS COMPLETE WITH TRANSVAGINAL 2017-11-09 05:12:00 Frederick Delaney [facility] Encounters Start Date/Time End Date/Time Encounter Type Admission Type Attending Clinicians Care Facility Care Department Encounter ID Source 2017-11-09 00:00:00 2024-08-17 03:19:13 Orders Only Doctor Unassigned, [place] Doctor Unassigned, [place] [facility] ([facility] [id number] [facility] 2023-10-07 11:53:00 2023-10-07 13:05:00 Emergency X GEMA COBOS [facility] ERT [id number] [facility] 2023-10-07 11:53:00 2023-10-07 13:05:00 Emergency Gema Cobos [facility] [id number] [facility] 2023-10-06 12:38:00 2023-10-06 16:16:00 Emergency X FIDEL HERNANDEZ [facility] ERT [id number] [facility] 2023-10-06 12:38:00 2023-10-06 16:16:00 Emergency Fidel Hernandez [facility] [id number] [id number] [facility] 2023-08-17 18:46:00 2023-08-17 19:55:00 Emergency X JENARO Juanpablo [facility] ERT [id number] [facility] 2023-08-17 18:46:00 2023-08-17 19:55:00 Emergency Juanpablo Eason Kelsey [facility] [id number] [id number] [facility] 2023-02-28 19:45:00 2023-02-28 20:33:00 Emergency Cisco Arias [facility] [id number] [id number] [id number] [facility] 2023-02-28 19:45:00 2023-02-28 20:33:00 Emergency X CISCO ARIAS [facility] ERT [id number] [facility] Results Test Description Test Time Test Comments Results Result Co mments Source [facility] Screen - ONCE [id number] 17:17:00* Test Item Value Reference Range Interpretation Comme nts ABO & RH (test code = 20) A POSITIVE IAT (test code = 1185) Negative [facility] BHCG (QUANTITATIVE)2023-10-06 19:21:27* Test Item Value Reference Range Interpretation Comme nts BETA HCG (test code = 4356671499) 700.81 See_Comment [Automated messa ge] The system which generated this result transmitted reference range: Non- female and male patients: <5 mIU/mL. The reference range was not used to interpret this result as normal/abnormal. DAVE (test code = DAVE) Gestational Age ?Range (mIU/mL) 1-10 ?Weeks ?[id number] Weeks ?[id number] Weeks ?8109-22084599-99 Weeks ?1221-745436 Biotin has been reported to cause a negative bias, interpret results relative to patient's use of biotin. [facility] Metabolic Panel (NA, K, CL, CO2, GLUCOSE, BUN, CREATININE, CA)2023-10-06 18:55:41* Test Item Value Reference Range Interpretation Comme nts NA (test code = 8305815245) 137 mmol/L 135-145 K (test code = 3363885114) 4.4 mmol/L 3.5-5.0 CL (test code = 9341679840) 107 mmol/L 98-108 CO2 TOTAL (test code = 1641587358) 22 mmol/L 23-31 L AGAP (test code = 4963859850) 8 2-16 BUN (test code = 2071112741) 11 mg/dL 7-23 GLUCOSE (test code = 2780223546) 92 mg/dL 70-110 CREATININE (test code = 2160-0) 0.75 mg/dL 0.50-1.04 CALCIUM (test code = 9625567593) 9.2 mg/dL 8.6-10.6 eGFR (test code = 52135-2) 112.8 mL/min/1.73m2 CKD-EPI eGFR (2020). Assuming creatinine has been stable day-to-day for at least three months, the eGFR indicates Category G1 (>= 90 mL/min/1.73 m2) Lab Interpretation (test code = 51421-3) Abnormal [facility] with [id number] 18:46:58* Test Item Value Reference Range Interpretation [...] 33.8 g/dL 31.6-35.1 RDW-SD (test code = 62984-6) 42.7 fL 39.0-49.9 RDW-CV (test code = 788-0) 12.2 % 12.0-15.5 PLT (test code = 777-3) 198 166-358 MPV (test code = 51534-4) 11.3 fL 9.5-12.9 NRBC/100 WBC (test code = 5226798409) 0.0 0.0-10.0 NRBC x10^3 (test code = 6322460988) See_Comment [Automated [place] Solara ge] The system which generated this result transmitted reference range: 10*3/?L. The reference range was not used to interpret this result as normal/abnormal. GRAN MAT (NEUT) % (test code = 770-8) 71.7 % IMM GRAN % (test code = 6565065614) 0.40 % LYMPH % (test code = 736-9) 20.9 % MONO % (test code = 5905-5) 5.5 % EOS % (test code = 713-8) 1.0 % BASO % (test code = 706-2) 0.5 % GRAN MAT x10^3(ANC) (test code = 1552504771) 7.99 10*3/uL 1.88-7.09 H IMM GRAN x10^3 (test code = 9903829535) 0.05 10*3/uL 0.00-0.06 LYMPH x10^3 (test code = 731-0) 2.33 10*3/uL 1.32-3.29 MONO x10^3 (test code = 742-7) 0.61 10*3/uL 0.33-0.92 EOS x10^3 (test code = 711-2) 0.11 10*3/uL 0.03-0.39 BASO x10^3 (test code = 704-7) 0.06 10*3/uL 0.01-0.07 Lab Interpretation (test code = 71289-3) Abnormal [facility] [id number] 18:10:00* Test Item Value Reference Range Interpretation Comme nts POCT PREG (test code = 1605) Positive On board controls acceptable with C Line (test code = 3574) Yes POCT PREG LOT # (test code = 3575) [id number] POCT PREG TEST DATE ( test code = 3576) 10-08-2024 Lab Interpretation (test cod e = 35418-7) [facility] PELVIS COMPLETE WITH [id number] 13:11:00 *.*.*.*.*.*.*.*.*.*.*.*.*.*FINAL*.*.*.*.*.*.*.*.*.*.*.*.*.*.*TRANSABDOMINAL AND TRANSVAGINAL PELVICULTRASOUND HISTORY: Pain out of proportion to physical exam and previous diagnosis ofovarian cyst COMPARISON: None. FINDINGS: The uterus is normal in size and echo-texture and exhibits no masses or focaldefects. ?It measures 10.0 x 4.8 x 3.7 cm. ?The endometrial stripe measures anormal 7 mm. ?An IUD is in the expected location. The right ovary is enlarged at 5.0 x 3.4 x 3.6 cm (32.7 mL). Normal colorDoppler and arterial and venous spectral waveforms are seen. The left ovary is normal in size and echotexture. It measures 3.1 x 2.3 x 2.0 cm(7.3 mL). Normal color Doppler and arterial spectral waveforms are seen. Small volume of mildly complex fluid is adjacent to the left ovary. ALEXY LORENZANA MD ?Personally interpreted by: NEEMA WOODS MD /Signed/ NEEMA WOODS [facility] Notes Date/Time Note Provider Source 2023-10-07 13:03:20 Patient given discharge instructions on miscarriage. No prescriptions given. 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 Pt left ER ambulatory, no signs of distress. Catherine Robb RN [facility] 2023-10-07 11:51:37 Here yesterday for spotting. Here today for same thing. Had "something that looked like a piece of meat come out". Radha Saldaña RN [facility] 2023-10-07 11:46:00 [facility] Emergency Department Note Patient Name: Temi Ellison Date of : 1995 28 year old female Treatment Room: [place] [address] Primary Care Physician: PATIENT DOES NOT HAVE A PCP Patient Escorted by: Family [5] Mode of Arrival: Personal means [1] EMS Treatment Prior to ED Arrival: Travel and Exposure Screening: Symptoms Does patient have any of these symptoms?: (not recorded) Exposure Screening Has patient had contact with someone with a communicable disease in the last month?: (not recorded) Diseases exposed to:: (not recorded) Is Patient ?: (not recorded) Exposure Date: (not recorded) Chief Complaint: Chief Complaint Patient presents with History of Present Illness: The patient presents from home for eval for vaginal bleeding while . LMP 2/8 and she is . Bleeding and pelvic cramping started yesterday. Seen here and had TVUS showing no IUP. She reports cramping has continued and her bleeding did get worse this AM with her passing something that looked like meat. Therefore she returns for reeval. No dysuria. No n/v. No fever/chills. Here for eval. Past Medical History/Immunizations: History reviewed. No pertinent past medical history. Tetanus received in last 5 years: Unknown Childhood immunizations: Up-to-date Allergies: No Known Allergies Past Social History: Substance & Sexual Activity No substance use or sexual activity history on file. Past Surgical History: History reviewed. No pertinent surgical history. Review of Systems: Review of Systems Constitutional: Negative for chills and fever. Respiratory: Negative for cough and shortness of breath. Cardiovascular: Negative for chest pain. Gastrointestinal: Negative for abdominal pain and vomiting. Genitourinary: Positive for vaginal bleeding and pelvic pain. Negative for dysuria. Musculoskeletal: Negative for arthralgias, neck pain and neck stiffness. Skin: Negative for wound. Neurological: Negative for dizziness. Psychiatric/Behavioral: Negative for agitation. Endocrine: Negative for goiter. Physical Exam: ED Triage Vitals [10/07/23 1151] Weight 85.3 kg (188 lb) Actual or estimated Estimated by patient/family report Height 1.524 m (5') BP Pulse 87 Resp 18 Temp 37.3 ?C (99.1 ?F) Temp source Oral SpO2 100 % Measured on Room air Physical Exam Vitals and nursing note reviewed. Constitutional: Appearance: Normal appearance. She is obese. HENT: Head: Normocephalic and atraumatic. Cardiovascular: Rate and Rhythm: Normal rate. Pulses: Normal pulses. Pulmonary: Effort: Pulmonary effort is normal. No respiratory distress. Abdominal: General: There is no distension. Palpations: Abdomen is soft. There is no mass. Tenderness: There is no abdominal tenderness. There is no guarding or rebound. Hernia: No hernia is present. Musculoskeletal: General: Normal range of motion. Cervical back: Neck supple. Skin: General: Skin is warm. Neurological: General: No focal deficit present. Mental Status: She is alert. Radiology: No orders to display Lab Results: Lab Results TOTAL BETA HCG ASSAY Result Value Ref Range BETA HCG 180.73 Non- female and male patients: <5 mIU/mL TYPE AND SCREEN ABO & RH A POSITIVE ABORH CONFIRMATION (LAB ONLY) EKG: If EKG completed, see Procedure Note. Orders and Treatments: Orders Placed This Encounter Procedures TOTAL BHCG (QUANTITATIVE) Type and Screen - ONCE Routine ABORH Confirmation (Lab Only) No orders of the defined types were placed in this encounter. First Provider Eval: ED Events Date/Time Event User Comments 10/07/23 1154 Medical Screening Begins GEMA COBOS DO -- 10/07/23 1154 First Provider Evaluation GEMA COBOS DO -- ED COURSE Diagnosis/Impression as of 10/07/23 1253 Vaginal bleeding affecting early Miscarriage Procedures: Procedures MDM: Medical Decision Making The patient presents from home for eval for vaginal bleeding while . LMP 2/8 and she is . Seen here yesterday for same. Had TVUS showing no IUP and an HCG which was 700. Has since passed tissue and presents for reeval. VSS here in the EC. Abdomen soft and not tender. Will repeat her HCG but her clinical picture is suggestive of a miscarriage in process. Anticipate dc home later. 1252 - the patient is doing well here in the EC. Abo/rh is A+. Her HCG was decreased and is 180 today. She has had a miscarriage. Will need f/u with machinery rigger in one week. Can use nsaids for discomfort and pads for bleeding. Ok for dc home with machinery rigger f/u Problems Addressed: Miscarriage: acute illness or injury Vaginal bleeding affecting early : acute illness or injury Amount and/or Complexity of Data Reviewed Labs: ordered. Decision-making details documented in ED Course. Risk OTC drugs. Flowsheet Documentation: Scoring Tools: No data recorded Disposition/Condition: ED Disposition ED Disposition Disch - Home Condition Stable Comment -- Discharge Medications: Patient's Medications START taking these medications No medications on file CONTINUE taking these medications which have NOT CHANGED ONDANSETRON 4 MG DISINTEGRATING TABLET Take 1 tablet by mouth every 8 (eight) hours as needed for Nausea and Vomiting (N/V). START taking Modified Medications as Prescribed No medications on file STOP taking these medications No medications on file Follow-up: Electronically signed by: Gema Cobos DO 10/07/23 1253 [facility] 2023-10-06 16:05:00 Pt given printed and verbal discharge instructions regarding vaginal bleeding, encouraged hydration. Pt verbalized understanding of instructions, pt awake alert oriented, resp reg unlabored, skin w/d, color appropriate for race, moves all ext well,pt encouraged to follow up with pcp and or ob-gyne. Advised to seek medical attention for new/prolonged/worsening of symptoms. PIV d'cd, dressing to site, catheter in tact. Awake, alert oriented, resp reg unlabored, skin w/d, pt leaving amb with steady gait, in no apparent distress. Cyndie Greer RN [facility] 2023-10-06 12:35:25 Patient arrived ambulatory c/o og spotting with blood clots. Patient found out she was last Monday , seen at health clinic yesterday. . Only sees the blood when urinating and wiping. 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 Patient found out she was last Monday , seen at health clinic yesterday. . Only sees the blood when urinating and wiping. Chief Complaint Patient presents with Vaginal Bleeding History of present illness HPI 28 yo woman comes to the ED complaining of vaginal bleeding and mild cramping today. She is approximately 4-5 weeks of gestation. . Denies dysuria, nausea, vomiting or any other problems. No chronic medical problems or medications. BP 135/79 | Pulse 79 | Temp 37 ?C (98.6 ?F) (Oral) | Resp 18 | Ht 1.524 m (5') | Wt 85.4 kg (188 lb 3.2 oz) | LMP 08/10/2023 | SpO2 97% | BMI 36.76 kg/m? Past Medical and Social History History reviewed. No pertinent past medical history. Tetanus received in last 5 years: No Childhood immunizations: Up-to-date Past Surgical History History reviewed. No pertinent surgical history. Medications Medications - No data to display Allergies No Known Allergies Review of Systems Review of Systems Constitutional: Negative. HENT: Negative. Eyes: Negative. Respiratory: Negative. Cardiovascular: Negative. Gastrointestinal: Negative. Genitourinary: Positive for vaginal bleeding. Musculoskeletal: Negative. Skin: Negative. Neurological: Negative. Psychiatric/Behavioral: Negative. Endocrine: Endocrine negative Physical Exam BP 135/79 | Pulse 79 | Temp 37 ?C (98.6 ?F) (Oral) | Resp 18 | Ht 1.524 m (5') | Wt 85.4 kg (188 lb 3.2 oz) | LMP 08/10/2023 | SpO2 97% | BMI 36.76 kg/m? Physical Exam Vitals and nursing note reviewed. Constitutional: General: She is not in acute distress. Appearance: She is well-developed and normal weight. She is not ill-appearing. HENT: Head: Normocephalic and atraumatic. Right Ear: External ear normal. Left Ear: External ear normal. Nose: Nose normal. No congestion or rhinorrhea. Mouth/Throat: Pharynx: No oropharyngeal exudate or posterior oropharyngeal erythema. Eyes: General: Right eye: No discharge. Left eye: No discharge. Conjunctiva/sclera: Conjunctivae normal. Pupils: Pupils are equal, round, and reactive to light. Cardiovascular: Rate and Rhythm: Normal rate and regular rhythm. Heart sounds: Normal heart sounds. No murmur heard. No friction rub. Pulmonary: Effort: Pulmonary effort is normal. No respiratory distress. Breath sounds: Normal breath sounds. No stridor. No wheezing or rhonchi. Abdominal: General: Bowel sounds are normal. There is no distension. Palpations: Abdomen is soft. There is no mass. Tenderness: There is no abdominal tenderness. Hernia: No hernia is present. Musculoskeletal: General: No swelling, tenderness, deformity or signs of injury. Normal range of motion. Cervical back: Normal range of motion and neck supple. No rigidity or tenderness. Skin: General: Skin is warm. Capillary Refill: Capillary refill takes less than 2 seconds. Coloration: Skin is not jaundiced or pale. Findings: No bruising or erythema. Neurological: General: No focal deficit present. Mental Status: She is alert and oriented to person, place, and time. Cranial Nerves: No cranial nerve deficit. Sensory: No sensory deficit. Motor: No weakness. Coordination: Coordination normal. Psychiatric: Mood and Affect: Mood normal. Behavior: Behavior normal. Thought Content: Thought content normal. Judgment: Judgment normal. Labs and Studies Lab Results CBC WITH DIFF - Abnormal Result Value Ref Range WBC 11.15 (*) 4.30 - 11.10 10*3/?L RBC 4.38 3.93 - 5.25 10*6/?L HGB 14.0 11.6 - 15.0 g/dL HCT 41.4 35.7 - 45.2 % MCV 94.5 80.6 - 95.5 fL MCH 32.0 25.9 - 32.8 pg MCHC 33.8 31.6 - 35.1 g/dL RDW-SD 42.7 39.0 - 49.9 fL RDW-CV 12.2 12.0 - 15.5 % PLT 198 166 - 358 10*3/?L MPV 11.3 9.5 - 12.9 fL NRBC/100 WBC 0.0 0.0 - 10.0 /100 WBCs NRBC x10 3 <0.01 10*3/?L GRAN MAT (NEUT) % 71.7 % IMM GRAN % 0.40 % LYMPH % 20.9 % MONO % 5.5 % EOS % 1.0 % BASO % 0.5 % GRAN MAT x10 3 (ANC) 7.99 (*) 1.88 - 7.09 10*3/uL IMM GRAN x10 3 0.05 0.00 - 0.06 10*3/uL LYMPH x10 3 2.33 1.32 - 3.29 10*3/uL MONO x10 3 0.61 0.33 - 0.92 10*3/uL EOS x10 3 0.11 0.03 - 0.39 10*3/uL BASO x10 3 0.06 0.01 - 0.07 10*3/uL BASIC METABOLIC PANEL (NA, K, CL, CO2, GLUCOSE, BUN, CREATININE, CA) - Abnormal NA 137 135 - 145 mmol/L K 4.4 3.5 - 5.0 mmol/L CL 107 98 - 108 mmol/L CO2 TOTAL 22 (*) 23 - 31 mmol/L AGAP 8 2 - 16 BUN 11 7 - 23 mg/dL GLUCOSE 92 70 - 110 mg/dL CREATININE 0.75 0.50 - 1.04 mg/dL CALCIUM 9.2 8.6 - 10.6 mg/dL eGFR 112.8 mL/min/1.73m2 URINALYSIS - Abnormal APPEARANCE Clear Clear COLOR Yellow Yellow PH 7.0 4.8 - 8.0 SP GRAVITY 1.018 1.003 - 1.030 GLU U QUAL Normal Normal BLOOD Negative Negative KETONES Negative Negative PROTEIN Negative Negative UROBILIN 2.0 mg/dL (*) Normal BILIRUBIN Negative Negative NITRITE Negative Negative LE[place] MINA Negative Negative RBC/HPF 5 (*) 0 - 3 HPF WBC/HPF 0 0 - 5 HPF BACTERIA Negative Negative MUCOUS Slight (*) Negative LPF SQ EPITH 1 HPF POCT TEST - Normal POCT PREG Positive On board controls acceptable with C Line Yes POCT PREG LOT # [id number] POCT PREG TEST DATE 10-08-2024 TOTAL BETA HCG ASSAY BETA HCG 700.81 Non- female and male patients: <5 mIU/mL US FIRST TRIMESTER LESS THAN 14 WEEKS WITH TRANSVAGINAL Preliminary Result EXAM: US FIRST TRIMESTER LESS THAN 14 WEEKS WITH TRANSVAGINAL HISTORY: 28 years -old Female with vaginal bleeding . LMP = 08/10/2023. Beta-hC mIU/mL. A0 TECHNIQUE: Survey transabdominal and transvaginal ultrasound imaging of the pelvis was performed including color Doppler evaluation with tax compliance representative images obtained. M-mode Doppler was used to evaluate the heart. COMPARISON: None FINDINGS: Uterus: An intrauterine gestational sac is noted in the lower uterine segment. Mean sac diameter is 0.5 cm. Corresponding to 5 weeks and 0 days . A yolk sac measures 0.2 cm is identified. No pole is identified. Right Adnexa: Ovary: The right ovary measures 3.6 x 2.3 x 2.3 cm cm. The right ovary is unremarkable. Other: None Left Adnexa: Ovary: The left ovary measures 3.5 x 2.7 x 2.4 cm. Possible corpus luteum in the left ovary.. Other: None Cul-de-sac: No free fluid is present. IMPRESSION A gestational sac is present in the lower uterine segment. A yolk sac is present however no pole was identified. Preliminary Report Dictated by Resident: Smiley Nicolas Orders and Treatments Orders Placed This Encounter Procedures US FIRST TRIMESTER LESS THAN 14 WEEKS WITH TRANSVAGINAL Cbc with Diff Basic Metabolic Panel (NA, K, CL, CO2, GLUCOSE, BUN, CREATININE, CA) Urinalysis POCT TEST TOTAL BHCG (QUANTITATIVE) No orders of the defined types were placed in this encounter. Patient's Medications START taking these medications No medications on file CONTINUE taking these medications which have NOT CHANGED ONDANSETRON 4 MG DISINTEGRATING TABLET Take 1 tablet by mouth every 8 (eight) hours as needed for Nausea and Vomiting (N/V). START taking Modified Medications as Prescribed No medications on file STOP taking these medications No medications on file Procedures Procedures Evidence Care MDM & Notes Patient was evaluated for an emergency medical condition related to Vaginal Bleeding . History and/or review of systems is limited by:History limited: None. Medical Decision Making 28 yo woman comes to the ED complaining of vaginal bleeding and mild cramping today. She is approximately 4-5 weeks of gestation. . Denies dysuria, nausea, vomiting or any other problems. No chronic medical problems or medications. BP 135/79 | Pulse 79 | Temp 37 ?C (98.6 ?F) (Oral) | Resp 18 | Ht 1.524 m (5') | Wt 85.4 kg (188 lb 3.2 oz) | LMP 08/10/2023 | SpO2 97% | BMI 36.76 kg/m? DDx include but not limited to: 1. Vagina bleeding in early 2. Threatening 3. UTI Plan: US, cbc, basic, ua. Problems Addressed: Vaginal bleeding: acute illness or injury Amount and/or Complexity of Data Reviewed Labs: ordered. Details: Normal Hgb, no significant leukocytosis Radiology: ordered. Details: Gestational sac Discussion of management or test interpretation with external provider(s): Early vs vaginal bleeding in early vs miscarriage. US showing gestational sac with HcG of 700. Advised pelvic rest, f/u with OBGYN in 2 days for repeat HCG and US. Return to the ED if worsening of symptoms. Patient understands and agrees with the plan. Diagnosis/Impression as of 10/06/23 1607 Vaginal bleeding Case discussed with: none Barriers & Social Determinants of Healthcare: none Limitations to patient care and compliance: none. History, physical exam findings, results of visit, differential diagnosis, medication regimens and plan of future care have been considered. Additional MDM may be found in the ED course. Differential diagnosis considered and final disposition made based on information gathered during evaluation and may not be completely ruled out or specifically listed. Vital signs were rechecked before final disposition and determined to be stable. Diagnoses ICD-10-CM 1. Vaginal bleeding N93.9 Disposition and Condition ED Disposition ED Disposition Disch - Home Condition Stable Comment -- Patient's Medications START taking these medications No medications on file CONTINUE taking these medications which have NOT CHANGED ONDANSETRON 4 MG DISINTEGRATING TABLET Take 1 tablet by mouth every 8 (eight) hours as needed for Nausea and Vomiting (N/V). START taking Modified Medications as Prescribed No medications on file STOP taking these medications No medications on file Dragon Dictation Software is used frequently and may produce errors. Promptly contact for obvious discrepancies. Fidel Hernandez MD, FACEP, FAAEM Occupational Therapist of Emergency and Internal Medicine [facility], [facility] #[id number] Fidel Hernandez MD 10/06/23 1610 [facility] 2023-08-17 19:44:32 Pt given printed and verbal discharge instructions regarding Gastroenteritis, & bland diet, encouraged hydration. Prescriptions provided Pt verbalized understanding of instructions, pt awake alert oriented, resp reg unlabored, skin w/d, color appropriate for race, moves all ext well,pt encouraged to follow up with pcp. Advised to seek medical attention for new/prolonged/worsening of symptoms. No adverse reaction to meds given in ER noted upon discharge Awake, alert oriented, resp reg unlabored, skin w/d, pt leaving amb with steady gait, in no apparent distress. KING INSPECTOR Karis Cobos RN [facility] 2023-08-17 18:42:28 Patient reports abdominal pain with diarrhea for about a week and got sent home today for also having nausea and vomiting. No hx of abd surgeries. LBM was 16:00 diarrhea. No meds [employer]. Has not been seen for this illness. KING INSPECTOR Max Mora RN [facility] 2023-02-28 20:32:30 Formatting of this n ote might be different from the original. Pt discharged with diagnosis of vomiting an URI. Printed and verbal instructions reviewed with and given to pt. Pt verbalized understanding of teaching and recommended follow-up. Denies questions or concerns at this time. Pt ambulatory at discharge. Appears in no apparent distress. No ataxia noted. Accompanied by sister. Lawanda Wang RN [facility] 2023-02-28 19:35:00 Formatting of this n ote might be different from the original. Patient came in with complaints of sore throat, congestion, upset stomach and diarrhea 5x today. Cyndie Greer RN [facility]
--- NOTE | 2024-09-11 12:35 | EDPHYS ---
Physician Documentation [facility] Name: Renetta Ellison Age: 29 yrs Sex: Female : 1995 Arrival Date: 09/11/2024 Time: 12:12 Bed 12 Private MD: ED Physician Steven Gee HPI: 09/11 12:32 This 29 yrs old Female presents to ER via Ambulatory with complaints of Flu rn Symptoms. 12:32 The patient presents to the emergency department with nausea, vomiting. Onset: The rn symptoms/episode began/occurred 5 day(s) ago. Possible causes: unknown. Severity of symptoms: At their worst the symptoms were moderate in the emergency department the symptoms have improved. The patient has not experienced similar symptoms in the past. Patient reports feeling sick for the last few days, was having nausea and vomiting with myalgias and subjective fever and chills. Patient states is improving and today she is able to keep liquids down, feels good enough to have coffee this morning. Still does not have much of an appetite. No abdominal pain. States mainly came for a work note as her work is requiring clearance to return. She states overall she is feeling much better and does not request any testing.. 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 - Infectious Disease History:: Denies. - Social history:: Smoking status: Patient denies any tobacco usage or history of. - Family history:: not pertinent. - Hospitalizations: : No recent hospitalization is reported. ROS: 12:32 Constitutional: Positive for malaise and myalgias Cardiovascular: Negative for chest rn pain, palpitations, and edema, Respiratory: Negative for shortness of breath, cough, wheezing, and pleuritic chest pain, Abdomen/GI: Negative for abdominal pain, nausea, vomiting, diarrhea, and constipation, MS/Extremity: Negative for injury and deformity, Skin: Negative for injury, rash, and discoloration, Neuro: Positive for generalized weakness Exam: 12:32 Constitutional: This is a well developed, well nourished patient who is awake, alert, rn and in no acute distress. Ambulatory to room without assistance or difficulty ENT: Dry mucous membranes Cardiovascular: Regular rate and rhythm. No pulse deficits. Respiratory: Speaking full sentences, unlabored. Abdomen/GI: Soft, nontender, no rebound or guarding, no distention Vital Signs: 12:25 BP 131 / 76; Pulse 77; Resp 18; Pulse Ox 100% on R/A; Weight 85.28 kg; Height 5 ft. 0 ph in. ; 12:25 Body Mass Index 36.72 (85.28 kg, 152.4 cm) ph MDM: 12:22 Medical Screening Exam initiated rn 12:32 Differential diagnosis: viral gastroenteritis, gastroenteritis, Influenza, viral rn illness. Data reviewed: vital signs, nurses notes, and as a result, I will discharge patient. ED course: Offered viral testing, patient declines states feels better and just needs work note.. Administered Medications: No medications were administered Disposition Summary: 09/11/24 12:35 Discharge Ordered Notes: Location: Home rn Problem: new rn Symptoms: have improved rn Condition: Stable rn Diagnosis - Other viral enteritis rn Followup: rn - With: Private Physician - When: As needed - Reason: Recheck today's complaints, Re-evaluation by your physician Discharge Instructions: - Viral Gastroenteritis, Adult rn - Discharge Summary Sheet ll1 Forms: - Medication Reconciliation Form rn - Antibiotic case management rn - Prescription Opioid Use rn - Patient Portal Instructions rn - Leadership Thank You Letter rn - Work release form ll1 Signatures: Steven Gee MD MD rn Hall, Patricia, RN RN ph
--- NOTE | 2024-09-11 12:35 | ER ---
Nurse's Notes [facility] Name: Renetta Ellison Age: 29 yrs Sex: Female : 1995 Arrival Date: 09/11/2024 Time: 12:12 Bed 12 Private MD: Diagnosis: Other viral enteritis Presentation: 09/11 12:25 Chief complaint: Patient states: Fever, body aches, N/V that started Monday, fells ph better today except body aches, here because work wants her to be seen. Coronavirus screen: Vaccine status: Patient reports being unvaccinated. Ebola Screen: No symptoms or risks identified at this time. Initial Sepsis Screen: Does the patient meet any 2 criteria? No. Patient's initial sepsis screen is negative. Does the patient have a suspected source of infection? No. Patient's initial sepsis screen is negative. Risk Assessment: Do you want to hurt yourself or someone else? Patient reports no desire to harm self or others. Onset of symptoms was September 11, 2024. 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 08/05/2024, unknown ph Historical: - Allergies: 12:26 NKA; ph - PMHx: 12:26 None; ph - PSHx: 12:26 None; ph - Immunization history:: Adult Immunizations unknown. - Infectious Disease History:: Denies. - Social history:: Smoking status: Patient denies any tobacco usage or history of. - Family history:: not pertinent. - Hospitalizations: : No recent hospitalization is reported. Screenin:42 [facility] ED Fall Risk Assessment (Adult) History of falling in the last 3 months, ph including since admission No falls in past 3 months (0 pts) Confusion or Disorientation No (0 pts) Intoxicated or Sedated No (0 pts) Impaired Gait No (0 pts) Mobility Assist Device Used No (0 pt) Altered Elimination No (0 pt) Score/Fall Risk Level 0 - 2 = Low Risk Oriented to surroundings, Maintained a safe environment, Hourly rounding (assess needs \T\ fall precautionary measures) done. Abuse screen: Denies threats or abuse. Denies injuries from another. Nutritional screening: No deficits noted. Tuberculosis screening: No symptoms or risk factors identified. Assessment: 12:41 General: Appears in no apparent distress. comfortable, Behavior is calm, cooperative, ph Denies fever. Pain: Complains of pain in body aches. Neuro: Level of Consciousness is awake, alert, obeys commands, Oriented to person, place, time, situation. Cardiovascular: Capillary refill < 3 seconds in bilateral fingers. Respiratory: Airway is patent Respiratory effort is even, unlabored, Respiratory pattern is regular, symmetrical. Derm: Skin is pink, warm \T\ dry. Vital Signs: 12:25 BP 131 / 76; Pulse 77; Resp 18; Pulse Ox 100% on R/A; Weight 85.28 kg; Height 5 ft. 0 ph in. ; 12:25 Body Mass Index 36.72 (85.28 kg, 152.4 cm) ph ED Course: 12:15 Patient arrived in ED. [id number] 12:22 Steven Gee MD is Attending Physician. rn 12:26 Triage completed. ph 12:27 Arm band placed on Patient placed in an exam room. ph 12:28 Shu Johnson RN is Primary Nurse. ph 12:42 Patient has correct armband on for positive identification. Bed in low position. Call ph light in reach. 12:42 No provider procedures requiring assistance completed. Patient did not have IV access ll1 during this emergency room visit. 12:42 No provider procedures requiring assistance completed. Patient did not have IV access ph during this emergency room visit. 12:43 Provided Education on: return to ED for worsening symptoms, verbalized understanding. ll1 Administered Medications: No medications were administered Medication: 12:42 VIS not applicable for this client. ph Outcome: 12:35 Discharge ordered by . rn 12:42 Discharged to home ambulatory, ll1 12:42 Condition: stable 12:42 Discharge instructions given to patient, Instructed on discharge instructions, follow up and referral plans. Demonstrated understanding of instructions, follow-up care, 12:43 Patient left the ED. ll1 Signatures: Steven Gee MD MD rn Hall, Patricia, RN RN ph Lewis, Lynsay, RN RN ll1 Coral Santo 3
[2024-09-11 12:55] VITALS: BP 131/76; O2SAT 100
== END 2024-09-11 12:43 | disposition home or self-care (01) ==
LOC: ER 12:12
DX: A08.39 Other viral enteritis (principal)
CPT/HCPCS: 99282

== ENCOUNTER 2025-02-12 13:25 | Emergency (ER) | payer SELFPAY ==
--- OUTSIDE RECORDS SUMMARY | 2025-02-12 13:29 | XMS REPORT | Continuity of Care Document ---
Author Name Unknown Address [address] [facility]. [address] [place] [address] Organization [facility] [place] Address [address] [facility] [address] [place] [address] Care Team Providers Care Cage Shift Manager Name Role Phone Pcp, Patient Does Not Have A Primary Care Physic philip Doctor Unassigned, [place] Attending Clinician U GEMA Mohan Attending Clinician Unavailab Gema Parkinson DO Attending Clinician [phone] FIDEL HERNANDEZ Attending Clinician Unavailable Fidel Hernandez MD Attending Clinician [phone] Juanpablo EASON Attending Clinician Unavailable Juanpablo Toscano Attending Clinician [phone] Cisco Tobar Attending Clinician [phone] CISCO ARIAS Attending Clinician Unavailable FIDEL HERNANDEZ Admitting Clinician Unavailable Payers Payer Name Policy Type Policy Number Effective Date Expirati on Date Source Allergies, Adverse Reactions, Alerts Allergy Name Allergy Type Status Severity Reaction(s) Onset Date Inactive Date Treating Clinician Comments Source NO KNOWN ALLERGIE S Drug Class Active [facility] Social History Social Habit Start Date Stop Date Quantity Comments Source Gender identity [facility] Sexual orientation [facility] Sex assigned at 1995 00:00:00 1995 00:00:00 [facility] Smoking Status Start Date Stop Date Source Tobacco smoking consumption unknown [facility] Medications Ordered Medication Name Filled Medication Name Start Date Stop Date Current Medication? Ordering Clinician Indication Dosage Frequency Signature (SIG) Comments Components Source ondansetron (ZOFRAN-ODT ) disintegrat ing tablet 4 mg 08-18 02:45: 00 08-18 01:42 :00 No 4mg 4 mg, Oral, ONCE, 1 dose, On Noelle 08/17/23 at 2044, Routine [facility] ondansetron 4 mg disintegrat ing tablet 08-17 00:00: 00 Yes [id number] 4mg Take 1 tablet by mouth every 8 (eight) hours as needed for Nausea and Vomiting (N/V). [facility] Vital Signs Vital Name Observation Time Observation Value Comments S ource Heart rate 2023-10-07 16:51:00 87 /min [facility] Body temperature 2023-10-07 16:51:00 37.28 [facility] Respiratory rate 2023-10-07 16:51:00 18 /min [facility] Body height 2023-10-07 16:51:00 152.4 cm [facility] Body weight 2023-10-07 16:51:00 85.276 kg [facility] BMI 2023-10-07 16:51:00 36.72 kg/m2 [facility] Oxygen saturation in Arterial blood by Pulse oximetry 2023-10-07 16:51:00 100 /min [facility] Systolic blood pressure 2023-10-06 17:37:00 135 mm[Hg] [facility] Diastolic blood pressure 2023-10-06 17:37:00 79 mm[Hg] [facility] Heart rate 2023-10-06 17:37:00 79 /min [facility] Body temperature 2023-10-06 17:37:00 37 [facility] Respiratory rate 2023-10-06 17:37:00 18 /min [facility] Body height 2023-10-06 17:37:00 152.4 cm [facility] Body weight 2023-10-06 17:37:00 85.367 kg [facility] BMI 2023-10-06 17:37:00 36.76 kg/m2 [facility] Oxygen saturation in Arterial blood by Pulse oximetry 2023-10-06 17:37:00 97 /min [facility] Systolic blood pressure 2023-08-18 00:45:00 126 mm[Hg] [facility] Diastolic blood pressure 2023-08-18 00:45:00 79 mm[Hg] [facility] Heart rate 2023-08-18 00:43:00 83 /min [facility] Body temperature 2023-08-18 00:43:00 36.94 [facility] Respiratory rate 2023-08-18 00:43:00 20 /min [facility] Body weight 2023-08-18 00:43:00 83.915 kg [facility] BMI 2023-08-18 00:43:00 36.13 kg/m2 [facility] Oxygen saturation in Arterial blood by Pulse oximetry 2023-08-18 00:43:00 98 /min [facility] Systolic blood pressure 2023-03-01 01:26:00 142 mm[Hg] [facility] Diastolic blood pressure 2023-03-01 01:26:00 84 mm[Hg] [facility] Heart rate 2023-03-01 01:26:00 80 /min [facility] Respiratory rate 2023-03-01 01:26:00 19 /min [facility] Oxygen saturation in Arterial blood by Pulse oximetry 2023-03-01 01:26:00 98 /min [facility] Body temperature 2023-03-01 00:35:00 37.39 [facility] Body height 2023-03-01 00:35:00 152.4 cm [facility] Body weight 2023-03-01 00:35:00 83.462 kg [facility] BMI 2023-03-01 00:35:00 35.94 kg/m2 [facility] Procedures Procedure Date / Time Performed Performing Clinician Source TOTAL BETA HCG ASSAY 2023-10-07 16:59:00 Jose Cobos [facility] HB ABO GROUPING 2023-10-07 16:59:00 Gema Cobos [facility] BASIC METABOLIC PANEL (NA, K, CL, CO2, GLUCOSE, BUN, CREATININE, CA) 2023-10-06 18:11:00 Fidel Hernandez [facility] TOTAL BETA HCG ASSAY 2023-10-06 18:11:00 Fidel Hernandez [facility] CBC WITH DIFF 2023-10-06 18:11:00 [facility] URINALYSIS 2023-10-06 18:11:00 [facility] 2023-10-06 18:10:00 Fidel Hernandez [facility] CONSENT/REFUSAL FOR DIAGNOSIS AND TREATMENT 2023-08-18 00:38:55 Doctor Unassigned, [place] [facility] ASSIGNMENT OF BENEFITS 2023-03-01 01:11:00 Docto r Unassigned, [place] [facility] RAPID INFLUENZA A/B 2023-03-01 00:47:00 Cisco Arias [facility] COVID-19 (ID NOW RAPID TESTING) 2023-03-01 00:47:00 Cisco Arias [facility] NOTICE OF PRIVACY PRACTICES 2023-03-01 00:31:09 Doctor Unassigned, [place] [facility] CONSENT/REFUSAL FOR DIAGNOSIS AND TREATMENT 2023-03-01 00:30:43 Doctor Unassigned, [place] [facility] US PELVIS COMPLETE WITH TRANSVAGINAL 2017-11-09 05:12:00 Frederick Delaney [facility] Encounters Start Date/Time End Date/Time Encounter Type Admission Type Attending Clinicians Care Facility Care Department Encounter ID Source 2017-11-09 00:00:00 2024-08-17 03:19:13 Orders Only Doctor Unassigned, [place] Doctor Unassigned, [place] [facility] [id number] [facility] 2023-10-07 11:53:00 2023-10-07 13:05:00 Emergency X GEMA COBOS [facility] ERT [id number] [facility] 2023-10-07 11:53:00 2023-10-07 13:05:00 Emergency Gema Cobos [facility] [id number] [id number] [id number] [facility] 2023-10-06 12:38:00 2023-10-06 16:16:00 Emergency X FIDEL HERNANDEZ [facility] ERT [id number] [facility] 2023-10-06 12:38:00 2023-10-06 16:16:00 Emergency Fidel Hernandez [facility] [id number] [id number] [facility] 2023-08-17 18:46:00 2023-08-17 19:55:00 Emergency X Juanpablo EASON [facility] ERT [id number] [facility] 2023-08-17 18:46:00 2023-08-17 19:55:00 Emergency Juanpablo Eason [facility] [id number] [id number] [id number] [facility] 2023-02-28 19:45:00 2023-02-28 20:33:00 Emergency Cisco Arias [facility] [id number] [id number] [id number] [id number] [facility] 2023-02-28 19:45:00 2023-02-28 20:33:00 Emergency X CISCO ARIAS [facility] ERT [id number] [facility] Results Test Description Test Time Test Comments Results Result Co mments Source [facility] - ONCE [id number] 17:17:00* Test Item Value Reference Range Interpretation Comme nts ABO & RH (test code = 20) A POSITIVE IAT (test code = 1185) Negative [facility] (QUANTITATIVE)2023-10-06 19:21:27* Test Item Value Reference Range Interpretation Comme nts BETA HCG (test code = 9981080821) 700.81 See_Comment [Automated messa ge] The system which generated this result transmitted reference range: Non- female and male patients: <5 mIU/mL. The reference range was not used to interpret this result as normal/abnormal. DAVE (test code = DAVE) Gestational Age ?Range (mIU/mL) 1-10 ?Weeks ?[id number] Weeks ?[id number] Weeks ?9078-13130163-54 Weeks ?[id number] Biotin has been reported to cause a negative bias, interpret results relative to patient's use of biotin. [facility] (NA, K, CL, CO2, GLUCOSE, BUN, CREATININE, CA)2023-10-06 18:55:41* Test Item Value Reference Range Interpretation Comme nts NA (test code = 7764625858) 137 mmol/L 135-145 K (test code = 6241728035) 4.4 mmol/L 3.5-5.0 CL (test code = 9165087090) 107 mmol/L 98-108 CO2 TOTAL (test code = 5327866162) 22 mmol/L 23-31 L AGAP (test code = 9566584661) 8 2-16 BUN (test code = 1798701413) 11 mg/dL 7-23 GLUCOSE (test code = 0896203494) 92 mg/dL 70-110 CREATININE (test code = 2160-0) 0.75 mg/dL 0.50-1.04 CALCIUM (test code = 3568928025) 9.2 mg/dL 8.6-10.6 eGFR (test code = 11589-3) 112.8 mL/min/1.73m2 CKD-EPI eGFR (2020). Assuming creatinine has been stable day-to-day for at least three months, the eGFR indicates Category G1 (>= 90 mL/min/1.73 m2) Lab Interpretation (test code = 91338-3) [facility]normal [facility] with [id number] 18:46:58* Test Item Value Reference Range Interpretation [...] 33.8 g/dL 31.6-35.1 RDW-SD (test code = 69052-9) 42.7 fL 39.0-49.9 RDW-CV (test code = 788-0) 12.2 % 12.0-15.5 PLT (test code = 777-3) 198 166-358 MPV (test code = 98613-8) 11.3 fL 9.5-12.9 NRBC/100 WBC (test code = 0536724349) 0.0 0.0-10.0 NRBC x10^3 (test code = 3788623291) See_Comment [Automated messa ge] The system which generated this result transmitted reference range: 10*3/?L. The reference range was not used to interpret this result as normal/abnormal. GRAN MAT (NEUT) % (test code = 770-8) 71.7 % IMM GRAN % (test code = 6031488759) 0.40 % LYMPH % (test code = 736-9) 20.9 % MONO % (test code = 5905-5) 5.5 % EOS % (test code = 713-8) 1.0 % BASO % (test code = 706-2) 0.5 % GRAN MAT x10^3(ANC) (test code = 3163155206) 7.99 10*3/uL 1.88-7.09 H IMM GRAN x10^3 (test code = 7115001162) 0.05 10*3/uL 0.00-0.06 LYMPH x10^3 (test code = 731-0) 2.33 10*3/uL 1.32-3.29 MONO x10^3 (test code = 742-7) 0.61 10*3/uL 0.33-0.92 EOS x10^3 (test code = 711-2) 0.11 10*3/uL 0.03-0.39 BASO x10^3 (test code = 704-7) 0.06 10*3/uL 0.01-0.07 Lab Interpretation (test code = 89736-9) [facility]normal [facility] [id number] 18:10:00* Test Item Value Reference Range Interpretation Comme nts POCT PREG (test code = 1605) Positive On board controls acceptable with C Line (test code = 3574) Yes POCT PREG LOT # (test code = 3575) [id number] POCT PREG TEST DATE ( test code = 3576) 10-08-2024 Lab Interpretation (test cod e = 10586-1) Normal [facility] WITH [id number] 13:11:00 *.*.*.*.*.*.*.*.*.*.*.*.*.*FINAL*.*.*.*.*.*.*.*.*.*.*.*.*.*.*TRANSABDOMINAL AND TRANSVAGINAL PELVICULTRASOUND HISTORY: Pain [...] by: NEEMA WOODS MD /Signed/ [facility] Date/Time Note Provider Source 2023-10-07 13:03:20 Patient given discharge instructions on miscarriage. No prescriptions given. Pt advised to follow up with glass cutter, mannequin molder. Pt left ER ambulatory, no signs of distress. Catherine Robb RN [facility] 2023-10-07 11:51:37 Here yesterday for spotting. Here today for same thing. Had "something that looked like a piece of meat come out". Radha Saldaña RN [facility] 2023-10-07 11:46:00 [facility] Emergency Department Note Patient Name: Temi Ellison Date of : 1995 28 year old female Treatment Room: [place] [address]/[id number] Primary Care Physician: PATIENT DOES NOT HAVE [...] had a miscarriage. Will need f/u with ice maker in one week. Can use nsaids for discomfort and pads for bleeding. Ok for dc home with ice maker f/u Problems Addressed: Miscarriage: acute illness or [...] signed by: Gema Cobos DO 10/07/23 1253 [facility] 2023-10-06 16:05:00 Pt given printed and verbal [...] in no apparent distress. Cyndie Greer RN [facility] 2023-10-06 12:35:25 Patient arrived ambulatory c/o og spotting with blood clots. Patient found out she was last Monday , seen at health [facility] yesterday. . Only sees the blood when urinating and wiping. 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 M-mode Doppler was used to [...] obvious discrepancies. Fidel Hernandez MD, FACEP, FAAEM Advertising Account Representative of Emergency and Internal Medicine [id number] Fidel Hernandez MD 10/06/23 1613 [facility] 2023-08-17 19:44:32 Pt given printed and [...] with steady gait, in no apparent distress. [employer] Karis Cobos RN [facility] 2023-08-17 18:42:28 Patient reports abdominal pain with diarrhea for about a week and got sent home today for also having nausea and vomiting. No hx of abd surgeries. LBM was 16:00 diarrhea. 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 Has not been seen for this illness. [employer] Max Mora RN [facility] 2023-02-28 20:32:30 Formatting of this n ote [...] noted. Accompanied by sister. Lawanda Wang RN [facility] 2023-02-28 19:35:00 Formatting of this n ote might be different from the original. Patient came in with complaints of sore throat, congestion, upset stomach and diarrhea 5x today. Cyndie Greer RN [facility]
[2025-02-12] MEDS ORDERED: METOCLOPRAMIDE 10 MG/2mL INJ ONE (14:22)
[2025-02-12] MEDS ORDERED: NA CHLORIDE 0.9% 1,000 ML ONE (14:22)
[2025-02-12] MEDS ORDERED: DIPHENHYDRAMINE 50 MG/ML VIAL ONE (14:22)
--- NOTE | 2025-02-12 14:57 | ER ---
Nurse's Notes [facility] Name: Renetta Ellison Age: 29 yrs Sex: Female : 1995 Arrival Date: 02/12/2025 Time: 13:25 Bed 20 Private MD: Diagnosis: Headache Presentation: 02/12 13:37 Chief complaint: Patient states: headache, n/v x 3 days. Coronavirus screen: At this dd2 time, the client does not indicate any symptoms associated with coronavirus-19. Ebola Screen: No symptoms or risks identified at this time. Initial Sepsis Screen: Does the patient meet any 2 criteria? No. Patient's initial sepsis screen is negative. Does the patient have a suspected source of infection? No. Patient's initial sepsis screen is negative. Risk Assessment: Do you want to hurt yourself or someone else? Patient reports no desire to harm self or others. Onset of symptoms was February 09, 2025. 13:37 Method Of Arrival: Ambulatory dd2 13:37 Acuity: LETITIA 3 dd2 Triage Assessment: 13:39 Headache History: The patient has had previous headaches and this one is similar to dd2 previous episodes. General: Appears in no apparent distress. uncomfortable, Behavior is calm, cooperative, appropriate for age. Pain: Complains of pain in left restorationist Pain currently is 5 out of 10 on a pain scale. at worst was 10 out of 10 on a pain scale. Pain began 2-3 days ago. Also complains of nausea. Neuro: Level of Consciousness is awake, alert, obeys commands, Oriented to person, place, time, situation, Appropriate for age Staffing Account Manager are equal bilaterally Moves all extremities. Gait is steady, Speech is normal, Facial symmetry appears normal, Pupils are PERRLA, Intact Reports headache. GI: Reports nausea, vomiting. 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 - Infectious Disease History:: Denies. - Social history:: Smoking status: Patient denies any tobacco usage or history of. Screenin:15 [facility] ED Fall Risk Assessment (Adult) History of falling in the last 3 months, kj2 including since admission No falls in past 3 months (0 pts) Confusion or Disorientation No (0 pts) Intoxicated or Sedated No (0 pts) Impaired Gait No (0 pts) Mobility Assist Device Used No (0 pt) Altered Elimination No (0 pt) Score/Fall Risk Level 0 - 2 = Low Risk Maintained a safe environment, Hourly rounding (assess needs \T\ fall precautionary measures) done. Nutritional screening: No deficits noted. Tuberculosis screening: No symptoms or risk factors identified. 15:12 Abuse screen: Denies threats or abuse. Denies injuries from another. kj2 Assessment: 14:15 General: Appears in no apparent distress. Behavior is calm, cooperative. Pain: kj2 Complains of pain in face and left restorationist Pain currently is 7 out of 10 on a pain scale. Neuro: Level of Consciousness is awake, alert, obeys commands, Oriented to person, place, time, situation. Cardiovascular: Patient's skin is warm and dry. Respiratory: Airway is patent Respiratory effort is even, unlabored. GI: No signs and/or symptoms were reported involving the gastrointestinal system. : No signs and/or symptoms were reported regarding the genitourinary system. 14:46 Reassessment: Patient appears in no apparent distress at this time. Patient and/or kj2 family updated on plan of care and expected duration. Pain level reassessed. Patient is alert, oriented x 3, equal unlabored respirations, skin warm/dry/pink. Vital Signs: 13:37 BP 132 / 86; Pulse 86; Resp 16; Temp 98.1; Pulse Ox 98% ; Pain 5/10; dd2 15:14 BP 128 / 82; Pulse 80; Resp 18; Temp 98; Pulse Ox 100% on R/A; kj2 13:37 Pain Scale: Adult dd2 ED Course: 13:28 Patient arrived in ED. mr 13:29 Allan Sousa DO is Attending Physician. ms3 13:39 Triage completed. dd2 13:39 Arm band placed on right wrist. dd2 14:05 Diandra Phillips, [place] is Primary Nurse. kj2 14:15 Patient has correct armband on for positive identification. Bed in low position. Call kj2 light in reach. Provided Education on: call light. 14:15 No provider procedures requiring assistance completed. kj2 14:34 Inserted saline lock: 20 gauge in right antecubital area, using aseptic technique. kj2 Blood collected. Flushed with 10 mL NS. 14:55 Ramón Tran DO is Referral Physician. ms3 15:14 IV discontinued, intact, bleeding controlled, No redness/swelling at site. Pressure kj2 dressing applied. Administered Medications: 14:45 Drug: metoCLOPramide IVP 10 mg IVP once; over 1 to 2 minutes Route: IVP; Site: right kj2 antecubital; 15:14 Follow up: Response: No adverse reaction kj2 14:45 Drug: diphenhydrAMINE IVP 12.5 mg IVP once Route: IVP; Site: right antecubital; kj2 15:14 Follow up: Response: No adverse reaction kj2 14:45 Drug: NS 0.9% IV 1000 ml IV at 1 bolus Per protocol; to be given as a bolus over 60 kj2 minutes Route: IV; Rate: 1 bolus; Site: right antecubital; 15:14 Follow up: IV Status: Order to discontinue infusion; IV Intake: 500ml kj2 Medication: 15:13 VIS not applicable for this client. kj2 Intake: 15:14 IV: 500ml; Total: 500ml. kj2 Outcome: 14:56 Discharge ordered by . ms3 15:13 Discharged to home ambulatory, kj2 15:13 Condition: stable 15:13 Discharge instructions given to Instructed on discharge instructions, follow up and referral plans. Demonstrated understanding of instructions, follow-up care, 15:14 Patient left the ED. bd Signatures: Danae Orr Mary, Jeronimo Reg SousaAllan DO DO ms3 Diandra Phillips, RN RN kj2 YAIR DONOAVN RN RN dd2
--- NOTE | 2025-02-12 14:57 | EDPHYS ---
Physician Documentation [facility] Name: Renetta Ellison Age: 29 yrs Sex: Female : 1995 Arrival Date: 02/12/2025 Time: 13:25 Bed 20 Private MD: ED Physician Allan Sousa HPI: 02/12 13:50 This 29 yrs old Female presents to ER via Ambulatory with complaints of ms3 Headache, Nausea/Vomiting. 13:50 29-year-old female with no past medical history presents to the emergency department ms3 for headache that has been ongoing for 3 days. Patient states her discomfort a 5/10 located in the left restorationism. Patient states over the last 2 days her headache was worse than it has been today. Patient states she has had similar headaches like this in the past. Patient denies fevers, chills, neck stiffness. Patient states she took Tylenol with mild relief of her symptoms.. 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 - Infectious Disease History:: Denies. - Social history:: Smoking status: Patient denies any tobacco usage or history of. ROS: 13:50 Constitutional: Negative for fever, and chills. Cardiovascular: Negative for chest ms3 pain, and palpitations. Respiratory: Negative for shortness of breath, cough, wheezing, and pleuritic chest pain, MS/Extremity: Negative for injury and deformity, Skin: Negative for injury, rash, and discoloration, 13:50 Abdomen/GI: Positive for nausea and vomiting, 13:50 Neuro: Positive for headache, Exam: 13:50 Constitutional: This is a well developed, well nourished patient who is awake, alert, ms3 and in no acute distress. Cardiovascular: Regular rate and rhythm with a normal S1 and S2. No gallops, murmurs, or rubs. Normal PMI, no JVD. No pulse deficits. Respiratory: Lungs have equal breath sounds bilaterally, clear to auscultation and percussion. No rales, rhonchi or wheezes noted. No increased work of breathing, no retractions or nasal flaring. Abdomen/GI: Soft, non-tender, with normal bowel sounds. No distension or tympany. No guarding or rebound. No evidence of tenderness throughout. Skin: Warm, dry with normal turgor. Normal color with no rashes, no lesions, and no evidence of cellulitis. MS/ Extremity: Pulses equal, no cyanosis. Neurovascular intact. Full, normal range of motion. 13:50 Neuro: Orientation: to person, place, time \T\ situation. Mentation: is normal, Memory: is normal, Cranial nerves: CN I not tested, CN II- XII are normal as tested, Cerebellar function: is grossly normal, Motor: is normal, Sensation: is normal, no obvious gross deficits, Gait: is steady, at a normal pace, Vital Signs: 13:37 BP 132 / 86; Pulse 86; Resp 16; Temp 98.1; Pulse Ox 98% ; Pain 5/10; dd2 15:14 BP 128 / 82; Pulse 80; Resp 18; Temp 98; Pulse Ox 100% on R/A; kj2 13:37 Pain Scale: Adult dd2 MDM: 13:34 Medical Screening Exam initiated ms3 16:07 Differential diagnosis: cluster headache, tension headache, vasomotor headache. Data ms3 reviewed: vital signs, nurses notes, and as a result, I will discharge patient. I considered the following discharge prescriptions or medication management in the emergency department Medications were administered in the Emergency Department. See MAR. Counseling: I had a detailed discussion with the patient and/or guardian regarding the historical points, exam findings, and any diagnostic results supporting the discharge/admit diagnosis, the need for outpatient follow up, to return to the emergency department if symptoms worsen or persist or if there are any questions or concerns that arise at home. Special discussion: I discussed with the patient/guardian in detail that at this point there is no indication for admission to the hospital. It is understood, however, that if the symptoms persist or worsen the patient needs to return immediately for re-evaluation. ED course: Discussed physical exam findings with patient. On reevaluation patient symptoms have resolved, patient is alert and oriented x 4, no apparent distress, nontoxic-appearing, speaking full sentences, ambulatory in emergency department. Patient to follow-up in 2 to 3 days as directed. All questions were answered. Return precautions discussed include worsening symptoms, vomiting, numbness, or any other concerns. Administered Medications: 14:45 Drug: metoCLOPramide IVP 10 mg IVP once; over 1 to 2 minutes Route: IVP; Site: right kj2 antecubital; 15:14 Follow up: Response: No adverse reaction kj2 14:45 Drug: diphenhydrAMINE IVP 12.5 mg IVP once Route: IVP; Site: right antecubital; kj2 15:14 Follow up: Response: No adverse reaction kj2 14:45 Drug: NS 0.9% IV 1000 ml IV at 1 bolus Per protocol; to be given as a bolus over 60 kj2 minutes Route: IV; Rate: 1 bolus; Site: right antecubital; 15:14 Follow up: IV Status: Order to discontinue infusion; IV Intake: 500ml kj2 Disposition Summary: 02/12/25 14:56 Discharge Ordered Notes: Location: Home ms3 Condition: Stable ms3 Diagnosis - Headache ms3 Followup: ms3 - With: Ramón Tran DO - When: 2 - 3 days - Reason: Recheck today's complaints Discharge Instructions: - Discharge Summary Sheet ms3 - General Headache Without Cause ms3 Forms: - Work release form hb - Medication Reconciliation Form ms3 - Antibiotic Education ms3 - Prescription Opioid Use ms3 - Patient Portal Instructions ms3 - Leadership Thank You Letter ms3 Signatures: Allan Sousa DO DO ms3 Diandra Phillips, RN RN kj2 YAIR DONOVAN RN RN dd2
[2025-02-12 15:29] VITALS: BP 132/86; TEMP 98.1; O2SAT 98
== END 2025-02-12 15:14 | disposition home or self-care (01) ==
LOC: ER 13:25
DX: R51.9 Headache, unspecified (principal)
CPT/HCPCS: 96374; 96375; 99284; J1200; J2765; J7030

== ENCOUNTER 2025-04-03 14:51 | Emergency (ER) | payer SELFPAY ==
--- OUTSIDE RECORDS SUMMARY | 2025-04-03 14:53 | XMS REPORT | Continuity of Care Document ---
Author Name Unknown Address [address] [facility] [place] [address] Organization [facility] [place] Address [address] [facility] [address] [place] [address] Care Team Providers Care Coning Machine Operator Name Role Phone Pcp, Patient Does Not Have A Primary Care Physic philip Doctor Unassigned, [place] Attending Clinician U GEMA Mohan Attending Clinician Unavailab Gema Parkinson DO Attending Clinician [phone] FIDEL HERNANDEZ Attending Clinician Unavailable Fidel Hernandez MD Attending Clinician [phone] Juanpablo EASON Attending Clinician Unavailable Juanpablo Toscano Attending Clinician [phone] Cisco Tobar Attending Clinician CISCO ARIAS Attending Clinician Unavailable FIDEL HERNANDEZ Admitting Clinician Unavailable Payers Payer Name Policy Type Policy Number Effective Date Expirati on Date Source Allergies, Adverse Reactions, Alerts Allergy Name Allergy Type Status Severity Reaction(s) Onset Date Inactive Date Treating Clinician Comments Source NO KNOWN ALLERGIE S Drug Class Active [facility] Social History Social Habit Start Date Stop Date Quantity Comments Source Gender identity [facility] Sexual orientation [facility] Sex assigned at 1995 00:00:00 1995 00:00:00 [facility] Smoking Status Start Date Stop Date Source Tobacco smoking consumption unknown [facility] Medications Ordered Medication Name Filled Medication Name Start Date Stop Date Current Medication? Ordering Clinician Indication Dosage Frequency Signature (SIG) Comments Components Source ondansetron (ZOFRAN-ODT ) disintegrat ing tablet 4 mg 08-18 02:45: 00 08-18 01:42 :00 No 4mg 4 mg, Oral, ONCE, 1 dose, On Noelle 08/17/23 at 2044, Routine [facility] ondansetron 4 mg disintegrat ing tablet 08-17 00:00: 00 Yes [id number] 4mg Take 1 tablet by mouth every 8 (eight) hours as needed for Nausea and Vomiting (N/V). [facility] Vital Signs Vital Name Observation Time Observation Value Comments S ource Heart rate 2023-10-07 16:51:00 87 /min [facility] Body temperature 2023-10-07 16:51:00 37.28 Xena [facility] Respiratory rate 2023-10-07 16:51:00 18 /min [facility] Body height 2023-10-07 16:51:00 152.4 cm [facility] Body weight 2023-10-07 16:51:00 85.276 kg [facility] BMI 2023-10-07 16:51:00 36.72 kg/m2 [facility] Oxygen saturation in Arterial blood by Pulse oximetry 2023-10-07 16:51:00 100 /min [facility] Systolic blood pressure 2023-10-06 17:37:00 135 mm[Hg] [facility] Diastolic blood pressure 2023-10-06 17:37:00 79 mm[Hg] [facility] Heart rate 2023-10-06 17:37:00 79 /min [facility] Body temperature 2023-10-06 17:37:00 37 Xena [facility] Respiratory rate 2023-10-06 17:37:00 18 /min [facility] Body height 2023-10-06 17:37:00 152.4 cm [facility] Body weight 2023-10-06 17:37:00 85.367 kg [facility] BMI 2023-10-06 17:37:00 36.76 kg/m2 [facility] Oxygen saturation in Arterial blood by Pulse oximetry 2023-10-06 17:37:00 97 /min [facility] Systolic blood pressure 2023-08-18 00:45:00 126 mm[Hg] [facility] Diastolic blood pressure 2023-08-18 00:45:00 79 mm[Hg] [facility] Heart rate 2023-08-18 00:43:00 83 /min [facility] Body temperature 2023-08-18 00:43:00 36.94 Xena [facility] Respiratory rate 2023-08-18 00:43:00 20 /min [facility] Body weight 2023-08-18 00:43:00 83.915 kg [facility] BMI 2023-08-18 00:43:00 36.13 kg/m2 [facility] Oxygen saturation in Arterial blood by Pulse oximetry 2023-08-18 00:43:00 98 /min [facility] Systolic blood pressure 2023-03-01 01:26:00 142 mm[Hg] [facility] Diastolic blood pressure 2023-03-01 01:26:00 84 mm[Hg] [facility] Heart rate 2023-03-01 01:26:00 80 /min [facility] Respiratory rate 2023-03-01 01:26:00 19 /min [facility] Oxygen saturation in Arterial blood by Pulse oximetry 2023-03-01 01:26:00 98 /min [facility] Body temperature 2023-03-01 00:35:00 37.39 Xena [facility] Body height 2023-03-01 00:35:00 152.4 cm [facility] Body weight 2023-03-01 00:35:00 83.462 kg [facility] BMI 2023-03-01 00:35:00 35.94 kg/m2 [facility] Procedures Procedure Date / Time Performed Performing Clinician Source TOTAL BETA HCG ASSAY 2023-10-07 16:59:00 Jose Cobos [facility] HB ABO GROUPING 2023-10-07 16:59:00 Gema Cobos [facility] BASIC METABOLIC PANEL (NA, K, CL, CO2, GLUCOSE, BUN, CREATININE, CA) 2023-10-06 18:11:00 Fidel Hernandez [facility] TOTAL BETA HCG ASSAY 2023-10-06 18:11:00 Fidel Hernandez [facility] CBC WITH DIFF 2023-10-06 18:11:00 [facility]IS 2023-10-06 18:11:00 [facility] 2023-10-06 18:10:00 Fidel Hernandez [facility] CONSENT/REFUSAL FOR DIAGNOSIS AND TREATMENT 2023-08-18 00:38:55 Doctor Unassigned, [place] [facility] ASSIGNMENT OF BENEFITS 2023-03-01 01:11:00 Docto r Unassigned, [place] [facility] RAPID INFLUENZA A/B 2023-03-01 00:47:00 Cisco Arias [facility] COVID-19 (ID NOW RAPID TESTING) 2023-03-01 00:47:00 Cisco Arias [facility] NOTICE OF PRIVACY PRACTICES 2023-03-01 00:31:09 Doctor Unassigned, [place] [facility] CONSENT/REFUSAL FOR DIAGNOSIS AND TREATMENT 2023-03-01 00:30:43 Doctor Unassigned, [place] [facility] US PELVIS COMPLETE WITH TRANSVAGINAL 2017-11-09 05:12:00 Frederick Delaney [facility] Encounters Start Date/Time End Date/Time Encounter Type Admission Type Attending Clinicians Care Facility Care Department Encounter ID Source 2017-11-09 00:00:00 2024-08-17 03:19:13 Orders Only Doctor Unassigned, [place] Doctor Unassigned, [place] [facility] [id number] [facility] 2023-10-07 11:53:00 2023-10-07 13:05:00 Emergency X GEMA COBOS [facility] ERT [id number] [facility] 2023-10-07 11:53:00 2023-10-07 13:05:00 Emergency Gema Cobos [facility] [id number] [id number] [facility] 2023-10-06 12:38:00 2023-10-06 16:16:00 Emergency X FIDEL HERNANDEZ [facility] ERT [id number] [facility] 2023-10-06 12:38:00 2023-10-06 16:16:00 Emergency Fidel Hernandez [facility] [id number] [id number] [id number] [id number] [facility] 2023-08-17 18:46:00 2023-08-17 19:55:00 Emergency X Juanpablo EASON [facility] ERT [id number] [facility] 2023-08-17 18:46:00 2023-08-17 19:55:00 Emergency Juanpablo Eason [facility] [id number] [id number] [facility] 2023-02-28 19:45:00 2023-02-28 20:33:00 Emergency Cisco Arias [facility] [id number] [id number] [id number] [facility] 2023-02-28 19:45:00 2023-02-28 20:33:00 Emergency X CISCO ARIAS [facility] ERT [id number] [facility] Results Test Description Test Time Test Comments Results Result Co mments Source [facility] Screen - ONCE [id number] 17:17:00* Test Item Value Reference Range Interpretation Comme nts ABO & RH (test code = 20) A POSITIVE IAT (test code = 1185) Negative [facility] BHCG (QUANTITATIVE)2023-10-06 19:21:27* Test Item Value Reference Range Interpretation Comme nts BETA HCG (test code = 0456583308) 700.81 See_Comment [Automated messa ge] The system which generated this result transmitted reference range: Non- female and male patients: <5 mIU/mL. The reference range was not used to interpret this result as normal/abnormal. DAVE (test code = DAVE) Gestational Age ?Range (mIU/mL) 1-10 ?Weeks ?[id number] Weeks ?39732-12808110-50 Weeks ?9412-69213299-21 Weeks ?9880-347375 Biotin has been reported to cause a negative bias, interpret results relative to patient's use of biotin. [facility] (NA, K, CL, CO2, GLUCOSE, BUN, CREATININE, CA)2023-10-06 18:55:41* Test Item Value Reference Range Interpretation Comme nts NA (test code = 6007443884) 137 mmol/L 135-145 K (test code = 0992999358) 4.4 mmol/L 3.5-5.0 CL (test code = 1469266122) 107 mmol/L 98-108 CO2 TOTAL (test code = 8205340985) 22 mmol/L 23-31 L AGAP (test code = 4644705387) 8 2-16 BUN (test code = 3792744564) 11 mg/dL 7-23 GLUCOSE (test code = 3298759732) 92 mg/dL 70-110 CREATININE (test code = 2160-0) 0.75 mg/dL 0.50-1.04 CALCIUM (test code = 1735715960) 9.2 mg/dL 8.6-10.6 eGFR (test code = 89651-0) 112.8 mL/min/1.73m2 CKD-EPI eGFR (2020). Assuming creatinine has been stable day-to-day for at least three months, the eGFR indicates Category G1 (>= 90 mL/min/1.73 m2) Lab Interpretation (test code = 62667-4) Abnormal [facility] with [id number] 18:46:58* Test Item Value Reference Range Interpretation [...] 33.8 g/dL 31.6-35.1 RDW-SD (test code = 06688-6) 42.7 fL 39.0-49.9 RDW-CV (test code = 788-0) 12.2 % 12.0-15.5 PLT (test code = 777-3) 198 166-358 MPV (test code = 56335-7) 11.3 fL 9.5-12.9 NRBC/100 WBC (test code = 3818080866) 0.0 0.0-10.0 NRBC x10^3 (test code = 1388395623) See_Comment [Automated messa ge] The system which generated this result transmitted reference range: 10*3/?L. The reference range was not used to interpret this result as normal/abnormal. GRAN MAT (NEUT) % (test code = 770-8) 71.7 % IMM GRAN % (test code = 4374574325) 0.40 % LYMPH % (test code = 736-9) 20.9 % MONO % (test code = 5905-5) 5.5 % EOS % (test code = 713-8) 1.0 % BASO % (test code = 706-2) 0.5 % GRAN MAT x10^3(ANC) (test code = 5557360030) 7.99 10*3/uL 1.88-7.09 H IMM GRAN x10^3 (test code = 6572220124) 0.05 10*3/uL 0.00-0.06 LYMPH x10^3 (test code = 731-0) 2.33 10*3/uL 1.32-3.29 MONO x10^3 (test code = 742-7) 0.61 10*3/uL 0.33-0.92 EOS x10^3 (test code = 711-2) 0.11 10*3/uL 0.03-0.39 BASO x10^3 (test code = 704-7) 0.06 10*3/uL 0.01-0.07 Lab Interpretation (test code = 47452-2) Abnormal [facility] [id number] 18:10:00* Test Item Value Reference Range Interpretation Comme nts POCT PREG (test code = 1605) Positive On board controls acceptable with C Line (test code = 3574) Yes POCT PREG LOT # (test code = 3575) [id number] POCT PREG TEST DATE ( test code = 3576) 10-08-2024 Lab Interpretation (test cod e = 32169-6) Normal [facility] PELVIS COMPLETE WITH [id number] 13:11:00 *.*.*.*.*.*.*.*.*.*.*.*.*.*FINAL*.*.*.*.*.*.*.*.*.*.*.*.*.*.*TRANSABDOMINAL AND TRANSVAGINAL PELVICULTRASOUND HISTORY: Pain [...] by: NEEMA WOODS MD /Signed/ NE[facility] WOODS MD[facility] Notes Date/Time Note Provider Source 2023-10-07 13:03:20 Patient given discharge instructions on miscarriage. No prescriptions given. Pt advised to follow up with client support associate, cell phone repair technician. Pt left ER ambulatory, no signs of distress. Catherine Robb RN [facility] 2023-10-07 11:51:37 Here yesterday for spotting. Here today for same thing. Had "something that looked like a piece of meat come out". Radha Saldaña RN [facility] 2023-10-07 11:46:00 [facility] Emergency Department Note Patient Name: Temi Ellison Date of : 1995 28 year old female Treatment Room: [place] [address]/[id number] Primary Care Physician: PATIENT DOES NOT HAVE [...] had a miscarriage. Will need f/u with medical instrument technician in one week. Can use nsaids for discomfort and pads for bleeding. Ok for dc home with medical instrument technician f/u Problems Addressed: Miscarriage: acute illness or [...] signed by: Gema Cobos DO 10/07/23 1253 [facility] 2023-10-06 16:05:00 Pt given printed and verbal [...] in no apparent distress. Cyndie Greer RN [facility] 2023-10-06 12:35:25 Patient arrived ambulatory c/o og spotting with blood clots. Patient found out she was last Monday , seen at health clinic yesterday. . Only sees the blood when urinating and wiping. Sandra Ruiz RN [facility] 2023-10-06 12:29:00 [facility] Emergency Department Note Demographics Patient Name: Temi Ellison Date of : 1995 28 year old Treatment [facility] Primary Care Physician: PATIENT DOES NOT HAVE A PCP Pre Hospital Care Patient Escorted by: Self [9] Mode of Arrival: Personal means [1] EMS Treatment Prior to ED Arrival: SECURITY SUPERVISOR treatment: None ED Events Date/Time Event User [...] was performed including color Doppler evaluation with passenger relations representative images obtained. M-mode Doppler was used [...] obvious discrepancies. Fidel Hernandez MD, FACEP, FAAEM Animal Humane Agent Supervisor of Emergency and Internal Medicine [facility], [facility] #[id number] Fidel Hernandez MD 10/06/23 1618 [facility] 2023-08-17 19:44:32 Pt given printed [...] with steady gait, in no apparent distress. NT RELATIONSHIP EXECUTIVE Karis Cobos RN [facility] 2023-08-17 18:42:28 Patient reports abdominal pain with diarrhea for about a week and got sent home today for also having nausea and vomiting. No hx of abd surgeries. LBM was 16:00 diarrhea. No meds SECURITY SUPERVISOR. Has not been seen for this illness. NT RELATIONSHIP EXECUTIVE Max Mora RN [facility] 2023-02-28 20:32:30 Formatting of this n ote [...] noted. Accompanied by sister. Lawanda Wang RN [facility] 2023-02-28 19:35:00 Formatting of this n ote might be different from the original. Patient came in with complaints of sore throat, congestion, upset stomach and diarrhea 5x today. Cyndie Greer RN [facility]
[2025-04-03 16:03] LABS: Influenza A Ag Negative; Influenza B Ag Negative; SARS-CoV-2 Antigen Rapid Res Negative (Negative)
--- NOTE | 2025-04-03 17:05 | EDPHYS ---
Physician Documentation [facility] Name: Renetta Ellison Age: 30 yrs Sex: Female : 1995 Arrival Date: 04/03/2025 Time: 14:51 Bed IW3 Private MD: ED Physician Steven Gee HPI: 04/03 15:27 This 30 yrs old Female presents to ER via Ambulatory with complaints of Flu dr5 Symptoms. 15:27 Onset: The symptoms/episode began/occurred 2 day(s) ago. Patient is a 30-year-old dr5 female with no past medical history coming in with flulike symptoms that started 2 days ago. Patient reports that she wants to get tested as her grandmother tested positive for COVID recently and she had recent exposure. Patient reports that her symptoms are improving since Monday.. 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 - Infectious Disease History:: Denies. - Social history:: Smoking status: Patient denies any tobacco usage or history of. ROS: 15:27 Constitutional: as per hpi dr5 Exam: 15:27 Constitutional: This is a well developed, well nourished patient who is awake, alert, dr5 and in no acute distress. Head/Face: Normocephalic, atraumatic. Eyes: Pupils equal round and reactive to light, extra-ocular motions intact. Lids and lashes normal. Conjunctiva and sclera are non-icteric and not injected. Cornea within normal limits. Periorbital areas with no swelling, redness, or edema. Neck: Trachea midline, no thyromegaly or masses palpated, and no cervical lymphadenopathy. Supple, full range of motion without nuchal rigidity, or vertebral point tenderness. No Meningismus. Chest/axilla: Normal chest wall appearance and motion. Nontender with no deformity. No lesions are appreciated. Cardiovascular: Regular rate and rhythm with a normal S1 and S2. Normal PMI, no JVD. No pulse deficits. Respiratory: Lungs have equal breath sounds bilaterally, clear to auscultation. No rales, rhonchi or wheezes noted. No increased work of breathing, no retractions or nasal flaring. Back: No spinal tenderness. No costovertebral tenderness. Full range of motion. Skin: Warm, dry with normal turgor. Normal color with no rashes, no lesions, and no evidence of cellulitis. MS/ Extremity: Pulses equal, no cyanosis. Neurovascular intact. Full, normal range of motion. Neuro: Awake and alert, GCS 15, oriented to person, place, time, and situation. Cranial nerves II-XII grossly intact. Motor strength 5/5 in all extremities. Sensory grossly intact. Cerebellar exam normal. Normal gait. Vital Signs: 15:05 BP 119 / 68; Pulse 79; Resp 16; Temp 97.9; Pulse Ox 100% on R/A; Weight 85.28 kg; dd2 Height 5 ft. 0 in. ; Pain 0/10; 17:06 BP 123 / 72; Pulse 76; Resp 16; Pulse Ox 100% ; dd2 15:05 Body Mass Index 36.72 (85.28 kg, 152.4 cm) dd2 15:05 Pain Scale: Adult dd2 MDM: 15:03 Medical Screening Exam initiated dr5 18:47 Differential diagnosis: viral Infection, bacterial infection, COVID, flu. Data dr5 reviewed: vital signs, nurses notes, lab test result(s), Flu: negative COVID-19 negative. Consideration of Admission/Observation Escalation of care including admission/observation considered. Escalation considered patient found to have COVID-19 requiring supplemental oxygen. I considered the following discharge prescriptions or medication management in the emergency department I discussed and recommended Over The Counter medications, Medications were administered in the Emergency Department. See MAR. Care significantly affected by the following Social Determinants of Health: Poor access to healthcare and/or lack of insurance, Poor access to transportation, Problems related to employment. Counseling: I had a detailed discussion with the patient and/or guardian regarding the historical points, exam findings, and any diagnostic results supporting the discharge/admit diagnosis, the presence of at least one elevated blood pressure reading (>120/80) during this emergency department visit, lab results, the need for outpatient follow up, for definitive care, a family practitioner, to return to the emergency department if symptoms worsen or persist or if there are any questions or concerns that arise at home. Special discussion: I discussed with the patient/guardian in detail that at this point there is no indication for admission to the hospital. It is understood, however, that if the symptoms persist or worsen the patient needs to return immediately for re-evaluation. Based on the history and exam findings, there is no indication for further emergent testing or inpatient evaluation. I discussed with the patient/guardian the need to see the primary care provider for further evaluation of the symptoms. ED course: Labs printed and work note given for her to take to her job. Recommend increase hydration. Alternate Tylenol and Motrin as needed for pain and fever. All question answered. Strict ER precautions given.. 04/03 15:11 Order name: COVID-19 Ag + Flu A+B Ag; Complete Time: 16:04 dd2 Administered Medications: No medications were administered Disposition: 18:41 Co-signature as Attending Physician, Steven Gee MD I reviewed the patient's care rn provided by the Advanced Practice Provider and agree with the diagnosis and treatment plan. Disposition Summary: 04/03/25 17:04 Discharge Ordered Notes: Location: Home dr5 Condition: Stable dr5 Diagnosis - Cough dr5 - Acute upper respiratory infection, unspecified dr5 Followup: dr5 - With: Emergency Department - When: As needed - Reason: Worsening of condition Followup: dr5 - With: Private Physician - When: 1 - 2 days - Reason: Recheck today's complaints, Continuance of care, Re-evaluation by your physician Discharge Instructions: - Discharge Summary Sheet dr5 - Upper Respiratory Infection, Adult dr5 Forms: - Work release form dr5 - Medication Reconciliation Form dr5 - Patient Portal Instructions dr5 - Leadership Thank You Letter dr5 Prescriptions: - Zofran 4 mg Oral Tablet - take 1 tablet ORAL route every 12 hours As needed; 20 tablet; Refills: 0, dr5 Product Selection Permitted Signatures: Dispatcher [employer] EDMS Steven Gee MD MD rn DAVIS, DIANA, RN RN dd2 German Caban FNP-C FNP-Cdr5
--- NOTE | 2025-04-03 17:05 | ER ---
Nurse's Notes [facility] Name: Renetta Ellison Age: 30 yrs Sex: Female : 1995 Arrival Date: 04/03/2025 Time: 14:51 Bed IW3 Private MD: Diagnosis: Cough;Acute upper respiratory infection, unspecified Presentation: 04/03 15:02 Chief complaint: Patient states: MONDAY BEGAN HAVING BODY ACHES, VOMITING, DIARRHEA dd2 AND COLD SWEATS. PT DENIES STOMACH PAIN. REPORTS FEELING BETTER, NO VOMITING NOW, MINIMAL DIARRHEA. GRANDMOTHER TESTED POSITIVE FOR COVID. Coronavirus screen: chills, diarrhea, nausea, vomiting. Ebola Screen: No symptoms or risks identified at this time. Risk Assessment: Do you want to hurt yourself or someone else? Patient reports no desire to harm self or others. Onset of symptoms was April 01, 2025. 15:02 Method Of Arrival: Ambulatory dd2 15:02 Acuity: LETITIA 4 dd2 15:05 Initial Sepsis Screen: Does the patient meet any 2 criteria? No. Patient's initial dd2 sepsis screen is negative. Does the patient have a suspected source of infection? No. Patient's initial sepsis screen is negative. Triage Assessment: 15:05 General: Appears in no apparent distress. Behavior is calm, cooperative, appropriate dd2 for age. Pain: Denies pain. GI: Reports diarrhea, nausea, Patient currently denies vomiting, TODAY. 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 - Infectious Disease History:: Denies. - Social history:: Smoking status: Patient denies any tobacco usage or history of. Screenin:06 [facility] ED Fall Risk Assessment (Adult) History of falling in the last 3 months, dd2 including since admission No falls in past 3 months (0 pts) Confusion or Disorientation No (0 pts) Intoxicated or Sedated No (0 pts) Impaired Gait No (0 pts) Mobility Assist Device Used No (0 pt) Altered Elimination No (0 pt) Score/Fall Risk Level 0 - 2 = Low Risk Oriented to surroundings, Maintained a safe environment, Educated pt \T\ family on fall prevention, incl call for assistance when getting out of bed, Assessed \T\ reinforced patient's understanding of fall precautions. Abuse screen: Denies threats or abuse. Denies injuries from another. Nutritional screening: No deficits noted. Tuberculosis screening: No symptoms or risk factors identified. Assessment: 17:06 Reassessment: No changes from previously documented assessment. Patient is alert, dd2 oriented x 3, equal unlabored respirations, skin warm/dry/pink. General: Appears in no apparent distress. Behavior is calm, cooperative, appropriate for age. Neuro: No deficits noted. Cardiovascular: No deficits noted. Respiratory: No deficits noted. GI: Abdomen is non-distended, Bowel sounds present X 4 quads. Abd is soft and non tender X 4 quads. : No deficits noted. No signs and/or symptoms were reported regarding the genitourinary system. EENT: No deficits noted. No signs and/or symptoms were reported regarding the EENT system. Derm: No deficits noted. No signs and/or symptoms reported regarding the dermatologic system. Musculoskeletal: No deficits noted. No signs and/or symptoms reported regarding the musculoskeletal system. Circulation, motion, and sensation intact. Range of motion:. Vital Signs: 15:05 BP 119 / 68; Pulse 79; Resp 16; Temp 97.9; Pulse Ox 100% on R/A; Weight 85.28 kg; dd2 Height 5 ft. 0 in. ; Pain 0/10; 17:06 BP 123 / 72; Pulse 76; Resp 16; Pulse Ox 100% ; dd2 15:05 Body Mass Index 36.72 (85.28 kg, 152.4 cm) dd2 15:05 Pain Scale: Adult dd2 ED Course: 15:01 Patient arrived in ED. im 15:02 Roland Marie FNP-C [facility]. dr5 15:02 Steven Gee MD is Attending Physician. dr5 15:05 Triage completed. dd2 15:05 Arm band placed on right wrist. dd2 17:06 Patient has correct armband on for positive identification. Provided Education on: D/C dd2 EDUCATION PROVIDED BY ROLAND MARIE, AND. 17:06 No provider procedures requiring assistance completed. Patient did not have IV access dd2 during this emergency room visit. Administered Medications: No medications were administered Medication: 17:06 VIS not applicable for this client. dd2 Outcome: 17:04 Discharge ordered by . dr5 17:06 Discharged to home ambulatory, dd2 17:06 Condition: stable 17:06 Discharge instructions given to patient, Instructed on discharge instructions, follow up and referral plans. medication usage, Demonstrated understanding of instructions, follow-up care, medications, Prescriptions given X 1, 17:09 Patient left the ED. dd2 Signatures: Briseida Wilson DIANA, RN RN dd2 Roland Marie, FINISH MILL OPERATOR-C FINISH MILL OPERATOR-Cdr5
[2025-04-03 17:30] VITALS: BP 123/72; TEMP 97.9; O2SAT 100
== END 2025-04-03 17:09 | disposition home or self-care (01) ==
LOC: ER 14:51
DX: J06.9 Acute upper respiratory infection, unspecified (principal); Z11.52 Encounter for screening for COVID-19
CPT/HCPCS: 36415; 87428; 99283